=== PATIENT | male | born 1960 | race African-American/Black ===

== ENCOUNTER 2017-06-27 17:10 | Emergency (ER) | payer MEDICARE, MEDICAID ==
[~2017-06-27] VITALS: Ht 182.9 cm; Wt 128.0 kg
[~2017-06-27 17:10] MED LIST: BISA5TAB PO; CENTTAB9 PO; CLOP75 PO; COLL30OI3 TOP; DULC100C; GABA300 PO; LANTINJ SQ; LANTUSP SQ; LISI-366 PO; LORTA5 PO; MAPA325T6 PO; NOVORP2 SQ; NU-I150C PO; SIMV80TA PO; STOOTAB PO; TOPR25TA2 PO; VITA500T83 PO; [UNRECOGNIZED DRUG - CODE]
[2017-06-27 17:29] VITALS: BP 181/85; PULSE 73; RESP 18; TEMP 98.6; O2SAT 98
[2017-06-27] MEDS ORDERED: MORPHINE SULFATE 4 MG/ML INJ IV PUSH ONE (17:30)
[2017-06-27] MEDS ORDERED: ONDANSETRON HCL 4 MG/2 ML VIAL IV PUSH ONE (17:30)
[2017-06-27] MEDS ORDERED: SODIUM CHLOR 0.9% 250 ML INJ 250 ML IV ONE (17:30)
--- NOTE | 2017-06-27 17:42 | PD ---
HPI Chief Complaint: Laceration/Skin Injury Time Seen by Provider: 17:27 Travel History International Travel<30 days: No Contact w/Intl Traveler<30days: No Traveled to known affect area: No History of Present Illness HPI The patient is a 57-year-old male who presents to the emergency department for reevaluation of a left foot injury. The patient has a history of osteomyelitis and abscess to left foot and was recently admitted to [facility] where he underwent debridement of the wound and was placed on IV antibiotics via PICC line. The patient's budget consultant was Dr. Guajardo. The patient apparently had his wound reevaluated today and the nurse thought it looked worse, subsequent sent him to the emergency department. The patient was just discharged from for Hospital on Saturday and is currently on Cipro, minocycline, and Bactrim. The patient does have a history of peripheral last disease according to Dr. Guajardo was recommended he have a BKA, however, patient did not want a BKA. He denies any current fever, chills, or sweats. PFSH Past Medical History Hx Anticoagulant Therapy: Yes Arthritis: Yes Asthma: No Autoimmune Disease: No Blood Disorders: No Anxiety: No Depression: No Heart Rhythm Problems: No Cancer: No Cardiac Catheterization: Yes (2 STENTS) Cardiovascular Problems: Yes High Cholesterol: Yes Chemotherapy: No Chest Pain: Yes Congestive Heart Failure: Yes COPD: No Cerebrovascular Accident: Yes Coronary Artery Disease: Yes Diabetes: Yes Diminished Hearing: No Endocrine: Yes Gastrointestinal Disorders: Yes GERD: No Genitourinary: No Headaches: Yes Hiatal Hernia: No Hypertension: Yes Immune Disorder: No Implanted Vascular Access Dvce: Yes Kidney Stones: No Musculoskeletal: Yes Neurologic: Yes Psychiatric: No Reproductive: No Respiratory: Yes Migraines: No Myocardial Infarction: Yes (2007) Radiation Therapy: No Renal Failure: No Seizures: No Sickle Cell Disease: No Sleep Apnea: No Thyroid Disease: No Ulcer: No PNEUMOCCOCAL Vaccine (Year): 2 Past Surgical History Abdominal Surgery: No AICD: No Arteriovenous Shunt: No Body Medical Devices: PINS IN LEFT FOOT, CARDIAC STENT X2 Cardiac Surgery: Yes (CARDIAC STENT X2) Coronary Stent: Yes (X2) Ear Surgery: No Endocrine Surgery: No Eye Surgery: No Genitourinary Surgery: No Gynecologic Surgery: No Insulin Pump: No Joint Replacement: No Neurologic Surgery: No Oral Surgery: No Pacemaker: No Thoracic Surgery: No Other Surgery: Yes (CARDIAC CATH) Social History Alcohol Use: No Tobacco Use: No Substance Use: No Allergies-Medications (Allergen,Severity, Reaction): Coded Allergies: *MDRO Multi-Drug Resistant Organism (Verified Adverse Reaction, Unknown, ) MRSA (urine) 07/2015 Reported Meds & Prescriptions Reported Meds & Active Scripts Active Reported Humalog Inj (Insulin Human Lispro) 1,000 Unit/10 Ml Vial 5 Units SQ TIDAC Santyl Topical (Collagenase) 250 Unit/Gm Oint 1 Applic TOPICAL DAILY Lantus Inj (Insulin Glargine) 1,000 Unit/10 Ml Vial 10 Units SQ HS Minocycline (Minocycline HCl) 100 Mg Cap 100 Mg PO ONCE Cipro Inj (Ciprofloxacin/Dextrose) 400 Mg/200 Ml Bag 400 Mg IV Q12H Bactrim DS (Sulfamethoxazole-Trimethoprim) 800-160 Mg Tab 1 Tab PO BID Neurontin (Gabapentin) 300 Mg Cap 300 Mg PO BID Aspirin 81 Mg Chew 81 Mg CHEW DAILY Hydrocodone-Acetaminophen 10-300 Tab 1 Tab PO Q6H PRN Ascorbic Acid 500 Mg Tab 500 Mg PO Simvastatin 10 Mg Tab 10 Mg PO DAILY Review of Systems Except as stated in HPI: all other systems reviewed are Neg General / Constitutional: No: Fever, Chills Cardiovascular: No: Chest Pain or Discomfort Respiratory: No: Shortness of Breath Gastrointestinal: No: Nausea, Vomiting, Abdominal Pain Musculoskeletal: Positive: Edema, Pain Physical Exam Narrative GENERAL: Awake, alert, 57-year-old Candice male who appears his stated age and is in no acute respiratory distress. SKIN: Focused skin assessment warm/dry. HEAD: Atraumatic. Normocephalic. EYES: No injection or drainage. ENT: No nasal bleeding or discharge. Mucous membranes pink and moist. NECK: Trachea midline. No JVD. CARDIOVASCULAR: Regular rate and rhythm. No murmur appreciated. Heart rate in the 70s. RESPIRATORY: No accessory muscle use. Clear to auscultation. Breath sounds equal bilaterally. GASTROINTESTINAL: Abdomen soft, non-tender, nondistended. No rebound tenderness. MUSCULOSKELETAL: Right lower extremity reveals a superficial wound on the plantar surface of the right foot with no tenderness or drainage. Inspection of the left foot reveals large open area over the lateral aspect with wound packing in place. Wet-to-dry gauze were removed, there is well vitalized tissue which is bleeding from the wound, minimal drainage noted on the gauze. Chronic gangrenous changes noted to the fifth toe. NEUROLOGICAL: Awake and alert. No obvious cranial nerve deficits. Motor grossly within normal limits. Normal speech. Alert and oriented 4. PSYCHIATRIC: Appropriate mood and affect; insight and judgment normal. Data Data Last Documented VS Vital Signs Date Time Temp Pulse Resp B/P (MAP) Pulse Ox O2 Delivery O2 Flow Rate FiO2 06/27/17 17:29 98.6 73 18 181/85 (117) 98 Orders Orders Complete Blood Count With Diff (06/27/17 17:30) Comprehensive Metabolic Panel (06/27/17 17:30) Lactic Acid (06/27/17 17:30) Blood Culture (06/27/17 17:30) Morphine Inj (Morphine Inj) (06/27/17 17:30) Ondansetron Inj (Zofran Inj) (06/27/17 17:30) Sodium Chlor 0.9% 250 Ml Inj (Ns 250 Ml (06/27/17 17:30) Labs Laboratory Tests Test 06/27/17 17:35 White Blood Count 11.1 TH/MM3 Red Blood Count 3.61 MIL/MM3 Hemoglobin 9.6 GM/DL Hematocrit 29.4 % Mean Corpuscular Volume 81.3 FL Mean Corpuscular Hemoglobin 26.5 PG Mean Corpuscular Hemoglobin Concent 32.6 % Red Cell Distribution Width 18.1 % Platelet Count 308 TH/MM3 Mean Platelet Volume 8.6 FL Neutrophils (%) (Auto) 72.0 % Lymphocytes (%) (Auto) 15.7 % Monocytes (%) (Auto) 7.9 % Eosinophils (%) (Auto) 4.0 % Basophils (%) (Auto) 0.4 % Neutrophils # (Auto) 8.0 TH/MM3 Lymphocytes # (Auto) 1.7 TH/MM3 Monocytes # (Auto) 0.9 TH/MM3 Eosinophils # (Auto) 0.4 TH/MM3 Basophils # (Auto) 0.0 TH/MM3 CBC Comment DIFF FINAL Differential Comment Blood Urea Nitrogen 21 MG/DL Creatinine 1.44 MG/DL Random Glucose 90 MG/DL Total Protein 7.6 GM/DL Albumin 1.9 GM/DL Calcium Level 7.9 MG/DL Alkaline Phosphatase 154 U/L Aspartate Amino Transf (AST/SGOT) 32 U/L Alanine Aminotransferase (ALT/SGPT) 35 U/L Total Bilirubin 0.2 MG/DL Sodium Level 134 MEQ/L Potassium Level 5.4 MEQ/L Chloride Level 104 MEQ/L Carbon Dioxide Level 22.8 MEQ/L Anion Gap 7 MEQ/L Estimat Glomerular Filtration Rate 61 ML/MIN Lactic Acid Level 0.7 mmol/L [facility] Medical Decision Making Medical Screen Exam Complete: Yes Emergency Medical Condition: Yes Medical Record Reviewed: Yes Interpretation(s) Laboratory Tests Test 06/27/17 17:35 White Blood Count 11.1 TH/MM3 Red Blood Count 3.61 MIL/MM3 Hemoglobin 9.6 GM/DL Hematocrit 29.4 % Mean Corpuscular Volume 81.3 FL Mean Corpuscular Hemoglobin 26.5 PG Mean Corpuscular Hemoglobin Concent 32.6 % Red Cell Distribution Width 18.1 % Platelet Count 308 TH/MM3 Mean Platelet Volume 8.6 FL Neutrophils (%) (Auto) 72.0 % Lymphocytes (%) (Auto) 15.7 % Monocytes (%) (Auto) 7.9 % Eosinophils (%) (Auto) 4.0 % Basophils (%) (Auto) 0.4 % Neutrophils # (Auto) 8.0 TH/MM3 Lymphocytes # (Auto) 1.7 TH/MM3 Monocytes # (Auto) 0.9 TH/MM3 Eosinophils # (Auto) 0.4 TH/MM3 Basophils # (Auto) 0.0 TH/MM3 CBC Comment DIFF FINAL Differential Comment Blood Urea Nitrogen 21 MG/DL Creatinine 1.44 MG/DL Random Glucose 90 MG/DL Total Protein 7.6 GM/DL Albumin 1.9 GM/DL Calcium Level 7.9 MG/DL Alkaline Phosphatase 154 U/L Aspartate Amino Transf (AST/SGOT) 32 U/L Alanine Aminotransferase (ALT/SGPT) 35 U/L Total Bilirubin 0.2 MG/DL Sodium Level 134 MEQ/L Potassium Level 5.4 MEQ/L Chloride Level 104 MEQ/L Carbon Dioxide Level 22.8 MEQ/L Anion Gap 7 MEQ/L Estimat Glomerular Filtration Rate 61 ML/MIN Lactic Acid Level 0.7 mmol/L Differential Diagnosis Differential diagnosis includes chronic osteomyelitis, abscess, cellulitis, infected wound, PVD, ischemic left foot. Narrative Course IV was established, labs are drawn and sent, and the patient was placed on cardiac telemetry monitoring and continuous pulse oximetry monitoring. Blood cultures and lactic acid were sent to lab. 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 I reviewed the [facility]'s [facility]MR from the [facility], he is on minocycline, Bactrim, and Cipro. I called Dr. Guajardo, his budget consultant at [facility] and spoke with Dr. Guajardo's partner. During the discussion it was noted the patient has been admitted several times for chronic cellulitis and recently underwent debridement of the left foot which shows discharge in June 25. No acute changes in management according to the budget consultant, if labs are unremarkable, the patient be discharged back to the [facility] to continue IV antibiotics through the PICC line. The patient is currently afebrile, is not tachycardic, and the wound looks well with bleeding tissue on the edges of the wound and no visible purulent drainage. White count is minimally elevated 11.1. Lactic acid is normal. Patient is stable for outpatient follow-up with his budget consultant as he just had debridement and was discharged 2 days ago and is currently receiving antibiotics to the PICC line. Diagnosis Primary Impression: Chronic osteomyelitis of left foot Patient Instructions: General Instructions Additional Instructions: Continue current antibiotics as previously directed. Follow-up with your budget consultant. Monitor for signs of increasing infection. Disposition: DISCHARGE TO SNF (discharge back to [facility]) Thomas De Leon MD Jun 27, 2017 17:42
[2017-06-27 17:55] LABS: BASOPHIL % 0.4 % (0.0-2.0); EOSINOPHIL # 0.4 TH/MM3 (0-0.4); HEMATOCRIT 29.4 % (39.0-51.0); HEMO FLAGS DIFF FINAL; LYMPH % 15.7 % (9.0-44.0); LYMPHOCYTE # 1.7 TH/MM3 (1.0-4.8); MEAN CELL VOLUME 81.3 FL (80.0-100.0); MEAN CORPUSCULAR HEMOGLOBIN 26.5 PG (27.0-34.0); MEAN CORPUSCULAR HGB CONC 32.6 % (32.0-36.0); MONO % 7.9 % (0.0-8.0); PLATELET COUNT 308 TH/MM3 (150-450); RED BLOOD COUNT 3.61 MIL/MM3 (4.50-5.90); RED CELL DISTRIBUTION WIDTH 18.1 % (11.6-17.2); WHITE BLOOD COUNT 11.1 TH/MM3 (4.0-11.0)
[2017-06-27 18:10] LABS: ANION GAP 7 MEQ/L (5-15); AST (GOT) 32 U/L (15-37); BICARBONATE 22.8 MEQ/L (21.0-32.0); BLOOD UREA NITROGEN 21 MG/DL (7-18); CHLORIDE 104 MEQ/L (98-107); GLOMERULAR FILTRATION RATE 61 ML/MIN (>89); POTASSIUM 5.4 MEQ/L (3.5-5.1); SODIUM (NA) 134 MEQ/L (136-145)
[2017-06-27] MEDS ORDERED: MINO100 PO (18:11)
[2017-06-27] MEDS ORDERED: SIMV10TA PO (18:11)
[2017-06-27] MEDS ORDERED: NEUR300C PO (18:11)
[2017-06-27] MEDS ORDERED: [UNRECOGNIZED DRUG - CODE] IV (18:11)
[2017-06-27] MEDS ORDERED: LANTUS2P SQ (18:11)
[2017-06-27] MEDS ORDERED: BACT800T5 PO (18:11)
[2017-06-27] MEDS ORDERED: ASCO500T PO (18:11)
[2017-06-27] MEDS ORDERED: HUMALOG SQ (18:11)
[2017-06-27] MEDS ORDERED: ASPI81CH CHEW (18:11)
[2017-06-27] MEDS ORDERED: HYDR-2374 PO (18:11)
[2017-06-27] MEDS ORDERED: COLL30T TOPICAL (18:11)
[2017-06-27 18:14] LABS: ALKALINE PHOSPHATASE 154 U/L (45-117); ALT (GPT) 35 U/L (12-78); TOTAL BILIRUBIN ADULT 0.2 MG/DL (0.2-1.0)
[2017-06-27] MEDS ORDERED: APIX5TAB PO (18:17)
== END 2017-06-27 20:23 ==
LOC: NEPE 17:10
DX: M86.672 Other chronic osteomyelitis, left ankle and foot (principal); D72.829 Elevated white blood cell count, unspecified; B96.89 Other specified bacterial agents as the cause of diseases classified elsewhere; E11.9 Type 2 diabetes mellitus without complications; I10 Essential (primary) hypertension; E78.00 Pure hypercholesterolemia, unspecified; I25.2 Old myocardial infarction; Z79.01 Long term (current) use of anticoagulants; Z79.4 Long term (current) use of insulin; Z87.39 Personal history of other diseases of the musculoskeletal system and connective tissue; Z86.79 Personal history of other diseases of the circulatory system; Z87.19 Personal history of other diseases of the digestive system; Z86.69 Personal history of other diseases of the nervous system and sense organs
CPT/HCPCS: 80053; 83605; 85025; 87040; 87205; 96374; 96375; 99284; J2270; J2405; J7050

== ENCOUNTER 2018-06-11 11:04 | Inpatient (IN) ==
--- NOTE | 2018-06-11 12:16 | ED ---
HPI General Chief complaint: Medical Clearance Stated complaint: Swelling Time Seen by Provider: 06/11/18 11:57 History of Present Illness HPI narrative: Patient presents to the emergency department after coughing the CFS. Apparently fine rescue was at the patient's home last week and called DCFS. DCFS went to the patient home today and called [facility] for transport to the emergency department for placement issues when asked why patient is here he states "I need help." Advises that he lives alone and has difficulty taking care of himself. He denies fever, chills, chest pain, abdominal pain, nausea, vomiting, shortness of breath, diarrhea. Related Data Home Medications Medication Instructions Recorded Confirmed Unable to Obtain Home Meds 06/11/18 06/11/18 Allergies Allergy/AdvReac Type Severity Reaction Status Date / Time No Known Allergies Allergy Unverified 06/11/18 11:16 Review of Systems ROS: all other systems reviewed are negative [facility] Medical History Medical History Acute kidney injury (Acute) Chronic anemia (Acute) Coronary artery disease (Acute) Diabetes (Acute) Dyslipidemia (Acute) Foot ulcer (Acute) Generalized anxiety disorder (Acute) History of CVA (cerebrovascular accident) (Acute) Hypernatremia (Acute) Hypertension (Acute) Hypokalemia (Acute) Lower extremity edema (Acute) Lymphedema (Acute) Old [place] (myocardial infarction) (Acute) Osteoarthritis (Acute) Right hemiplegia (Acute) Surgical History Surgical History H/O right heart catheterization (Acute) Stented coronary artery (Acute) Family History Family History Mother CVA (cerebral vascular accident) Hypertension Diabetes Social History Social History Substance History: No History of Abuse Second Hand Smoke Exposure: No Smoking Status: Never smoker How Often Do You Have a Drink Containing Alcohol: Never Recent Travel in [facility] within the Last 8 Weeks: No Recent Out of Country Travel within the Last 8 Weeks: No Immunization History Tetanus Immunization: >5 Years Hx Influenza Vaccine This Season: Yes Exam Narrative Exam Narrative: GENERAL: No acute distress. SKIN: Focused skin assessment warm/dry. HEAD: Atraumatic. Normocephalic. EYES: Pupils equal and round. No scleral icterus. No injection or drainage. ENT: No nasal bleeding or discharge. Mucous membranes pink and moist. NECK: Trachea midline. No JVD. CARDIOVASCULAR: Regular rate and rhythm. No murmur appreciated. RESPIRATORY: No accessory muscle use. Clear to auscultation. Breath sounds equal bilaterally. GASTROINTESTINAL: Abdomen soft, non-tender, nondistended. Hepatic and splenic margins not palpable. MUSCULOSKELETAL: Bilat Lower Extremity edema, positive ulcers bilaterally on the soles of his feet NEUROLOGICAL: Awake and alert. No obvious cranial nerve deficits. Motor grossly within normal limits. Normal speech. PSYCHIATRIC: Appropriate mood and affect; insight and judgment normal. Course Initial Documented Vital Signs Temperature 97.8 F 06/11/18 11:18 Pulse Rate 98 H 06/11/18 11:18 Respiratory Rate 18 06/11/18 11:18 Blood Pressure 98/61 L 06/11/18 11:18 Pulse Oximetry 99 06/11/18 11:18 Last Documented Vital Signs Temperature 97.8 F 06/11/18 14:53 Pulse Rate 89 06/11/18 14:53 Respiratory Rate 18 06/11/18 14:53 Blood Pressure 113/75 06/11/18 14:53 Pulse Oximetry 100 06/11/18 14:53 Critical Care Time Critical Care Time: Yes Total Critical Care Time: 30 Attestation: Aggregate critical care time was 30 minutes. Time to perform other separately billable procedures was not included in the critical care time. My time did not include minutes spent treating any other patients simultaneously or on activities that did not directly contribute to the patient's treatment. The services I provided to this patient were to treat and/or prevent clinically significant deterioration that could result in: , cardiac arrthymia, increased morbidity I provided critical care services requiring my management, as noted below: Chart data review, documentation time, medication orders and management, vital sign assessments/reviewing monitor data, ordering and reviewing lab tests, ordering and interpreting/reviewing x-rays and diagnostic studies, care of the patient and discussion of the patient with the admitting physicians. Medical Decision Making MDM Narrative Medical decision making narrative: Patient presents to the emergency department for placement issues. Patient placed on hall monitor, continuous pulse ox, and IV access obtained. Labs and x-ray ordered. Additionally, case management consult placed. Patient given 1gram IV vanco for + UTI. Prior h/o MRSA in u/a. Labs: leukocytosis, decrease Hgb/HCT, increased BUN, creatinine, AST; decrease potassium, calcium; elevated lactate Patient given 40MEQ po KCL and 20MEq KCL over 2 hours x 1 then 10MEQ IV over 1 hour x 2 because there were no more 20MEQ KCL bags per pharmacist. Also given 1L IV NS and 1gram IV calcium gluconate. Pharmacist advises no calcium gluconate available, can give 0.3g calcium chloride is equivalent. CXR-No acute process; L foot: CONCLUSION: Probable osteomyelitis metatarsal heads. Tagged white cell study would be of benefit. R foot: Severe osteopenia without osteo. Blood cultures and lactate pending at time of admission. Medical Screen Exam Complete: Yes Emergency Medical Condition: Yes Differential Diagnosis Differential Diagnosis: Anemia, electrolyte abnormality, urinary tract infection , foot infection Lab Data Result diagrams: 06/11/18 12:26 06/11/18 12:26 Lab Results 06/11/18 06/11/18 06/11/18 Range/Units 12: 12: 12:30 WBC 13.9 H (4.0-11.0) th/mm3 RBC 3.97 L (4.50-5.90) mil/mm3 Hgb 10.3 L (13.0-17.0) gm/dL Hct 32.8 L (39.0-51.0) % MCV 82.5 (80.0-100.0) fL MCH 25.8 L (27.0-34.0) pg MCHC 31.3 L (32.0-36.0) % RDW 19.3 H (11.6-17.2) % Plt Count 151 (150-450) th/mm3 MPV 10.1 (7.0-11.0) fL Neut % (Auto) 77.5 H (16.0-70.0) % Lymph % (Auto) 13.3 (9.0-44.0) % [place] % (Auto) 8.7 H (0.0-8.0) % Eos % (Auto) 0.2 (0.0-4.0) % Baso % (Auto) 0.3 (0.0-2.0) % Neut # (Auto) 10.8 H (1.8-7.7) th/mm3 Lymph # (Auto) 1.8 (1.0-4.8) th/mm3 [place] # (Auto) 1.2 H (0.0-0.9) th/mm3 Eos # (Auto) 0.0 (0.0-0.4) th/mm3 Baso # (Auto) 0.0 (0.0-0.2) th/mm3 WBC Differential . Differential Comment Auto diff final Sodium 153 H (136-145) meq/L Potassium 2.3 L* (3.5-5.1) meq/L Chloride 111 H (98-107) meq/L Carbon Dioxide 29.5 (21.0-32.0) meq/L Anion Gap 13 (5-15) meq/L BUN 30 H (7-18) mg/dL Creatinine 2.55 H (0.60-1.30) mg/dL Estimated GFR 31 L (>89) mL/min Random Glucose 270 H (74-106) mg/dL Lactic Acid (0.4-2.0) mmol/L Calcium 7.2 L* (8.5-10.1) mg/dL Prot Corrected Calcium 7.2 L* (8.5-10.1) mg/dL Phosphorus (2.5-4.9) mg/dL Magnesium 1.9 (1.5-2.5) mg/dL Total Bilirubin 0.6 (0.2-1.0) mg/dL AST 41 H (15-37) U/L ALT 21 (12-78) U/L Alkaline Phosphatase 113 (45-117) U/L Total Protein 7.1 (6.4-8.2) g/dL Albumin 2.3 L (3.4-5.0) g/dL Urine Color [place] (Yellw/Straw) Urine Clarity Turbid H (Clear) Urine pH 5.0 (5.0-8.5) Ur Specific [place] 1.027 (1.002-1.035) Urine Protein 500 or greater (Neg-Trace) mg/dL Urine Glucose (UA) Negative (Negative) mg/dL Urine Ketones Trace (Negative) mg/dL Urine Occult Blood Large H (Negative) Urine Nitrate Negative (Negative) Urine Bilirubin Negative (Negative) Urine Ictotest Negative (Negative) Urine Urobilinogen 2.0 H (Less than 2) mg/dL Ur Leukocyte Esterase Large H (Negative) Urine RBC 127 H (0-3) /hpf Urine WBC (0-5) /hpf Urine WBC Clumps Many H (None) Ur Squamous Epith Cells 1 (0-5) /hpf Urine Bacteria Many H (None) /hpf Urine Mucus Few H (Occasional) /lpf Micro UA Comment Cath-culture ind Ur Microscopic Review Not Reportable Urine Culture Comments Cath-cult indicated 06/11/18 06/11/18 Range/Units 14:15 14:25 WBC (4.0-11.0) th/mm3 RBC (4.50-5.90) mil/mm3 Hgb (13.0-17.0) gm/dL Hct (39.0-51.0) % MCV (80.0-100.0) fL MCH (27.0-34.0) pg MCHC (32.0-36.0) % RDW (11.6-17.2) % Plt Count (150-450) th/mm3 MPV (7.0-11.0) fL Neut % (Auto) (16.0-70.0) % Lymph % (Auto) (9.0-44.0) % [place] % (Auto) (0.0-8.0) % Eos % (Auto) (0.0-4.0) % Baso % (Auto) (0.0-2.0) % Neut # (Auto) (1.8-7.7) th/mm3 Lymph # (Auto) (1.0-4.8) th/mm3 [place] # (Auto) (0.0-0.9) th/mm3 Eos # (Auto) (0.0-0.4) th/mm3 Baso # (Auto) (0.0-0.2) th/mm3 WBC Differential Differential Comment Sodium (136-145) meq/L Potassium (3.5-5.1) meq/L Chloride (98-107) meq/L Carbon Dioxide (21.0-32.0) meq/L Anion Gap (5-15) meq/L BUN (7-18) mg/dL Creatinine (0.60-1.30) mg/dL Estimated GFR (>89) mL/min Random Glucose (74-106) mg/dL Lactic Acid 2.2 H (0.4-2.0) mmol/L Calcium (8.5-10.1) mg/dL Prot Corrected Calcium (8.5-10.1) mg/dL Phosphorus 3.2 (2.5-4.9) mg/dL Magnesium (1.5-2.5) mg/dL Total Bilirubin (0.2-1.0) mg/dL AST (15-37) U/L ALT (12-78) U/L Alkaline Phosphatase (45-117) U/L Total Protein (6.4-8.2) g/dL Albumin (3.4-5.0) g/dL Urine Color (Yellw/Straw) Urine Clarity (Clear) Urine pH (5.0-8.5) Ur Specific [place] (1.002-1.035) Urine Protein (Neg-Trace) mg/dL Urine Glucose (UA) (Negative) mg/dL Urine Ketones (Negative) mg/dL Urine Occult Blood (Negative) Urine Nitrate (Negative) Urine Bilirubin (Negative) Urine Ictotest (Negative) Urine Urobilinogen (Less than 2) mg/dL Ur Leukocyte Esterase (Negative) Urine RBC (0-3) /hpf Urine WBC (0-5) /hpf Urine WBC Clumps (None) Ur Squamous Epith Cells (0-5) /hpf Urine Bacteria (None) /hpf Urine Mucus (Occasional) /lpf Micro UA Comment Ur Microscopic Review Urine Culture Comments Imaging Data Radiologist's impression: Chest X-Ray 06/11/18 12:06 CONCLUSION: Negative for acute process Foot X-Ray 06/11/18 12:06 CONCLUSION: Probable osteomyelitis metatarsal heads. Tagged white cell study would be of benefit. Foot X-Ray 06/11/18 12:06 CONCLUSION: Severe osteopenia without obvious osteomyelitis. Tagged white cell study may help. ECG Data Attestation: I personally reviewed and interpreted this ECG as follows: (Sinus tachycardia at 103, normal axis, ST depression in lead I, aVL, V5-V6, T wave inversion in V2 and aVL, PVCs) Discharge Plan Discharge Disposition Patient Disposition: 30 Still Patient Discharge Condition Condition: Stable Discharge Details Diagnosis: Acute hypokalemia, Hypocalcemia, Acute renal insufficiency, Urinary tract infection Physicians Team ED Provider: Fatou Greenwood Primary Care Provider: Tommie Harrell V Attending Provider: Jax Solares Status ED Status: Admitted Patient
[2018-06-11 13:04] LABS: Baso % (Auto) 0.3 % (0.0-2.0); Eos % (Auto) 0.2 % (0.0-4.0); Hematocrit 32.8 % (39.0-51.0); Hemoglobin 10.3 gm/dL (13.0-17.0); Lymph # (Auto) 1.8 th/mm3 (1.0-4.8); Lymph % (Auto) 13.3 % (9.0-44.0); Mean Corpuscular HGB Conc 31.3 % (32.0-36.0); Mean Corpuscular Hemoglobin 25.8 pg (27.0-34.0); Mean Corpuscular Volume 82.5 fL (80.0-100.0); Mean Platelet Volume 10.1 fL (7.0-11.0); Mono # (Auto) 1.2 th/mm3 (0.0-0.9); Mono % (Auto) 8.7 % (0.0-8.0); Neut # (Auto) 10.8 th/mm3 (1.8-7.7); Neut % (Auto) 77.5 % (16.0-70.0); Platelet Count 151 th/mm3 (150-450); Red Blood Count 3.97 mil/mm3 (4.50-5.90); Red Cell Distribution Width 19.3 % (11.6-17.2); White Blood Count 13.9 th/mm3 (4.0-11.0)
[2018-06-11 13:12] LABS: Bacteria,Urine Many /hpf; Clarity,Urine Turbid (Clear); Color,Urine Amber (Yellw/Straw); Glucose,Urine (UA) Negative (Negative); Leukocyte Esterase,Urine Large (Negative); Mucus,Urine Few /lpf (Occasional); Nitrite,Urine Negative (Negative); Specific Gravity,Urine 1.027 (1.002-1.035); Squamous Epithelial Cell,Urine 1 /hpf (0-5)
[2018-06-11 13:16] LABS: Bilirubin,Urine Negative (Negative); Ictotest,Urine Negative (Negative)
[2018-06-11 13:53] LABS: Albumin 2.3 g/dL (3.4-5.0); Calcium 7.2 mg/dL (8.5-10.1); Carbon Dioxide 29.5 meq/L (21.0-32.0); Magnesium 1.9 mg/dL (1.5-2.5); Total Protein 7.1 g/dL (6.4-8.2)
[2018-06-11 13:58] LABS: Potassium 2.3 meq/L (3.5-5.1)
--- NOTE | 2018-06-11 14:03 | XR ---
EXAM DATE: 06/11/2018 1:45 PM EDT AGE/SEX: 58 years / Male INDICATIONS: Right foot ulcers. CLINICAL DATA: This is the patient's initial encounter. Patient reports that signs and symptoms have been present for 1 day and indicates a pain score of 5/10. MEDICAL/SURGICAL HISTORY: Diabetes. None. COMPARISON: [facility] [place], TIBIA/FIBULA RIGHT (AP/LAT), 07/08/2015. . FINDINGS: There is diffuse osteopenia with extensive vascular calcifications. There is no obvious bone destruct ion however give osteopenia makes detection of subtle osseous myelitis difficult. CONCLUSION: Severe osteopenia without obvious osteomyelitis. Tagged white cell study may help. Electronically signed by: Vitaly Jacinto MD 06/11/2018 2:02 PM EDT
--- NOTE | 2018-06-11 14:04 | XR ---
EXAM DATE: 06/11/2018 1:42 PM EDT AGE/SEX: 58 years / Male INDICATIONS: Left foot ulcers. CLINICAL DATA: This is the patient's initial encounter. Patient reports that signs and symptoms have been present for 1 day and indicates a pain score of 5/10. MEDICAL/SURGICAL HISTORY: Diabetes. . Digit amputations. COMPARISON: [facility] [place], ANKLE LEFT LIMITED (AP&LAT), 10/04/2015. . FINDINGS: Severe osteopenia with digital artery calcifications. There is erosive changes at the head of the sec ond third fourth metatarsals. The fifth metatarsal is surgically absent. Severe erosive changes are seen in the tarsals. Osteomyelitis in the likely diagnosis. CONCLUSION: Probable osteomyelitis metatarsal heads. Tagged white cell study would be of benefit. Electronically signed by: Vitaly Jacinto MD 06/11/2018 2:03 PM EDT
--- NOTE | 2018-06-11 14:05 | XR ---
EXAM DATE: 06/11/2018 1:40 PM EDT AGE/SEX: 58 years / Male INDICATIONS: Fever. CLINICAL DATA: This is the patient's initial encounter. Patient reports that signs and symptoms have been present for 1 day and indicates a pain score of 0/10. MEDICAL/SURGICAL HISTORY: Diabetes. None. COMPARISON: [facility] [place], CHEST SINGLE AP, 09/24/2015. . FINDINGS: A single AP view of the chest demonstrates the lungs to be symmetrically aerated without evidence of mass, infiltrate or effusion. The cardiomediastinal contours are unremarkable. Osseous structures a re intact. CONCLUSION: Negative for acute process Electronically signed by: Vitaly Jacinto MD 06/11/2018 2:04 PM EDT
[2018-06-11] MEDS ORDERED: Potassium Chloride 10 MEQ ER Capsule PO ONE (14:13)
[2018-06-11] MEDS ORDERED: Potassium Chlor 20 mEq Premix 20 MEQ/100 ML PIGGYBACK IV.SIG ONE ×3 (14:13→20:00)
[2018-06-11] MEDS ORDERED: Vancomycin Inj 1,000 MG in Sodium Chlor 0.9% Inj 250 ML IV.SIG ONE (14:43)
[2018-06-11] MEDS ORDERED: Sod Chloride 0.9% Inj 1,000 ML IV.SIG ONE (14:48)
[2018-06-11] MEDS ORDERED: Vancomycin Consult Pharmacy OTHER PRN (15:03)
[2018-06-11] MEDS ORDERED: Dextrose 50% in Water 50 ML Vial IV.PUSH PRN (16:25)
--- NOTE | 2018-06-11 16:25 | P.HPIM ---
History of Present Illness Primary Care Physician: Tommie Harrell MD History of Present Illness: Mr. Jerry is a 58-year-old male. He lives home alone. He has been followed by [facility]. DCF brought this patient in today for placement. Workup upon patient' s arrival revealed bilateral foot swelling and ulcers. When blood testing was done he is found to be severely hypokalemic and hypocalcemic. He also has evidence of acute kidney injury and hypernatremia. Dehydration may be present. He has a urinary tract infection. Some foot ulcers may have early infection. At baseline he has chronic osteomyelitis. Evidence of ostium mellitus is seen on imaging. - Diagnosis (1) Acute hypokalemia (2) Hypocalcemia (3) Acute renal insufficiency (4) Urinary tract infection Inpatient Certification: I certify that the inpatient services were ordered in accordance with Medicare regulations governing the order. This includes certification that hospital inpatient services are reasonable and necessary and in the case of services not specified as inpatient-only under 42 CFR 419.22(n), that they are appropriately provided as inpatient services in accordance to with the 2-midnight benchmark under 43 CFR 412.3(e) Estimated Total Length of Stay (Days): 3 Plans for Post Hospital Care: SNF Review of Systems Constitutional: No fevers, no chills no night sweats, no fatigue, no weakness Eyes: No eye pain, no blurry vision, no loss of vision ENT: No sore throat, no ear pain, no rhinorrhea Cardiovascular: No chest pain, no tachycardia, no palpitations, no shortness of breath, no syncope Respiratory: No wheezing, no cough, no shortness of breath Gastrointestinal: No abdominal pain, no black tarry stools, no bright red blood per rectum, no vomiting, no diarrhea Musculoskeletal: No joint pain, no muscle cramps, no stiffness, generalized weakness, bilateral foot swelling Integumentary: No rash, no ulcers, no drainage Neurologic: No sensory loss, no loss of motor function, no dizziness Psychiatric: No behavioral changes, no hallucinations, no suicidal ideations PMFSH - History History Provided By: Patient - Medical History Medical History: Medical History (Last Updated 06/11/18 @ 16:14 by Jax Solares MD) Acute kidney injury Chronic anemia Coronary artery disease Diabetes Dyslipidemia Foot ulcer Generalized anxiety disorder History of CVA (cerebrovascular accident) Hypernatremia Hypertension Hypokalemia Lower extremity edema Lymphedema [place] (myocardial infarction) Osteoarthritis Right hemiplegia - Surgical History Surgical History: Surgical History (Last Updated 06/11/18 @ 16:14 by Jax Solares MD) H/O right heart catheterization Stented coronary artery - Family History Family History: Family History (Last Updated 06/11/18 @ 16:15 by Jax Solares MD) Mother CVA (cerebral vascular accident) Hypertension Diabetes - Tobacco History Second Hand Smoke Exposure: No Smoking Status: Never smoker - Alcohol History How Often Do You Have a Drink Containing Alcohol: Never - Substance Use History Substance History: No History of Abuse - Travel History Recent Travel in the [place] Within the Last 8 Weeks: No Recent Travel Out of the Country Within the Last 8 Weeks: No - Immunization History Tetanus Immunization: >5 Years Hx Influenza Vaccine This Season: Yes Medications and Allergies Active Medications: Active Medications Al Hydroxide/Mg Hydroxide (Milk Of Magnolimpia Liq) 30 ml PO Q12H PRN PRN Reason: Mild Constipation Potassium Chloride (Kcl 20 Meq Premix Inj) 20 meq in 100 mls @ 50 mls/hr IV.SIG ONCE ONE Stop: 06/11/18 16:12 Last Admin: 06/11/18 14:51 Dose: 50 mls/hr Potassium Chloride (Kcl 20 Meq Premix Inj) 20 meq in 100 mls @ 50 mls/hr IV.SIG ONCE ONE Stop: 06/11/18 16:13 Sodium Chloride (Ns Inj) 1,000 mls @ 84 mls/hr IV.CONT .[id number] RADHA Ceftriaxone Sodium 1,000 mg/ (Sodium Chloride) 100 mls @ 200 mls/hr IV.SIG Q24H RADHA Vancomycin HCl 1,000 mg/ (Sodium Chloride) 250 mls @ 250 mls/hr IV.SIG Q12H RADHA Lactobacillus Acidophilus (Lactinex) 1 tab PO TID RADHA Pharmacy Profile Note (Vancomycin Consult Pharmacy) 1 each OTHER UNSCH PRN PRN Reason: Pharmacy to dose Allergies Allergy/AdvReac Type Severity Reaction Status Date / Time No Known Allergies Allergy Unverified 06/11/18 11:16 Home Medications Medication Instructions Recorded Confirmed Type Unable to Obtain Home Meds 06/11/18 06/11/18 History Exam Vital signs: Vital Signs 06/11/18 11:18 06/11/18 14:53 Temperature 97.8 F 97.8 F Pulse Rate 98 H 89 Respiratory Rate 18 18 Blood Pressure 98/61 L 113/75 Pulse Oximetry 99 100 Intake & Output 06/10/18 06/11/18 06/11/18 18:59 06:59 18:59 Output Total 600 / 600 Balance -600 / -600 Weight 136.078 kg Output: Urine Amount (Catheter) 600 / 600 Indwelling Temp Sensing 600 / 600 Catheter Narrative: GENERAL: NAD, A&Ox3 HEAD: Normocephalic. NECK: Supple, trachea midline. No lymphadenopathy. EYES: No scleral icterus. No injection or drainage. CARDIOVASCULAR: Regular rate and rhythm without murmurs, gallops, or rubs. RESPIRATORY: Breath sounds equal bilaterally. No accessory muscle use. GASTROINTESTINAL: Abdomen soft, non-tender, nondistended. MUSCULOSKELETAL: No cyanosis, bilateral lower extremity edema, severe edema bilateral feet more significant at left foot. Bilateral foot ulcers. SKIN: Warm and dry. NEURO: No focal neurological deficits. Results - Labs CBC & Chem 7: 06/11/18 12:26 06/11/18 12:26 Labs: Short CBC 06/11/18 Range/Units 12:26 WBC 13.9 H (4.0-11.0) th/mm3 Hgb 10.3 L (13.0-17.0) gm/dL Hct 32.8 L (39.0-51.0) % Plt Count 151 (150-450) th/mm3 BMP 06/11/18 12:26 Sodium 153 H Potassium 2.3 L* Chloride 111 H Carbon Dioxide 29.5 BUN 30 H Creatinine 2.55 H Calcium 7.2 L* Liver Function 06/11/18 Range/Units 12:26 Total Bilirubin 0.6 (0.2-1.0) mg/dL AST 41 H (15-37) U/L ALT 21 (12-78) U/L Alkaline Phosphatase 113 (45-117) U/L Albumin 2.3 L (3.4-5.0) g/dL Urine 06/11/18 Range/Units 12:30 Urine Color [place] (Yellw/Straw) Urine Clarity Turbid H (Clear) Urine pH 5.0 (5.0-8.5) Ur Specific [place] 1.027 (1.002-1.035) Urine Protein 500 or greater (Neg-Trace) mg/dL Urine Glucose (UA) Negative (Negative) mg/dL - Imaging Impressions Chest X-Ray 06/11/18 12:06 CONCLUSION: Negative for acute process Foot X-Ray 06/11/18 12:06 CONCLUSION: Probable osteomyelitis metatarsal heads. Tagged white cell study would be of benefit. Foot X-Ray 06/11/18 12:06 CONCLUSION: Severe osteopenia without obvious osteomyelitis. Tagged white cell study may help. Caprini VTE Risk Assessment Caprini VTE Risk Assessment: Moderate/High Risk (score >= 2) Caprini Risk Assessment Model: Point Value = 1 Point Value = 2 Point Value = 3 Point Value = 5 Age 41-60 Minor surgery BMI > 25 kg/m2 Swollen legs Varicose veins or History of unexplained or recurrent spontaneous Oral contraceptives or hormone replacement Sepsis (< 1 month) Serious lung disease, including pneumonia (< 1 month) Abnormal pulmonary function Acute myocardial infarction Congestive heart failure (< 1 month) History of inflammatory bowel disease Medical patient at bed rest Age 61-74 Arthroscopic surgery Major open surgery (> 45 min) Laparoscopic surgery (> 45 min) Malignancy Confined to bed (> 72 hours) Immobilizing plaster cast Central venous access Age >= 75 History of VTE Family history of VTE Factor V Leiden Prothrombin [id number] Lupus anticoagulant Anticardiolipin antibodies Elevated serum homocysteine Heparin-induced thrombocytopenia Other congenital or acquired thrombophilia Stroke (< 1 month) Elective arthroplasty Hip, pelvis, or leg fracture Acute spinal cord injury (< 1 month) Prophylaxis Regimen: Total Risk Factor Score Risk Level Prophylaxis Regimen 0-1 Low Early ambulation 2 Moderate Order ONE of the following: *Sequential Compression Device (SCD) *Heparin 5000 units SQ BID 3-4 Higher Order ONE of the following medications: *Heparin 5000 units SQ TID *Enoxaparin/Lovenox 40 mg SQ daily (WT < 150 kg, CrCl > 30 mL/min) *Enoxaparin/Lovenox 30 mg SQ daily (WT < 150 kg, CrCl > 10-29 mL/min) *Enoxaparin/Lovenox 30 mg SQ BID (WT < 150 kg, CrCl > 30 mL/min) AND/OR *Sequential Compression Device (SCD) 5 or more Highest Order ONE of the following medications: *Heparin 5000 units SQ TID (Preferred with Epidurals) *Enoxaparin/Lovenox 40 mg SQ daily (WT < 150 kg, CrCl > 30 mL/min) *Enoxaparin/Lovenox 30 mg SQ daily (WT < 150 kg, CrCl > 10-29 mL/min) *Enoxaparin/Lovenox 30 mg SQ BID (WT < 150 kg, CrCl > 30 mL/min) AND *Sequential Compression Device (SCD) Assessment and Plan - Assessment (1) Acute hypokalemia Code(s): E87.6 - Hypokalemia Status: Acute (2) Hypocalcemia Code(s): E83.51 - Hypocalcemia Status: Acute (3) Acute renal insufficiency Code(s): N28.9 - Disorder of kidney and ureter, unspecified Status: Acute (4) Urinary tract infection Code(s): N39.0 - Urinary tract infection, site not specified Status: Acute - Plan 58-year-old male admitted with hypokalemia, hypocalcemia, acute kidney injury, dehydration, hypernatremia, urinary tract infection, and severe edema of the feet with foot ulcers. Acute kidney injury Dehydration IV hydration Avoid nephrotoxins Monitor renal function Severe hypokalemia Replace and monitor Follow on telemetry Severe hypocalcemia Calcium gluconate given in the ER Treat infection Monitor calcium level Continue supplementation as needed Urinary tract infection Bilateral foot ulcers Vancomycin Rocephin Probiotics Monitor cultures Wound care consult Bilateral foot swelling May consider diuresis later For now correct electrolytes and monitor Bilateral Ultrasound of Lower Extremities to evaluate for DVTs Failure to thrive DCF is involved Discharge planning for placement Case management consulted Coronary artery disease [place] Doing baseline treatments once med rec is available No chest pain reported Follow on telemetry Hypertension Continue baseline treatment Follow blood pressures Adjust treatments as needed Diabetes mellitus type 2 Follow blood sugars Insulin sliding scale Diabetic diet History of CVA Right hemiplegia Continue supportive care No new neurological deficits Hyperlipidemia Continue present treatment Follow as an outpatient History of chronic anemia Follow CBC DVT prophylaxis Heparin (4) Urinary tract infection Qualifiers: Urinary tract infection type: catheter-associated UTI Indwelling urinary catheter type: indwelling urethral catheter Encounter type: initial encounter Qualified Code(s): T83.511A - Infection and inflammatory reaction due to indwelling urethral catheter, initial encounter; N39.0 - Urinary tract infection , site not specified
[2018-06-11] MEDS ORDERED: Potassium Chlor 10 mEq Premix 10 MEQ/100 ML PIGGYBACK IV.SIG SCH (17:00)
[2018-06-11] MEDS ORDERED: Calcium Chloride Inj 0.33 GM in Dextrose 5% in Water Inj 100 ML IV.SIG ONE ×2 (17:00)
[2018-06-11] MEDS: Lactobacillus Acidophilus/L. Spores Tablet PO SCH (17:41)
[2018-06-11] MEDS: Sod Chloride 0.9% Inj 1,000 ML IV.CONT SCH (17:41)
[2018-06-11] MEDS: Insulin NovoLOG Aspart Correctional Sugar Inj SQ SCH ×2 (20:35→23:36)
[2018-06-11] MEDS ORDERED: Heparin - SQ 10,000 UNITS/ML Vial SQ SCH (21:00)
[2018-06-11] MEDS: Vancomycin Inj 1,500 MG in Sodium Chlor 0.9% Inj 500 ML IV.SIG SCH (23:26)
[2018-06-11 23:36] LABS: Calcium 7.1 mg/dL (8.5-10.1)
[2018-06-11] MEDS: Heparin - SQ 10,000 UNITS/ML Vial SQ SCH (23:36)
[2018-06-11 23:40] LABS: Potassium 2.4 meq/L (3.5-5.1)
[2018-06-11 23:43] LABS: Troponin I 1.26 ng/mL (0.02-0.05)
[2018-06-11 23:51] LABS: Total Protein 6.7 g/dL (6.4-8.2)
[2018-06-12] MEDS ORDERED: Calcium Gluconate Inj 1 GM in Dextrose 5% in Water Inj 100 ML IV.SIG ONE ×4 (00:28→14:00)
[2018-06-12] MEDS ORDERED: Potassium Chloride 25 MEQ Effervescent Tablet PO ONE ×2 (00:29→14:00)
[2018-06-12] MEDS ORDERED: Calcium Chloride Inj 0.34 GM in Dextrose 5% in Water Inj 100 ML IV.SIG ONE ×2 (01:00)
[2018-06-12] MEDS: Potassium Chlor 20 mEq Premix 20 MEQ/100 ML PIGGYBACK IV.SIG SCH ×2 (02:16→04:21)
[2018-06-12] MEDS ORDERED: Vancomycin Inj 1,000 MG in Sodium Chlor 0.9% Inj 250 ML IV.SIG SCH (03:00)
[2018-06-12] MEDS: Sod Chloride 0.9% Inj 1,000 ML IV.CONT SCH ×2 (04:22→15:35)
[2018-06-12] MEDS: Heparin - SQ 10,000 UNITS/ML Vial SQ SCH ×2 (08:01→20:02)
[2018-06-12] MEDS: Lactobacillus Acidophilus/L. Spores Tablet PO SCH ×3 (08:02→17:15)
[2018-06-12] MEDS: Insulin NovoLOG Aspart Correctional Sugar Inj SQ SCH ×4 (08:08→20:02)
[2018-06-12 12:14] LABS: Baso % (Auto) 0.3 % (0.0-2.0); Eos # (Auto) 0.2 th/mm3 (0.0-0.4); Eos % (Auto) 1.6 % (0.0-4.0); Hematocrit 30.4 % (39.0-51.0); Hemoglobin 9.8 gm/dL (13.0-17.0); Lymph # (Auto) 1.9 th/mm3 (1.0-4.8); Lymph % (Auto) 15.9 % (9.0-44.0); Mean Corpuscular HGB Conc 32.1 % (32.0-36.0); Mean Corpuscular Hemoglobin 26.3 pg (27.0-34.0); Mean Corpuscular Volume 82.1 fL (80.0-100.0); Mean Platelet Volume 10.1 fL (7.0-11.0); Mono % (Auto) 8.6 % (0.0-8.0); Neut # (Auto) 8.7 th/mm3 (1.8-7.7); Neut % (Auto) 73.6 % (16.0-70.0); Platelet Count 111 th/mm3 (150-450); Red Blood Count 3.71 mil/mm3 (4.50-5.90); Red Cell Distribution Width 19.3 % (11.6-17.2); White Blood Count 11.8 th/mm3 (4.0-11.0)
--- NOTE | 2018-06-12 12:38 | P.PNWCN ---
Wound Care Nurse Consult Description: Consult for Bilateral lower extremities Communicated with: LAMBERTO Tinajero Dr Recommendation: Cleanse bilateral lower extremity leg/foot wounds with NS and gauze Q3D and PRN for saturation or dislodgement. Apply Maxorb II to wound bed. Cover with gauze. Secure with rolled gauze and tape. Date dressing. Additional information: Patient seen on [facility] for bilateral foot and right leg wounds. Cultures obtained after cleansing with NS and gauze. Wound/Pressure Injury - Wound Right Lower Posterior Leg Wound Assessment: Ongoing Is This a Chronic Wound: Yes Requested from Provider a Wound Care Consult: Yes Length: 2.6 (cm) Width: 1 (cm) Depth: 0.8 (cm) Wound Bed Appearance: [place], Red, White Wound Bed Appearance: moist Surrounding Tissue Appearance: [place] (scar tissue) Drainage Description: no active drainage noted Drainage Odor: No Odor Dressing Status: Changed Cleansing Solution: Saline Wound Packing Type: Alginate (Maxorb II) Primary Dressing: Gauze Pad Cover Dressing: Adhesive Dressing Wound Dressing Change Date: 06/12/18 (Change Q3D) Right Plantar Foot Wound Assessment: Ongoing Is This a Chronic Wound: Yes Requested from Provider a Wound Care Consult: Yes Length: 5 (cm) Width: 1.5 (cm) Depth: 0.2 (cm) Wound Bed Appearance: [place], Red Wound Bed Appearance: moist Surrounding Tissue Appearance: [place] (scar tissue) Drainage Description: Sanguinous Drainage Amount: Scant Dressing Status: Changed Cleansing Solution: Saline Wound Packing Type: Alginate (Maxorb II) Primary Dressing: Gauze Pad Cover Dressing: Gauze Roll/Wrap Wound Dressing Change Date: 06/12/18 Left Plantar Foot Wound Assessment: Ongoing Is This a Chronic Wound: Yes Requested from Provider a Wound Care Consult: Yes Length: 9.6 (cm) Width: 2.1 (cm) Depth: 0.4 (cm) Wound Bed Appearance: [place], Red Wound Bed Appearance: moist Surrounding Tissue Appearance: [place] (scar tissue) Drainage Description: Sanguinous Drainage Amount: Scant Drainage Odor: No Odor Dressing Status: Changed Cleansing Solution: Saline Wound Packing Type: Alginate (Maxorb II) Primary Dressing: Gauze Pad Cover Dressing: Gauze Roll/Wrap Wound Dressing Change Date: 06/12/18
--- NOTE | 2018-06-12 12:39 | US ---
EXAM DATE: 06/12/2018 12:29 PM EDT AGE/SEX: 58 years / Male INDICATIONS: Swelling. CLINICAL DATA: This is the patient's initial encounter. Patient reports that signs and symptoms have been present for 1 day and indicates a pain score of 0/10. MEDICAL/SURGICAL HISTORY: . SIMON. CAD. Diabetic. Foot ulcer. CVA. Hypernatremia. HTN Hypo kalemia. Lymphedema. MA. Right hemiplegia. . Cardiac catheterization. Coronary artery stent. COMPARISON: No prior exams available for comparison. TECHNIQUE: Venous ultrasound of both lower extremities was performed from the inguinal ligament to t he proximal calf. Real-time, color Doppler and spectral tracing, compression and augmentation techni ques were used. FINDINGS: Right Leg: There is occlusive and nonocclusive thrombus within the superficial femoral vein. No thro mbus within the popliteal, peroneal or posterior tibial veins. Left Leg: Nonocclusive thrombus seen within the common femoral vein, superficial femoral vein, popli teal vein, peroneal vein and posterior tibial vein. Other: None. CONCLUSION: 1. Deep venous thrombosis in both lower extremities. Electronically signed by: Richard Murphy MD 06/12/2018 12:37 PM EDT
[2018-06-12 12:40] LABS: Albumin 1.9 g/dL (3.4-5.0); Calcium 7.1 mg/dL (8.5-10.1); Carbon Dioxide 27.2 meq/L (21.0-32.0); Magnesium 1.8 mg/dL (1.5-2.5); Total Protein 6.3 g/dL (6.4-8.2)
[2018-06-12 12:44] LABS: Potassium 2.5 meq/L (3.5-5.1); Troponin I 0.77 ng/mL (0.02-0.05)
--- NOTE | 2018-06-12 13:04 | P.PN ---
Subjective Interval history: Patient forgetful, but overall knows he is in the hospital, knows who the president is. States that he is not able to get out of bed, has chronic leg swelling with ulcerations. Denies any pain, no chest pain, no shortness of breath. Has an indwelling catheter, adequate urine output. No fever. Eating well. Does not have family around. Patient is followed by home health care nurse not DCF. Physical Exam Vital signs: Vital Signs 06/11/18 14:53 06/11/18 16:27 06/11/18 20:00 Temperature 97.8 F 97.9 F 97.4 F L Pulse Rate 89 86 92 H Respiratory Rate 18 18 20 Blood Pressure 113/75 126/81 119/71 Pulse Oximetry 100 99 100 06/12/18 00:00 06/12/18 04:00 06/12/18 08:00 Temperature 98 F 97.6 F Pulse Rate 90 92 H 91 H Respiratory Rate 20 16 Blood Pressure 129/74 128/80 Pulse Oximetry 98 100 Intake & Output 06/11/18 06/12/18 06/12/18 18:59 06:59 18:59 Intake Total 1553.3 / 1553.3 1773.4 / 1773.4 Output Total 600 / 600 Balance 953.3 / 953.3 1773.4 / 1773.4 Weight 136.078 kg 105.9 kg Intake: IV 1553.3 / 1553.3 1533.4 / 1533.4 NS Inj 1,000 ML @ 84 mls/hr IV. 600 / 600 CONT .[id number] [facility] Rx#:[id number] Calcium Chloride Inj 0.34 GM In 103.3 / 103.3 103.4 / 103.4 D5W Inj 100 ML @ 103.4 mls/hr IV.SIG NOW ONE Rx#:[id number] KCl 20 mEq Premix Inj 20 meq In 100 / 100 300 / 300 100 ml @ 50 mls/hr IV.SIG Q2H [facility] Rx#:[id number] NS Inj 1,000 ML @ Wide Open IV. 1000 / 1000 SIG BOLUS ONE Rx#:[id number] Vancomycin Inj 1,000 MG In NS 250 / 250 Inj 250 ML @ 250 mls/hr IV.SIG ONCE ONE Rx#:[id number] Vancomycin Inj 1,500 MG In NS 530 / 530 Inj 500 ML @ 250 mls/hr IV.SIG Q24H [facility] Rx#:[id number] Rocephin Inj 1,000 MG In NS Inj 100 / 100 100 ML @ 200 mls/hr IV.SIG Q24H [facility] Rx#:[id number] Oral 240 / 240 Output: Urine Amount (Catheter) 600 / 600 Indwelling Temp Sensing 600 / 600 Catheter Other: # Voids 3 # Incontinent Voids 3 Weight On Admission 105.9 kg Narrative: GENERAL: Elderly black male, appears older than stated age, disheveled. SKIN: Has bilateral plantar ulcerations, another ulceration to the right posterior calf. Has significant edema. No odor, minimal drainage. HEAD: Atraumatic. Normocephalic. EYES: Pupils equal and round. No scleral icterus. No injection or drainage. ENT: No nasal bleeding or discharge. Mucous membranes pink and moist. NECK: Trachea midline. No JVD. CARDIOVASCULAR: Regular rate and rhythm. RESPIRATORY: No accessory muscle use. Clear to auscultation. Breath sounds equal bilaterally. GASTROINTESTINAL: Abdomen soft, non-tender, nondistended. Hepatic and splenic margins not palpable. MUSCULOSKELETAL: Extremities without clubbing, cyanosis, or edema. No obvious deformities. NEUROLOGICAL: Awake and alert and oriented 23. No obvious cranial nerve deficits. Bilateral upper extremity strength 4 out of 5, lower extremity strength 3 out of 5. PSYCHIATRIC: Appropriate mood and affect; insight and judgment normal. - Urinary Catheter Management Indwelling Temp Sensing Catheter Cath placed during this visit: no Reason for continuing: Other continuation reason Results - Labs CBC & Chem 7: 06/12/18 11:08 06/12/18 14:40 Laboratory Results - last 24 hr 06/11/18 06/11/18 06/11/18 12:26 12:26 12:26 WBC 13.9 H RBC 3.97 L Hgb 10.3 L Hct 32.8 L MCV 82.5 MCH 25.8 L MCHC 31.3 L RDW 19.3 H Plt Count 151 MPV 10.1 Neut % (Auto) 77.5 H Lymph % (Auto) 13.3 [place] % (Auto) 8.7 H Eos % (Auto) 0.2 Baso % (Auto) 0.3 Neut # (Auto) 10.8 H Lymph # (Auto) 1.8 [place] # (Auto) 1.2 H Eos # (Auto) 0.0 Baso # (Auto) 0.0 WBC Differential . Differential Comment Auto diff final Sodium 153 H Potassium 2.3 L* Chloride 111 H Carbon Dioxide 29.5 Anion Gap 13 BUN 30 H Creatinine 2.55 H Estimated GFR 31 L POC Glucose Random Glucose 270 H Lactic Acid Calcium 7.2 L* Prot Corrected Calcium 7.2 L* Phosphorus Magnesium 1.9 Total Bilirubin 0.6 AST 41 H ALT 21 Alkaline Phosphatase 113 Troponin I B-Natriuretic Peptide 66 Total Protein 7.1 Albumin 2.3 L Urine Color Urine Clarity Urine pH Ur Specific [place] Urine Protein Urine Glucose (UA) Urine Ketones Urine Occult Blood Urine Nitrate Urine Bilirubin Urine Ictotest Urine Urobilinogen Ur Leukocyte Esterase Urine RBC Urine WBC Urine WBC Clumps Ur Squamous Epith Cells Urine Bacteria Urine Mucus Micro UA Comment Ur Microscopic Review Urine Culture Comments Stl C.difficile Tox PCR St C. diff Tox Epid 027 06/11/18 06/11/18 06/11/18 12:30 14:15 14:15 WBC RBC Hgb Hct MCV MCH MCHC RDW Plt Count MPV Neut % (Auto) Lymph % (Auto) [place] % (Auto) Eos % (Auto) Baso % (Auto) Neut # (Auto) Lymph # (Auto) [place] # (Auto) Eos # (Auto) Baso # (Auto) WBC Differential Differential Comment Sodium Potassium Chloride Carbon Dioxide Anion Gap BUN Creatinine Estimated GFR POC Glucose Random Glucose Lactic Acid Calcium Prot Corrected Calcium Phosphorus 3.2 Magnesium Total Bilirubin AST ALT Alkaline Phosphatase Troponin I 1.41 H* B-Natriuretic Peptide Total Protein Albumin Urine Color [place] Urine Clarity Turbid H Urine pH 5.0 Ur Specific [place] 1.027 Urine Protein 500 or greater Urine Glucose (UA) Negative Urine Ketones Trace Urine Occult Blood Large H Urine Nitrate Negative Urine Bilirubin Negative Urine Ictotest Negative Urine Urobilinogen 2.0 H Ur Leukocyte Esterase Large H Urine RBC 127 H Urine WBC Urine WBC Clumps Many H Ur Squamous Epith Cells 1 Urine Bacteria Many H Urine Mucus Few H Micro UA Comment Cath-culture ind Ur Microscopic Review Not Reportable Urine Culture Comments Cath-cult indicated Stl C.difficile Tox PCR St C. diff Tox Epid 027 06/11/18 06/11/18 06/11/18 14:25 18:16 21:55 WBC RBC Hgb Hct MCV MCH MCHC RDW Plt Count MPV Neut % (Auto) Lymph % (Auto) [place] % (Auto) Eos % (Auto) Baso % (Auto) Neut # (Auto) Lymph # (Auto) [place] # (Auto) Eos # (Auto) Baso # (Auto) WBC Differential Differential Comment Sodium Potassium Chloride Carbon Dioxide Anion Gap BUN Creatinine Estimated GFR POC Glucose 319 H 317 H Random Glucose Lactic Acid 2.2 H Calcium Prot Corrected Calcium Phosphorus Magnesium Total Bilirubin AST ALT Alkaline Phosphatase Troponin I B-Natriuretic Peptide Total Protein Albumin Urine Color Urine Clarity Urine pH Ur Specific [place] Urine Protein Urine Glucose (UA) Urine Ketones Urine Occult Blood Urine Nitrate Urine Bilirubin Urine Ictotest Urine Urobilinogen Ur Leukocyte Esterase Urine RBC Urine WBC Urine WBC Clumps Ur Squamous Epith Cells Urine Bacteria Urine Mucus Micro UA Comment Ur Microscopic Review Urine Culture Comments Stl C.difficile Tox PCR St C. diff Tox Epid 027 06/11/18 06/11/18 06/11/18 22:51 22:51 23:30 WBC RBC Hgb Hct MCV MCH MCHC RDW Plt Count MPV Neut % (Auto) Lymph % (Auto) [place] % (Auto) Eos % (Auto) Baso % (Auto) Neut # (Auto) Lymph # (Auto) [place] # (Auto) Eos # (Auto) Baso # (Auto) WBC Differential Differential Comment Sodium 153 H Potassium 2.4 L* Chloride 115 H Carbon Dioxide 27.0 Anion Gap 11 BUN 37 H Creatinine 2.38 H Estimated GFR 34 L POC Glucose Random Glucose 278 H Lactic Acid 2.4 H Calcium 7.1 L* Prot Corrected Calcium 7.3 L* Phosphorus Magnesium Total Bilirubin AST ALT Alkaline Phosphatase Troponin I 1.26 H* B-Natriuretic Peptide Total Protein 6.7 Albumin Urine Color Urine Clarity Urine pH Ur Specific [place] Urine Protein Urine Glucose (UA) Urine Ketones Urine Occult Blood Urine Nitrate Urine Bilirubin Urine Ictotest Urine Urobilinogen Ur Leukocyte Esterase Urine RBC Urine WBC Urine WBC Clumps Ur Squamous Epith Cells Urine Bacteria Urine Mucus Micro UA Comment Ur Microscopic Review Urine Culture Comments Stl C.difficile Tox PCR Positive H St C. diff Tox Epid 027 Positive H 06/12/18 06/12/18 06/12/18 07:29 11:08 11:08 WBC 11.8 H RBC 3.71 L Hgb 9.8 L Hct 30.4 L MCV 82.1 MCH 26.3 L MCHC 32.1 RDW 19.3 H Plt Count 111 L MPV 10.1 Neut % (Auto) 73.6 H Lymph % (Auto) 15.9 [place] % (Auto) 8.6 H Eos % (Auto) 1.6 Baso % (Auto) 0.3 Neut # (Auto) 8.7 H Lymph # (Auto) 1.9 [place] # (Auto) 1.0 H Eos # (Auto) 0.2 Baso # (Auto) 0.0 WBC Differential . Differential Comment Auto diff final Sodium 154 H Potassium 2.5 L* Chloride 116 H Carbon Dioxide 27.2 Anion Gap 11 BUN 33 H Creatinine 2.01 H Estimated GFR 41 L POC Glucose 215 H Random Glucose 237 H Lactic Acid Calcium 7.1 L* Prot Corrected Calcium 7.5 L Phosphorus Magnesium 1.8 Total Bilirubin 0.4 AST 35 ALT 17 Alkaline Phosphatase 96 Troponin I 0.77 H* B-Natriuretic Peptide Total Protein 6.3 L Albumin 1.9 L Urine Color Urine Clarity Urine pH Ur Specific [place] Urine Protein Urine Glucose (UA) Urine Ketones Urine Occult Blood Urine Nitrate Urine Bilirubin Urine Ictotest Urine Urobilinogen Ur Leukocyte Esterase Urine RBC Urine WBC Urine WBC Clumps Ur Squamous Epith Cells Urine Bacteria Urine Mucus Micro UA Comment Ur Microscopic Review Urine Culture Comments Stl C.difficile Tox PCR St C. diff Tox Epid 027 06/12/18 12:29 WBC RBC Hgb Hct MCV MCH MCHC RDW Plt Count MPV Neut % (Auto) Lymph % (Auto) [place] % (Auto) Eos % (Auto) Baso % (Auto) Neut # (Auto) Lymph # (Auto) [place] # (Auto) Eos # (Auto) Baso # (Auto) WBC Differential Differential Comment Sodium Potassium Chloride Carbon Dioxide Anion Gap BUN Creatinine Estimated GFR POC Glucose 257 H Random Glucose Lactic Acid Calcium Prot Corrected Calcium Phosphorus Magnesium Total Bilirubin AST ALT Alkaline Phosphatase Troponin I B-Natriuretic Peptide Total Protein Albumin Urine Color Urine Clarity Urine pH Ur Specific [place] Urine Protein Urine Glucose (UA) Urine Ketones Urine Occult Blood Urine Nitrate Urine Bilirubin Urine Ictotest Urine Urobilinogen Ur Leukocyte Esterase Urine RBC Urine WBC Urine WBC Clumps Ur Squamous Epith Cells Urine Bacteria Urine Mucus Micro UA Comment Ur Microscopic Review Urine Culture Comments Stl C.difficile Tox PCR St C. diff Tox Epid 027 Microbiology 06/11/18 12:30 Catheterized Urine Urine Culture - Preliminary S. aureus MRSA gram positive cocci 06/11/18 14:20 Blood - Peripheral Aerobic Blood Culture - Preliminary No growth in 1 day 06/11/18 14:20 Blood - Peripheral Anaerobic Blood Culture - Preliminary No growth in 1 day 06/11/18 14:10 Blood - Peripheral Aerobic Blood Culture - Preliminary No growth in 1 day 06/11/18 14:10 Blood - Peripheral Anaerobic Blood Culture - Preliminary No growth in 1 day - Imaging Impressions Chest X-Ray 06/11/18 12:06 CONCLUSION: Negative for acute process Foot X-Ray 06/11/18 12:06 CONCLUSION: Probable osteomyelitis metatarsal heads. Tagged white cell study would be of benefit. Foot X-Ray 06/11/18 12:06 CONCLUSION: Severe osteopenia without obvious osteomyelitis. Tagged white cell study may help. Venous Doppler Study 06/12/18 00:00 CONCLUSION: 1. Deep venous thrombosis in both lower extremities. Assessment and Plan - Assessment (1) Acute hypokalemia Code(s): E87.6 - Hypokalemia Status: Acute (2) Hypocalcemia Code(s): E83.51 - Hypocalcemia Status: Acute (3) Acute renal insufficiency Code(s): N28.9 - Disorder of kidney and ureter, unspecified Status: Acute (4) Urinary tract infection Code(s): N39.0 - Urinary tract infection, site not specified Status: Acute (5) Chronic indwelling Berger catheter Code(s): Z92.89 - Personal history of other medical treatment Status: Acute (6) Lactic acidosis Code(s): E87.2 - Acidosis Status: Acute (7) Osteomyelitis Code(s): M86.9 - Osteomyelitis, unspecified Status: Suspected (8) Chronic ulcer of leg Code(s): L97.909 - Non-pressure chronic ulcer of unspecified part of unspecified lower leg with unspecified severity Status: Chronic (9) Elevated troponin Code(s): R74.8 - Abnormal levels of other serum enzymes Status: Acute (10) Clostridium difficile diarrhea Code(s): A04.72 - Enterocolitis due to Clostridium difficile, not specified as recurrent Status: Acute - Plan - Plan 58-year-old male admitted with hypokalemia, hypocalcemia, acute kidney injury, dehydration, hypernatremia, urinary tract infection, and severe edema of the feet with foot ulcers. Acute kidney injury Dehydration Hypernatremia Lactic acidosis -Continue with LR -Avoid nephrotoxins -Monitor renal function -Increase water intake -follow lactic acid Severe hypokalemia -K 2.5, replace and repeat at 1600 -Follow on telemetry Severe hypocalcemia -Repeat Calcium gluconate x 1 -Treat infection -Monitor calcium level Urinary tract infection secondary to chronic indwelling catheter Bilateral foot ulcers, did not appear infected. X-ray findings of left foot metatarsal osteomyelitis. Prior history of osteomyelitis -Continue vancomycin and Rocephin. Pharmacy for dosing Consult infectious disease Follow cultures, urine culture positive for MRSA. -We will change Berger catheter We will check renal ultrasound -Wound care consult, discussed with RN. Wounds were examined, wound care recommendations noted. -We will obtain podiatry consult. Cdiff -Start Flagyl 500 mg PO q 8 -replace electrolytes as needed -follow renal function Bilateral foot swelling, positive for DVT. History of DVT and IVC filter -May consider diuresis later -For now correct electrolytes and monitor -Bilateral Ultrasound of Lower Extremities to evaluate for DVTs-positive for DVT both lower extremities. -Heparin 5000 units subcu twice daily for DVT prophylaxis. Will eventually need to transition to Coumadin Failure to thrive -Patient will need placement, DCF is not involved. Patient has been receiving care from home health care. -CM consult for dc planning, likely SNF and then transition to extermination supervisor care Elevated trop in the setting of [facility], pt. has no c/o CP, sob Coronary artery disease, CO, stents. -serial trop elevated -Cardiology consult, d/w Dr. Strong. For now echo. When improved, poss STT -Start ASA 81 mg po daily -follow on telemetry Neurogenic bladder, chronic indwelling catheter -RN to replace berger today Hypertension -Continue baseline treatment -Follow blood pressures -Adjust treatments as needed Diabetes mellitus type 2 -Accuchecks AC and HS with ISS -Diabetic diet History of CVA Right hemiplegia -Continue supportive care -No new neurological deficits Hyperlipidemia -Continue present treatment -Follow as an outpatient History of chronic anemia -Follow CBC DVT prophylaxis -Heparin will have RN contact [facility] to obtain medication list D/W pt, rn, CM, Dr. Archibald. (4) Urinary tract infection Qualifiers: Urinary tract infection type: catheter-associated UTI Indwelling urinary catheter type: indwelling urethral catheter Encounter type: initial encounter Qualified Code(s): T83.511A - Infection and inflammatory reaction due to indwelling urethral catheter, initial encounter; N39.0 - Urinary tract infection , site not specified (7) Osteomyelitis Qualifiers: Osteomyelitis type: other chronic Laterality: left (8) Chronic ulcer of leg Qualifiers: Laterality: unspecified laterality Non-pressure ulcer stage: unspecified non- pressure ulcer stage Qualified Code(s): L97.909 - Non-pressure chronic ulcer of unspecified part of unspecified lower leg with unspecified severity
[2018-06-12] MEDS: Potassium Chlor 10 mEq Premix 10 MEQ/100 ML PIGGYBACK IV.SIG SCH ×3 (14:30→17:15)
[2018-06-12] MEDS: metroNIDAZOLE 500 MG Tablet PO SCH ×2 (14:39→23:36)
[2018-06-12] MEDS ORDERED: Calcium Chloride Inj 1 GM in Dextrose 5% in Water Inj 100 ML IV.SIG ONE ×2 (15:00)
[2018-06-12 15:48] LABS: Calcium 7.3 mg/dL (8.5-10.1); Carbon Dioxide 30.9 meq/L (21.0-32.0)
--- NOTE | 2018-06-12 15:50 | US ---
EXAM DATE: 06/12/2018 3:36 PM EDT AGE/SEX: 58 years / Male INDICATIONS: Increased BUN/Creatinine. CLINICAL DATA: This is the patient's initial encounter. Patient reports that signs and symptoms have been present for 1 day and indicates a pain score of 3/10. MEDICAL/SURGICAL HISTORY: Anemia. Diabetes. Hypertension. Acute kidney injury. Coronary kelechi ry disease. Dyslipidemia. Stroke. Lymphedema. Myocardial infarct. Right hemiplegia. . Right heart ca th. Stented coronary artery. COMPARISON: [facility] [place], KIDNEY/RENAL/BLADDER, 09/25/2015. . MEASUREMENTS: Right Kidney:__11.4 x 5.5 x 6.2 cm Left Kidney:__11.5 x 5.0 x 6.2 cm FINDINGS: Right Kidney: Normal echotexture and cortical thickness. No mass or hydronephrosis. Left Kidney: Normal echotexture and cortical thickness. No mass or hydronephrosis. Bladder: Lennon catheter is present. Bladder decompressed. Other: None. No significant change compared to the prior examination from 2014. CONCLUSION: 1. Unremarkable and stable bilateral renal ultrasound. 2. No evidence of hydronephrosis. Electronically signed by: Sivakumar Barron MD 06/12/2018 3:48 PM EDT
--- NOTE | 2018-06-12 15:51 | ECG ---
Date Performed: 06/11/2018 Time Performed: 14:15:13 PTAGE: 58 years EKG: SINUS TACHYCARDIA WITH OCCASIONAL VENTRICULAR PREMATURE COMPLEXES NONSPECIFIC ST & T-WAVE A BNORMALITY ST DEPRESSION IS NEW SINCE PRIOR TRACING, CANNOT RULE OUT ISCHEMIA Clinical correlation is recommended ABNORMAL RHYTHM ECG PREVIOUS TRACING : 09/24/2015 14.22 DOCTOR: Castillo Yoder Interpretating Date/Time 06/12/2018 15:50:08
[2018-06-12 16:02] LABS: Total Protein 6.4 g/dL (6.4-8.2)
[2018-06-12 16:13] LABS: Potassium 2.2 meq/L (3.5-5.1)
--- NOTE | 2018-06-12 17:07 | P.CONID ---
History of Present Illness Service: ID Consult date: 06/12/18 Requesting Physician: Carolyn Mcdonald Reason for Consult: MRSA UTI Primary Care Provider: Tommie Harrell MD History of Present Illness: 58 yo male very poor historian Pt with h/o stroke neurogenic bladder, chtronic berger bedridden ? paraplegia - pt is unable to get OOBm,, does not walk he lives at home by himself and [facility] helps him to care for self he presented for placement by [facility] His urine was abnormal and urine culture growing MRSA On presentation multiple metabolic abnormalities including K of 2.2 ARF with creatinine of 1.98 and high blood sugar He is started on broad spectrum abx He also has b/l plantar ulcers and plaionj films showed osteo in left MT heads and ? 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 Review of Systems unobtainable due to mental condition PMFSH - History History Provided By: Patient - Medical History Medical History: Medical History (Last Reviewed 06/12/18 @ 18:07 by Lala Crum MD) Acute kidney injury Chronic anemia Coronary artery disease Diabetes Dyslipidemia Foot ulcer Generalized anxiety disorder History of CVA (cerebrovascular accident) Hypernatremia Hypertension Hypokalemia Lower extremity edema Lymphedema Old [place] (myocardial infarction) Osteoarthritis Right hemiplegia - Surgical History Surgical History: Surgical History (Last Reviewed 06/12/18 @ 18:07 by Lala Crum MD) H/O right heart catheterization Stented coronary artery - Family History Family History: Family History (Last Reviewed 06/12/18 @ 18:07 by Lala Crum MD) Mother CVA (cerebral vascular accident) Hypertension Diabetes - Tobacco History Second Hand Smoke Exposure: No Tobacco Use In Past 30 Days: No Smoking Status: Never smoker - Alcohol History How Often Do You Have a Drink Containing Alcohol: Never - Substance Use History Substance History: No History of Abuse - Travel History Recent Travel in the [place] Within the Last 8 Weeks: No Recent Travel Out of the Country Within the Last 8 Weeks: No - Immunization History Tetanus Immunization: >5 Years Hx Influenza Vaccine This Season: Yes Medications and Allergies Active Medications: Active Medications Hydrocodone Bitart/Acetaminophen ([place] 10/325) 1 tab PO Q4H PRN PRN Reason: Pain 7 to 10 Hydrocodone Bitart/Acetaminophen ([place] 5/325) 1 tab PO Q4H PRN PRN Reason: Pain 3 to 6 Al Hydroxide/Mg Hydroxide (Milk Of Silas Hernandez) 30 ml PO Q12H PRN PRN Reason: Mild Constipation Aspirin (Aspirin Chew) 81 mg PO DAILY [facility] Last Admin: 06/12/18 14:39 Dose: 81 mg Dextrose (D50w Vial) 50 ml IV.PUSH UNSCH PRN PRN Reason: PER HYPOGLYCEMIA PROTOCOL Glucagon (Glucagon Inj) 1 mg OTHER PRN PRN PRN Reason: for Hypoglycemia Protocol Heparin Sodium (Porcine) (Heparin Inj) 5,000 units SQ Q12HR [facility] Last Admin: 06/12/18 08:01 Dose: 5,000 units Sodium Chloride (Ns Inj) 1,000 mls @ 84 mls/hr IV.CONT .[id number] [facility] Last Admin: 06/12/18 15:35 Dose: Not Given Ceftriaxone Sodium 1,000 mg/ (Sodium Chloride) 100 mls @ 200 mls/hr IV.SIG Q24H [facility] Last Infusion: 06/11/18 18:11 Dose: Infused Vancomycin HCl 1,500 mg/ (Sodium Chloride) 530 mls @ 250 mls/hr IV.SIG Q24H [facility] Last Infusion: 06/12/18 01:35 Dose: Infused Lactated Ringer's (Lr 1000 Ml Inj) 1,000 mls @ 84 mls/hr IV.CONT .[id number] [facility] Last Admin: 06/12/18 14:30 Dose: 84 mls/hr Insulin Aspart (Novolog Insulin Correctional Sugar Inj) 0 unit SQ ACHS [facility]; Protocol Last Admin: 06/12/18 12:48 Dose: 7 unit Lactobacillus Acidophilus (Lactinex) 1 tab PO TID [facility] Last Admin: 06/12/18 12:28 Dose: 1 tab Metronidazole (Flagyl) 500 mg PO Q8HR [facility] Last Admin: 06/12/18 14:39 Dose: 500 mg Miscellaneous Information ([facility] [place] [place] [facility] Ordered Lab Info) 1 each OTHER ONCE ONE Stop: 06/13/18 21:46 Pharmacy Profile Note (Vancomycin Consult Pharmacy) 1 each OTHER UNSCH PRN PRN Reason: Pharmacy to dose Allergies Allergy/AdvReac Type Severity Reaction Status Date / Time No Known Allergies Allergy Unverified 06/11/18 11:16 Home Medications Medication Instructions Recorded Confirmed Type Unable to Obtain Home Meds 08/22/18 08/22/18 History Exam Vital signs: Vital Signs 06/11/18 20:00 06/12/18 00:00 06/12/18 04:00 Temperature 97.4 F L 98 F Pulse Rate 92 H 90 92 H Respiratory Rate 20 20 Blood Pressure 119/71 129/74 Pulse Oximetry 100 98 06/12/18 08:00 06/12/18 12:00 06/12/18 13:26 Temperature 97.6 F 98.1 F Pulse Rate 91 H 85 86 Respiratory Rate 16 16 Blood Pressure 128/80 124/65 Pulse Oximetry 100 98 06/12/18 16:53 Temperature Pulse Rate 93 H Respiratory Rate Blood Pressure Pulse Oximetry Intake & Output 06/11/18 06/12/18 06/12/18 18:59 06:59 18:59 Intake Total 1553.3 / 1553.3 1773.4 / 1773.4 1000 / 1000 Output Total 600 / 600 Balance 953.3 / 953.3 1773.4 / 1773.4 1000 / 1000 Weight 136.078 kg 105.9 kg Intake: IV 1553.3 / 1553.3 1533.4 / 1533.4 1000 / 1000 LR 1000 mL Inj 1,000 ML @ 84 1000 / 1000 mls/hr IV.CONT .[id number] [facility] Rx# :[id number] NS Inj 1,000 ML @ 84 mls/hr IV. 600 / 600 CONT .[id number] [facility] Rx#:[id number] Calcium Chloride Inj 0.34 GM In 103.3 / 103.3 103.4 / 103.4 D5W Inj 100 ML @ 103.4 mls/hr IV.SIG NOW ONE Rx#:[id number] KCl 20 mEq Premix Inj 20 meq In 100 / 100 300 / 300 100 ml @ 50 mls/hr IV.SIG Q2H [facility] Rx#:[id number] NS Inj 1,000 ML @ Wide Open IV. 1000 / 1000 SIG BOLUS ONE Rx#:[id number] Vancomycin Inj 1,000 MG In NS 250 / 250 Inj 250 ML @ 250 mls/hr IV.SIG ONCE ONE Rx#:[id number] Vancomycin Inj 1,500 MG In NS 530 / 530 Inj 500 ML @ 250 mls/hr IV.SIG Q24H [facility] Rx#:[id number] Rocephin Inj 1,000 MG In NS Inj 100 / 100 100 ML @ 200 mls/hr IV.SIG Q24H [facility] Rx#:[id number] Oral 240 / 240 Output: Urine Amount (Catheter) 600 / 600 Indwelling Temp Sensing 600 / 600 Catheter Other: # Voids 3 # Incontinent Voids 3 Weight On Admission 105.9 kg - Constitutional no acute distress, obese - Routine HEENT Exam Head: Present: normocephalic, atraumatic Eye: Present: EOMI, PERRL ENT: Present: mucous membranes moist, oropharynx clear Comments: poor dentition - Routine Neck Exam Present: supple, full ROM - Routine Respiratory Exam Present: decreased breath sounds, CTA bilaterally - Routine Cardiovascular Exam Present: RRR, S1, S2 - Routine Abdominal Exam Present: soft, normoactive bowel sounds Comments: no hepatosplenomegaly or masses - Routine Exam Comments: berger in place - Routine Extremities Exam Present: cyanosis, edema (2+-3+ with tree bark gray) - Routine Skin Exam Present: dry, warm, lesions (b/l plantar wounds with exposed tendons) - Routine Neurological Exam Present: alert, hearing grossly intact paraplegia - Routine Psychiatric Exam Present: unable to assess Results - Labs CBC & Chem 7: 06/12/18 11:08 06/12/18 14:40 Labs: Laboratory Results - last 24 hr 06/11/18 06/11/18 06/11/18 12:26 12:30 18:16 WBC RBC Hgb Hct MCV MCH MCHC RDW Plt Count MPV Neut % (Auto) Lymph % (Auto) [place] % (Auto) Eos % (Auto) Baso % (Auto) Neut # (Auto) Lymph # (Auto) [place] # (Auto) Eos # (Auto) Baso # (Auto) WBC Differential Differential Comment Sodium Potassium Chloride Carbon Dioxide Anion Gap BUN Creatinine Estimated GFR POC Glucose 319 H Random Glucose Lactic Acid Calcium Prot Corrected Calcium Magnesium Total Bilirubin AST ALT Alkaline Phosphatase Troponin I B-Natriuretic Peptide 66 Total Protein Albumin Urine Color [place] Urine Clarity Turbid H Urine pH 5.0 Ur Specific [place] 1.027 Urine Protein 500 or greater Urine Glucose (UA) Negative Urine Ketones Trace Urine Occult Blood Large H Urine Nitrate Negative Urine Bilirubin Negative Urine Ictotest Negative Urine Urobilinogen 2.0 H Ur Leukocyte Esterase Large H Urine RBC 127 H Urine WBC Urine WBC Clumps Many H Ur Squamous Epith Cells 1 Urine Bacteria Many H Urine Mucus Few H Micro UA Comment Cath-culture ind Urine Culture Comments Cath-cult indicated Stl C.difficile Tox PCR St C. diff Tox Epid 027 06/11/18 06/11/18 06/11/18 21:55 22:51 22:51 WBC RBC Hgb Hct MCV MCH MCHC RDW Plt Count MPV Neut % (Auto) Lymph % (Auto) [place] % (Auto) Eos % (Auto) Baso % (Auto) Neut # (Auto) Lymph # (Auto) [place] # (Auto) Eos # (Auto) Baso # (Auto) WBC Differential Differential Comment Sodium 153 H Potassium 2.4 L* Chloride 115 H Carbon Dioxide 27.0 Anion Gap 11 BUN 37 H Creatinine 2.38 H Estimated GFR 34 L POC Glucose 317 H Random Glucose 278 H Lactic Acid 2.4 H Calcium 7.1 L* Prot Corrected Calcium 7.3 L* Magnesium Total Bilirubin AST ALT Alkaline Phosphatase Troponin I 1.26 H* B-Natriuretic Peptide Total Protein 6.7 Albumin Urine Color Urine Clarity Urine pH Ur Specific [place] Urine Protein Urine Glucose (UA) Urine Ketones Urine Occult Blood Urine Nitrate Urine Bilirubin Urine Ictotest Urine Urobilinogen Ur Leukocyte Esterase Urine RBC Urine WBC Urine WBC Clumps Ur Squamous Epith Cells Urine Bacteria Urine Mucus Micro UA Comment Urine Culture Comments Stl C.difficile Tox PCR St C. diff Tox Epid 027 06/11/18 06/12/18 06/12/18 23:30 07:29 11:08 WBC RBC Hgb Hct MCV MCH MCHC RDW Plt Count MPV Neut % (Auto) Lymph % (Auto) [place] % (Auto) Eos % (Auto) Baso % (Auto) Neut # (Auto) Lymph # (Auto) [place] # (Auto) Eos # (Auto) Baso # (Auto) WBC Differential Differential Comment Sodium 154 H Potassium 2.5 L* Chloride 116 H Carbon Dioxide 27.2 Anion Gap 11 BUN 33 H Creatinine 2.01 H Estimated GFR 41 L POC Glucose 215 H Random Glucose 237 H Lactic Acid Calcium 7.1 L* Prot Corrected Calcium 7.5 L Magnesium 1.8 Total Bilirubin 0.4 AST 35 ALT 17 Alkaline Phosphatase 96 Troponin I 0.77 H* B-Natriuretic Peptide Total Protein 6.3 L Albumin 1.9 L Urine Color Urine Clarity Urine pH Ur Specific [place] Urine Protein Urine Glucose (UA) Urine Ketones Urine Occult Blood Urine Nitrate Urine Bilirubin Urine Ictotest Urine Urobilinogen Ur Leukocyte Esterase Urine RBC Urine WBC Urine WBC Clumps Ur Squamous Epith Cells Urine Bacteria Urine Mucus Micro UA Comment Urine Culture Comments Stl C.difficile Tox PCR Positive H St C. diff Tox Epid 027 Positive H 06/12/18 06/12/18 06/12/18 11:08 12:29 14:40 WBC 11.8 H RBC 3.71 L Hgb 9.8 L Hct 30.4 L MCV 82.1 MCH 26.3 L MCHC 32.1 RDW 19.3 H Plt Count 111 L MPV 10.1 Neut % (Auto) 73.6 H Lymph % (Auto) 15.9 [place] % (Auto) 8.6 H Eos % (Auto) 1.6 Baso % (Auto) 0.3 Neut # (Auto) 8.7 H Lymph # (Auto) 1.9 [place] # (Auto) 1.0 H Eos # (Auto) 0.2 Baso # (Auto) 0.0 WBC Differential . Differential Comment Auto diff final Sodium 153 H Potassium 2.2 L* Chloride 114 H Carbon Dioxide 30.9 Anion Gap 8 BUN 34 H Creatinine 1.98 H Estimated GFR 42 L POC Glucose 257 H Random Glucose 264 H Lactic Acid Calcium 7.3 L* Prot Corrected Calcium 7.7 L Magnesium Total Bilirubin AST ALT Alkaline Phosphatase Troponin I B-Natriuretic Peptide Total Protein 6.4 Albumin Urine Color Urine Clarity Urine pH Ur Specific [place] Urine Protein Urine Glucose (UA) Urine Ketones Urine Occult Blood Urine Nitrate Urine Bilirubin Urine Ictotest Urine Urobilinogen Ur Leukocyte Esterase Urine RBC Urine WBC Urine WBC Clumps Ur Squamous Epith Cells Urine Bacteria Urine Mucus Micro UA Comment Urine Culture Comments Stl C.difficile Tox PCR St C. diff Tox Epid 027 06/12/18 06/12/18 14:40 16:32 WBC RBC Hgb Hct MCV MCH MCHC RDW Plt Count MPV Neut % (Auto) Lymph % (Auto) [place] % (Auto) Eos % (Auto) Baso % (Auto) Neut # (Auto) Lymph # (Auto) [place] # (Auto) Eos # (Auto) Baso # (Auto) WBC Differential Differential Comment Sodium Potassium Chloride Carbon Dioxide Anion Gap BUN Creatinine Estimated GFR POC Glucose 305 H Random Glucose Lactic Acid 1.6 Calcium Prot Corrected Calcium Magnesium Total Bilirubin AST ALT Alkaline Phosphatase Troponin I B-Natriuretic Peptide Total Protein Albumin Urine Color Urine Clarity Urine pH Ur Specific [place] Urine Protein Urine Glucose (UA) Urine Ketones Urine Occult Blood Urine Nitrate Urine Bilirubin Urine Ictotest Urine Urobilinogen Ur Leukocyte Esterase Urine RBC Urine WBC Urine WBC Clumps Ur Squamous Epith Cells Urine Bacteria Urine Mucus Micro UA Comment Urine Culture Comments Stl C.difficile Tox PCR St C. diff Tox Epid 027 - Imaging Impressions Abdomen/Bladder Ultrasound 06/12/18 00:00 CONCLUSION: 1. Unremarkable and stable bilateral renal ultrasound. 2. No evidence of hydronephrosis. Venous Doppler Study 06/12/18 00:00 CONCLUSION: 1. Deep venous thrombosis in both lower extremities. Assessment and Plan - Plan Multiple med problems Inability to care for self Complicated UTI with indwelling berger and neurogenic bladder DM L foot osteo ? R foot osteo Fu blood clx cont current abx awaiting nuclear med studies alfredo Mcdonald
--- NOTE | 2018-06-12 17:35 | P.CONPOD ---
History of Present Illness Service: Podiatry Consult date: 06/12/18 Reason for Consult: Possible osteomyelitis Primary Care Provider: Tommie Harrell MD History of Present Illness: Patient states he has had wound on the bottoms of both feet for months. He has chronic swelling and says he has minimal pain. He was surprised to know there were xray findings consistent with infection in the bone. PMFSH - History History Provided By: Patient - Medical History Medical History: Medical History (Last Reviewed 06/12/18 @ 18:07 by Lala Crum MD) Acute kidney injury Chronic anemia Coronary artery disease Diabetes Dyslipidemia Foot ulcer Generalized anxiety disorder History of CVA (cerebrovascular accident) Hypernatremia Hypertension Hypokalemia Lower extremity edema Lymphedema Old CT (myocardial infarction) Osteoarthritis Right hemiplegia - Surgical History Surgical History: Surgical History (Last Reviewed 06/12/18 @ 18:07 by Lala Crum MD) H/O right heart catheterization Stented coronary artery - Family History Family History: Family History (Last Reviewed 06/12/18 @ 18:07 by Lala Crum MD) Mother CVA (cerebral vascular accident) Hypertension Diabetes - Tobacco History Second Hand Smoke Exposure: No Tobacco Use In Past 30 Days: No Smoking Status: Never smoker - Alcohol History How Often Do You Have a Drink Containing Alcohol: Never - Substance Use History Substance History: No History of Abuse - Travel History Recent Travel in the [place] Within the Last 8 Weeks: No Recent Travel Out of the Country Within the Last 8 Weeks: No - Immunization History Tetanus Immunization: >5 Years Hx Influenza Vaccine This Season: Yes Medications and Allergies Active Medications: Active Medications Hydrocodone Bitart/Acetaminophen ([place] 10/325) 1 tab PO Q4H PRN PRN Reason: Pain 7 to 10 Hydrocodone Bitart/Acetaminophen ([place] 5/325) 1 tab PO Q4H PRN PRN Reason: Pain 3 to 6 Al Hydroxide/Mg Hydroxide (Milk Of Magnesia Liq) 30 ml PO Q12H PRN PRN Reason: Mild Constipation Aspirin (Aspirin Chew) 81 mg PO DAILY RADHA Last Admin: 06/12/18 14:39 Dose: 81 mg Dextrose (D50w Vial) 50 ml IV.PUSH UNSCH PRN PRN Reason: PER HYPOGLYCEMIA PROTOCOL Glucagon (Glucagon Inj) 1 mg OTHER PRN PRN PRN Reason: for Hypoglycemia Protocol Heparin Sodium (Porcine) (Heparin Inj) 5,000 units SQ Q12HR [facility] Last Admin: 06/12/18 08:01 Dose: 5,000 units Sodium Chloride (Ns Inj) 1,000 mls @ 84 mls/hr IV.CONT .[id number] [facility] Last Admin: 06/12/18 15:35 Dose: Not Given Ceftriaxone Sodium 1,000 mg/ (Sodium Chloride) 100 mls @ 200 mls/hr IV.SIG Q24H [facility] Last Admin: 06/12/18 17:14 Dose: 200 mls/hr Vancomycin HCl 1,500 mg/ (Sodium Chloride) 530 mls @ 250 mls/hr IV.SIG Q24H [facility] Last Infusion: 06/12/18 01:35 Dose: Infused Lactated Ringer's (Lr 1000 Ml Inj) 1,000 mls @ 84 mls/hr IV.CONT .[id number] [facility] Last Admin: 06/12/18 14:30 Dose: 84 mls/hr Insulin Aspart (Novolog Insulin Correctional Sugar Inj) 0 unit SQ ACHS [facility]; Protocol Last Admin: 06/12/18 17:28 Dose: 10 unit Lactobacillus Acidophilus (Lactinex) 1 tab PO TID [facility] Last Admin: 06/12/18 17:15 Dose: 1 tab Metronidazole (Flagyl) 500 mg PO Q8HR [facility] Last Admin: 06/12/18 14:39 Dose: 500 mg Miscellaneous Information ([facility] Ordered Lab Info) 1 each OTHER ONCE ONE Stop: 06/13/18 21:46 Pharmacy Profile Note (Vancomycin Consult Pharmacy) 1 each OTHER UNSCH PRN PRN Reason: Pharmacy to dose Allergies Allergy/AdvReac Type Severity Reaction Status Date / Time No Known Allergies Allergy Unverified 06/11/18 11:16 Home Medications Medication Instructions Recorded Confirmed Type Unable to Obtain Home Meds 06/11/18 06/11/18 History Physical Exam Vital signs: Vital Signs 06/11/18 20:00 06/12/18 00:00 06/12/18 04:00 Temperature 97.4 F L 98 F Pulse Rate 92 H 90 92 H Respiratory Rate 20 20 Blood Pressure 119/71 129/74 Pulse Oximetry 100 98 06/12/18 08:00 06/12/18 12:00 06/12/18 13:26 Temperature 97.6 F 98.1 F Pulse Rate 91 H 85 86 Respiratory Rate 16 16 Blood Pressure 128/80 124/65 Pulse Oximetry 100 98 06/12/18 16:53 Temperature Pulse Rate 93 H Respiratory Rate Blood Pressure Pulse Oximetry Intake & Output 06/11/18 06/12/18 06/12/18 18:59 06:59 18:59 Intake Total 1553.3 / 1553.3 1773.4 / 1773.4 1100 / 1100 Output Total 600 / 600 Balance 953.3 / 953.3 1773.4 / 1773.4 1100 / 1100 Weight 136.078 kg 105.9 kg Intake: IV 1553.3 / 1553.3 1533.4 / 1533.4 1100 / 1100 LR 1000 mL Inj 1,000 ML @ 84 1000 / 1000 mls/hr IV.CONT .[id number] [facility] Rx# :[id number] NS Inj 1,000 ML @ 84 mls/hr IV. 600 / 600 CONT .[id number] [facility] Rx#:[id number] Calcium Chloride Inj 0.34 GM In 103.3 / 103.3 103.4 / 103.4 D5W Inj 100 ML @ 103.4 mls/hr IV.SIG NOW ONE Rx#:[id number] KCl 10 mEq Premix Inj 10 meq In 100 / 100 100 ml @ 100 mls/hr IV.SIG Q1H [facility] Rx#:[id number] KCl 20 mEq Premix Inj 20 meq In 100 / 100 300 / 300 100 ml @ 50 mls/hr IV.SIG Q2H [facility] Rx#:[id number] NS Inj 1,000 ML @ Wide Open IV. 1000 / 1000 SIG BOLUS ONE Rx#:[id number] Vancomycin Inj 1,000 MG In NS 250 / 250 Inj 250 ML @ 250 mls/hr IV.SIG ONCE ONE Rx#:[id number] Vancomycin Inj 1,500 MG In NS 530 / 530 Inj 500 ML @ 250 mls/hr IV.SIG Q24H [facility] Rx#:[id number] Rocephin Inj 1,000 MG In NS Inj 100 / 100 100 ML @ 200 mls/hr IV.SIG Q24H [facility] Rx#:[id number] Oral 240 / 240 Output: Urine Amount (Catheter) 600 / 600 Indwelling Temp Sensing 600 / 600 Catheter Other: # Voids 3 # Incontinent Voids 3 Weight On Admission 105.9 kg Narrative: Left and Right plantar lateral feet with superficial ulcerations. No purulence. No sign of acute infection present. Chronic skin changes to lower legs and diffuse edema bilateral lower extremities. Nonpalpable pulses, possibly secondary to edema. Sensation diminished Results - Labs CBC & Chem 7: 06/12/18 11:08 06/12/18 14:40 Laboratory Results - last 24 hr 06/11/18 06/11/18 06/11/18 12:30 18:16 21:55 WBC RBC Hgb Hct MCV MCH MCHC RDW Plt Count MPV Neut % (Auto) Lymph % (Auto) [place] % (Auto) Eos % (Auto) Baso % (Auto) Neut # (Auto) Lymph # (Auto) [place] # (Auto) Eos # (Auto) Baso # (Auto) WBC Differential Differential Comment Sodium Potassium Chloride Carbon Dioxide Anion Gap BUN Creatinine Estimated GFR POC Glucose 319 H 317 H Random Glucose Lactic Acid Calcium Prot Corrected Calcium Magnesium Total Bilirubin AST ALT Alkaline Phosphatase Troponin I Total Protein Albumin Urine Color [place] Urine Clarity Turbid H Urine pH 5.0 Ur Specific [place] 1.027 Urine Protein 500 or greater Urine Glucose (UA) Negative Urine Ketones Trace Urine Occult Blood Large H Urine Nitrate Negative Urine Bilirubin Negative Urine Ictotest Negative Urine Urobilinogen 2.0 H Ur Leukocyte Esterase Large H Urine RBC 127 H Urine WBC Urine WBC Clumps Many H Ur Squamous Epith Cells 1 Urine Bacteria Many H Urine Mucus Few H Micro UA Comment Cath-culture ind Urine Culture Comments Cath-cult indicated Stl C.difficile Tox PCR St C. diff Tox Epid 027 06/11/18 06/11/18 06/11/18 22:51 22:51 23:30 WBC RBC Hgb Hct MCV MCH MCHC RDW Plt Count MPV Neut % (Auto) Lymph % (Auto) [place] % (Auto) Eos % (Auto) Baso % (Auto) Neut # (Auto) Lymph # (Auto) [place] # (Auto) Eos # (Auto) Baso # (Auto) WBC Differential Differential Comment Sodium 153 H Potassium 2.4 L* Chloride 115 H Carbon Dioxide 27.0 Anion Gap 11 BUN 37 H Creatinine 2.38 H Estimated GFR 34 L POC Glucose Random Glucose 278 H Lactic Acid 2.4 H Calcium 7.1 L* Prot Corrected Calcium 7.3 L* Magnesium Total Bilirubin AST ALT Alkaline Phosphatase Troponin I 1.26 H* Total Protein 6.7 Albumin Urine Color Urine Clarity Urine pH Ur Specific [place] Urine Protein Urine Glucose (UA) Urine Ketones Urine Occult Blood Urine Nitrate Urine Bilirubin Urine Ictotest Urine Urobilinogen Ur Leukocyte Esterase Urine RBC Urine WBC Urine WBC Clumps Ur Squamous Epith Cells Urine Bacteria Urine Mucus Micro UA Comment Urine Culture Comments Stl C.difficile Tox PCR Positive H St C. diff Tox Epid 027 Positive H 06/12/18 06/12/18 06/12/18 07:29 11:08 11:08 WBC 11.8 H RBC 3.71 L Hgb 9.8 L Hct 30.4 L MCV 82.1 MCH 26.3 L MCHC 32.1 RDW 19.3 H Plt Count 111 L MPV 10.1 Neut % (Auto) 73.6 H Lymph % (Auto) 15.9 [place] % (Auto) 8.6 H Eos % (Auto) 1.6 Baso % (Auto) 0.3 Neut # (Auto) 8.7 H Lymph # (Auto) 1.9 [place] # (Auto) 1.0 H Eos # (Auto) 0.2 Baso # (Auto) 0.0 WBC Differential . Differential Comment Auto diff final Sodium 154 H Potassium 2.5 L* Chloride 116 H Carbon Dioxide 27.2 Anion Gap 11 BUN 33 H Creatinine 2.01 H Estimated GFR 41 L POC Glucose 215 H Random Glucose 237 H Lactic Acid Calcium 7.1 L* Prot Corrected Calcium 7.5 L Magnesium 1.8 Total Bilirubin 0.4 AST 35 ALT 17 Alkaline Phosphatase 96 Troponin I 0.77 H* Total Protein 6.3 L Albumin 1.9 L Urine Color Urine Clarity Urine pH Ur Specific [place] Urine Protein Urine Glucose (UA) Urine Ketones Urine Occult Blood Urine Nitrate Urine Bilirubin Urine Ictotest Urine Urobilinogen Ur Leukocyte Esterase Urine RBC Urine WBC Urine WBC Clumps Ur Squamous Epith Cells Urine Bacteria Urine Mucus Micro UA Comment Urine Culture Comments Stl C.difficile Tox PCR St C. diff Tox Epid 027 06/12/18 06/12/18 06/12/18 12:29 14:40 14:40 WBC RBC Hgb Hct MCV MCH MCHC RDW Plt Count MPV Neut % (Auto) Lymph % (Auto) [place] % (Auto) Eos % (Auto) Baso % (Auto) Neut # (Auto) Lymph # (Auto) [place] # (Auto) Eos # (Auto) Baso # (Auto) WBC Differential Differential Comment Sodium 153 H Potassium 2.2 L* Chloride 114 H Carbon Dioxide 30.9 Anion Gap 8 BUN 34 H Creatinine 1.98 H Estimated GFR 42 L POC Glucose 257 H Random Glucose 264 H Lactic Acid 1.6 Calcium 7.3 L* Prot Corrected Calcium 7.7 L Magnesium Total Bilirubin AST ALT Alkaline Phosphatase Troponin I Total Protein 6.4 Albumin Urine Color Urine Clarity Urine pH Ur Specific [place] Urine Protein Urine Glucose (UA) Urine Ketones Urine Occult Blood Urine Nitrate Urine Bilirubin Urine Ictotest Urine Urobilinogen Ur Leukocyte Esterase Urine RBC Urine WBC Urine WBC Clumps Ur Squamous Epith Cells Urine Bacteria Urine Mucus Micro UA Comment Urine Culture Comments Stl C.difficile Tox PCR St C. diff Tox Epid 027 06/12/18 16:32 WBC RBC Hgb Hct MCV MCH MCHC RDW Plt Count MPV Neut % (Auto) Lymph % (Auto) [place] % (Auto) Eos % (Auto) Baso % (Auto) Neut # (Auto) Lymph # (Auto) [place] # (Auto) Eos # (Auto) Baso # (Auto) WBC Differential Differential Comment Sodium Potassium Chloride Carbon Dioxide Anion Gap BUN Creatinine Estimated GFR POC Glucose 305 H Random Glucose Lactic Acid Calcium Prot Corrected Calcium Magnesium Total Bilirubin AST ALT Alkaline Phosphatase Troponin I Total Protein Albumin Urine Color Urine Clarity Urine pH Ur Specific [place] Urine Protein Urine Glucose (UA) Urine Ketones Urine Occult Blood Urine Nitrate Urine Bilirubin Urine Ictotest Urine Urobilinogen Ur Leukocyte Esterase Urine RBC Urine WBC Urine WBC Clumps Ur Squamous Epith Cells Urine Bacteria Urine Mucus Micro UA Comment Urine Culture Comments Stl C.difficile Tox PCR St C. diff Tox Epid 027 Microbiology 06/11/18 12:30 Catheterized Urine Urine Culture - Preliminary S. aureus MRSA gram positive cocci 06/11/18 14:20 Blood - Peripheral Aerobic Blood Culture - Preliminary No growth in 1 day 06/11/18 14:20 Blood - Peripheral Anaerobic Blood Culture - Preliminary No growth in 1 day 06/11/18 14:10 Blood - Peripheral Aerobic Blood Culture - Preliminary No growth in 1 day 06/11/18 14:10 Blood - Peripheral Anaerobic Blood Culture - Preliminary No growth in 1 day - Imaging Impressions Abdomen/Bladder Ultrasound 06/12/18 00:00 CONCLUSION: 1. Unremarkable and stable bilateral renal ultrasound. 2. No evidence of hydronephrosis. Venous Doppler Study 06/12/18 00:00 CONCLUSION: 1. Deep venous thrombosis in both lower extremities. Assessment and Plan - Assessment (1) Diabetic foot ulcer Code(s): E11.621 - Type 2 diabetes mellitus with foot ulcer; L97.509 - Non- pressure chronic ulcer of other part of unspecified foot with unspecified severity Status: Chronic Plan: Primary team can order bone scan. However, I do not feel there is any clinical sign of infection present. Patient does not have current wounds near metatarsal heads 2,3,4 left foot and claims to have not had wounds there in the past. There is chronic edema present, but no suspicion for underlying infection. If primary team chooses to order bone scan, I discussed with patient that we could discuss results and treatment options, but I do not suspect acute infection. I ordered ESR and CRP to see if there is any indication of osteomyelitis before considering bone scan. If not elevated, recommend continued wound care and edema control. - Plan Agree with radiology suggestion to move forward with bone scan left foot Will await results to form treatment plan (1) Diabetic foot ulcer Qualifiers: Diabetic foot ulcer location: other Diabetes mellitus type: type 2 Laterality: unspecified laterality Non-pressure ulcer stage: limited to breakdown of skin Qualified Code(s): E11.621 - Type 2 diabetes mellitus with foot ulcer; L97.501 - Non-pressure chronic ulcer of other part of unspecified foot limited to breakdown of skin
[2018-06-12] MEDS: Vancomycin Inj 1,500 MG in Sodium Chlor 0.9% Inj 500 ML IV.SIG SCH (23:03)
[2018-06-13] MEDS ORDERED: Potassium Chloride 25 MEQ Effervescent Tablet PO ONE ×2 (00:19→12:00)
[2018-06-13] MEDS ORDERED: Potassium Chlor 20 mEq Premix 20 MEQ/100 ML PIGGYBACK IV.SIG ONE (00:21)
--- NOTE | 2018-06-13 00:43 | MB ---
cc: Buck Archibald DO DATE: 06/12/2018 REASON FOR CONSULTATION: Elevated troponin. HISTORY OF PRESENT ILLNESS: Anselmo Jerry is a 58-year-old male who lives at home alone and is being followed by [facility]. Apparently, he was brought in by [facility] for placement. The patient is unable to really give me much of a history as he is a poor historian, so history is taken from the chart. He had a litany of tests done and during this was found to have an elevated troponin. He states that he has no chest pain or shortness of breath. He is currently hemodynamically stable without current symptoms. PAST MEDICAL HISTORY: 1. Chronic anemia. 2. Coronary artery disease. 3. Diabetes. 4. Dyslipidemia. 5. General anxiety disorder. 6. History of cerebrovascular accident. 7. Hypernatremia. 8. Hypertension. 9. Lower extremity edema. 10. History of myocardial infarction. 11. Osteoarthritis. 12. Right hemiplegia. PAST SURGICAL HISTORY: 1. Cardiac catheterization (12/26/2010), mild nonobstructive coronary artery disease. ALLERGIES: NO KNOWN DRUG ALLERGIES. MEDICATIONS: Unable to be obtained. FAMILY HISTORY: Denies sudden cardiac within the family. SOCIAL HISTORY: Denies tobacco, alcohol, or drug abuse. REVIEW OF SYSTEMS: Fourteen systems were reviewed including osteopathic. Pertinent positives and negatives above, otherwise negative. PHYSICAL EXAMINATION: VITAL SIGNS: Temperature 98.1, heart rate 85, blood pressure 124/65, respirations 16, pulse oximetry 98% on room air. GENERAL: The patient appears well, in no acute distress, Alert and awake. HEENT: Extraocular muscles intact. Mucous membranes moist. NECK: Supple. No JVD. No carotid bruits heard bilaterally. Carotid upstrokes brisk in nature. HEART: Regular rate and rhythm. Positive first and second heart sounds with no noted murmurs, gallops, or rubs. LUNGS: Clear to auscultation bilaterally. No wheezes, rales, or rhonchi. ABDOMEN: Soft, nontender, nondistended. No organomegaly noted. EXTREMITIES: Show multiple ulcerations. Significant edema bilaterally. NEUROLOGIC: No focal deficits. SKIN: Warm, dry, and intact other than the ulcerations. OSTEOPATHIC: No kyphoscoliosis or paraspinal tender points. LABORATORY DATA: Hemoglobin 9.8, hematocrit 30.4, platelets 111. Potassium 2.5, BUN 33, creatinine 2.01, troponin 1.4 decreasing to 0.77. Electrocardiogram (06/11/2018 at 14:15): Sinus tachycardia, nonspecific ST-T waves changes. IMPRESSION: 1. Non-ST elevation myocardial infarction type 2. 2. Hypokalemia, most likely due to diarrhea. 3. Clostridium difficile diarrhea. 4. Hyponatremia due to dehydration. 5. Acute kidney injury. 6. Urinary tract infection. 7. Chronic indwelling Lennon catheter. 8. Lactic acidosis. 9. Osteomyelitis. RECOMMENDATIONS: 1. Mr. Jerry appears to most likely have type 2 NSTEMI. He has no current symptoms and no acute ST-T wave changes, as well as his troponins are on a down slope. 2. He will be treated for his medical issues by the primary team including UTI, probable osteomyelitis, and C. difficile. 3. Plan on placing on aspirin 81 mg daily. 4. We will check a 2D echo to look at his overall left ventricular function, cardiac structure, and possible valvulopathies. 5. Once stabilized from an otherwise medical standpoint including his hyponatremia and hypokalemia, then I would consider a pharmacologic nuclear stress test to rule out significant disease. 6. This was discussed with the primary team. Thank you for allowing me to see Anselmo Jerry. If there are any questions, please do not hesitate to call. Buck Archibald DO VGP/sv , 10:14 PM , 10:24 PM
[2018-06-13] MEDS: metroNIDAZOLE 500 MG Tablet PO SCH ×3 (05:30→22:59)
[2018-06-13] MEDS: Sod Chloride 0.9% Inj 1,000 ML IV.CONT SCH ×2 (05:32→15:30)
[2018-06-13] MEDS: Heparin - SQ 10,000 UNITS/ML Vial SQ SCH (09:01)
[2018-06-13] MEDS: Lactobacillus Acidophilus/L. Spores Tablet PO SCH ×3 (09:01→17:39)
[2018-06-13] MEDS: Insulin NovoLOG Aspart Correctional Sugar Inj SQ SCH ×4 (09:08→23:00)
--- NOTE | 2018-06-13 10:28 | P.PN ---
Subjective Interval history: awake, oriented x 2. No complaints when asked, had "ok" night. Having diarrhea 2 -3 stools yesterday. K replaced again last night, K 2.7. No cp, no sob. Physical Exam Vital signs: Vital Signs 06/12/18 12:00 06/12/18 13:26 06/12/18 16:00 Temperature 98.1 F 98.2 F Pulse Rate 85 86 89 Respiratory Rate 16 16 Blood Pressure 124/65 110/62 Pulse Oximetry 98 100 06/12/18 16:53 06/12/18 20:00 06/13/18 00:00 Temperature 98.9 F 98.0 F Pulse Rate 93 H 100 H 80 Respiratory Rate 18 19 Blood Pressure 106/55 L 111/62 Pulse Oximetry 96 98 06/13/18 04:00 06/13/18 08:00 Temperature 98.9 F 97.4 F L Pulse Rate 82 85 Respiratory Rate 16 20 Blood Pressure 94/58 L 117/74 Pulse Oximetry 100 98 Intake & Output 06/12/18 06/13/18 06/13/18 18:59 06:59 18:59 Intake Total 1790 / 1790 970 / 970 Output Total 650 / 650 Balance 1790 / 1790 320 / 320 Weight 108 kg Intake: IV 1310 / 1310 730 / 730 LR 1000 mL Inj 1,000 ML @ 84 1000 / 1000 mls/hr IV.CONT .[id number] [facility] Rx# :[id number] Calcium Chloride Inj 1 GM In 110 / 110 D5W Inj 100 ML @ 110 mls/hr IV. SIG ONCE ONE Rx#:[id number] KCl 10 mEq Premix Inj 10 meq In 100 / 100 100 / 100 100 ml @ 100 mls/hr IV.SIG Q1H [facility] Rx#:[id number] KCl 20 mEq Premix Inj 20 meq In 100 / 100 100 ml @ 50 mls/hr IV.SIG ONCE ONE Rx#:[id number] Vancomycin Inj 1,500 MG In NS 530 / 530 Inj 500 ML @ 250 mls/hr IV.SIG Q24H [facility] Rx#:[id number] Rocephin Inj 1,000 MG In NS Inj 100 / 100 100 ML @ 200 mls/hr IV.SIG Q24H [facility] Rx#:[id number] Oral 480 / 480 240 / 240 Output: Urine Amount (Catheter) 650 / 650 Indwelling Urethral Catheter 650 / 650 Other: # Voids 2 # Bowel Movements 1 # Incontinent Bowel Movements 2 Narrative: GENERAL: Elderly black male, appears older than stated age, disheveled. SKIN: Has bilateral plantar ulcerations, another ulceration to the right posterior calf. Has significant edema. No odor, minimal drainage. HEAD: Atraumatic. Normocephalic. EYES: Pupils equal and round. No scleral icterus. No injection or drainage. ENT: No nasal bleeding or discharge. Mucous membranes pink and moist. NECK: Trachea midline. No JVD. CARDIOVASCULAR: Regular rate and rhythm. RESPIRATORY: No accessory muscle use. Clear to auscultation. Breath sounds equal bilaterally. GASTROINTESTINAL: Abdomen soft, non-tender, nondistended. Hepatic and splenic margins not palpable. : berger catheter, fallon urine MUSCULOSKELETAL: Extremities without clubbing, cyanosis, or edema. No obvious deformities. NEUROLOGICAL: Awake and alert and oriented 23. No obvious cranial nerve deficits. Bilateral upper extremity strength 3 out of 5 right weaker than left , unable to move legs. PSYCHIATRIC: Appropriate mood and affect; insight and judgment normal. - Urinary Catheter Management Indwelling Temp Sensing Catheter Cath placed during this visit: yes, but has since been removed by the nurse Reason for continuing: Not indwelling catheter Removal date: 06/12/18 Removal time: 17:00 Indwelling Urethral Catheter Cath placed during this visit: yes Reason for continuing: Chronic Urinary Retention Insertion date: 06/12/18 Insertion time: 17:45 Results - Labs CBC & Chem 7: 06/12/18 11:08 06/12/18 22:24 Laboratory Results - last 24 hr 06/11/18 06/12/18 06/12/18 12:30 11:08 11:08 WBC 11.8 H RBC 3.71 L Hgb 9.8 L Hct 30.4 L MCV 82.1 MCH 26.3 L MCHC 32.1 RDW 19.3 H Plt Count 111 L MPV 10.1 Neut % (Auto) 73.6 H Lymph % (Auto) 15.9 [place] % (Auto) 8.6 H Eos % (Auto) 1.6 Baso % (Auto) 0.3 Neut # (Auto) 8.7 H Lymph # (Auto) 1.9 [place] # (Auto) 1.0 H Eos # (Auto) 0.2 Baso # (Auto) 0.0 WBC Differential . Differential Comment Auto diff final Sodium 154 H Potassium 2.5 L* Chloride 116 H Carbon Dioxide 27.2 Anion Gap 11 BUN 33 H Creatinine 2.01 H Estimated GFR 41 L POC Glucose Random Glucose 237 H Lactic Acid Calcium 7.1 L* Prot Corrected Calcium 7.5 L Magnesium 1.8 Total Bilirubin 0.4 AST 35 ALT 17 Alkaline Phosphatase 96 Troponin I 0.77 H* Total Protein 6.3 L Albumin 1.9 L Urine Color [place] Urine Clarity Turbid H Urine pH 5.0 Ur Specific [place] 1.027 Urine Protein 500 or greater Urine Glucose (UA) Negative Urine Ketones Trace Urine Occult Blood Large H Urine Nitrate Negative Urine Bilirubin Negative Urine Ictotest Negative Urine Urobilinogen 2.0 H Ur Leukocyte Esterase Large H Urine RBC 127 H Urine WBC Urine WBC Clumps Many H Ur Squamous Epith Cells 1 Urine Bacteria Many H Urine Mucus Few H Micro UA Comment Cath-culture ind Urine Culture Comments Cath-cult indicated 06/12/18 06/12/18 06/12/18 12:29 14:40 14:40 WBC RBC Hgb Hct MCV MCH MCHC RDW Plt Count MPV Neut % (Auto) Lymph % (Auto) [place] % (Auto) Eos % (Auto) Baso % (Auto) Neut # (Auto) Lymph # (Auto) [place] # (Auto) Eos # (Auto) Baso # (Auto) WBC Differential Differential Comment Sodium 153 H Potassium 2.2 L* Chloride 114 H Carbon Dioxide 30.9 Anion Gap 8 BUN 34 H Creatinine 1.98 H Estimated GFR 42 L POC Glucose 257 H Random Glucose 264 H Lactic Acid 1.6 Calcium 7.3 L* Prot Corrected Calcium 7.7 L Magnesium Total Bilirubin AST ALT Alkaline Phosphatase Troponin I Total Protein 6.4 Albumin Urine Color Urine Clarity Urine pH Ur Specific [place] Urine Protein Urine Glucose (UA) Urine Ketones Urine Occult Blood Urine Nitrate Urine Bilirubin Urine Ictotest Urine Urobilinogen Ur Leukocyte Esterase Urine RBC Urine WBC Urine WBC Clumps Ur Squamous Epith Cells Urine Bacteria Urine Mucus Micro UA Comment Urine Culture Comments 06/12/18 06/12/18 06/12/18 16:32 19:02 22:24 WBC RBC Hgb Hct MCV MCH MCHC RDW Plt Count MPV Neut % (Auto) Lymph % (Auto) [place] % (Auto) Eos % (Auto) Baso % (Auto) Neut # (Auto) Lymph # (Auto) [place] # (Auto) Eos # (Auto) Baso # (Auto) WBC Differential Differential Comment Sodium Potassium 2.7 L* Chloride Carbon Dioxide Anion Gap BUN Creatinine Estimated GFR POC Glucose 305 H 306 H Random Glucose Lactic Acid Calcium Prot Corrected Calcium Magnesium Total Bilirubin AST ALT Alkaline Phosphatase Troponin I Total Protein Albumin Urine Color Urine Clarity Urine pH Ur Specific [place] Urine Protein Urine Glucose (UA) Urine Ketones Urine Occult Blood Urine Nitrate Urine Bilirubin Urine Ictotest Urine Urobilinogen Ur Leukocyte Esterase Urine RBC Urine WBC Urine WBC Clumps Ur Squamous Epith Cells Urine Bacteria Urine Mucus Micro UA Comment Urine Culture Comments 06/13/18 09:02 WBC RBC Hgb Hct MCV MCH MCHC RDW Plt Count MPV Neut % (Auto) Lymph % (Auto) [place] % (Auto) Eos % (Auto) Baso % (Auto) Neut # (Auto) Lymph # (Auto) [place] # (Auto) Eos # (Auto) Baso # (Auto) WBC Differential Differential Comment Sodium Potassium Chloride Carbon Dioxide Anion Gap BUN Creatinine Estimated GFR POC Glucose 222 H Random Glucose Lactic Acid Calcium Prot Corrected Calcium Magnesium Total Bilirubin AST ALT Alkaline Phosphatase Troponin I Total Protein Albumin Urine Color Urine Clarity Urine pH Ur Specific [place] Urine Protein Urine Glucose (UA) Urine Ketones Urine Occult Blood Urine Nitrate Urine Bilirubin Urine Ictotest Urine Urobilinogen Ur Leukocyte Esterase Urine RBC Urine WBC Urine WBC Clumps Ur Squamous Epith Cells Urine Bacteria Urine Mucus Micro UA Comment Urine Culture Comments Microbiology 06/11/18 12:30 Catheterized Urine Urine Culture - Preliminary S. aureus MRSA gram positive cocci 06/11/18 14:20 Blood - Peripheral Aerobic Blood Culture - Preliminary No growth in 1 day 06/11/18 14:20 Blood - Peripheral Anaerobic Blood Culture - Preliminary No growth in 1 day 06/11/18 14:10 Blood - Peripheral Aerobic Blood Culture - Preliminary No growth in 1 day 06/11/18 14:10 Blood - Peripheral Anaerobic Blood Culture - Preliminary No growth in 1 day - Imaging Impressions Abdomen/Bladder Ultrasound 06/12/18 00:00 CONCLUSION: 1. Unremarkable and stable bilateral renal ultrasound. 2. No evidence of hydronephrosis. Venous Doppler Study 06/12/18 00:00 CONCLUSION: 1. Deep venous thrombosis in both lower extremities. Assessment and Plan - Assessment (1) Acute hypokalemia Code(s): E87.6 - Hypokalemia Status: Acute (2) Hypocalcemia Code(s): E83.51 - Hypocalcemia Status: Acute (3) Acute renal insufficiency Code(s): N28.9 - Disorder of kidney and ureter, unspecified Status: Acute (4) Urinary tract infection Code(s): N39.0 - Urinary tract infection, site not specified Status: Acute (5) Chronic indwelling Berger catheter Code(s): Z92.89 - Personal history of other medical treatment Status: Acute (6) Lactic acidosis Code(s): E87.2 - Acidosis Status: Acute (7) Osteomyelitis Code(s): M86.9 - Osteomyelitis, unspecified Status: Suspected (8) Chronic ulcer of leg Code(s): L97.909 - Non-pressure chronic ulcer of unspecified part of unspecified lower leg with unspecified severity Status: Chronic (9) Elevated troponin Code(s): R74.8 - Abnormal levels of other serum enzymes Status: Acute (10) Clostridium difficile diarrhea Code(s): A04.72 - Enterocolitis due to Clostridium difficile, not specified as recurrent Status: Acute - Plan - Plan 58-year-old male admitted with hypokalemia, hypocalcemia, acute kidney injury, dehydration, hypernatremia, urinary tract infection, and severe edema of the feet with foot ulcers. Acute kidney injury-improving some Dehydration Hypernatremia Lactic acidosis-improving -Continue with IVF -Avoid nephrotoxins -Monitor renal function -Increase water intake -follow lactic acid -1.6 now Severe hypokalemia -replace PRN -labs pending -Follow on telemetry Severe hypocalcemia -Repeat Calcium gluconate x 1 -Treat infection -Monitor calcium level Urinary tract infection secondary to chronic indwelling catheter Bilateral foot ulcers, did not appear infected. X-ray findings of left foot metatarsal osteomyelitis. Prior history of osteomyelitis -Continue vancomycin and Rocephin. Pharmacy for dosing appreciate ID input Follow cultures, urine culture positive for MRSA, sens. pending -berger changed 06/12 renal US okay, no obstruction -wound care input appreciated, continue with wound care -appreciate podiatry input, recommends sed rate and CRP and if elevated, then bone scan. At this time, continue wound care. Cdiff continue with diarrhea -continue with Flagyl 500 mg PO q 8 -replace electrolytes as needed -follow renal function Bilateral foot swelling, positive for DVT. History of DVT and IVC filter -May consider diuresis later, follow renal function -For now correct electrolytes and monitor -Bilateral Ultrasound of Lower Extremities -positive for DVT both lower extremities. -Heparin 5000 units subcu twice daily for DVT prophylaxis. Will eventually need to transition to Coumadin Failure to thrive -Patient will need placement, DCF is not involved. Patient has been receiving care from home health care. -CM consult for dc planning, likely SNF and then transition to shelter care Elevated trop in the setting of [facility], pt. has no c/o CP, sob Coronary artery disease, [place], stents. at one point was on Plavix, statin and BB. will have RN obtain med list from home -serial trop elevated -Appreciate card input, d/w Dr. Strong. For now echo. When improved, poss STT -continue ASA 81 mg po daily -follow on telemetry Neurogenic bladder, chronic indwelling catheter -RN to replace berger today Hypertension -Continue baseline treatment -Follow blood pressures -Adjust treatments as needed Diabetes mellitus type 2 -Accuchecks AC and HS with ISS -Diabetic diet -blood sugars elevated, add Lantus 10 units SQ BID History of CVA Right hemiplegia -Continue supportive care -No new neurological deficits Hyperlipidemia -Continue present treatment -Follow as an outpatient History of chronic anemia -Follow CBC DVT prophylaxis -Heparin SQ Labs pending today will have RN contact [facility] to obtain medication list-d/w CM D/W pt, rn, (4) Urinary tract infection Qualifiers: Urinary tract infection type: catheter-associated UTI Indwelling urinary catheter type: indwelling urethral catheter Encounter type: initial encounter Qualified Code(s): T83.511A - Infection and inflammatory reaction due to indwelling urethral catheter, initial encounter; N39.0 - Urinary tract infection , site not specified (7) Osteomyelitis Qualifiers: Osteomyelitis type: other chronic Laterality: left (8) Chronic ulcer of leg Qualifiers: Laterality: unspecified laterality Non-pressure ulcer stage: unspecified non- pressure ulcer stage Qualified Code(s): L97.909 - Non-pressure chronic ulcer of unspecified part of unspecified lower leg with unspecified severity
[2018-06-13 10:47] LABS: Hematocrit 27.2 % (39.0-51.0); Hemoglobin 8.6 gm/dL (13.0-17.0); Mean Corpuscular HGB Conc 31.8 % (32.0-36.0); Mean Corpuscular Hemoglobin 26.5 pg (27.0-34.0); Mean Corpuscular Volume 83.2 fL (80.0-100.0); Mean Platelet Volume 10.2 fL (7.0-11.0); Platelet Count 94 th/mm3 (150-450); Red Blood Count 3.27 mil/mm3 (4.50-5.90); Red Cell Distribution Width 19.9 % (11.6-17.2); White Blood Count 8.5 th/mm3 (4.0-11.0)
[2018-06-13 11:22] LABS: C-Reactive Protein 3.1 mg/dL (0.00-0.30); Calcium 7.3 mg/dL (8.5-10.1); Carbon Dioxide 27.6 meq/L (21.0-32.0); Magnesium 1.6 mg/dL (1.5-2.5)
[2018-06-13 11:28] LABS: Erythrocyte Sedimentation Rate 47 mm/hr (0-20)
[2018-06-13 11:34] LABS: Total Protein 6.2 g/dL (6.4-8.2)
[2018-06-13 11:36] LABS: Potassium 2.9 meq/L (3.5-5.1)
[2018-06-13] MEDS ORDERED: Potassium Chlor 10 mEq Premix 10 MEQ/100 ML PIGGYBACK IV.SIG ONE (12:00)
[2018-06-13] MEDS ORDERED: Calcium Chloride Inj 1 GM in Dextrose 5% in Water Inj 100 ML IV.SIG ONE ×2 (13:00)
--- NOTE | 2018-06-13 13:45 | ECHRPT ---
Indication: Coronary atherosclerosis CONCLUSIONS Normal left ventricular size. Wall thickness is normal. The left ventricular systolic function is normal with an estimated ejection fraction in the range of 50-55%. No regional wall motion abnormalities are present. There is trace tricuspid valve regurgitation. The estimated pulmonary arterial pressure is 22 mmHg. BP: / HR: Rhythm: MEASUREMENTS (Male / Female) Normal Values Technical Quality:Fair 2D ECHO LV Diastolic Diameter PLAX 4.7 cm 4.2 - 5.9 / 3.9 - 5.3 cm LV Systolic Diameter PLAX 3.3 cm IVS Diastolic Thickness 1.1 cm 0.6 - 1.0 / 0.6 - 0.9 cm LVPW Diastolic Thickness 1.0 cm 0.6 - 1.0 / 0.6 - 0.9 cm LV Relative Wall Thickness 0.4 RV Internal Dim ED PLAX 2.9 cm LVOT Diameter 2.6 cm LA Systolic Diameter LX 2.6 cm 3.0 - 4.0 / 2.7 - 3.8 cm M-MODE AV Cusp Separation MM 2.3 cm DOPPLER AV Peak Velocity 126.0 cm/s AV Peak Gradient 6.4 mmHg LVOT Peak Velocity 102.0 cm/s LVOT Peak Gradient 4.2 mmHg AV Area Cont Eq pk 4.3 cm Mitral E Point Velocity 54.3 cm/s Mitral A Point Velocity 78.0 cm/s Mitral E to A Ratio 0.7 LV E' Lateral Velocity 12.7 cm/s Mitral E to LV E' Lateral Ratio 4.3 LV E' Septal Velocity 7.1 cm/s Mitral E to LV E' Septal Ratio 7.6 TR Peak Velocity 206.0 cm/s TR Peak Gradient 17.0 mmHg FINDINGS LEFT VENTRICLE Normal left ventricular size. Wall thickness is normal. The left ventricular systolic function is normal with an estimated ejection fraction in the range of 50-55%. No regional wall motion abnormalities are present. RIGHT VENTRICLE Normal right ventricular size and systolic function. LEFT ATRIUM The left atrial size is normal. RIGHT ATRIUM The right atrial size is normal. ATRIAL SEPTUM Normal atrial septal thickness without atrial level shunting by limited color doppler interrogation. AORTA The aortic root and proximal ascending aorta are normal in size on limited imaging. MITRAL VALVE Structurally normal mitral valve. No mitral valve stenosis or regurgitation. AORTIC VALVE Trileaflet aortic valve. No aortic valve stenosis or regurgitation. TRICUSPID VALVE There is trace tricuspid valve regurgitation. The estimated pulmonary arterial pressure is 22 mmHg. PULMONARY VALVE The pulmonary valve is not well visualized. VESSELS The inferior vena cava is normal in size. PERICARDIUM No pericardial effusion. Deandre Busby MD (Electronically Signed) Final Date:13 June 2018 13:44
[2018-06-13] MEDS: Ferrous Sulfate 325 MG Tablet PO SCH (17:39)
--- NOTE | 2018-06-13 17:51 | P.PNCA ---
Subjective Interval history: No events overnight Still with diarrhea Physical Exam Vital signs: Vital Signs 06/12/18 20:00 06/13/18 00:00 06/13/18 04:00 Temperature 98.9 F 98.0 F 98.9 F Pulse Rate 100 H 80 82 Respiratory Rate 18 19 16 Blood Pressure 106/55 L 111/62 94/58 L Pulse Oximetry 96 98 100 06/13/18 08:00 06/13/18 12:00 Temperature 97.4 F L 97.9 F Pulse Rate 80 89 Respiratory Rate 20 20 Blood Pressure 117/74 116/68 Pulse Oximetry 98 100 Intake & Output 06/12/18 06/13/18 06/13/18 18:59 06:59 18:59 Intake Total 1790 / 1790 970 / 970 2210 / 2210 Output Total 650 / 650 Balance 1790 / 1790 320 / 320 2210 / 2210 Weight 108 kg Intake: IV 1310 / 1310 730 / 730 2210 / 2210 LR 1000 mL Inj 1,000 ML @ 84 1000 / 1000 1000 / 1000 mls/hr IV.CONT .[id number] [facility] Rx# :[id number] NS Inj 1,000 ML @ 50 mls/hr IV. 1000 / 1000 CONT .Q20H [facility] Rx#:[id number] Calcium Chloride Inj 1 GM In 110 / 110 110 / 110 D5W Inj 100 ML @ 110 mls/hr IV. SIG ONCE ONE Rx#:[id number] KCl 10 mEq Premix Inj 10 meq In 100 / 100 100 / 100 100 / 100 100 ml @ 100 mls/hr IV.SIG ONCE ONE Rx#:[id number] KCl 20 mEq Premix Inj 20 meq In 100 / 100 100 ml @ 50 mls/hr IV.SIG ONCE ONE Rx#:[id number] Vancomycin Inj 1,500 MG In NS 530 / 530 Inj 500 ML @ 250 mls/hr IV.SIG Q24H [facility] Rx#:[id number] Rocephin Inj 1,000 MG In NS Inj 100 / 100 100 ML @ 200 mls/hr IV.SIG Q24H [facility] Rx#:[id number] Oral 480 / 480 240 / 240 Output: Urine Amount (Catheter) 650 / 650 Indwelling Urethral Catheter 650 / 650 Other: # Voids 2 # Bowel Movements 1 # Incontinent Bowel Movements 2 Narrative: GENERAL: Elderly black male, appears older than stated age, disheveled. SKIN: Has bilateral plantar ulcerations, another ulceration to the right posterior calf. Has significant edema. No odor, minimal drainage. HEAD: Atraumatic. Normocephalic. EYES: Pupils equal and round. No scleral icterus. No injection or drainage. ENT: No nasal bleeding or discharge. Mucous membranes pink and moist. NECK: Trachea midline. No JVD. CARDIOVASCULAR: Regular rate and rhythm. RESPIRATORY: No accessory muscle use. Clear to auscultation. Breath sounds equal bilaterally. GASTROINTESTINAL: Abdomen soft, non-tender, nondistended. Hepatic and splenic margins not palpable. : berger catheter, fallon urine MUSCULOSKELETAL: Extremities without clubbing, cyanosis, or edema. No obvious deformities. NEUROLOGICAL: Awake and alert and oriented 23. No obvious cranial nerve deficits. Bilateral upper extremity strength 3 out of 5 right weaker than left , unable to move legs. PSYCHIATRIC: Appropriate mood and affect; insight and judgment normal. - Urinary Catheter Management Indwelling Temp Sensing Catheter Cath placed during this visit: yes, but has since been removed by the nurse Reason for continuing: Chronic Urinary Retention Removal date: 06/12/18 Removal time: 17:00 Indwelling Urethral Catheter Cath placed during this visit: yes Reason for continuing: Not indwelling catheter Insertion date: 06/12/18 Insertion time: 17:45 Assessment and Plan - Assessment (1) Acute hypokalemia Code(s): E87.6 - Hypokalemia Status: Acute (2) Hypocalcemia Code(s): E83.51 - Hypocalcemia Status: Acute (3) Acute renal insufficiency Code(s): N28.9 - Disorder of kidney and ureter, unspecified Status: Acute (4) Urinary tract infection Code(s): N39.0 - Urinary tract infection, site not specified Status: Acute (5) Chronic indwelling Berger catheter Code(s): Z92.89 - Personal history of other medical treatment Status: Acute (6) Lactic acidosis Code(s): E87.2 - Acidosis Status: Acute (7) Osteomyelitis Code(s): M86.9 - Osteomyelitis, unspecified Status: Suspected (8) Chronic ulcer of leg Code(s): L97.909 - Non-pressure chronic ulcer of unspecified part of unspecified lower leg with unspecified severity Status: Chronic (9) Elevated troponin Code(s): R74.8 - Abnormal levels of other serum enzymes Status: Acute (10) Clostridium difficile diarrhea Code(s): A04.72 - Enterocolitis due to Clostridium difficile, not specified as recurrent Status: Acute (11) Diabetic foot ulcer Code(s): E11.621 - Type 2 diabetes mellitus with foot ulcer; L97.509 - Non- pressure chronic ulcer of other part of unspecified foot with unspecified severity Status: Chronic - Plan 1) NSTEMI Most likely Type 2 in nature due to overall illness 2) C. Diff 3) Hypokalemia/hypernatremia due to diarrhea 4) EF 50-55% 5) Once stabilized from an otherwise medical standpoint including his hyponatremia and hypokalemia, then I would consider a pharmacologic nuclear stress test to rule out significant disease (4) Urinary tract infection Qualifiers: Urinary tract infection type: catheter-associated UTI Indwelling urinary catheter type: indwelling urethral catheter Encounter type: initial encounter Qualified Code(s): T83.511A - Infection and inflammatory reaction due to indwelling urethral catheter, initial encounter; N39.0 - Urinary tract infection , site not specified (7) Osteomyelitis Qualifiers: Osteomyelitis type: other chronic Laterality: left (8) Chronic ulcer of leg Qualifiers: Laterality: unspecified laterality Non-pressure ulcer stage: unspecified non- pressure ulcer stage Qualified Code(s): L97.909 - Non-pressure chronic ulcer of unspecified part of unspecified lower leg with unspecified severity (11) Diabetic foot ulcer Qualifiers: Diabetic foot ulcer location: other Diabetes mellitus type: type 2 Laterality: unspecified laterality Non-pressure ulcer stage: limited to breakdown of skin Qualified Code(s): E11.621 - Type 2 diabetes mellitus with foot ulcer; L97.501 - Non-pressure chronic ulcer of other part of unspecified foot limited to breakdown of skin
--- NOTE | 2018-06-13 17:53 | P.PNPOD ---
Physical Exam Vital signs: Vital Signs 06/12/18 20:00 06/13/18 00:00 06/13/18 04:00 Temperature 98.9 F 98.0 F 98.9 F Pulse Rate 100 H 80 82 Respiratory Rate 18 19 16 Blood Pressure 106/55 L 111/62 94/58 L Pulse Oximetry 96 98 100 06/13/18 08:00 06/13/18 12:00 Temperature 97.4 F L 97.9 F Pulse Rate 80 89 Respiratory Rate 20 20 Blood Pressure 117/74 116/68 Pulse Oximetry 98 100 Intake & Output 06/12/18 06/13/18 06/13/18 18:59 06:59 18:59 Intake Total 1790 / 1790 970 / 970 2210 / 2210 Output Total 650 / 650 Balance 1790 / 1790 320 / 320 2210 / 2210 Weight 108 kg Intake: IV 1310 / 1310 730 / 730 2210 / 2210 LR 1000 mL Inj 1,000 ML @ 84 1000 / 1000 1000 / 1000 mls/hr IV.CONT .[id number] [facility] Rx# :[id number] NS Inj 1,000 ML @ 50 mls/hr IV. 1000 / 1000 CONT .Q20H RAD[facility] Rx#:[id number] Calcium Chloride Inj 1 GM In 110 / 110 110 / 110 D5W Inj 100 ML @ 110 mls/hr IV. SIG ONCE ONE Rx#:[id number] KCl 10 mEq Premix Inj 10 meq In 100 / 100 100 / 100 100 / 100 100 ml @ 100 mls/hr IV.SIG ONCE ONE Rx#:[id number] KCl 20 mEq Premix Inj 20 meq In 100 / 100 100 ml @ 50 mls/hr IV.SIG ONCE ONE Rx#:[id number] Vancomycin Inj 1,500 MG In NS 530 / 530 Inj 500 ML @ 250 mls/hr IV.SIG Q24H [facility] Rx#:[id number] Rocephin Inj 1,000 MG In NS Inj 100 / 100 100 ML @ 200 mls/hr IV.SIG Q24H [facility] Rx#:[id number] Oral 480 / 480 240 / 240 Output: Urine Amount (Catheter) 650 / 650 Indwelling Urethral Catheter 650 / 650 Other: # Voids 2 # Bowel Movements 1 # Incontinent Bowel Movements 2 Medications and Allergies Active Medications: Active Medications Hydrocodone Bitart/Acetaminophen ([place] 10/325) 1 tab PO Q4H PRN PRN Reason: Pain 7 to 10 Last Admin: 06/12/18 22:46 Dose: 1 tab Hydrocodone Bitart/Acetaminophen ([place] 5/325) 1 tab PO Q4H PRN PRN Reason: Pain 3 to 6 Al Hydroxide/Mg Hydroxide (Milk Of Magnolimpia Liq) 30 ml PO Q12H PRN PRN Reason: Mild Constipation Amlodipine Besylate (Norvasc) 10 mg PO DAILY [facility] Apixaban (Eliquis) 2.5 mg PO BID [facility] Ascorbic Acid (Vitamin C) 500 mg PO DAILY [facility] Aspirin (Aspirin Chew) 81 mg PO DAILY [facility] Last Admin: 06/13/18 09:01 Dose: 81 mg Dextrose (D50w Vial) 50 ml IV.PUSH UNSCH PRN PRN Reason: PER HYPOGLYCEMIA PROTOCOL Duloxetine HCl (Cymbalta) 30 mg PO DAILY [facility] Ferrous Sulfate (Ferosul) 325 mg PO TID [facility] Last Admin: 06/13/18 17:39 Dose: 325 mg Gabapentin (Neurontin) 900 mg PO BID [facility] Glucagon (Glucagon Inj) 1 mg OTHER PRN PRN PRN Reason: for Hypoglycemia Protocol Sodium Chloride (Ns Inj) 1,000 mls @ 50 mls/hr IV.CONT .Q20H [facility] Last Admin: 06/13/18 15:30 Dose: 50 mls/hr Ceftriaxone Sodium 1,000 mg/ (Sodium Chloride) 100 mls @ 200 mls/hr IV.SIG Q24H [facility] Last Admin: 06/13/18 17:39 Dose: 200 mls/hr Vancomycin HCl 1,500 mg/ (Sodium Chloride) 530 mls @ 250 mls/hr IV.SIG Q24H [facility] Last Infusion: 06/13/18 05:41 Dose: Infused Insulin Aspart (Novolog Insulin Correctional Sugar Inj) 0 unit SQ ACHS [facility]; Protocol Last Admin: 06/13/18 17:38 Dose: 10 unit Insulin Detemir (Levemir Inj) 10 unit SQ BID [facility] Lactobacillus Acidophilus (Lactinex) 1 tab PO TID [facility] Last Admin: 06/13/18 17:39 Dose: 1 tab Metronidazole (Flagyl) 500 mg PO Q8HR [facility] Last Admin: 06/13/18 14:45 Dose: 500 mg Miscellaneous Information ([facility] Ordered Lab Info) 1 each OTHER ONCE ONE Stop: 06/13/18 21:46 Pharmacy Profile Note (Vancomycin Consult Pharmacy) 1 each OTHER UNSCH PRN PRN Reason: Pharmacy to dose Pravastatin Sodium (Pravachol) 20 mg PO DAILY@1800 [facility] Last Admin: 06/13/18 17:39 Dose: 20 mg Allergies Allergy/AdvReac Type Severity Reaction Status Date / Time No Known Allergies Allergy Unverified 06/11/18 11:16 Home Medications Medication Instructions Recorded Confirmed Type acetaminophen 650 mg PO Q4H PRN 06/13/18 06/13/18 History amino acids-protein hydrolys 30 ml PO TID 06/13/18 06/13/18 History [Pro-Stat AWC] amlodipine 10 mg PO DAILY 06/13/18 06/13/18 History apixaban 2.5 mg PO BID 06/13/18 06/13/18 History ascorbic acid (vitamin C) 500 mg PO DAILY 06/13/18 06/13/18 History duloxetine [Cymbalta] 30 mg PO DAILY 06/13/18 06/13/18 History ferrous sulfate 325 mg PO TID 06/13/18 06/13/18 History gabapentin 900 mg PO TID 06/13/18 06/13/18 History hydrocodone-acetaminophen [[place]] 1 tab PO Q6H PRN 06/13/18 06/13/18 History insulin glargine 15 unit SUB-Q DAILY 06/13/18 06/13/18 History insulin lispro 5 unit SUB-Q ACHS 06/13/18 06/13/18 History metronidazole [Flagyl] 500 mg PO TID 06/13/18 06/13/18 History oxycodone [OxyContin] 15 mg PO Q8H PRN 06/13/18 06/13/18 History simvastatin 10 mg PO QPM 06/13/18 06/13/18 History Results - Labs CBC & Chem 7: 06/13/18 09:59 06/13/18 09:59 Laboratory Results - last 24 hr 06/11/18 06/12/18 06/12/18 12:30 19:02 22:24 WBC RBC Hgb Hct MCV MCH MCHC RDW Plt Count MPV ESR Sodium Potassium 2.7 L* Chloride Carbon Dioxide Anion Gap BUN Creatinine Estimated GFR POC Glucose 306 H Random Glucose Calcium Prot Corrected Calcium Magnesium C-Reactive Protein Total Protein Urine Color [place] Urine Clarity Turbid H Urine pH 5.0 Ur Specific [place] 1.027 Urine Protein 500 or greater Urine Glucose (UA) Negative Urine Ketones Trace Urine Occult Blood Large H Urine Nitrate Negative Urine Bilirubin Negative Urine Ictotest Negative Urine Urobilinogen 2.0 H Ur Leukocyte Esterase Large H Urine RBC 127 H Urine WBC Urine WBC Clumps Many H Ur Squamous Epith Cells 1 Urine Bacteria Many H Urine Mucus Few H Micro UA Comment Cath-culture ind Urine Culture Comments Cath-cult indicated 06/13/18 06/13/18 06/13/18 09:02 09:59 09:59 WBC 8.5 RBC 3.27 L Hgb 8.6 L Hct 27.2 L MCV 83.2 MCH 26.5 L MCHC 31.8 L RDW 19.9 H Plt Count 94 L MPV 10.2 ESR 47 H Sodium 149 H Potassium 2.9 L* Chloride 114 H Carbon Dioxide 27.6 Anion Gap 7 BUN 31 H Creatinine 1.58 H Estimated GFR 54 L POC Glucose 222 H Random Glucose 232 H Calcium 7.3 L* Prot Corrected Calcium 7.8 L Magnesium 1.6 C-Reactive Protein 3.10 H Total Protein 6.2 L Urine Color Urine Clarity Urine pH Ur Specific [place] Urine Protein Urine Glucose (UA) Urine Ketones Urine Occult Blood Urine Nitrate Urine Bilirubin Urine Ictotest Urine Urobilinogen Ur Leukocyte Esterase Urine RBC Urine WBC Urine WBC Clumps Ur Squamous Epith Cells Urine Bacteria Urine Mucus Micro UA Comment Urine Culture Comments 06/13/18 06/13/18 11:48 17:12 WBC RBC Hgb Hct MCV MCH MCHC RDW Plt Count MPV ESR Sodium Potassium Chloride Carbon Dioxide Anion Gap BUN Creatinine Estimated GFR POC Glucose 249 H 314 H Random Glucose Calcium Prot Corrected Calcium Magnesium C-Reactive Protein Total Protein Urine Color Urine Clarity Urine pH Ur Specific [place] Urine Protein Urine Glucose (UA) Urine Ketones Urine Occult Blood Urine Nitrate Urine Bilirubin Urine Ictotest Urine Urobilinogen Ur Leukocyte Esterase Urine RBC Urine WBC Urine WBC Clumps Ur Squamous Epith Cells Urine Bacteria Urine Mucus Micro UA Comment Urine Culture Comments Microbiology 06/12/18 11:30 Wound - Foot Gram Stain - Final 06/12/18 11:30 Wound - Foot Gram Stain - Final 06/11/18 12:30 Catheterized Urine Urine Culture - Preliminary S. aureus MRSA Group D Enterococcus 06/11/18 14:20 Blood - Peripheral Aerobic Blood Culture - Preliminary No growth in 2 days 06/11/18 14:20 Blood - Peripheral Anaerobic Blood Culture - Preliminary No growth in 2 days 06/11/18 14:10 Blood - Peripheral Aerobic Blood Culture - Preliminary No growth in 2 days 06/11/18 14:10 Blood - Peripheral Anaerobic Blood Culture - Preliminary No growth in 2 days Assessment and Plan - Assessment (1) Diabetic foot ulcer Code(s): E11.621 - Type 2 diabetes mellitus with foot ulcer; L97.509 - Non- pressure chronic ulcer of other part of unspecified foot with unspecified severity Status: Chronic Plan: Ordered bone scan ESR/CRP elevated. The only surgical procedure I would consider at this time is minimally invasive bone biopsy with deep culture to guide antibiotic choice due to patient being treated for bilateral DVT. Will await bone scan results to determine further treatment. (1) Diabetic foot ulcer Qualifiers: Diabetic foot ulcer location: other Diabetes mellitus type: type 2 Laterality: unspecified laterality Non-pressure ulcer stage: limited to breakdown of skin Qualified Code(s): E11.621 - Type 2 diabetes mellitus with foot ulcer; L97.501 - Non-pressure chronic ulcer of other part of unspecified foot limited to breakdown of skin
[2018-06-13] MEDS ORDERED: Pharmacy Ordered Lab Info OTHER ONE (21:45)
[2018-06-13] MEDS: Gabapentin 300 MG Capsule PO SCH (22:59)
[2018-06-13] MEDS: Vancomycin Inj 1,500 MG in Sodium Chlor 0.9% Inj 500 ML IV.SIG SCH (22:59)
[2018-06-13] MEDS: Insulin Detemir Inj 1,000 UNIT/10 ML Vial SQ SCH (23:01)
[2018-06-14] MEDS: metroNIDAZOLE 500 MG Tablet PO SCH ×3 (04:24→13:26)
[2018-06-14 08:19] LABS: Hemoglobin 7.7 gm/dL (13.0-17.0); Mean Corpuscular HGB Conc 32.2 % (32.0-36.0); Mean Corpuscular Hemoglobin 26.7 pg (27.0-34.0); Mean Corpuscular Volume 82.9 fL (80.0-100.0); Mean Platelet Volume 10.4 fL (7.0-11.0); Platelet Count 85 th/mm3 (150-450); Red Blood Count 2.89 mil/mm3 (4.50-5.90); Red Cell Distribution Width 19.9 % (11.6-17.2); White Blood Count 7.3 th/mm3 (4.0-11.0)
[2018-06-14 08:45] LABS: Calcium 7.3 mg/dL (8.5-10.1); Carbon Dioxide 26.9 meq/L (21.0-32.0)
[2018-06-14 08:56] LABS: Total Protein 5.9 g/dL (6.4-8.2)
[2018-06-14] MEDS: Ferrous Sulfate 325 MG Tablet PO SCH ×3 (08:56→18:24)
[2018-06-14] MEDS: Ascorbic Acid 500 MG Tablet PO SCH (08:56)
[2018-06-14] MEDS: Gabapentin 300 MG Capsule PO SCH ×2 (08:56→22:02)
[2018-06-14] MEDS: amLODIPine 10 MG Tablet PO SCH (08:56)
[2018-06-14] MEDS: Insulin NovoLOG Aspart Correctional Sugar Inj SQ SCH ×4 (08:58→22:09)
[2018-06-14] MEDS: Insulin Detemir Inj 1,000 UNIT/10 ML Vial SQ SCH ×2 (08:59→22:09)
[2018-06-14] MEDS: Lactobacillus Acidophilus/L. Spores Tablet PO SCH ×3 (08:59→18:23)
--- NOTE | 2018-06-14 10:30 | P.PN ---
Subjective Interval history: Follow-up for UTI, hypokalemia, acute kidney injury. Patient somnolent, wakes to voice, oriented 2. Has no complaints. No acute changes overnight. Increased leg swelling noted. Physical Exam Vital signs: Vital Signs 06/13/18 12:00 06/13/18 16:00 06/13/18 20:00 Temperature 97.9 F 98.1 F 98.2 F Pulse Rate 89 92 H 94 H Respiratory Rate 20 20 18 Blood Pressure 116/68 118/58 L 111/64 Pulse Oximetry 100 100 100 06/14/18 00:00 06/14/18 04:00 06/14/18 08:00 Temperature 98.5 F 97.9 F Pulse Rate 93 H 89 75 Respiratory Rate 17 15 Blood Pressure 108/70 112/78 Pulse Oximetry 98 94 L Intake & Output 06/13/18 06/14/18 06/14/18 18:59 06:59 18:59 Intake Total 2900 / 2900 970 / 970 Output Total 500 / 500 700 / 700 Balance 2400 / 2400 270 / 270 Weight 110.3 kg Intake: IV 2420 / 2420 530 / 530 LR 1000 mL Inj 1,000 ML @ 84 1000 / 1000 mls/hr IV.CONT .[id number] [facility] Rx# :[id number] NS Inj 1,000 ML @ 50 mls/hr IV. 1110 / 1110 CONT .Q20H RAD[facility] Rx#:[id number] Calcium Chloride Inj 1 GM In 110 / 110 D5W Inj 100 ML @ 110 mls/hr IV. SIG ONCE ONE Rx#:[id number] KCl 10 mEq Premix Inj 10 meq In 100 / 100 100 ml @ 100 mls/hr IV.SIG ONCE ONE Rx#:[id number] Vancomycin Inj 1,500 MG In NS 530 / 530 Inj 500 ML @ 250 mls/hr IV.SIG Q24H [facility] Rx#:[id number] Rocephin Inj 1,000 MG In NS Inj 100 / 100 100 ML @ 200 mls/hr IV.SIG Q24H [facility] Rx#:[id number] Oral 480 / 480 440 / 440 Output: Urine 500 / 500 Urine Amount (Catheter) 700 / 700 Indwelling Urethral Catheter 700 / 700 Other: # Incontinent Bowel Movements 1 Narrative: GENERAL: Elderly black male, appears older than stated age, disheveled. SKIN: Has bilateral plantar ulcerations, another ulceration to the right posterior calf. Has significant edema. No odor, minimal drainage. HEAD: Atraumatic. Normocephalic. EYES: Pupils equal and round. No scleral icterus. No injection or drainage. ENT: No nasal bleeding or discharge. Mucous membranes pink and moist. NECK: Trachea midline. No JVD. CARDIOVASCULAR: Regular rate and rhythm. RESPIRATORY: No accessory muscle use. Clear to auscultation. Breath sounds equal bilaterally. GASTROINTESTINAL: Abdomen soft, non-tender, nondistended. Hepatic and splenic margins not palpable. : berger catheter, [place] urine MUSCULOSKELETAL: Extremities without clubbing, cyanosis, or edema. No obvious deformities. NEUROLOGICAL: Awake and alert and oriented 23. No obvious cranial nerve deficits. Bilateral upper extremity strength 3 out of 5 right weaker than left , unable to move legs. PSYCHIATRIC: Appropriate mood and affect; insight and judgment normal. - Urinary Catheter Management Indwelling Temp Sensing Catheter Cath placed during this visit: yes, but has since been removed by the nurse Reason for continuing: Chronic Urinary Retention Removal date: 06/12/18 Removal time: 17:00 Indwelling Urethral Catheter Cath placed during this visit: yes Reason for continuing: Not indwelling catheter Insertion date: 06/12/18 Insertion time: 17:45 Results - Labs CBC & Chem 7: 06/14/18 07:15 06/14/18 07:15 Laboratory Results - last 24 hr 06/11/18 06/13/18 06/13/18 12:30 09:59 09:59 WBC 8.5 RBC 3.27 L Hgb 8.6 L Hct 27.2 L MCV 83.2 MCH 26.5 L MCHC 31.8 L RDW 19.9 H Plt Count 94 L MPV 10.2 ESR 47 H Sodium 149 H Potassium 2.9 L* Chloride 114 H Carbon Dioxide 27.6 Anion Gap 7 BUN 31 H Creatinine 1.58 H Estimated GFR 54 L POC Glucose Random Glucose 232 H Calcium 7.3 L* Prot Corrected Calcium 7.8 L Magnesium 1.6 C-Reactive Protein 3.10 H Total Protein 6.2 L Urine Color [place] Urine Clarity Turbid H Urine pH 5.0 Ur Specific [place] 1.027 Urine Protein 500 or greater Urine Glucose (UA) Negative Urine Ketones Trace Urine Occult Blood Large H Urine Nitrate Negative Urine Bilirubin Negative Urine Ictotest Negative Urine Urobilinogen 2.0 H Ur Leukocyte Esterase Large H Urine RBC 127 H Urine WBC Urine WBC Clumps Many H Ur Squamous Epith Cells 1 Urine Bacteria Many H Urine Mucus Few H Micro UA Comment Cath-culture ind Urine Culture Comments Cath-cult indicated Vancomycin Trough 06/13/18 06/13/18 06/13/18 11:48 17:12 22:42 WBC RBC Hgb Hct MCV MCH MCHC RDW Plt Count MPV ESR Sodium Potassium Chloride Carbon Dioxide Anion Gap BUN Creatinine Estimated GFR POC Glucose 249 H 314 H 282 H Random Glucose Calcium Prot Corrected Calcium Magnesium C-Reactive Protein Total Protein Urine Color Urine Clarity Urine pH Ur Specific [place] Urine Protein Urine Glucose (UA) Urine Ketones Urine Occult Blood Urine Nitrate Urine Bilirubin Urine Ictotest Urine Urobilinogen Ur Leukocyte Esterase Urine RBC Urine WBC Urine WBC Clumps Ur Squamous Epith Cells Urine Bacteria Urine Mucus Micro UA Comment Urine Culture Comments Vancomycin Trough 06/13/18 06/14/18 06/14/18 22:50 07:15 07:15 WBC 7.3 RBC 2.89 L Hgb 7.7 L Hct 24.0 L MCV 82.9 MCH 26.7 L MCHC 32.2 RDW 19.9 H Plt Count 85 L MPV 10.4 ESR Sodium 149 H Potassium 3.0 L Chloride 115 H Carbon Dioxide 26.9 Anion Gap 7 BUN 30 H Creatinine 1.45 H Estimated GFR 60 L POC Glucose Random Glucose 180 H Calcium 7.3 L* Prot Corrected Calcium 7.9 L Magnesium C-Reactive Protein Total Protein 5.9 L Urine Color Urine Clarity Urine pH Ur Specific [place] Urine Protein Urine Glucose (UA) Urine Ketones Urine Occult Blood Urine Nitrate Urine Bilirubin Urine Ictotest Urine Urobilinogen Ur Leukocyte Esterase Urine RBC Urine WBC Urine WBC Clumps Ur Squamous Epith Cells Urine Bacteria Urine Mucus Micro UA Comment Urine Culture Comments Vancomycin Trough 16.9 H 06/14/18 07:22 WBC RBC Hgb Hct MCV MCH MCHC RDW Plt Count MPV ESR Sodium Potassium Chloride Carbon Dioxide Anion Gap BUN Creatinine Estimated GFR POC Glucose 190 H Random Glucose Calcium Prot Corrected Calcium Magnesium C-Reactive Protein Total Protein Urine Color Urine Clarity Urine pH Ur Specific [place] Urine Protein Urine Glucose (UA) Urine Ketones Urine Occult Blood Urine Nitrate Urine Bilirubin Urine Ictotest Urine Urobilinogen Ur Leukocyte Esterase Urine RBC Urine WBC Urine WBC Clumps Ur Squamous Epith Cells Urine Bacteria Urine Mucus Micro UA Comment Urine Culture Comments Vancomycin Trough Microbiology 06/12/18 11:30 Wound - Foot Gram Stain - Final 06/12/18 11:30 Wound - Foot Gram Stain - Final 06/11/18 12:30 Catheterized Urine Urine Culture - Preliminary S. aureus MRSA Group D Enterococcus 06/11/18 14:20 Blood - Peripheral Aerobic Blood Culture - Preliminary No growth in 2 days 06/11/18 14:20 Blood - Peripheral Anaerobic Blood Culture - Preliminary No growth in 2 days 06/11/18 14:10 Blood - Peripheral Aerobic Blood Culture - Preliminary No growth in 2 days 06/11/18 14:10 Blood - Peripheral Anaerobic Blood Culture - Preliminary No growth in 2 days Assessment and Plan - Assessment (1) Acute hypokalemia Code(s): E87.6 - Hypokalemia Status: Acute (2) Hypocalcemia Code(s): E83.51 - Hypocalcemia Status: Acute (3) Acute renal insufficiency Code(s): N28.9 - Disorder of kidney and ureter, unspecified Status: Acute (4) Urinary tract infection Code(s): N39.0 - Urinary tract infection, site not specified Status: Acute (5) Chronic indwelling Berger catheter Code(s): Z92.89 - Personal history of other medical treatment Status: Acute (6) Lactic acidosis Code(s): E87.2 - Acidosis Status: Acute (7) Osteomyelitis Code(s): M86.9 - Osteomyelitis, unspecified Status: Suspected (8) Chronic ulcer of leg Code(s): L97.909 - Non-pressure chronic ulcer of unspecified part of unspecified lower leg with unspecified severity Status: Chronic (9) Elevated troponin Code(s): R74.8 - Abnormal levels of other serum enzymes Status: Acute (10) Clostridium difficile diarrhea Code(s): A04.72 - Enterocolitis due to Clostridium difficile, not specified as recurrent Status: Acute - Plan - Plan 58-year-old male admitted with hypokalemia, hypocalcemia, acute kidney injury, dehydration, hypernatremia, urinary tract infection, and severe edema of the feet with foot ulcers. Acute kidney injury-improving Dehydration Hypernatremia Lactic acidosis-improving -DC IVF, enc. PO fluids -Avoid nephrotoxins -Monitor renal function -Increase water intake Severe hypokalemia, improving -Follow on telemetry -K 3 today, replace with PO Severe hypocalcemia -Replace Calcium -Monitor calcium level Urinary tract infection secondary to chronic indwelling catheter Bilateral foot ulcers, did not appear infected. X-ray findings of left foot metatarsal osteomyelitis. Prior history of osteomyelitis -Continue vancomycin and Rocephin. Pharmacy for dosing appreciate ID input Follow cultures, urine culture positive for MRSA, sens. noted -berger changed 06/12 -repeat UA renal US okay, no obstruction -wound care input appreciated, continue with wound care -appreciate podiatry input, elevated sed rate and CRP. Bone scan ordered. Per podiatry, poss bone bx to guide abx management. Cdiff continue with diarrhea -continue with Flagyl 500 mg PO q 8 -replace electrolytes as needed -follow renal function Bilateral foot swelling, positive for DVT. History of DVT and IVC filter -Bilateral Ultrasound of Lower Extremities -positive for DVT both lower extremities. -resumed on Eliquis (home medication list was reviewed) -inc. leg swelling, will give Lasix 20 mg IVP x 1 Failure to thrive -Patient will need placement, DCF is not involved. Patient has been receiving care from home health care. -CM consult for dc planning, likely SNF and then transition to [facility] terminal operator care NSTEMI Elevated trop in the setting of SIMON, pt. has no c/o CP, sob Coronary artery disease, SD, stents. -serial trop elevated in the presence of SIMON. -Appreciate card input, d/w Dr. Strong. For now echo. When improved, poss STT -continue ASA 81 mg po daily -follow on telemetry Neurogenic bladder, chronic indwelling catheter -berger replaced Hypertension -Continue baseline treatment -Follow blood pressures -Adjust treatments as needed Diabetes mellitus type 2 -Accuchecks AC and HS with ISS + Lantus 10 units SQ BID -Diabetic diet History of CVA Right hemiplegia -Continue supportive care -No new neurological deficits Hyperlipidemia -Continue present treatment -Follow as an outpatient History of chronic anemia -Hgb dropped to 7.7/24, no active bleeding -check stool for OB -repeat cbc in am DVT prophylaxis -on Eliquis Repeat labs in am not ready for dc yet will need SNF placement (4) Urinary tract infection Qualifiers: Urinary tract infection type: catheter-associated UTI Indwelling urinary catheter type: indwelling urethral catheter Encounter type: initial encounter Qualified Code(s): T83.511A - Infection and inflammatory reaction due to indwelling urethral catheter, initial encounter; N39.0 - Urinary tract infection , site not specified (7) Osteomyelitis Qualifiers: Osteomyelitis type: other chronic Laterality: left (8) Chronic ulcer of leg Qualifiers: Laterality: unspecified laterality Non-pressure ulcer stage: unspecified non- pressure ulcer stage Qualified Code(s): L97.909 - Non-pressure chronic ulcer of unspecified part of unspecified lower leg with unspecified severity
[2018-06-14] MEDS ORDERED: Potassium Chloride 25 MEQ Effervescent Tablet PO ONE (11:00)
--- NOTE | 2018-06-14 11:10 | P.PNPOD ---
Physical Exam Vital signs: Vital Signs 06/13/18 12:00 06/13/18 16:00 06/13/18 20:00 Temperature 97.9 F 98.1 F 98.2 F Pulse Rate 89 92 H 94 H Respiratory Rate 20 20 18 Blood Pressure 116/68 118/58 L 111/64 Pulse Oximetry 100 100 100 06/14/18 00:00 06/14/18 04:00 06/14/18 08:00 Temperature 98.5 F 97.9 F Pulse Rate 93 H 89 75 Respiratory Rate 17 15 Blood Pressure 108/70 112/78 Pulse Oximetry 98 94 L Intake & Output 06/13/18 06/14/18 06/14/18 18:59 06:59 18:59 Intake Total 2900 / 2900 970 / 970 800 / 800 Output Total 500 / 500 700 / 700 Balance 2400 / 2400 270 / 270 800 / 800 Weight 110.3 kg Intake: IV 2420 / 2420 530 / 530 800 / 800 LR 1000 mL Inj 1,000 ML @ 84 1000 / 1000 mls/hr IV.CONT .[id number] [facility] Rx# :[id number] NS Inj 1,000 ML @ 50 mls/hr IV. 1110 / 1110 800 / 800 CONT .Q20H [facility] Rx#:[id number] Calcium Chloride Inj 1 GM In 110 / 110 D5W Inj 100 ML @ 110 mls/hr IV. SIG ONCE ONE Rx#:[id number] KCl 10 mEq Premix Inj 10 meq In 100 / 100 100 ml @ 100 mls/hr IV.SIG ONCE ONE Rx#:[id number] Vancomycin Inj 1,500 MG In NS 530 / 530 Inj 500 ML @ 250 mls/hr IV.SIG Q24H [facility] Rx#:[id number] Rocephin Inj 1,000 MG In NS Inj 100 / 100 100 ML @ 200 mls/hr IV.SIG Q24H [facility] Rx#:[id number] Oral 480 / 480 440 / 440 Output: Urine 500 / 500 Urine Amount (Catheter) 700 / 700 Indwelling Urethral Catheter 700 / 700 Other: # Incontinent Bowel Movements 1 Medications and Allergies Active Medications: Active Medications Hydrocodone Bitart/Acetaminophen ([place] 5/325) 1 tab PO Q4H PRN PRN Reason: Pain 3 to 6 Al Hydroxide/Mg Hydroxide (Milk Of Magnesia Liq) 30 ml PO Q12H PRN PRN Reason: Mild Constipation Amlodipine Besylate (Norvasc) 10 mg PO DAILY [facility] Last Admin: 06/14/18 08:56 Dose: 10 mg Apixaban (Eliquis) 2.5 mg PO BID [facility] Last Admin: 06/14/18 08:57 Dose: 2.5 mg Ascorbic Acid (Vitamin C) 500 mg PO DAILY [facility] Last Admin: 06/14/18 08:56 Dose: 500 mg Aspirin (Aspirin Chew) 81 mg PO DAILY [facility] Last Admin: 06/14/18 08:56 Dose: 81 mg Dextrose (D50w Vial) 50 ml IV.PUSH UNSCH PRN PRN Reason: PER HYPOGLYCEMIA PROTOCOL Duloxetine HCl (Cymbalta) 30 mg PO DAILY [facility] Last Admin: 06/14/18 08:57 Dose: 30 mg Ferrous Sulfate (Ferosul) 325 mg PO TID [facility] Last Admin: 06/14/18 08:56 Dose: 325 mg Gabapentin (Neurontin) 900 mg PO BID [facility] Last Admin: 06/14/18 08:56 Dose: 900 mg Glucagon (Glucagon Inj) 1 mg OTHER PRN PRN PRN Reason: for Hypoglycemia Protocol Ceftriaxone Sodium 1,000 mg/ (Sodium Chloride) 100 mls @ 200 mls/hr IV.SIG Q24H [facility] Last Infusion: 06/13/18 18:24 Dose: Infused Vancomycin HCl 1,500 mg/ (Sodium Chloride) 530 mls @ 250 mls/hr IV.SIG Q24H [facility] Last Infusion: 06/14/18 01:07 Dose: Infused Calcium Chloride 1 gm/ (Dextrose) 110 mls @ 110 mls/hr IV.SIG ONCE ONE Stop: 06/14/18 12:59 Insulin Aspart (Novolog Insulin Correctional Sugar Inj) 0 unit SQ ACHS [facility]; Protocol Last Admin: 06/14/18 08:58 Dose: 2 unit Insulin Detemir (Levemir Inj) 10 unit SQ BID [facility] Last Admin: 06/14/18 08:59 Dose: 10 unit Lactobacillus Acidophilus (Lactinex) 1 tab PO TID [facility] Last Admin: 06/14/18 08:59 Dose: 1 tab Metronidazole (Flagyl) 500 mg PO Q8HR [facility] Last Admin: 06/14/18 05:59 Dose: Not Given Pharmacy Profile Note (Vancomycin Consult Pharmacy) 1 each OTHER UNSCH PRN PRN Reason: Pharmacy to dose Pravastatin Sodium (Pravachol) 20 mg PO DAILY@1800 [facility] Last Admin: 06/13/18 17:39 Dose: 20 mg Allergies Allergy/AdvReac Type Severity Reaction Status Date / Time No Known Allergies Allergy Unverified 06/11/18 11:16 Home Medications Medication Instructions Recorded Confirmed Type acetaminophen 650 mg PO Q4H PRN 06/13/18 06/13/18 History amino acids-protein hydrolys 30 ml PO TID 06/13/18 06/13/18 History [Pro-Stat [facility]] amlodipine 10 mg PO DAILY 06/13/18 06/13/18 History apixaban 2.5 mg PO BID 06/13/18 06/13/18 History ascorbic acid (vitamin C) 500 mg PO DAILY 06/13/18 06/13/18 History duloxetine [Cymbalta] 30 mg PO DAILY 06/13/18 06/13/18 History ferrous sulfate 325 mg PO TID 06/13/18 06/13/18 History gabapentin 900 mg PO TID 06/13/18 06/13/18 History hydrocodone-acetaminophen [[place]] 1 tab PO Q6H PRN 06/13/18 06/13/18 History insulin glargine 15 unit SUB-Q DAILY 06/13/18 06/13/18 History insulin lispro 5 unit SUB-Q ACHS 06/13/18 06/13/18 History metronidazole [Flagyl] 500 mg PO TID 06/13/18 06/13/18 History oxycodone [OxyContin] 15 mg PO Q8H PRN 06/13/18 06/13/18 History simvastatin 10 mg PO QPM 06/13/18 06/13/18 History Results - Labs CBC & Chem 7: 06/14/18 07:15 06/14/18 07:15 Laboratory Results - last 24 hr 06/11/18 06/13/18 06/13/18 12:30 09:59 09:59 WBC 8.5 RBC 3.27 L Hgb 8.6 L Hct 27.2 L MCV 83.2 MCH 26.5 L MCHC 31.8 L RDW 19.9 H Plt Count 94 L MPV 10.2 ESR 47 H Sodium 149 H Potassium 2.9 L* Chloride 114 H Carbon Dioxide 27.6 Anion Gap 7 BUN 31 H Creatinine 1.58 H Estimated GFR 54 L POC Glucose Random Glucose 232 H Calcium 7.3 L* Prot Corrected Calcium 7.8 L Magnesium 1.6 C-Reactive Protein 3.10 H Total Protein 6.2 L Urine Color [place] Urine Clarity Turbid H Urine pH 5.0 Ur Specific [place] 1.027 Urine Protein 500 or greater Urine Glucose (UA) Negative Urine Ketones Trace Urine Occult Blood Large H Urine Nitrate Negative Urine Bilirubin Negative Urine Ictotest Negative Urine Urobilinogen 2.0 H Ur Leukocyte Esterase Large H Urine RBC 127 H Urine WBC Urine WBC Clumps Many H Ur Squamous Epith Cells 1 Urine Bacteria Many H Urine Mucus Few H Micro UA Comment Cath-culture ind Urine Culture Comments Cath-cult indicated Vancomycin Trough 06/13/18 06/13/18 06/13/18 11:48 17:12 22:42 WBC RBC Hgb Hct MCV MCH MCHC RDW Plt Count MPV ESR Sodium Potassium Chloride Carbon Dioxide Anion Gap BUN Creatinine Estimated GFR POC Glucose 249 H 314 H 282 H Random Glucose Calcium Prot Corrected Calcium Magnesium C-Reactive Protein Total Protein Urine Color Urine Clarity Urine pH Ur Specific [place] Urine Protein Urine Glucose (UA) Urine Ketones Urine Occult Blood Urine Nitrate Urine Bilirubin Urine Ictotest Urine Urobilinogen Ur Leukocyte Esterase Urine RBC Urine WBC Urine WBC Clumps Ur Squamous Epith Cells Urine Bacteria Urine Mucus Micro UA Comment Urine Culture Comments Vancomycin Trough 06/13/18 06/14/18 06/14/18 22:50 07:15 07:15 WBC 7.3 RBC 2.89 L Hgb 7.7 L Hct 24.0 L MCV 82.9 MCH 26.7 L MCHC 32.2 RDW 19.9 H Plt Count 85 L MPV 10.4 ESR Sodium 149 H Potassium 3.0 L Chloride 115 H Carbon Dioxide 26.9 Anion Gap 7 BUN 30 H Creatinine 1.45 H Estimated GFR 60 L POC Glucose Random Glucose 180 H Calcium 7.3 L* Prot Corrected Calcium 7.9 L Magnesium C-Reactive Protein Total Protein 5.9 L Urine Color Urine Clarity Urine pH Ur Specific [place] Urine Protein Urine Glucose (UA) Urine Ketones Urine Occult Blood Urine Nitrate Urine Bilirubin Urine Ictotest Urine Urobilinogen Ur Leukocyte Esterase Urine RBC Urine WBC Urine WBC Clumps Ur Squamous Epith Cells Urine Bacteria Urine Mucus Micro UA Comment Urine Culture Comments Vancomycin Trough 16.9 H 06/14/18 07:22 WBC RBC Hgb Hct MCV MCH MCHC RDW Plt Count MPV ESR Sodium Potassium Chloride Carbon Dioxide Anion Gap BUN Creatinine Estimated GFR POC Glucose 190 H Random Glucose Calcium Prot Corrected Calcium Magnesium C-Reactive Protein Total Protein Urine Color Urine Clarity Urine pH Ur Specific [place] Urine Protein Urine Glucose (UA) Urine Ketones Urine Occult Blood Urine Nitrate Urine Bilirubin Urine Ictotest Urine Urobilinogen Ur Leukocyte Esterase Urine RBC Urine WBC Urine WBC Clumps Ur Squamous Epith Cells Urine Bacteria Urine Mucus Micro UA Comment Urine Culture Comments Vancomycin Trough Microbiology 06/11/18 14:20 Blood - Peripheral Aerobic Blood Culture - Preliminary No growth in 3 days 06/11/18 14:20 Blood - Peripheral Anaerobic Blood Culture - Preliminary No growth in 3 days 06/11/18 14:10 Blood - Peripheral Aerobic Blood Culture - Preliminary No growth in 3 days 06/11/18 14:10 Blood - Peripheral Anaerobic Blood Culture - Preliminary No growth in 3 days 06/12/18 11:30 Wound - Foot Gram Stain - Final 06/12/18 11:30 Wound - Foot Gram Stain - Final 06/11/18 12:30 Catheterized Urine Urine Culture - Preliminary S. aureus MRSA Group D Enterococcus Assessment and Plan - Assessment (1) Diabetic foot ulcer Code(s): E11.621 - Type 2 diabetes mellitus with foot ulcer; L97.509 - Non- pressure chronic ulcer of other part of unspecified foot with unspecified severity Status: Chronic Plan: Patient is bone scan ESR/CRP elevated, but suspect this is due to chronic osteomyelitis or some other issue and not an acute situation with his foot/feet. I strongly advise against any foot surgery at this time, due to current wounds not near the areas where the suspected osteomyelitis was noted on MRI, as well as the stable nature of his current wounds. I also do not feel a surgical wound at the level of the foot would heal simply due to his excessive edema. Recommend consult to wound care for weekly compression bandages to his feet/ lower legs with absorptive dressing per wound care recommendations to plantar feet along with the continued compression to control edema/drainage. Recommend d/c to SNF for continued monitoring of patient in case condition deteriorates. No bone biopsy or any other foot surgery planned. Bone scan ordered as baseline to monitor for the future in case situation deteriorates. Podiatry signing off. Reconsult if condition deteriorates or new issues arise. (1) Diabetic foot ulcer Qualifiers: Diabetic foot ulcer location: other Diabetes mellitus type: type 2 Laterality: unspecified laterality Non-pressure ulcer stage: limited to breakdown of skin Qualified Code(s): E11.621 - Type 2 diabetes mellitus with foot ulcer; L97.501 - Non-pressure chronic ulcer of other part of unspecified foot limited to breakdown of skin
[2018-06-14] MEDS ORDERED: Calcium Chloride Inj 1 GM in Dextrose 5% in Water Inj 100 ML IV.SIG ONE ×2 (12:00)
[2018-06-14] MEDS ORDERED: DAPTOmycin Inj 1,000 MG in Sodium Chlor 0.9% Inj 100 ML IV.SIG SCH (13:00)
[2018-06-14 13:39] LABS: Bilirubin,Urine Negative (Negative); Clarity,Urine Cloudy (Clear); Color,Urine Yellow (Yellw/Straw); Glucose,Urine (UA) Negative (Negative); Leukocyte Esterase,Urine Large (Negative); Mucus,Urine Few /lpf (Occasional); Nitrite,Urine Negative (Negative); Squamous Epithelial Cell,Urine <1 /hpf (0-5)
[2018-06-14 13:45] LABS: Bacteria,Urine Moderate /hpf
[2018-06-14] MEDS ORDERED: Piperacil/Tazo 3.375 GM Premix 50 ML IV.SIG SCH (14:00)
--- NOTE | 2018-06-14 16:13 | P.PNID ---
Subjective Remarks: afebrile C.diff is positive 027 strain seen by lead informatica developer, who recommended against any surgery including bone bx 1-2 BMs/day Antibiotics: flagyl IV vanco zosyn Allergies/Adverse Reactions: Allergies No Known Allergies Allergy (Unverified 06/11/18 11:16) Objective Vital Signs 06/13/18 20:00 06/14/18 00:00 06/14/18 04:00 Temperature 98.2 F 98.5 F 97.9 F Pulse Rate 94 H 93 H 89 Respiratory Rate 18 17 15 Blood Pressure 111/64 108/70 112/78 Pulse Oximetry 100 98 94 L 06/14/18 08:00 06/14/18 12:00 Temperature 98.4 F 97.9 F Pulse Rate 85 84 Respiratory Rate 20 20 Blood Pressure 115/78 128/72 Pulse Oximetry 99 96 Intake & Output 06/13/18 06/14/18 06/14/18 18:59 06:59 18:59 Intake Total 2900 / 2900 970 / 970 910 / 910 Output Total 500 / 500 700 / 700 Balance 2400 / 2400 270 / 270 910 / 910 Weight 110.3 kg Intake: IV 2420 / 2420 530 / 530 910 / 910 LR 1000 mL Inj 1,000 ML @ 84 1000 / 1000 mls/hr IV.CONT .[id number] [facility] Rx# :[id number] NS Inj 1,000 ML @ 50 mls/hr IV. 1110 / 1110 800 / 800 CONT .Q20H [facility] Rx#:[id number] Calcium Chloride Inj 1 GM In 110 / 110 110 / 110 D5W Inj 100 ML @ 110 mls/hr IV. SIG ONCE ONE Rx#:[id number] KCl 10 mEq Premix Inj 10 meq In 100 / 100 100 ml @ 100 mls/hr IV.SIG ONCE ONE Rx#:[id number] Vancomycin Inj 1,500 MG In NS 530 / 530 Inj 500 ML @ 250 mls/hr IV.SIG Q24H [facility] Rx#:[id number] Rocephin Inj 1,000 MG In NS Inj 100 / 100 100 ML @ 200 mls/hr IV.SIG Q24H [facility] Rx#:[id number] Oral 480 / 480 440 / 440 Output: Urine 500 / 500 Urine Amount (Catheter) 700 / 700 Indwelling Urethral Catheter 700 / 700 Other: # Incontinent Bowel Movements 1 06/12/18 11:30 Wound - Foot Gram Stain - Final 06/12/18 11:30 Wound - Foot Wound Culture - Preliminary Pseudomonas species Group D Enterococcus 06/14/18 12:38 Catheterized Urine Urine Culture - Pending 06/12/18 11:30 Wound - Foot Gram Stain - Final 06/12/18 11:30 Wound - Foot Wound Culture - Preliminary gram negative rods Staphylococcus species 06/14/18 12:38 Stool Stool Occult Blood (PRAMOD) - Final Hemoccult positive 06/11/18 12:30 Catheterized Urine Urine Culture - Final S. aureus MRSA Enterococcus faecalis 06/11/18 14:20 Blood - Peripheral Aerobic Blood Culture - Preliminary No growth in 3 days 06/11/18 14:20 Blood - Peripheral Anaerobic Blood Culture - Preliminary No growth in 3 days 06/11/18 14:10 Blood - Peripheral Aerobic Blood Culture - Preliminary No growth in 3 days 06/11/18 14:10 Blood - Peripheral Anaerobic Blood Culture - Preliminary No growth in 3 days Lab - Hematology Results 06/13/18 06/14/18 09:59 07:15 WBC 8.5 7.3 RBC 3.27 L 2.89 L Hgb 8.6 L 7.7 L Hct 27.2 L 24.0 L MCV 83.2 82.9 MCH 26.5 L 26.7 L MCHC 31.8 L 32.2 RDW 19.9 H 19.9 H Plt Count 94 L 85 L MPV 10.2 10.4 ESR 47 H Lab - Chemistry Results 06/12/18 06/12/18 06/12/18 14:40 16:32 19:02 Sodium Potassium 2.2 L* Chloride Carbon Dioxide Anion Gap BUN Creatinine Estimated GFR POC Glucose 305 H 306 H Random Glucose Calcium Prot Corrected Calcium Magnesium C-Reactive Protein Total Protein 06/12/18 06/13/18 06/13/18 22:24 09:02 09:59 Sodium 149 H Potassium 2.7 L* 2.9 L* Chloride 114 H Carbon Dioxide 27.6 Anion Gap 7 BUN 31 H Creatinine 1.58 H Estimated GFR 54 L POC Glucose 222 H Random Glucose 232 H Calcium 7.3 L* Prot Corrected Calcium 7.8 L Magnesium 1.6 C-Reactive Protein 3.10 H Total Protein 6.2 L 06/13/18 06/13/18 06/13/18 11:48 17:12 22:42 Sodium Potassium Chloride Carbon Dioxide Anion Gap BUN Creatinine Estimated GFR POC Glucose 249 H 314 H 282 H Random Glucose Calcium Prot Corrected Calcium Magnesium C-Reactive Protein Total Protein 06/14/18 06/14/18 06/14/18 07:15 07:22 12:58 Sodium 149 H Potassium 3.0 L Chloride 115 H Carbon Dioxide 26.9 Anion Gap 7 BUN 30 H Creatinine 1.45 H Estimated GFR 60 L POC Glucose 190 H 206 H Random Glucose 180 H Calcium 7.3 L* Prot Corrected Calcium 7.9 L Magnesium C-Reactive Protein Total Protein 5.9 L Imaging: ITS Impressions Chest X-Ray 06/11/18 12:06 CONCLUSION: Negative for acute process Foot X-Ray 06/11/18 12:06 CONCLUSION: Probable osteomyelitis metatarsal heads. Tagged white cell study would be of benefit. Abdomen/Bladder Ultrasound 06/12/18 00:00 CONCLUSION: 1. Unremarkable and stable bilateral renal ultrasound. 2. No evidence of hydronephrosis. Venous Doppler Study 06/12/18 00:00 CONCLUSION: 1. Deep venous thrombosis in both lower extremities. Physical Exam: GENERAL: Obese NAD SKIN: Warm and dry. HEAD: Atraumatic. Normocephalic. EYES: Pupils equal and round. No scleral icterus. No injection or drainage. ENT: No nasal bleeding or discharge. Mucous membranes pink and moist. NECK: Trachea midline. No JVD. CARDIOVASCULAR: Regular rate and rhythm. RESPIRATORY: No accessory muscle use. Clear to auscultation. Breath sounds equal bilaterally. GASTROINTESTINAL: Abdomen soft, non-tender, nondistended. Hepatic and splenic margins not palpable. MUSCULOSKELETAL: Extremities without clubbing, cyanosis, + 1-2 edema. B/l Feet dressings in place No obvious deformities. NEUROLOGICAL: Awake and alert. No obvious cranial nerve deficits. Not moving legs at all PSYCHIATRIC: Appropriate mood and affect; insight and judgment normal. Assessment and Plan - Plan Multiple med problems Inability to care for self Complicated UTI with indwelling berger and neurogenic bladder - MRSA, Enterococcocus both S to vancomycin C.diff diarrhea, -027 strain DM L foot osteo ? R foot osteo podiatry thinks its a chronic oste growing GNBs from the surface clx surface cuultures carry poor clinical significance in the settings of chronic osteo Fu blood clx cont IV vanco switch meena oral flagyl to oral vanoc awaiting nuclear med studies john Jefferson
--- NOTE | 2018-06-14 16:43 | NM ---
EXAM DATE: 06/14/2018 4:14 PM EDT AGE/SEX: 58 years / Male INDICATIONS: Left foot infection. Ulcers. CLINICAL DATA: This is the patient's initial encounter. Patient reports that signs and symptoms have been present for 1 day and indicates a pain score of 0/10. MEDICAL/SURGICAL HISTORY: Cardiovascular disease. Diabetes mellitus type II. Myocardial infar ction. Coronary artery stent. COMPARISON: [facility] – [place]OT [place] 2V, 06/11/2018. . No external comparison. TECHNIQUE: Bone scan was performed in sagittal, axial and coronal planes. Attenuation correction was performed with computed tomography and both the attenuation correction and non-attenuation corrected data sets were reviewed. PRIOR BONE SCANS: No correlative bone scan available for comparison. DOSE: 29.8 mCi Tc99m MDP IV IMAGING: SPECT/CT imaging with fusion was performed. RADIATION DOSE: 1.69 CTDIvol(mGy) FINDINGS: Blood flow images demonstrate increased blood flow in the tarsal bones of the left foot compared to t he right of blood pole images also demonstrate increased uptake within the tarsal bones which demonst rates increased blood flow. 3 hour delayed images also demonstrate increased uptake within the tarsal bones. No increased uptake is identified in the region of the metatarsal heads. There is also increa sed flow and uptake in the right knee joint. SPECT imaging with CT perfusion demonstrates most of the uptake within the tarsal bones to be within the medial cuneiform. CT source images demonstrate diffuse severe subcutaneous edema of the legs and feet bilaterally. There is severe small vessel arterial vascular calcification in the bones demonstra te severe undermineralization. There is partially visualized distal right femur hardware and there is lateral proximal tibial side plate on the left.. CONCLUSION: 1. There is abnormal increased blood flow, blood pool, and uptake within the tarsal bones of the lef t foot, most prominently the medial cuneiform. This finding is nonspecific but could indicate osteomy elitis. Consider correlating with white cell scan, gallium scan, or MRI with and without intravenous contrast to have a more specific diagnosis. 2. No abnormal blood flow or uptake is identified in the abnormal metatarsal heads are reported on t he recent left foot x-ray performed 3 days ago. 3. There is severe diffuse subcutaneous edema in the legs and feet bilaterally with severe undermine ralization of the bones. Electronically signed by: Naresh Rodriguez MD 06/14/2018 4:41 PM EDT
[2018-06-14] MEDS: Vancomycin Inj 1,500 MG in Sodium Chlor 0.9% Inj 500 ML IV.SIG SCH (22:10)
--- NOTE | 2018-06-15 00:32 | P.CONGI ---
History of Present Illness Consult date: 06/14/18 Consult reason: anemia, guiac pos Chief complaint: UTI, hypokalemia, renal insufficiency, History of Present Illness: Patient is a 58-year-old gentleman who lives alone and is followed by [facility] he was found at home with lower extremity swelling and ulcers and this brought him over to the hospital he continues to have the lower extremity discomfort and ulcerations but he was also noted to have had a declining hemoglobin and when guaiac stools were done the patient was found to have The patient denies any abdominal pain nausea vomiting diarrhea constipation melena hematochezia or hematemesis coffee-ground emesis The patient does not recall ever having any endoscopy or colonoscopy he claims to have maintained his weight and he has a good appetite Review of Systems All other systems reviewed negative except as stated in HPI PMFSH - History History Provided By: Patient - Medical History Medical History: Medical History (Last Reviewed 06/12/18 @ 18:07 by Lala Crum MD) Acute kidney injury Chronic anemia Coronary artery disease Diabetes Dyslipidemia Foot ulcer Generalized anxiety disorder History of CVA (cerebrovascular accident) Hypernatremia Hypertension Hypokalemia Lower extremity edema Lymphedema [place] (myocardial infarction) Osteoarthritis Right hemiplegia - Surgical History Surgical History: Surgical History (Last Reviewed 06/12/18 @ 18:07 by Lala Crum MD) H/O right heart catheterization Stented coronary artery - Family History Family History: Family History (Last Reviewed 06/12/18 @ 18:07 by Lala Crum MD) Mother CVA (cerebral vascular accident) Hypertension Diabetes - Tobacco History Second Hand Smoke Exposure: No Tobacco Use In Past 30 Days: No Smoking Status: Never smoker - Alcohol History How Often Do You Have a Drink Containing Alcohol: Never - Substance Use History Substance History: No History of Abuse - Travel History Recent Travel in the [place] Within the Last 8 Weeks: No Recent Travel Out of the Country Within the Last 8 Weeks: No - Immunization History Tetanus Immunization: >5 Years Hx Influenza Vaccine This Season: Yes Medications and Allergies Active Medications: Active Medications Hydrocodone Bitart/Acetaminophen ([place] 5/325) 1 tab PO Q4H PRN PRN Reason: Pain 3 to 6 Last Admin: 06/14/18 22:03 Dose: 1 tab Al Hydroxide/Mg Hydroxide (Milk Of Magnesia Liq) 30 ml PO Q12H PRN PRN Reason: Mild Constipation Amlodipine Besylate (Norvasc) 10 mg PO DAILY [facility] Last Admin: 06/14/18 08:56 Dose: 10 mg Ascorbic Acid (Vitamin C) 500 mg PO DAILY [facility] Last Admin: 06/14/18 08:56 Dose: 500 mg Aspirin (Aspirin Chew) 81 mg PO DAILY [facility] Last Admin: 06/14/18 08:56 Dose: 81 mg Dextrose (D50w Vial) 50 ml IV.PUSH UNSCH PRN PRN Reason: PER HYPOGLYCEMIA PROTOCOL Duloxetine HCl (Cymbalta) 30 mg PO DAILY [facility] Last Admin: 06/14/18 08:57 Dose: 30 mg Ferrous Sulfate (Ferosul) 325 mg PO TID [facility] Last Admin: 06/14/18 18:24 Dose: 325 mg Gabapentin (Neurontin) 900 mg PO BID [facility] Last Admin: 06/14/18 22:02 Dose: 900 mg Glucagon (Glucagon Inj) 1 mg OTHER PRN PRN PRN Reason: for Hypoglycemia Protocol Vancomycin HCl 1,500 mg/ (Sodium Chloride) 530 mls @ 250 mls/hr IV.SIG Q24H [facility] Last Admin: 06/14/18 22:10 Dose: 250 mls/hr Insulin Aspart (Novolog Insulin Correctional Sugar Inj) 0 unit SQ ACHS [facility]; Protocol Last Admin: 06/14/18 22:09 Dose: 4 unit Insulin Detemir (Levemir Inj) 10 unit SQ BID [facility] Last Admin: 06/14/18 22:09 Dose: 10 unit Lactobacillus Acidophilus (Lactinex) 1 tab PO TID [facility] Last Admin: 06/14/18 18:23 Dose: 1 tab Pharmacy Profile Note (Vancomycin Consult Pharmacy) 1 each OTHER UNSCH PRN PRN Reason: Pharmacy to dose Pravastatin Sodium (Pravachol) 20 mg PO DAILY@1800 [facility] Last Admin: 06/14/18 18:24 Dose: 20 mg Vancomycin HCl (Vancomycin Po) 500 mg PO QID [facility] Last Admin: 06/14/18 22:04 Dose: 500 mg Allergies Allergy/AdvReac Type Severity Reaction Status Date / Time No Known Allergies Allergy Unverified 06/11/18 11:16 Home Medications Medication Instructions Recorded Confirmed Type acetaminophen 650 mg PO Q4H PRN 06/13/18 06/13/18 History amino acids-protein hydrolys 30 ml PO TID 06/13/18 06/13/18 History [Pro-Stat AWC] amlodipine 10 mg PO DAILY 06/13/18 06/13/18 History apixaban 2.5 mg PO BID 06/13/18 06/13/18 History ascorbic acid (vitamin C) 500 mg PO DAILY 06/13/18 06/13/18 History duloxetine [Cymbalta] 30 mg PO DAILY 06/13/18 06/13/18 History ferrous sulfate 325 mg PO TID 06/13/18 06/13/18 History gabapentin 900 mg PO TID 06/13/18 06/13/18 History hydrocodone-acetaminophen [[place]ine] 1 tab PO Q6H PRN 06/13/18 06/13/18 History insulin glargine 15 unit SUB-Q DAILY 06/13/18 06/13/18 History insulin lispro 5 unit SUB-Q ACHS 06/13/18 06/13/18 History metronidazole [Flagyl] 500 mg PO TID 06/13/18 06/13/18 History oxycodone [OxyContin] 15 mg PO Q8H PRN 06/13/18 06/13/18 History simvastatin 10 mg PO QPM 06/13/18 06/13/18 History Exam Vital signs: Vital Signs 06/14/18 04:00 06/14/18 08:00 06/14/18 12:00 Temperature 97.9 F 98.4 F 97.9 F Pulse Rate 89 85 84 Respiratory Rate 15 20 20 Blood Pressure 112/78 115/78 128/72 Pulse Oximetry 94 L 99 96 06/14/18 16:00 Temperature 97.2 F L Pulse Rate 83 Respiratory Rate Blood Pressure 131/73 Pulse Oximetry 100 Intake & Output 06/14/18 06/14/18 06/15/18 06:59 18:59 06:59 Intake Total 970 / 970 2040 / 2040 Output Total 700 / 700 1300 / 1300 Balance 270 / 270 740 / 740 Weight 110.3 kg Intake: IV 530 / 530 960 / 960 NS Inj 1,000 ML @ 50 mls/hr IV. 800 / 800 CONT .Q20H [facility] Rx#:[id number] Calcium Chloride Inj 1 GM In 110 / 110 D5W Inj 100 ML @ 110 mls/hr IV. SIG ONCE ONE Rx#:[id number] Zosyn 3.375 GM Premix 50 ML @ 50 / 50 100 mls/hr IV.SIG Q6H [facility] Rx#: [id number] Vancomycin Inj 1,500 MG In NS 530 / 530 Inj 500 ML @ 250 mls/hr IV.SIG Q24H [facility] Rx#:[id number] Oral 440 / 440 1080 / 1080 Output: Urine Amount (Catheter) 700 / 700 1300 / 1300 Indwelling Urethral Catheter 700 / 700 1300 / 1300 Other: # Voids 4 # Incontinent Voids 3 # Bowel Movements 1 # Incontinent Bowel Movements 1 1 - Constitutional no acute distress - Routine HEENT Exam Head: Present: normocephalic, atraumatic Eye: Present: EOMI ENT: Present: mucous membranes moist - Routine Neck Exam Present: supple. Absent: lymphadenopathy - Routine Respiratory Exam Present: CTA bilaterally - Routine Cardiovascular Exam Present: RRR, S1, S2 - Routine Abdominal Exam Present: soft, normoactive bowel sounds. Absent: tenderness, distended - Routine Extremities Exam Present: edema. Absent: cyanosis, clubbing Comments: foot ulcers - Routine Skin Exam Present: dry Comments: lower extremity ulcers - Routine Neurological Exam Present: alert Results - Labs CBC & Chem 7: 06/14/18 07:15 06/14/18 07:15 Labs: Laboratory Results - last 24 hr 06/14/18 06/14/18 06/14/18 07:15 07:15 07:22 WBC 7.3 RBC 2.89 L Hgb 7.7 L Hct 24.0 L MCV 82.9 MCH 26.7 L MCHC 32.2 RDW 19.9 H Plt Count 85 L MPV 10.4 Sodium 149 H Potassium 3.0 L Chloride 115 H Carbon Dioxide 26.9 Anion Gap 7 BUN 30 H Creatinine 1.45 H Estimated GFR 60 L POC Glucose 190 H Random Glucose 180 H Calcium 7.3 L* Prot Corrected Calcium 7.9 L Total Protein 5.9 L Urine Color Urine Clarity Urine pH Ur Specific [place] Urine Protein Urine Glucose (UA) Urine Ketones Urine Occult Blood Urine Nitrate Urine Bilirubin Urine Urobilinogen Ur Leukocyte Esterase Urine RBC Urine WBC Urine WBC Clumps Ur Squamous Epith Cells Urine Bacteria Urine Mucus Urine Yeast Micro UA Comment Ur Microscopic Review Urine Culture Comments 06/14/18 06/14/18 06/14/18 12:38 12:58 17:19 WBC RBC Hgb Hct MCV MCH MCHC RDW Plt Count MPV Sodium Potassium Chloride Carbon Dioxide Anion Gap BUN Creatinine Estimated GFR POC Glucose 206 H 254 H Random Glucose Calcium Prot Corrected Calcium Total Protein Urine Color Yellow Urine Clarity Cloudy H Urine pH 6.0 Ur Specific [place] 1.020 Urine Protein 100 H Urine Glucose (UA) Negative Urine Ketones Negative Urine Occult Blood Small H Urine Nitrate Negative Urine Bilirubin Negative Urine Urobilinogen Less than 2 Ur Leukocyte Esterase Large H Urine RBC 6 H Urine WBC 120 H Urine WBC Clumps Few H Ur Squamous Epith Cells <1 Urine Bacteria Moderate H Urine Mucus Few H Urine Yeast Moderate H Micro UA Comment Cath-culture ind Ur Microscopic Review Not Reportable Urine Culture Comments Cath-cult indicated 06/14/18 20:12 WBC RBC Hgb Hct MCV MCH MCHC RDW Plt Count MPV Sodium Potassium Chloride Carbon Dioxide Anion Gap BUN Creatinine Estimated GFR POC Glucose 220 H Random Glucose Calcium Prot Corrected Calcium Total Protein Urine Color Urine Clarity Urine pH Ur Specific [place] Urine Protein Urine Glucose (UA) Urine Ketones Urine Occult Blood Urine Nitrate Urine Bilirubin Urine Urobilinogen Ur Leukocyte Esterase Urine RBC Urine WBC Urine WBC Clumps Ur Squamous Epith Cells Urine Bacteria Urine Mucus Urine Yeast Micro UA Comment Ur Microscopic Review Urine Culture Comments - Imaging Impressions SPECT Scan-Bone NM 06/14/18 00:00 CONCLUSION: 1. There is abnormal increased blood flow, blood pool, and uptake within the tarsal bones of the left foot, most prominently the medial cuneiform. This finding is nonspecific but could indicate osteomyelitis. Consider correlating with white cell scan, gallium scan, or MRI with and without intravenous contrast to have a more specific diagnosis. 2. No abnormal blood flow or uptake is identified in the abnormal metatarsal heads are reported on the recent left foot x-ray performed 3 days ago. 3. There is severe diffuse subcutaneous edema in the legs and feet bilaterally with severe undermineralization of the bones. Assessment and Plan - Plan Patient with multiple medical problems noted to have a declining in hemoglobin and hematocrit which prompted stool evaluation for occult blood and this came back positive also noted on lab workup the patient also has C. difficile colitis I do agree with current supportive care Most likely because of the guaiac positive and declining anemia is the C. difficile colitis Unfortunately in this acute situation we cannot pursue endoscopy this will be done when patient is more stable and safe to do We will continue to monitor closely
[2018-06-15 05:41] LABS: Hematocrit 23.4 % (39.0-51.0); Hemoglobin 7.5 gm/dL (13.0-17.0); Mean Corpuscular HGB Conc 32.2 % (32.0-36.0); Mean Corpuscular Hemoglobin 26.9 pg (27.0-34.0); Mean Corpuscular Volume 83.6 fL (80.0-100.0); Mean Platelet Volume 10.1 fL (7.0-11.0); Platelet Count 83 th/mm3 (150-450); Red Cell Distribution Width 19.7 % (11.6-17.2); White Blood Count 6.5 th/mm3 (4.0-11.0)
[2018-06-15 06:31] LABS: Calcium 6.9 mg/dL (8.5-10.1)
[2018-06-15 06:35] LABS: Potassium 2.8 meq/L (3.5-5.1)
[2018-06-15 07:57] LABS: Total Protein 5.7 g/dL (6.4-8.2)
[2018-06-15] MEDS: Gabapentin 300 MG Capsule PO SCH ×2 (08:21→21:45)
[2018-06-15] MEDS: Insulin NovoLOG Aspart Correctional Sugar Inj SQ SCH ×4 (08:21→21:44)
[2018-06-15] MEDS: Ferrous Sulfate 325 MG Tablet PO SCH ×3 (08:22→18:10)
[2018-06-15] MEDS: Ascorbic Acid 500 MG Tablet PO SCH (08:22)
[2018-06-15] MEDS: Lactobacillus Acidophilus/L. Spores Tablet PO SCH ×3 (08:22→18:10)
[2018-06-15] MEDS: amLODIPine 10 MG Tablet PO SCH (08:22)
[2018-06-15] MEDS: Insulin Detemir Inj 1,000 UNIT/10 ML Vial SQ SCH ×2 (08:26→21:44)
[2018-06-15] MEDS: Dextrose 5% in Water Inj 1,000 ML IV.CONT SCH (08:28)
[2018-06-15] MEDS: Potassium Chlor 10 mEq Premix 10 MEQ/100 ML PIGGYBACK IV.SIG SCH ×2 (08:33→09:37)
--- NOTE | 2018-06-15 09:17 | P.PNPOD ---
Physical Exam Vital signs: Vital Signs 06/14/18 12:00 06/14/18 16:00 06/14/18 19:47 Temperature 97.9 F 97.2 F L Pulse Rate 84 83 83 Respiratory Rate 20 Blood Pressure 128/72 131/73 Pulse Oximetry 96 100 06/14/18 20:00 06/14/18 23:44 06/15/18 00:00 Temperature 98.0 F 98.0 F Pulse Rate 84 78 78 Respiratory Rate 16 18 Blood Pressure 115/64 130/64 Pulse Oximetry 100 98 06/15/18 04:00 Temperature 97.7 F Pulse Rate 71 Respiratory Rate 18 Blood Pressure 124/69 Pulse Oximetry 98 Intake & Output 06/14/18 06/15/18 06/15/18 18:59 06:59 18:59 Intake Total 2040 / 2040 1010 / 1010 Output Total 1300 / 1300 1200 / 1200 Balance 740 / 740 -190 / -190 Intake: IV 960 / 960 530 / 530 NS Inj 1,000 ML @ 50 mls/hr IV. 800 / 800 CONT .Q20H [facility] Rx#:[id number] Calcium Chloride Inj 1 GM In 110 / 110 D5W Inj 100 ML @ 110 mls/hr IV. SIG ONCE ONE Rx#:[id number] Zosyn 3.375 GM Premix 50 ML @ 50 / 50 100 mls/hr IV.SIG Q6H [facility] Rx#: [id number] Vancomycin Inj 1,500 MG In NS 530 / 530 Inj 500 ML @ 250 mls/hr IV.SIG Q24H [facility] Rx#:[id number] Oral 1080 / 1080 480 / 480 Output: Urine Amount (Catheter) 1300 / 1300 1200 / 1200 Indwelling Urethral Catheter 1300 / 1300 1200 / 1200 Other: # Voids 4 # Incontinent Voids 3 # Bowel Movements 1 # Incontinent Bowel Movements 1 1 Medications and Allergies Active Medications: Active Medications Hydrocodone Bitart/Acetaminophen ([place] 5/325) 1 tab PO Q4H PRN PRN Reason: Pain 3 to 6 Last Admin: 06/15/18 03:47 Dose: 1 tab Al Hydroxide/Mg Hydroxide (Milk Of Magnesia Liq) 30 ml PO Q12H PRN PRN Reason: Mild Constipation Amlodipine Besylate (Norvasc) 10 mg PO DAILY [facility] Last Admin: 06/15/18 08:22 Dose: 10 mg Ascorbic Acid (Vitamin C) 500 mg PO DAILY [facility] Last Admin: 06/15/18 08:22 Dose: 500 mg Aspirin (Aspirin Chew) 81 mg PO DAILY [facility] Last Admin: 06/15/18 08:21 Dose: 81 mg Dextrose (D50w Vial) 50 ml IV.PUSH UNSCH PRN PRN Reason: PER HYPOGLYCEMIA PROTOCOL Duloxetine HCl (Cymbalta) 30 mg PO DAILY [facility] Last Admin: 06/15/18 08:22 Dose: 30 mg Ferrous Sulfate (Ferosul) 325 mg PO TID [facility] Last Admin: 06/15/18 08:22 Dose: 325 mg Gabapentin (Neurontin) 900 mg PO BID [facility] Last Admin: 06/15/18 08:21 Dose: 900 mg Glucagon (Glucagon Inj) 1 mg OTHER PRN PRN PRN Reason: for Hypoglycemia Protocol Vancomycin HCl 1,500 mg/ (Sodium Chloride) 530 mls @ 250 mls/hr IV.SIG Q24H [facility] Last Infusion: 06/15/18 00:18 Dose: Infused Dextrose (D5w Inj) 1,000 mls @ 42 mls/hr IV.CONT .[id number] [facility] Last Admin: 06/15/18 08:28 Dose: 42 mls/hr Potassium Chloride (Kcl 10 Meq Premix Inj) 10 meq in 100 mls @ 100 mls/hr IV.SIG Q1H [facility] Stop: 06/15/18 09:59 Last Admin: 06/15/18 08:33 Dose: 100 mls/hr Insulin Aspart (Novolog Insulin Correctional Sugar Inj) 0 unit SQ ACHS [facility]; Protocol Last Admin: 06/15/18 08:21 Dose: Not Given Insulin Detemir (Levemir Inj) 10 unit SQ BID [facility] Last Admin: 06/15/18 08:26 Dose: 10 unit Lactobacillus Acidophilus (Lactinex) 1 tab PO TID [facility] Last Admin: 06/15/18 08:22 Dose: 1 tab Pharmacy Profile Note (Vancomycin Consult Pharmacy) 1 each OTHER UNSCH PRN PRN Reason: Pharmacy to dose Pravastatin Sodium (Pravachol) 20 mg PO DAILY@1800 [facility] Last Admin: 06/14/18 18:24 Dose: 20 mg Vancomycin HCl (Vancomycin Po) 500 mg PO QID [facility] Last Admin: 06/15/18 08:23 Dose: 500 mg Allergies Allergy/AdvReac Type Severity Reaction Status Date / Time No Known Allergies Allergy Unverified 06/11/18 11:16 Home Medications Medication Instructions Recorded Confirmed Type acetaminophen 650 mg PO Q4H PRN 06/13/18 06/13/18 History amino acids-protein hydrolys 30 ml PO TID 06/13/18 06/13/18 History [Pro-Stat AWC] amlodipine 10 mg PO DAILY 06/13/18 06/13/18 History apixaban 2.5 mg PO BID 06/13/18 06/13/18 History ascorbic acid (vitamin C) 500 mg PO DAILY 06/13/18 06/13/18 History duloxetine [Cymbalta] 30 mg PO DAILY 06/13/18 06/13/18 History ferrous sulfate 325 mg PO TID 06/13/18 06/13/18 History gabapentin 900 mg PO TID 06/13/18 06/13/18 History hydrocodone-acetaminophen [[place]] 1 tab PO Q6H PRN 06/13/18 06/13/18 History insulin glargine 15 unit SUB-Q DAILY 06/13/18 06/13/18 History insulin lispro 5 unit SUB-Q ACHS 06/13/18 06/13/18 History metronidazole [Flagyl] 500 mg PO TID 06/13/18 06/13/18 History oxycodone [OxyContin] 15 mg PO Q8H PRN 06/13/18 06/13/18 History simvastatin 10 mg PO QPM 06/13/18 06/13/18 History Results - Labs CBC & Chem 7: 06/15/18 04:38 06/15/18 04:38 Laboratory Results - last 24 hr 06/14/18 06/14/18 06/14/18 12:38 12:58 17:19 WBC RBC Hgb Hct MCV MCH MCHC RDW Plt Count MPV Sodium Potassium Chloride Carbon Dioxide Anion Gap BUN Creatinine Estimated GFR POC Glucose 206 H 254 H Random Glucose Calcium Prot Corrected Calcium Total Protein Urine Color Yellow Urine Clarity Cloudy H Urine pH 6.0 Ur Specific [place] 1.020 Urine Protein 100 H Urine Glucose (UA) Negative Urine Ketones Negative Urine Occult Blood Small H Urine Nitrate Negative Urine Bilirubin Negative Urine Urobilinogen Less than 2 Ur Leukocyte Esterase Large H Urine RBC 6 H Urine WBC 120 H Urine WBC Clumps Few H Ur Squamous Epith Cells <1 Urine Bacteria Moderate H Urine Mucus Few H Urine Yeast Moderate H Micro UA Comment Cath-culture ind Ur Microscopic Review Not Reportable Urine Culture Comments Cath-cult indicated 06/14/18 06/15/18 06/15/18 20:12 04:38 04:38 WBC 6.5 RBC 2.80 L Hgb 7.5 L Hct 23.4 L MCV 83.6 MCH 26.9 L MCHC 32.2 RDW 19.7 H Plt Count 83 L MPV 10.1 Sodium 149 H Potassium 2.8 L* Chloride 111 H Carbon Dioxide 28.0 Anion Gap 10 BUN 26 H Creatinine 1.36 H Estimated GFR 65 L POC Glucose 220 H Random Glucose 88 Calcium 6.9 L* Prot Corrected Calcium 7.6 L Total Protein 5.7 L Urine Color Urine Clarity Urine pH Ur Specific [place] Urine Protein Urine Glucose (UA) Urine Ketones Urine Occult Blood Urine Nitrate Urine Bilirubin Urine Urobilinogen Ur Leukocyte Esterase Urine RBC Urine WBC Urine WBC Clumps Ur Squamous Epith Cells Urine Bacteria Urine Mucus Urine Yeast Micro UA Comment Ur Microscopic Review Urine Culture Comments 06/15/18 07:38 WBC RBC Hgb Hct MCV MCH MCHC RDW Plt Count MPV Sodium Potassium Chloride Carbon Dioxide Anion Gap BUN Creatinine Estimated GFR POC Glucose 135 H Random Glucose Calcium Prot Corrected Calcium Total Protein Urine Color Urine Clarity Urine pH Ur Specific [place] Urine Protein Urine Glucose (UA) Urine Ketones Urine Occult Blood Urine Nitrate Urine Bilirubin Urine Urobilinogen Ur Leukocyte Esterase Urine RBC Urine WBC Urine WBC Clumps Ur Squamous Epith Cells Urine Bacteria Urine Mucus Urine Yeast Micro UA Comment Ur Microscopic Review Urine Culture Comments Microbiology 06/12/18 11:30 Wound - Foot Gram Stain - Final 06/12/18 11:30 Wound - Foot Wound Culture - Preliminary gram negative rods Staphylococcus species 06/12/18 11:30 Wound - Foot Gram Stain - Final 06/12/18 11:30 Wound - Foot Wound Culture - Preliminary Pseudomonas species Group D Enterococcus 06/14/18 12:38 Stool Stool Occult Blood (PRAMOD) - Final Hemoccult positive 06/11/18 12:30 Catheterized Urine Urine Culture - Final S. aureus MRSA Enterococcus faecalis 06/11/18 14:20 Blood - Peripheral Aerobic Blood Culture - Preliminary No growth in 3 days 06/11/18 14:20 Blood - Peripheral Anaerobic Blood Culture - Preliminary No growth in 3 days 06/11/18 14:10 Blood - Peripheral Aerobic Blood Culture - Preliminary No growth in 3 days 06/11/18 14:10 Blood - Peripheral Anaerobic Blood Culture - Preliminary No growth in 3 days - Imaging Impressions SPECT Scan-Bone NM 06/14/18 00:00 CONCLUSION: 1. There is abnormal increased blood flow, blood pool, and uptake within the tarsal bones of the left foot, most prominently the medial cuneiform. This finding is nonspecific but could indicate osteomyelitis. Consider correlating with white cell scan, gallium scan, or MRI with and without intravenous contrast to have a more specific diagnosis. 2. No abnormal blood flow or uptake is identified in the abnormal metatarsal heads are reported on the recent left foot x-ray performed 3 days ago. 3. There is severe diffuse subcutaneous edema in the legs and feet bilaterally with severe undermineralization of the bones. Assessment and Plan - Assessment (1) Diabetic foot ulcer Code(s): E11.621 - Type 2 diabetes mellitus with foot ulcer; L97.509 - Non- pressure chronic ulcer of other part of unspecified foot with unspecified severity Status: Chronic Plan: Bone scan with nonspecific findings. Of most interest, the finding that was present particularly in the medial cuneiform area left foot, is nowhere near the area of the ulceration, and there is not sufficient evidence to justify procedures or bone biopsies at this time, as it is highly unlikely that direct extension osteomyelitis is the factor at this time with this particular wound situation. No evidence to justify any surgery at this time to feet, as it puts patient at higher risk of complications. Continue local wound care and re-consult if condition deteriorates (1) Diabetic foot ulcer Qualifiers: Diabetic foot ulcer location: other Diabetes mellitus type: type 2 Laterality: unspecified laterality Non-pressure ulcer stage: limited to breakdown of skin Qualified Code(s): E11.621 - Type 2 diabetes mellitus with foot ulcer; L97.501 - Non-pressure chronic ulcer of other part of unspecified foot limited to breakdown of skin
[2018-06-15] MEDS ORDERED: Calcium Chloride Inj 1 GM in Dextrose 5% in Water Inj 100 ML IV.SIG ONE ×2 (11:37)
--- NOTE | 2018-06-15 11:43 | P.PN ---
Subjective Interval history: Follow-up for UTI, hypokalemia, acute kidney injury. Awake, oriented x 3. Has no c/o pain, states that he acquired pressure ulcers on feet sitting on wheelchair. Per nursing, yesterday, frequent stools, tarry colored. Today only a smear. d/w pt his current condition, infection, ulcers, low HH. Asking if he is going to . Has family in [facility], 2 siblings but states if anything happens to him he would Crystal Gist to make decisions for him. Gives permission so that I can give an update. Discussed goals of care, code status and dc plan to SNF for more care. He is agreeable with SNF, would like to be DNR but continue with treatment at this time. Physical Exam Vital signs: Vital Signs 06/14/18 12:00 06/14/18 16:00 06/14/18 19:47 Temperature 97.9 F 97.2 F L Pulse Rate 84 83 83 Respiratory Rate 20 Blood Pressure 128/72 131/73 Pulse Oximetry 96 100 06/14/18 20:00 06/14/18 23:44 06/15/18 00:00 Temperature 98.0 F 98.0 F Pulse Rate 84 78 78 Respiratory Rate 16 18 Blood Pressure 115/64 130/64 Pulse Oximetry 100 98 06/15/18 04:00 06/15/18 08:00 Temperature 97.7 F 98.1 F Pulse Rate 71 70 Respiratory Rate 18 18 Blood Pressure 124/69 153/85 H Pulse Oximetry 98 100 Intake & Output 06/14/18 06/15/18 06/15/18 18:59 06:59 18:59 Intake Total 2040 / 2040 1010 / 1010 200 / 200 Output Total 1300 / 1300 1200 / 1200 Balance 740 / 740 -190 / -190 200 / 200 Intake: IV 960 / 960 530 / 530 200 / 200 NS Inj 1,000 ML @ 50 mls/hr IV. 800 / 800 CONT .Q20H RADHA Rx#:[id number] Calcium Chloride Inj 1 GM In 110 / 110 D5W Inj 100 ML @ 110 mls/hr IV. SIG ONCE ONE Rx#:[id number] Zosyn 3.375 GM Premix 50 ML @ 50 / 50 100 mls/hr IV.SIG Q6H RADHA Rx#: [id number] KCl 10 mEq Premix Inj 10 meq In 200 / 200 100 ml @ 100 mls/hr IV.SIG Q1H RADHA Rx#:[id number] Vancomycin Inj 1,500 MG In NS 530 / 530 Inj 500 ML @ 250 mls/hr IV.SIG Q24H RADHA Rx#:[id number] Oral 1080 / 1080 480 / 480 Output: Urine Amount (Catheter) 1300 / 1300 1200 / 1200 Indwelling Urethral Catheter 1300 / 1300 1200 / 1200 Other: # Voids 4 # Incontinent Voids 3 # Bowel Movements 1 # Incontinent Bowel Movements 1 1 Narrative: GENERAL: Elderly black male, appears older than stated age,NAD SKIN: Has bilateral plantar ulcerations, another ulceration to the right posterior calf. Has significant edema. No odor, minimal drainage. HEAD: Atraumatic. Normocephalic. EYES: Pupils equal and round. No scleral icterus. No injection or drainage. ENT: No nasal bleeding or discharge. Mucous membranes pink and moist. NECK: Trachea midline. No JVD. CARDIOVASCULAR: Regular rate and rhythm. RESPIRATORY: No accessory muscle use. Clear to auscultation. Breath sounds equal bilaterally. GASTROINTESTINAL: Abdomen soft, non-tender, nondistended. Hepatic and splenic margins not palpable. : berger catheter, fallon urine MUSCULOSKELETAL: Extremities without clubbing, cyanosis, dependent edema both legs. NEUROLOGICAL: Awake and alert and oriented 3. No obvious cranial nerve deficits. Bilateral upper extremity strength 3 out of 5 right weaker than left , unable to move legs. PSYCHIATRIC: Appropriate mood and affect; insight and judgment normal. - Urinary Catheter Management Indwelling Temp Sensing Catheter Cath placed during this visit: yes, but has since been removed by the nurse Reason for continuing: Chronic Urinary Retention Removal date: 06/12/18 Removal time: 17:00 Indwelling Urethral Catheter Cath placed during this visit: yes Reason for continuing: Not indwelling catheter Insertion date: 06/12/18 Insertion time: 17:45 Results - Labs CBC & Chem 7: 06/15/18 04:38 06/15/18 04:38 Laboratory Results - last 24 hr 06/14/18 06/14/18 06/14/18 12:38 12:58 17:19 WBC RBC Hgb Hct MCV MCH MCHC RDW Plt Count MPV Sodium Potassium Chloride Carbon Dioxide Anion Gap BUN Creatinine Estimated GFR POC Glucose 206 H 254 H Random Glucose Calcium Prot Corrected Calcium Total Protein Urine Color Yellow Urine Clarity Cloudy H Urine pH 6.0 Ur Specific Harrison 1.020 Urine Protein 100 H Urine Glucose (UA) Negative Urine Ketones Negative Urine Occult Blood Small H Urine Nitrate Negative Urine Bilirubin Negative Urine Urobilinogen Less than 2 Ur Leukocyte Esterase Large H Urine RBC 6 H Urine WBC 120 H Urine WBC Clumps Few H Ur Squamous Epith Cells <1 Urine Bacteria Moderate H Urine Mucus Few H Urine Yeast Moderate H Micro UA Comment Cath-culture ind Ur Microscopic Review Not Reportable Urine Culture Comments Cath-cult indicated 06/14/18 06/15/18 06/15/18 20:12 04:38 04:38 WBC 6.5 RBC 2.80 L Hgb 7.5 L Hct 23.4 L MCV 83.6 MCH 26.9 L MCHC 32.2 RDW 19.7 H Plt Count 83 L MPV 10.1 Sodium 149 H Potassium 2.8 L* Chloride 111 H Carbon Dioxide 28.0 Anion Gap 10 BUN 26 H Creatinine 1.36 H Estimated GFR 65 L POC Glucose 220 H Random Glucose 88 Calcium 6.9 L* Prot Corrected Calcium 7.6 L Total Protein 5.7 L Urine Color Urine Clarity Urine pH Ur Specific Harrison Urine Protein Urine Glucose (UA) Urine Ketones Urine Occult Blood Urine Nitrate Urine Bilirubin Urine Urobilinogen Ur Leukocyte Esterase Urine RBC Urine WBC Urine WBC Clumps Ur Squamous Epith Cells Urine Bacteria Urine Mucus Urine Yeast Micro UA Comment Ur Microscopic Review Urine Culture Comments 06/15/18 07:38 WBC RBC Hgb Hct MCV MCH MCHC RDW Plt Count MPV Sodium Potassium Chloride Carbon Dioxide Anion Gap BUN Creatinine Estimated GFR POC Glucose 135 H Random Glucose Calcium Prot Corrected Calcium Total Protein Urine Color Urine Clarity Urine pH Ur Specific Harrison Urine Protein Urine Glucose (UA) Urine Ketones Urine Occult Blood Urine Nitrate Urine Bilirubin Urine Urobilinogen Ur Leukocyte Esterase Urine RBC Urine WBC Urine WBC Clumps Ur Squamous Epith Cells Urine Bacteria Urine Mucus Urine Yeast Micro UA Comment Ur Microscopic Review Urine Culture Comments Microbiology 06/11/18 14:20 Blood - Peripheral Aerobic Blood Culture - Preliminary No growth in 4 days 06/11/18 14:20 Blood - Peripheral Anaerobic Blood Culture - Preliminary No growth in 4 days 06/11/18 14:10 Blood - Peripheral Aerobic Blood Culture - Preliminary No growth in 4 days 06/11/18 14:10 Blood - Peripheral Anaerobic Blood Culture - Preliminary No growth in 4 days 06/14/18 12:38 Catheterized Urine Urine Culture - Preliminary No growth in 24 hours 06/12/18 11:30 Wound - Foot Gram Stain - Final 06/12/18 11:30 Wound - Foot Wound Culture - Final Pseudomonas aeruginosa S. aureus MRSA 06/12/18 11:30 Wound - Foot Gram Stain - Final 06/12/18 11:30 Wound - Foot Wound Culture - Preliminary Pseudomonas species Group D Enterococcus 06/14/18 12:38 Stool Stool Occult Blood (PRAMOD) - Final Hemoccult positive 06/11/18 12:30 Catheterized Urine Urine Culture - Final S. aureus MRSA Enterococcus faecalis - Imaging Impressions SPECT Scan-Bone NM 06/14/18 00:00 CONCLUSION: 1. There is abnormal increased blood flow, blood pool, and uptake within the tarsal bones of the left foot, most prominently the medial cuneiform. This finding is nonspecific but could indicate osteomyelitis. Consider correlating with white cell scan, gallium scan, or MRI with and without intravenous contrast to have a more specific diagnosis. 2. No abnormal blood flow or uptake is identified in the abnormal metatarsal heads are reported on the recent left foot x-ray performed 3 days ago. 3. There is severe diffuse subcutaneous edema in the legs and feet bilaterally with severe undermineralization of the bones. Assessment and Plan - Assessment (1) Acute hypokalemia Code(s): E87.6 - Hypokalemia Status: Acute (2) Hypocalcemia Code(s): E83.51 - Hypocalcemia Status: Acute (3) Acute renal insufficiency Code(s): N28.9 - Disorder of kidney and ureter, unspecified Status: Acute (4) Urinary tract infection Code(s): N39.0 - Urinary tract infection, site not specified Status: Acute (5) Chronic indwelling Berger catheter Code(s): Z92.89 - Personal history of other medical treatment Status: Acute (6) Lactic acidosis Code(s): E87.2 - Acidosis Status: Acute (7) Osteomyelitis Code(s): M86.9 - Osteomyelitis, unspecified Status: Suspected (8) Chronic ulcer of leg Code(s): L97.909 - Non-pressure chronic ulcer of unspecified part of unspecified lower leg with unspecified severity Status: Chronic (9) Elevated troponin Code(s): R74.8 - Abnormal levels of other serum enzymes Status: Acute (10) Clostridium difficile diarrhea Code(s): A04.72 - Enterocolitis due to Clostridium difficile, not specified as recurrent Status: Acute - Plan - Plan 58-year-old male admitted with hypokalemia, hypocalcemia, acute kidney injury, dehydration, hypernatremia, urinary tract infection, and severe edema of the feet with foot ulcers. Acute kidney injury-improving Dehydration Hypernatremia-slowly improving Lactic acidosis-improving -Na 149, will start D5W at 43/hr and follow BMP in am -Avoid nephrotoxins -Monitor renal function-improving -Increase water intake Severe hypokalemia, dropped again today sec to diarrhea -2.8 today, replace and repeat at 1300 -monitor telemetry Severe hypocalcemia, poss sec. to diarrhea, infection -Replace Calcium -Monitor calcium level -remains low, will check Pth and replace Urinary tract infection secondary to chronic indwelling catheter Bilateral foot ulcers, did not appear infected. X-ray findings of left foot metatarsal osteomyelitis. Prior history of osteomyelitis -appreciate ID input, continue Vanco IV Follow cultures, urine culture positive for MRSA and enterococcus, sens. noted -berger changed 06/12 -repeat UA, cultures pending -wound culture feet -polymicrobial: + heavy growth PSAE/MRSA/enterococcus renal US okay, no obstruction -wound care input appreciated, continue with wound care -Elevated CRP and sed rate. -Bone scan results noted--abnormal increased blood flow, blood pool, and uptake within the tarsal bones of the left foot, most prominently the medial cuneiform. This finding is nonspecific but could indicate osteomyelitis. No abnormal blood flow or uptake is identified in the abnormal metatarsal heads are reported on the recent left foot x-ray performed 3 days ago. There is severe diffuse subcutaneous edema in the legs and feet bilaterally with severe undermineralization of the bones. -appreciate podiatry input-notes reviewed, bone findings nonspecific, no sufficient evidence to justify bone bx or procedures. Signed off, recommends to continue with wound care. Cdiff- Epid 027 diarrhea tapering down today -changed to PO Vanco per ID -replace electrolytes as needed -follow renal function Bilateral foot swelling, positive for DVT. History of DVT and IVC filter -Bilateral Ultrasound of Lower Extremities -positive for DVT both lower extremities. -Pt. was on Eliquis 2.5 mg po bid at home, not on correct dose, poss. why he developed DVTs. At this time, due to HH trending down, will hold and then will do Hep sq until stabilized. Then he can be put on Eliquis 5 mg po bid. Failure to thrive -Patient will need placement, DCF is not involved. Patient has been receiving care from home health care. -CM consult for dc planning, likely SNF. NSTEMI Elevated trop in the setting of SIMON, pt. has no c/o CP, sob Coronary artery disease, [place], stents. -serial trop elevated in the presence of SIMON. -Appreciate card input, d/w Dr. Strong. For now echo. When improved, poss STT -continue ASA 81 mg po daily -follow on telemetry Neurogenic bladder, chronic indwelling catheter -berger replaced Hypertension -Continue baseline treatment -Follow blood pressures -Adjust treatments as needed Diabetes mellitus type 2 -Accuchecks AC and HS with ISS + Lantus 10 units SQ BID -Diabetic diet History of CVA Right hemiplegia -Continue supportive care -No new neurological deficits Hyperlipidemia -Continue present treatment -Follow as an outpatient History of chronic anemia, Heme + stools Tarry stools reported -HH continues to trend down, HH 7.5/23.4 -GI input appreciated, no interventions at this time. Anemia poss due to cdiff colitis -med management for now -hold Eliquis for now -PRBC if Hgb < 8 DVT prophylaxis -on Eliquis Labs reviewed, continues with electrolyte derangement. Not ready for DC CM for dc planning, SNF placement Had long discussion with pt about goals of care, dc plan, current condition. He wants to be DNR. Gives permission to update friend Radha Cornejo on his condition. Will call today. D/W RN, CM, pt. (4) Urinary tract infection Qualifiers: Urinary tract infection type: catheter-associated UTI Indwelling urinary catheter type: indwelling urethral catheter Encounter type: initial encounter Qualified Code(s): T83.511A - Infection and inflammatory reaction due to indwelling urethral catheter, initial encounter; N39.0 - Urinary tract infection , site not specified (7) Osteomyelitis Qualifiers: Osteomyelitis type: other chronic Laterality: left (8) Chronic ulcer of leg Qualifiers: Laterality: unspecified laterality Non-pressure ulcer stage: unspecified non- pressure ulcer stage Qualified Code(s): L97.909 - Non-pressure chronic ulcer of unspecified part of unspecified lower leg with unspecified severity
--- NOTE | 2018-06-15 21:35 | P.PNGI ---
Subjective Interval history: Patient laying comfortably in bed denies any pain denies any bleeding Physical Exam Vital signs: Vital Signs 06/14/18 23:44 06/15/18 00:00 06/15/18 04:00 Temperature 98.0 F 97.7 F Pulse Rate 78 78 71 Respiratory Rate 18 18 Blood Pressure 130/64 124/69 Pulse Oximetry 98 98 06/15/18 08:00 06/15/18 12:00 06/15/18 16:00 Temperature 98.1 F 97.7 F 97.8 F Pulse Rate 70 81 83 Respiratory Rate 18 18 18 Blood Pressure 153/85 H 119/74 137/68 Pulse Oximetry 100 98 97 Intake & Output 06/15/18 06/15/18 06/16/18 06:59 18:59 06:59 Intake Total 1010 / 1010 790 / 790 Output Total 1200 / 1200 500 / 500 Balance -190 / -190 290 / 290 Intake: IV 530 / 530 310 / 310 Calcium Chloride Inj 1 GM In 110 / 110 D5W Inj 100 ML @ 110 mls/hr IV. SIG ONCE ONE Rx#:[id number] KCl 10 mEq Premix Inj 10 meq In 200 / 200 100 ml @ 100 mls/hr IV.SIG Q1H RADHA Rx#:[id number] Vancomycin Inj 1,500 MG In NS 530 / 530 Inj 500 ML @ 250 mls/hr IV.SIG Q24H RADHA Rx#:[id number] Oral 480 / 480 480 / 480 Output: Urine 500 / 500 Urine Amount (Catheter) 1200 / 1200 Indwelling Urethral Catheter 1200 / 1200 Other: # Incontinent Bowel Movements 1 - Constitutional no acute distress - Routine HEENT Exam Head: Present: normocephalic Eye: Present: EOMI ENT: Present: mucous membranes moist - Routine Neck Exam Present: supple - Routine Respiratory Exam Present: CTA bilaterally - Routine Cardiovascular Exam Present: RRR - Routine Abdominal Exam Present: soft, normoactive bowel sounds - Routine Extremities Exam Absent: cyanosis, clubbing - Urinary Catheter Management Indwelling Temp Sensing Catheter Cath placed during this visit: yes, but has since been removed by the nurse Reason for continuing: Chronic Urinary Retention Removal date: 06/12/18 Removal time: 17:00 Indwelling Urethral Catheter Cath placed during this visit: yes Reason for continuing: Not indwelling catheter Insertion date: 06/12/18 Insertion time: 17:45 Results - Labs CBC & Chem 7: 06/15/18 04:38 06/15/18 18:16 Laboratory Results - last 24 hr 06/15/18 06/15/18 06/15/18 04:38 04:38 07:38 WBC 6.5 RBC 2.80 L Hgb 7.5 L Hct 23.4 L MCV 83.6 MCH 26.9 L MCHC 32.2 RDW 19.7 H Plt Count 83 L MPV 10.1 Sodium 149 H Potassium 2.8 L* Chloride 111 H Carbon Dioxide 28.0 Anion Gap 10 BUN 26 H Creatinine 1.36 H Estimated GFR 65 L POC Glucose 135 H Random Glucose 88 Calcium 6.9 L* Prot Corrected Calcium 7.6 L Total Protein 5.7 L 06/15/18 06/15/18 06/15/18 11:40 16:27 18:16 WBC RBC Hgb Hct MCV MCH MCHC RDW Plt Count MPV Sodium Potassium 3.2 L Chloride Carbon Dioxide Anion Gap BUN Creatinine Estimated GFR POC Glucose 176 H 204 H Random Glucose Calcium Prot Corrected Calcium Total Protein 06/15/18 20:02 WBC RBC Hgb Hct MCV MCH MCHC RDW Plt Count MPV Sodium Potassium Chloride Carbon Dioxide Anion Gap BUN Creatinine Estimated GFR POC Glucose 209 H Random Glucose Calcium Prot Corrected Calcium Total Protein Microbiology 06/12/18 11:30 Wound - Foot Gram Stain - Final 06/12/18 11:30 Wound - Foot Wound Culture - Final Pseudomonas aeruginosa Enterococcus faecalis S. aureus MRSA 06/11/18 14:20 Blood - Peripheral Aerobic Blood Culture - Preliminary No growth in 4 days 06/11/18 14:20 Blood - Peripheral Anaerobic Blood Culture - Preliminary No growth in 4 days 06/11/18 14:10 Blood - Peripheral Aerobic Blood Culture - Preliminary No growth in 4 days 06/11/18 14:10 Blood - Peripheral Anaerobic Blood Culture - Preliminary No growth in 4 days 06/14/18 12:38 Catheterized Urine Urine Culture - Preliminary No growth in 24 hours 06/12/18 11:30 Wound - Foot Gram Stain - Final 06/12/18 11:30 Wound - Foot Wound Culture - Final Pseudomonas aeruginosa S. aureus MRSA Assessment and Plan - Plan Patient with multiple medical problems noted to have a declining in hemoglobin and hematocrit which prompted stool evaluation for occult blood and this came back positive also noted on lab workup the patient also has C. difficile colitis I do agree with current supportive care Most likely cause of the guaiac positive is the C. difficile colitis Most likely cause of anemia is probably multifactorial between rehydration infection chronic renal insufficiency and other issues all of which can lead to anemia Unfortunately in this acute situation we cannot pursue endoscopy to rule out cause of bleeding, this will be done when patient is more stable and safe to do We will continue to monitor closely
[2018-06-15] MEDS: Vancomycin Inj 1,500 MG in Sodium Chlor 0.9% Inj 500 ML IV.SIG SCH (21:46)
[2018-06-16 05:32] LABS: Hematocrit 23.1 % (39.0-51.0); Hemoglobin 7.5 gm/dL (13.0-17.0); Mean Corpuscular HGB Conc 32.3 % (32.0-36.0); Mean Corpuscular Hemoglobin 27.1 pg (27.0-34.0); Mean Corpuscular Volume 83.7 fL (80.0-100.0); Mean Platelet Volume 11.3 fL (7.0-11.0); Platelet Count 92 th/mm3 (150-450); Red Blood Count 2.76 mil/mm3 (4.50-5.90); Red Cell Distribution Width 19.8 % (11.6-17.2); White Blood Count 6.9 th/mm3 (4.0-11.0)
[2018-06-16 06:00] LABS: Calcium 6.9 mg/dL (8.5-10.1); Carbon Dioxide 26.4 meq/L (21.0-32.0); Magnesium 1.4 mg/dL (1.5-2.5)
[2018-06-16 06:29] LABS: Potassium 2.9 meq/L (3.5-5.1)
[2018-06-16] MEDS ORDERED: Potassium Chlor 20 mEq Premix 20 MEQ/100 ML PIGGYBACK IV.SIG ONE (06:33)
[2018-06-16 06:42] LABS: Total Protein 5.6 g/dL (6.4-8.2)
[2018-06-16] MEDS: Ferrous Sulfate 325 MG Tablet PO SCH ×3 (08:22→17:59)
[2018-06-16] MEDS: Gabapentin 300 MG Capsule PO SCH ×2 (08:22→21:45)
[2018-06-16] MEDS: Lactobacillus Acidophilus/L. Spores Tablet PO SCH ×3 (08:22→17:59)
[2018-06-16] MEDS: Insulin NovoLOG Aspart Correctional Sugar Inj SQ SCH ×4 (08:23→21:49)
[2018-06-16] MEDS: Dextrose 5% in Water Inj 1,000 ML IV.CONT SCH ×2 (08:23→16:12)
[2018-06-16] MEDS: Insulin Detemir Inj 1,000 UNIT/10 ML Vial SQ SCH ×2 (08:24→21:50)
[2018-06-16] MEDS: amLODIPine 10 MG Tablet PO SCH (08:24)
[2018-06-16] MEDS: Ascorbic Acid 500 MG Tablet PO SCH (08:24)
[2018-06-16] MEDS: Mag Sulf 1 gm/100 ml Premix 100 ML IV.SIG SCH ×2 (08:53→10:05)
--- NOTE | 2018-06-16 10:29 | P.PNGI ---
Subjective Interval history: Pt laying in bed, denies any pain or bleeding. States, " I feel my stomach rumbling and it feels like gas". <Kim Claros - Last Filed: 06/16/18 13:15> Physical Exam Vital signs: Vital Signs 06/15/18 12:00 06/15/18 16:00 06/15/18 20:00 Temperature 97.7 F 97.8 F 97.5 F L Pulse Rate 81 83 85 Respiratory Rate 18 18 18 Blood Pressure 119/74 137/68 149/74 H Pulse Oximetry 98 97 99 06/16/18 00:00 06/16/18 04:00 06/16/18 04:29 Temperature 98.0 F 97.9 F Pulse Rate 79 75 73 Respiratory Rate 18 16 Blood Pressure 142/81 H 127/72 Pulse Oximetry 100 98 06/16/18 08:00 Temperature 97.8 F Pulse Rate 73 Respiratory Rate 20 Blood Pressure 134/67 Pulse Oximetry 98 Intake & Output 06/15/18 06/16/18 06/16/18 18:59 06:59 18:59 Intake Total 790 / 790 770 / 770 100 / 100 Output Total 500 / 500 1000 / 1000 Balance 290 / 290 -230 / -230 100 / 100 Weight 119.7 kg Intake: IV 310 / 310 530 / 530 100 / 100 D5W Inj 1,000 ML @ 42 mls/hr IV 0 / 0 .CONT .[id number] [facility] Rx#:[id number] Calcium Chloride Inj 1 GM In 110 / 110 D5W Inj 100 ML @ 110 mls/hr IV. SIG ONCE ONE Rx#:[id number] Magnesium Sulfate 1 gm/D5W 100 100 / 100 ml Premix 100 ML @ 100 mls/hr IV.SIG Q1H [facility] Rx#:[id number] KCl 10 mEq Premix Inj 10 meq In 200 / 200 100 ml @ 100 mls/hr IV.SIG Q1H [facility] Rx#:[id number] Vancomycin Inj 1,500 MG In NS 530 / 530 Inj 500 ML @ 250 mls/hr IV.SIG Q24H [facility] Rx#:[id number] Oral 480 / 480 240 / 240 Output: Urine 500 / 500 Urine Amount (Catheter) 1000 / 1000 Indwelling Urethral Catheter 1000 / 1000 Other: # Incontinent Bowel Movements 1 - Constitutional no acute distress, cooperative - Routine HEENT Exam Head: Present: normocephalic - Routine Respiratory Exam Present: CTA bilaterally - Routine Cardiovascular Exam Present: S1, S2 - Routine Abdominal Exam Present: soft. Absent: tenderness, guarding, firm Comments: Positive bowel sounds present throughout - Routine Extremities Exam Comments: bilateral lower extremities wrapped in dressing to knees due to foot wounds and ulcers - Routine Skin Exam Present: dry, warm - Routine Neurological Exam Present: alert, oriented X3 - Detailed Neurological Exam: Coma Scale Eye Opening: Spontaneous Verbal Response: Oriented - Routine Psychiatric Exam Present: normal affect - Urinary Catheter Management Indwelling Temp Sensing Catheter Cath placed during this visit: yes, but has since been removed by the nurse Urethral indwelling: Yes Reason for continuing: Chronic Urinary Retention Removal date: 06/12/18 Removal time: 17:00 Indwelling Urethral Catheter Cath placed during this visit: yes Reason for continuing: Not indwelling catheter Insertion date: 06/12/18 Insertion time: 17:45 <Kim Claros - Last Filed: 06/16/18 13:15> Vital signs: Vital Signs 06/15/18 20:00 06/16/18 00:00 06/16/18 04:00 Temperature 97.5 F L 98.0 F 97.9 F Pulse Rate 85 79 75 Respiratory Rate 18 18 16 Blood Pressure 149/74 H 142/81 H 127/72 Pulse Oximetry 99 100 98 06/16/18 04:29 06/16/18 08:00 06/16/18 12:00 Temperature 97.8 F 98 F Pulse Rate 73 73 78 Respiratory Rate 20 20 Blood Pressure 134/67 125/64 Pulse Oximetry 98 100 Intake & Output 06/15/18 06/16/18 06/16/18 18:59 06:59 18:59 Intake Total 790 / 790 770 / 770 300 / 300 Output Total 500 / 500 1000 / 1000 Balance 290 / 290 -230 / -230 300 / 300 Weight 119.7 kg Intake: IV 310 / 310 530 / 530 300 / 300 D5W Inj 1,000 ML @ 42 mls/hr IV 0 / 0 .CONT .[id number] [facility] Rx#:[id number] Calcium Chloride Inj 1 GM In 110 / 110 D5W Inj 100 ML @ 110 mls/hr IV. SIG ONCE ONE Rx#:[id number] Magnesium Sulfate 1 gm/D5W 100 200 / 200 ml Premix 100 ML @ 100 mls/hr IV.SIG Q1H [facility] Rx#:[id number] KCl 10 mEq Premix Inj 10 meq In 200 / 200 100 ml @ 100 mls/hr IV.SIG Q1H [facility] Rx#:[id number] KCl 20 mEq Premix Inj 20 meq In 100 / 100 100 ml @ 50 mls/hr IV.SIG ONCE ONE Rx#:[id number] Vancomycin Inj 1,500 MG In NS 530 / 530 Inj 500 ML @ 250 mls/hr IV.SIG Q24H [facility] Rx#:[id number] Oral 480 / 480 240 / 240 Output: Urine 500 / 500 Urine Amount (Catheter) 1000 / 1000 Indwelling Urethral Catheter 1000 / 1000 Other: # Incontinent Bowel Movements 1 - Urinary Catheter Management Indwelling Temp Sensing Catheter Cath placed during this visit: no Indwelling Urethral Catheter Cath placed during this visit: no <Abebe Watson - Last Filed: 06/16/18 16:10> Results - Labs CBC & Chem 7: 06/16/18 03:52 06/16/18 03:52 Laboratory Results - last 24 hr 06/15/18 06/15/18 06/15/18 11:40 16:27 18:16 WBC RBC Hgb Hct MCV MCH MCHC RDW Plt Count MPV Sodium Potassium 3.2 L Chloride Carbon Dioxide Anion Gap BUN Creatinine Estimated GFR POC Glucose 176 H 204 H Random Glucose Calcium Prot Corrected Calcium Magnesium Total Protein PTH Intact 06/15/18 06/16/18 06/16/18 20:02 03:52 03:52 WBC 6.9 RBC 2.76 L Hgb 7.5 L Hct 23.1 L MCV 83.7 MCH 27.1 MCHC 32.3 RDW 19.8 H Plt Count 92 L MPV 11.3 H Sodium 146 H Potassium 2.9 L* Chloride 109 H Carbon Dioxide 26.4 Anion Gap 11 BUN 21 H Creatinine 1.13 Estimated GFR 80 L POC Glucose 209 H Random Glucose 195 H D Calcium 6.9 L* Prot Corrected Calcium 7.7 L Magnesium 1.4 L Total Protein 5.6 L PTH Intact 06/16/18 06/16/18 05:08 07:39 WBC RBC Hgb Hct MCV MCH MCHC RDW Plt Count MPV Sodium Potassium Chloride Carbon Dioxide Anion Gap BUN Creatinine Estimated GFR POC Glucose 201 H Random Glucose Calcium Prot Corrected Calcium Magnesium Total Protein PTH Intact 146.8 H Microbiology 06/14/18 12:38 Catheterized Urine Urine Culture - Preliminary Yeast - ID to follow 06/12/18 11:30 Wound - Foot Gram Stain - Final 06/12/18 11:30 Wound - Foot Wound Culture - Final Pseudomonas aeruginosa Enterococcus faecalis S. aureus MRSA 06/11/18 14:20 Blood - Peripheral Aerobic Blood Culture - Preliminary No growth in 4 days 06/11/18 14:20 Blood - Peripheral Anaerobic Blood Culture - Preliminary No growth in 4 days 06/11/18 14:10 Blood - Peripheral Aerobic Blood Culture - Preliminary No growth in 4 days 06/11/18 14:10 Blood - Peripheral Anaerobic Blood Culture - Preliminary No growth in 4 days 06/12/18 11:30 Wound - Foot Gram Stain - Final 06/12/18 11:30 Wound - Foot Wound Culture - Final Pseudomonas aeruginosa S. aureus MRSA <Kim Claros M - Last Filed: 06/16/18 13:15> - Labs CBC & Chem 7: 06/16/18 03:52 06/16/18 03:52 Laboratory Results - last 24 hr 06/15/18 06/15/18 06/15/18 16:27 18:16 20:02 WBC RBC Hgb Hct MCV MCH MCHC RDW Plt Count MPV Sodium Potassium 3.2 L Chloride Carbon Dioxide Anion Gap BUN Creatinine Estimated GFR POC Glucose 204 H 209 H Random Glucose Calcium Prot Corrected Calcium Magnesium Total Protein PTH Intact 06/16/18 06/16/18 06/16/18 03:52 03:52 05:08 WBC 6.9 RBC 2.76 L Hgb 7.5 L Hct 23.1 L MCV 83.7 MCH 27.1 MCHC 32.3 RDW 19.8 H Plt Count 92 L MPV 11.3 H Sodium 146 H Potassium 2.9 L* Chloride 109 H Carbon Dioxide 26.4 Anion Gap 11 BUN 21 H Creatinine 1.13 Estimated GFR 80 L POC Glucose Random Glucose 195 H D Calcium 6.9 L* Prot Corrected Calcium 7.7 L Magnesium 1.4 L Total Protein 5.6 L PTH Intact 146.8 H 06/16/18 06/16/18 07:39 11:31 WBC RBC Hgb Hct MCV MCH MCHC RDW Plt Count MPV Sodium Potassium Chloride Carbon Dioxide Anion Gap BUN Creatinine Estimated GFR POC Glucose 201 H 237 H Random Glucose Calcium Prot Corrected Calcium Magnesium Total Protein PTH Intact Microbiology 06/11/18 14:20 Blood - Peripheral Aerobic Blood Culture - Final No growth in 5 days 06/11/18 14:20 Blood - Peripheral Anaerobic Blood Culture - Final No growth in 5 days 06/11/18 14:10 Blood - Peripheral Aerobic Blood Culture - Final No growth in 5 days 06/11/18 14:10 Blood - Peripheral Anaerobic Blood Culture - Final No growth in 5 days 06/14/18 12:38 Catheterized Urine Urine Culture - Preliminary Yeast - ID to follow 06/12/18 11:30 Wound - Foot Gram Stain - Final 06/12/18 11:30 Wound - Foot Wound Culture - Final Pseudomonas aeruginosa Enterococcus faecalis S. aureus MRSA <bAebe Watson - Last Filed: 06/16/18 16:10> Assessment and Plan - Plan Patient with multiple medical problems noted to have a declining in hemoglobin and hematocrit which prompted stool evaluation for occult blood and this came back positive also noted on lab workup the patient also has C. difficile colitis I do agree with current supportive care Most likely cause of the guaiac positive is the C. difficile colitis Most likely cause of anemia is probably multifactorial between rehydration infection chronic renal insufficiency and other issues all of which can lead to anemia Unfortunately in this acute situation we cannot pursue endoscopy to rule out cause of bleeding, this will be done when patient is more stable and safe to do We will continue to monitor closely 06/16/18 Anemia- current labs hgb 7.5, Hct 23 Plt 92. Pt denies any obvious bleeding. Denies weakness or fatigue and states he would like to get oob but is limited due to wounds on feet C-diff colitis -States stools are " softer" and denies diarrhea at this time. States one soft bm in last 24 hours. Pt appears to be responding to cdiff treatment- Vancomycin., Could be causing his symptoms of nausea. denies vomiting. But does note increased bloating and gas and nausea. The symptoms could be related to possible gastroparesis. We will continue to evaluate symptoms over the next 24-48 hours. Plan Diet as tolerated Continue to monitor labs: CBC, CMP Monitor for any symptoms of bleeding, transfuse as needed Plan for endoscopy possible outpatient once pt stable from Cdiff colitis 4-6 weeks Supportive care Patient was seen per myself and Dr. Watson, note was written on his behalf <Kim Claros - Last Filed: 06/16/18 13:15> - Plan Seen and examined with EMPLOYMENT SPECIALIST, overall doing better on vancomicin/lactinex. Diet as tolerated. The exam, history, and the medical decision-making described in the above note were completed with the assistance of the mid-level provider. I reviewed and agree with the findings presented. I attest that I had a [id number] encounter with the patient on the same day, and personally performed and documented my assessment and findings in the medical record.Gi will sign off, fu with gi upon dc. Thank you <Abebe Watson - Last Filed: 06/16/18 16:10>
--- NOTE | 2018-06-16 12:02 | P.PNCA ---
Subjective Interval history: No events overnight No chest pain/SOB Physical Exam Vital signs: Vital Signs 06/15/18 16:00 06/15/18 20:00 06/16/18 00:00 Temperature 97.8 F 97.5 F L 98.0 F Pulse Rate 83 85 79 Respiratory Rate 18 18 18 Blood Pressure 137/68 149/74 H 142/81 H Pulse Oximetry 97 99 100 06/16/18 04:00 06/16/18 04:29 06/16/18 08:00 Temperature 97.9 F 97.8 F Pulse Rate 75 73 73 Respiratory Rate 16 20 Blood Pressure 127/72 134/67 Pulse Oximetry 98 98 Intake & Output 06/15/18 06/16/18 06/16/18 18:59 06:59 18:59 Intake Total 790 / 790 770 / 770 100 / 100 Output Total 500 / 500 1000 / 1000 Balance 290 / 290 -230 / -230 100 / 100 Weight 119.7 kg Intake: IV 310 / 310 530 / 530 100 / 100 D5W Inj 1,000 ML @ 42 mls/hr IV 0 / 0 .CONT .[id number] [facility] Rx#:[id number] Calcium Chloride Inj 1 GM In 110 / 110 D5W Inj 100 ML @ 110 mls/hr IV. SIG ONCE ONE Rx#:[id number] Magnesium Sulfate 1 gm/D5W 100 100 / 100 ml Premix 100 ML @ 100 mls/hr IV.SIG Q1H [facility] Rx#:[id number] KCl 10 mEq Premix Inj 10 meq In 200 / 200 100 ml @ 100 mls/hr IV.SIG Q1H [facility] Rx#:[id number] Vancomycin Inj 1,500 MG In NS 530 / 530 Inj 500 ML @ 250 mls/hr IV.SIG Q24H [facility] Rx#:[id number] Oral 480 / 480 240 / 240 Output: Urine 500 / 500 Urine Amount (Catheter) 1000 / 1000 Indwelling Urethral Catheter 1000 / 1000 Other: # Incontinent Bowel Movements 1 Narrative: GENERAL: Elderly black male, appears older than stated age,NAD SKIN: Has bilateral plantar ulcerations, another ulceration to the right posterior calf. Has significant edema. No odor, minimal drainage. HEAD: Atraumatic. Normocephalic. EYES: Pupils equal and round. No scleral icterus. No injection or drainage. ENT: No nasal bleeding or discharge. Mucous membranes pink and moist. NECK: Trachea midline. No JVD. CARDIOVASCULAR: Regular rate and rhythm. RESPIRATORY: No accessory muscle use. Clear to auscultation. Breath sounds equal bilaterally. GASTROINTESTINAL: Abdomen soft, non-tender, nondistended. Hepatic and splenic margins not palpable. : berger catheter, fallon urine MUSCULOSKELETAL: Extremities without clubbing, cyanosis, dependent edema both legs. NEUROLOGICAL: Awake and alert and oriented 3. No obvious cranial nerve deficits. Bilateral upper extremity strength 3 out of 5 right weaker than left , unable to move legs. PSYCHIATRIC: Appropriate mood and affect; insight and judgment normal. - Urinary Catheter Management Indwelling Temp Sensing Catheter Cath placed during this visit: yes, but has since been removed by the nurse Urethral indwelling: Yes Reason for continuing: Chronic Urinary Retention Removal date: 06/12/18 Removal time: 17:00 Indwelling Urethral Catheter Cath placed during this visit: yes Reason for continuing: Not indwelling catheter Insertion date: 06/12/18 Insertion time: 17:45 Assessment and Plan - Assessment (1) Acute hypokalemia Code(s): E87.6 - Hypokalemia Status: Acute (2) Hypocalcemia Code(s): E83.51 - Hypocalcemia Status: Acute (3) Acute renal insufficiency Code(s): N28.9 - Disorder of kidney and ureter, unspecified Status: Acute (4) Urinary tract infection Code(s): N39.0 - Urinary tract infection, site not specified Status: Acute (5) Chronic indwelling Berger catheter Code(s): Z92.89 - Personal history of other medical treatment Status: Acute (6) Lactic acidosis Code(s): E87.2 - Acidosis Status: Acute (7) Osteomyelitis Code(s): M86.9 - Osteomyelitis, unspecified Status: Suspected (8) Chronic ulcer of leg Code(s): L97.909 - Non-pressure chronic ulcer of unspecified part of unspecified lower leg with unspecified severity Status: Chronic (9) Elevated troponin Code(s): R74.8 - Abnormal levels of other serum enzymes Status: Acute (10) Clostridium difficile diarrhea Code(s): A04.72 - Enterocolitis due to Clostridium difficile, not specified as recurrent Status: Acute (11) Diabetic foot ulcer Code(s): E11.621 - Type 2 diabetes mellitus with foot ulcer; L97.509 - Non- pressure chronic ulcer of other part of unspecified foot with unspecified severity Status: Chronic - Plan 1) NSTEMI Most likely Type 2 in nature due to overall illness Due to multiple issues (DNR, thrombocytopenia, drop in Hgb with heme positive stools and inability for Cscope, no symptoms and normal EF) will avoid ischemic evaluation as not a candidate Plan to con't medical therapy Discussed with the patient, he is in agreement ASA 81mg daily if ok with GI 2) C. Diff 3) Hypokalemia/hypernatremia due to diarrhea 4) EF 50-55% (4) Urinary tract infection Qualifiers: Urinary tract infection type: catheter-associated UTI Indwelling urinary catheter type: indwelling urethral catheter Encounter type: initial encounter Qualified Code(s): T83.511A - Infection and inflammatory reaction due to indwelling urethral catheter, initial encounter; N39.0 - Urinary tract infection , site not specified (7) Osteomyelitis Qualifiers: Osteomyelitis type: other chronic Laterality: left (8) Chronic ulcer of leg Qualifiers: Laterality: unspecified laterality Non-pressure ulcer stage: unspecified non- pressure ulcer stage Qualified Code(s): L97.909 - Non-pressure chronic ulcer of unspecified part of unspecified lower leg with unspecified severity (11) Diabetic foot ulcer Qualifiers: Diabetic foot ulcer location: other Diabetes mellitus type: type 2 Laterality: unspecified laterality Non-pressure ulcer stage: limited to breakdown of skin Qualified Code(s): E11.621 - Type 2 diabetes mellitus with foot ulcer; L97.501 - Non-pressure chronic ulcer of other part of unspecified foot limited to breakdown of skin
--- NOTE | 2018-06-16 13:07 | P.PN ---
Subjective Interval history: Follow-up for UTI, hypokalemia, acute kidney injury. Awake, oriented x 3. Complaining of pain to both legs, continues to have profuse diarrhea, multiple episodes. No fever, no chest pain, shortness of breath. Physical Exam Vital signs: Vital Signs 06/15/18 16:00 06/15/18 20:00 06/16/18 00:00 Temperature 97.8 F 97.5 F L 98.0 F Pulse Rate 83 85 79 Respiratory Rate 18 18 18 Blood Pressure 137/68 149/74 H 142/81 H Pulse Oximetry 97 99 100 06/16/18 04:00 06/16/18 04:29 06/16/18 08:00 Temperature 97.9 F 97.8 F Pulse Rate 75 73 73 Respiratory Rate 16 20 Blood Pressure 127/72 134/67 Pulse Oximetry 98 98 06/16/18 12:00 Temperature 98 F Pulse Rate 78 Respiratory Rate 20 Blood Pressure 125/64 Pulse Oximetry 100 Intake & Output 06/15/18 06/16/18 06/16/18 18:59 06:59 18:59 Intake Total 790 / 790 770 / 770 300 / 300 Output Total 500 / 500 1000 / 1000 Balance 290 / 290 -230 / -230 300 / 300 Weight 119.7 kg Intake: IV 310 / 310 530 / 530 300 / 300 D5W Inj 1,000 ML @ 42 mls/hr IV 0 / 0 .CONT .[id number] [facility] Rx#:[id number] Calcium Chloride Inj 1 GM In 110 / 110 D5W Inj 100 ML @ 110 mls/hr IV. SIG ONCE ONE Rx#:[id number] Magnesium Sulfate 1 gm/D5W 100 200 / 200 ml Premix 100 ML @ 100 mls/hr IV.SIG Q1H [facility] Rx#:[id number] KCl 10 mEq Premix Inj 10 meq In 200 / 200 100 ml @ 100 mls/hr IV.SIG Q1H [facility] Rx#:[id number] KCl 20 mEq Premix Inj 20 meq In 100 / 100 100 ml @ 50 mls/hr IV.SIG ONCE ONE Rx#:[id number] Vancomycin Inj 1,500 MG In NS 530 / 530 Inj 500 ML @ 250 mls/hr IV.SIG Q24H [facility] Rx#:[id number] Oral 480 / 480 240 / 240 Output: Urine 500 / 500 Urine Amount (Catheter) 1000 / 1000 Indwelling Urethral Catheter 1000 / 1000 Other: # Incontinent Bowel Movements 1 Narrative: GENERAL: Elderly black male, appears older than stated age,NAD SKIN: Has bilateral plantar ulcerations, another ulceration to the right posterior calf. Has significant edema. No odor, minimal drainage. HEAD: Atraumatic. Normocephalic. EYES: Pupils equal and round. No scleral icterus. No injection or drainage. ENT: No nasal bleeding or discharge. Mucous membranes pink and moist. NECK: Trachea midline. No JVD. CARDIOVASCULAR: Regular rate and rhythm. RESPIRATORY: No accessory muscle use. Clear to auscultation. Breath sounds equal bilaterally. GASTROINTESTINAL: Abdomen soft, non-tender, nondistended. Hepatic and splenic margins not palpable. : berger catheter, fallon urine MUSCULOSKELETAL: Extremities without clubbing, cyanosis, dependent edema both legs. NEUROLOGICAL: Awake and alert and oriented 3. No obvious cranial nerve deficits. Bilateral upper extremity strength 3 out of 5 right weaker than left , unable to move legs. PSYCHIATRIC: Appropriate mood and affect; insight and judgment normal. - Urinary Catheter Management Indwelling Temp Sensing Catheter Cath placed during this visit: yes, but has since been removed by the nurse Urethral indwelling: Yes Reason for continuing: Chronic Urinary Retention Removal date: 06/12/18 Removal time: 17:00 Indwelling Urethral Catheter Cath placed during this visit: yes Reason for continuing: Not indwelling catheter Insertion date: 06/12/18 Insertion time: 17:45 Results - Labs CBC & Chem 7: 06/16/18 03:52 06/16/18 03:52 Laboratory Results - last 24 hr 06/15/18 06/15/18 06/15/18 16:27 18:16 20:02 WBC RBC Hgb Hct MCV MCH MCHC RDW Plt Count MPV Sodium Potassium 3.2 L Chloride Carbon Dioxide Anion Gap BUN Creatinine Estimated GFR POC Glucose 204 H 209 H Random Glucose Calcium Prot Corrected Calcium Magnesium Total Protein PTH Intact 06/16/18 06/16/18 06/16/18 03:52 03:52 05:08 WBC 6.9 RBC 2.76 L Hgb 7.5 L Hct 23.1 L MCV 83.7 MCH 27.1 MCHC 32.3 RDW 19.8 H Plt Count 92 L MPV 11.3 H Sodium 146 H Potassium 2.9 L* Chloride 109 H Carbon Dioxide 26.4 Anion Gap 11 BUN 21 H Creatinine 1.13 Estimated GFR 80 L POC Glucose Random Glucose 195 H D Calcium 6.9 L* Prot Corrected Calcium 7.7 L Magnesium 1.4 L Total Protein 5.6 L PTH Intact 146.8 H 06/16/18 06/16/18 07:39 11:31 WBC RBC Hgb Hct MCV MCH MCHC RDW Plt Count MPV Sodium Potassium Chloride Carbon Dioxide Anion Gap BUN Creatinine Estimated GFR POC Glucose 201 H 237 H Random Glucose Calcium Prot Corrected Calcium Magnesium Total Protein PTH Intact Microbiology 06/11/18 14:20 Blood - Peripheral Aerobic Blood Culture - Final No growth in 5 days 06/11/18 14:20 Blood - Peripheral Anaerobic Blood Culture - Final No growth in 5 days 06/11/18 14:10 Blood - Peripheral Aerobic Blood Culture - Final No growth in 5 days 06/11/18 14:10 Blood - Peripheral Anaerobic Blood Culture - Final No growth in 5 days 06/14/18 12:38 Catheterized Urine Urine Culture - Preliminary Yeast - ID to follow 06/12/18 11:30 Wound - Foot Gram Stain - Final 06/12/18 11:30 Wound - Foot Wound Culture - Final Pseudomonas aeruginosa Enterococcus faecalis S. aureus MRSA 06/12/18 11:30 Wound - Foot Gram Stain - Final 06/12/18 11:30 Wound - Foot Wound Culture - Final Pseudomonas aeruginosa S. aureus MRSA Assessment and Plan - Assessment (1) Acute hypokalemia Code(s): E87.6 - Hypokalemia Status: Acute (2) Hypocalcemia Code(s): E83.51 - Hypocalcemia Status: Acute (3) Acute renal insufficiency Code(s): N28.9 - Disorder of kidney and ureter, unspecified Status: Acute (4) Urinary tract infection Code(s): N39.0 - Urinary tract infection, site not specified Status: Acute (5) Chronic indwelling Berger catheter Code(s): Z92.89 - Personal history of other medical treatment Status: Acute (6) Lactic acidosis Code(s): E87.2 - Acidosis Status: Acute (7) Osteomyelitis Code(s): M86.9 - Osteomyelitis, unspecified Status: Suspected (8) Chronic ulcer of leg Code(s): L97.909 - Non-pressure chronic ulcer of unspecified part of unspecified lower leg with unspecified severity Status: Chronic (9) Elevated troponin Code(s): R74.8 - Abnormal levels of other serum enzymes Status: Acute (10) Clostridium difficile diarrhea Code(s): A04.72 - Enterocolitis due to Clostridium difficile, not specified as recurrent Status: Acute - Plan - Plan 58-year-old male admitted with hypokalemia, hypocalcemia, acute kidney injury, dehydration, hypernatremia, urinary tract infection, and severe edema of the feet with foot ulcers. Acute kidney injury-improving Dehydration Hypernatremia-slowly improving Lactic acidosis-improving -Na 146, D5W at 43/hr and follow BMP in am -Avoid nephrotoxins -Monitor renal function-improving -Increase water intake Severe hypokalemia, dropped again today sec to diarrhea -Remains hypokalemic, secondary to diarrhea, K2.9. Continue with replacement Severe hypocalcemia, poss sec. to diarrhea, infection -Replace Calcium -Monitor calcium level -Parathyroid level, vitamin D level Urinary tract infection secondary to chronic indwelling catheter Bilateral foot ulcers, did not appear infected. Poss osteo left foot. Prior history of osteomyelitis -appreciate ID input, continue Vanco IV Follow cultures, urine culture positive for MRSA and enterococcus, sens. noted -berger changed 06/12 -repeat UA + Yeast, started Diflucan. Sens. pending -wound culture feet -polymicrobial: + heavy growth PSAE/MRSA/enterococcus renal US okay, no obstruction -wound care input appreciated, continue with wound care -Elevated CRP and sed rate. -Bone scan results noted--abnormal increased blood flow, blood pool, and uptake within the tarsal bones of the left foot, most prominently the medial cuneiform. This finding is nonspecific but could indicate osteomyelitis. No abnormal blood flow or uptake is identified in the abnormal metatarsal heads are reported on the recent left foot x-ray performed 3 days ago. There is severe diffuse subcutaneous edema in the legs and feet bilaterally with severe undermineralization of the bones. -appreciate podiatry input-notes reviewed, bone findings nonspecific, no sufficient evidence to justify bone bx or procedures. Signed off, recommends to continue with wound care. Cdiff- Epid 027 diarrhea tapering down today -changed to PO Vanco per ID -replace electrolytes as needed -follow renal function Bilateral foot swelling, positive for DVT. History of DVT and IVC filter -Bilateral Ultrasound of Lower Extremities -positive for DVT both lower extremities. -Pt. was on Eliquis 2.5 mg po bid at home, not on correct dose, poss. why he developed DVTs. At this time, due to HH trending down, will hold and then will do Hep sq until stabilized. Then he can be put on Eliquis 5 mg po bid. Failure to thrive -Patient will need placement, DCF is not involved. Patient has been receiving care from home health care. -CM consult for dc planning, likely SNF. NSTEMI Elevated trop in the setting of SIMON, pt. has no c/o CP, sob Coronary artery disease, [place], stents. -Echo EF 50-55% -serial trop elevated in the presence of SIMON. -Appreciate card input, d/w Dr. Strong. Medical management for now, patient is in agreement. -continue ASA 81 mg po daily -follow on telemetry Neurogenic bladder, chronic indwelling catheter -berger replaced Hypertension -Continue baseline treatment -Follow blood pressures -Adjust treatments as needed Diabetes mellitus type 2 -Accuchecks AC and HS with ISS + Lantus 10 units SQ BID -Diabetic diet History of CVA Right hemiplegia -Continue supportive care -No new neurological deficits Hyperlipidemia -Continue present treatment -Follow as an outpatient History of chronic anemia, Heme + stools Tarry stools reported Thrombocytopenia -Platelets 92 -HH continues to trend down, HH 7.5/23.1 -GI input appreciated, no interventions at this time. Anemia poss due to cdiff colitis -med management for now -hold Eliquis for now -PRBC if Hgb < 8 DVT prophylaxis -Hold anticoagulation for now, Labs reviewed, continues with electrolyte derangement. Not ready for DC CM for dc planning, SNF placement Had long discussion with pt about goals of care, dc plan, current condition. He wants to be DNR. Gives permission to update friend Radha Cornejo on his condition. Attempted to contact friend, no answer. D/W RN, CM, pt. (4) Urinary tract infection Qualifiers: Urinary tract infection type: catheter-associated UTI Indwelling urinary catheter type: indwelling urethral catheter Encounter type: initial encounter Qualified Code(s): T83.511A - Infection and inflammatory reaction due to indwelling urethral catheter, initial encounter; N39.0 - Urinary tract infection , site not specified (7) Osteomyelitis Qualifiers: Osteomyelitis type: other chronic Laterality: left (8) Chronic ulcer of leg Qualifiers: Laterality: unspecified laterality Non-pressure ulcer stage: unspecified non- pressure ulcer stage Qualified Code(s): L97.909 - Non-pressure chronic ulcer of unspecified part of unspecified lower leg with unspecified severity
[2018-06-16] MEDS: Fluconazole 100 MG Tablet PO SCH (16:10)
[2018-06-16 18:28] LABS: Calcium 7.2 mg/dL (8.5-10.1); Carbon Dioxide 26.5 meq/L (21.0-32.0); Potassium 3.3 meq/L (3.5-5.1)
[2018-06-16 18:51] LABS: Total Protein 6.3 g/dL (6.4-8.2)
[2018-06-16] MEDS: Vancomycin Inj 1,500 MG in Sodium Chlor 0.9% Inj 500 ML IV.SIG SCH (21:44)
[2018-06-17 05:30] LABS: Hematocrit 23.4 % (39.0-51.0); Hemoglobin 7.5 gm/dL (13.0-17.0); Mean Corpuscular Hemoglobin 26.6 pg (27.0-34.0); Mean Platelet Volume 10.4 fL (7.0-11.0); Platelet Count 117 th/mm3 (150-450); Red Blood Count 2.82 mil/mm3 (4.50-5.90); Red Cell Distribution Width 19.3 % (11.6-17.2); White Blood Count 6.4 th/mm3 (4.0-11.0)
[2018-06-17 05:56] LABS: Calcium 7.1 mg/dL (8.5-10.1); Carbon Dioxide 24.9 meq/L (21.0-32.0)
--- NOTE | 2018-06-17 08:57 | P.PNIM ---
Subjective Interval history: The patient was resting in bed comfortably. He was tired. He did not have any acute concerns at this time. Physical Exam Vital signs: Vital Signs 06/16/18 12:00 06/16/18 16:00 06/16/18 20:00 Temperature 98 F 97.4 F L 98 F Pulse Rate 82 78 82 Respiratory Rate 20 20 18 Blood Pressure 125/64 129/65 109/57 L Pulse Oximetry 100 98 98 06/17/18 00:00 06/17/18 04:00 Temperature 98 F 97.8 F Pulse Rate 75 69 Respiratory Rate 20 17 Blood Pressure 111/57 L 104/80 Pulse Oximetry 95 95 Intake & Output 06/16/18 06/17/18 06/17/18 18:59 06:59 18:59 Intake Total 1300 / 1300 770 / 770 Output Total 351 / 351 900 / 900 Balance 949 / 949 -130 / -130 Weight 120.4 kg Intake: IV 1300 / 1300 530 / 530 D5W Inj 1,000 ML @ 42 mls/hr IV 1000 / 1000 .CONT .[id number] [facility] Rx#:[id number] Magnesium Sulfate 1 gm/D5W 100 200 / 200 ml Premix 100 ML @ 100 mls/hr IV.SIG Q1H [facility] Rx#:[id number] KCl 20 mEq Premix Inj 20 meq In 100 / 100 100 ml @ 50 mls/hr IV.SIG ONCE ONE Rx#:[id number] Vancomycin Inj 1,500 MG In NS 530 / 530 Inj 500 ML @ 250 mls/hr IV.SIG Q24H [facility] Rx#:[id number] Oral 240 / 240 Output: Urine 350 / 350 Stool 1 / 1 Urine Amount (Catheter) 900 / 900 Indwelling Urethral Catheter 900 / 900 Other: Date of Last Bowel Movement 06/16/18 06/17/18 # Incontinent Bowel Movements 1 Narrative: GENERAL: NAD SKIN: Has bilateral plantar ulcerations, another ulceration to the right posterior calf. Has significant edema. No odor, minimal drainage. HEAD: Atraumatic. Normocephalic. EYES: Pupils equal and round. No scleral icterus. No injection or drainage. ENT: No nasal bleeding or discharge. Mucous membranes pink and moist. NECK: Trachea midline. No JVD. CARDIOVASCULAR: Regular rate and rhythm. RESPIRATORY: No accessory muscle use. Clear to auscultation. Breath sounds equal bilaterally. GASTROINTESTINAL: Abdomen soft, non-tender, nondistended. Hepatic and splenic margins not palpable. : Lennon catheter, fallon urine MUSCULOSKELETAL: Extremities without clubbing, cyanosis, dependent edema both legs. NEUROLOGICAL: Awake and alert and oriented 3. No obvious cranial nerve deficits. Bilateral upper extremity strength 3 out of 5 right weaker than left , unable to move legs. - Urinary Catheter Management Indwelling Temp Sensing Catheter Cath placed during this visit: yes, but has since been removed by the nurse Urethral indwelling: Yes Reason for continuing: Chronic Urinary Retention Removal date: 06/12/18 Removal time: 17:00 Indwelling Urethral Catheter Cath placed during this visit: yes Reason for continuing: Not indwelling catheter Insertion date: 06/12/18 Insertion time: 17:45 Results - Labs CBC & Chem 7: 06/17/18 04:53 06/17/18 04:53 Laboratory Results - last 24 hr 06/16/18 06/16/18 06/16/18 11:31 16:26 17:16 WBC RBC Hgb Hct MCV MCH MCHC RDW Plt Count MPV Sodium 144 Potassium 3.3 L Chloride 108 H Carbon Dioxide 26.5 Anion Gap 10 BUN 18 Creatinine 1.14 Estimated GFR 79 L POC Glucose 237 H 231 H Random Glucose 227 H Calcium 7.2 L* Prot Corrected Calcium 7.6 L Total Protein 6.3 L D 06/16/18 06/17/18 06/17/18 20:07 04:53 04:53 WBC 6.4 RBC 2.82 L Hgb 7.5 L Hct 23.4 L MCV 83.0 MCH 26.6 L MCHC 32.0 RDW 19.3 H Plt Count 117 L MPV 10.4 Sodium 145 Potassium 3.0 L Chloride 111 H Carbon Dioxide 24.9 Anion Gap 9 BUN 16 Creatinine 1.11 Estimated GFR 82 L POC Glucose 228 H Random Glucose 125 H D Calcium 7.1 L* Prot Corrected Calcium 7.7 L Total Protein 6.0 L Microbiology 06/11/18 14:20 Blood - Peripheral Aerobic Blood Culture - Final No growth in 5 days 06/11/18 14:20 Blood - Peripheral Anaerobic Blood Culture - Final No growth in 5 days 06/11/18 14:10 Blood - Peripheral Aerobic Blood Culture - Final No growth in 5 days 06/11/18 14:10 Blood - Peripheral Anaerobic Blood Culture - Final No growth in 5 days 06/14/18 12:38 Catheterized Urine Urine Culture - Preliminary Yeast - ID to follow Assessment and Plan - Assessment (1) Acute hypokalemia Code(s): E87.6 - Hypokalemia Status: Acute (2) Hypocalcemia Code(s): E83.51 - Hypocalcemia Status: Acute (3) Acute renal insufficiency Code(s): N28.9 - Disorder of kidney and ureter, unspecified Status: Acute (4) Urinary tract infection Code(s): N39.0 - Urinary tract infection, site not specified Status: Acute (5) Chronic indwelling Lennon catheter Code(s): Z92.89 - Personal history of other medical treatment Status: Acute (6) Lactic acidosis Code(s): E87.2 - Acidosis Status: Acute (7) Osteomyelitis Code(s): M86.9 - Osteomyelitis, unspecified Status: Suspected (8) Chronic ulcer of leg Code(s): L97.909 - Non-pressure chronic ulcer of unspecified part of unspecified lower leg with unspecified severity Status: Chronic (9) Elevated troponin Code(s): R74.8 - Abnormal levels of other serum enzymes Status: Acute (10) Clostridium difficile diarrhea Code(s): A04.72 - Enterocolitis due to Clostridium difficile, not specified as recurrent Status: Acute - Plan 58-year-old male admitted with hypokalemia, hypocalcemia, acute kidney injury, dehydration, hypernatremia, urinary tract infection, and severe edema of the feet with foot ulcers. Acute kidney injury Dehydration Hypernatremia Lactic acidosis -Na 146, D5W at 43/hr and follow BMP in am. Improving. -Avoid nephrotoxins -Increase water intake Severe hypokalemia/ Hypocalcemia Secondary to diarrhea. -Replete and monitor. Urinary tract infection secondary to chronic indwelling catheter Bilateral foot ulcers, did not appear infected. Poss osteo left foot. Prior history of osteomyelitis -appreciate ID input, continue antibiotics Follow cultures, urine culture positive for MRSA and enterococcus, sens. noted -Lennon changed 06/12 -repeat UA + Yeast, started Diflucan. -wound culture feet -polymicrobial: + heavy growth PSAE/MRSA/enterococcus renal US with no obstruction -wound care input appreciated, continue with wound care -Bone scan results noted--abnormal increased blood flow, blood pool, and uptake within the tarsal bones of the left foot, most prominently the medial cuneiform. This finding is nonspecific but could indicate osteomyelitis. No abnormal blood flow or uptake is identified in the abnormal metatarsal heads are reported on the recent left foot x-ray performed 3 days ago. There is severe diffuse subcutaneous edema in the legs and feet bilaterally with severe undermineralization of the bones. -appreciate podiatry input-notes reviewed, bone findings nonspecific, no sufficient evidence to justify bone bx or procedures. Signed off, recommends to continue with wound care. Cdiff- Epid 027 diarrhea tapering down -changed to PO Vanco per ID -replace electrolytes as needed -follow renal function Bilateral foot swelling, positive for DVT. History of DVT and IVC filter. Bilateral Ultrasound of Lower Extremities - positive for DVT both lower extremities. -Pt. was on Eliquis 2.5 mg po bid at home, not on correct dose, poss. why he developed DVTs. At this time, due to H/H trending down, will hold. Failure to thrive -Patient will need placement. Patient has been receiving care from home health care. -CM consult for dc planning, likely SNF. NSTEMI Elevated trop in the setting of SIMON, pt. has no c/o CP, sob Coronary artery disease, [place], stents. -Echo EF 50-55% -serial trop elevated in the presence of SIMON. -Appreciate card input, d/w Dr. Strong. Medical management for now, patient is in agreement. -continue ASA 81 mg po daily -follow on telemetry Neurogenic bladder, chronic indwelling catheter -Lennon replaced Diabetes mellitus type 2 -Accuchecks AC and HS with ISS + Lantus 13 units SQ BID -Diabetic diet History of CVA Right hemiplegia -Continue supportive care History of chronic anemia, Heme + stools Thrombocytopenia -Platelets 92 -HH continues to trend down, HH 7.5/23.1 -GI input appreciated, no interventions at this time. Anemia poss due to cdiff colitis -med management for now -hold Eliquis for now DVT prophylaxis -Hold anticoagulation for now (4) Urinary tract infection Qualifiers: Urinary tract infection type: catheter-associated UTI Indwelling urinary catheter type: indwelling urethral catheter Encounter type: initial encounter Qualified Code(s): T83.511A - Infection and inflammatory reaction due to indwelling urethral catheter, initial encounter; N39.0 - Urinary tract infection , site not specified (7) Osteomyelitis Qualifiers: Osteomyelitis type: other chronic Laterality: left (8) Chronic ulcer of leg Qualifiers: Laterality: unspecified laterality Non-pressure ulcer stage: unspecified non- pressure ulcer stage Qualified Code(s): L97.909 - Non-pressure chronic ulcer of unspecified part of unspecified lower leg with unspecified severity
[2018-06-17] MEDS: Insulin NovoLOG Aspart Correctional Sugar Inj SQ SCH ×4 (09:30→21:30)
[2018-06-17] MEDS: Ferrous Sulfate 325 MG Tablet PO SCH ×3 (09:40→18:00)
[2018-06-17] MEDS: Gabapentin 300 MG Capsule PO SCH ×2 (09:40→21:09)
[2018-06-17] MEDS: Ascorbic Acid 500 MG Tablet PO SCH (09:40)
[2018-06-17] MEDS: Fluconazole 100 MG Tablet PO SCH (09:41)
[2018-06-17] MEDS: amLODIPine 10 MG Tablet PO SCH (09:41)
[2018-06-17] MEDS: Insulin Detemir Inj 1,000 UNIT/10 ML Vial SQ SCH ×2 (09:41→21:30)
[2018-06-17] MEDS: Lactobacillus Acidophilus/L. Spores Tablet PO SCH ×3 (09:41→17:59)
[2018-06-17] MEDS ORDERED: Calcium Chloride Inj 2 GM in Sodium Chlor 0.9% Inj 100 ML IV.SIG ONE (10:00)
--- NOTE | 2018-06-17 12:00 | P.PNCA ---
Subjective Interval history: No events overnight Feels well, no complaints Physical Exam Vital signs: Vital Signs 06/16/18 12:00 06/16/18 16:00 06/16/18 20:00 Temperature 98 F 97.4 F L 98 F Pulse Rate 82 78 82 Respiratory Rate 20 20 18 Blood Pressure 125/64 129/65 109/57 L Pulse Oximetry 100 98 98 06/17/18 00:00 06/17/18 04:00 06/17/18 08:00 Temperature 98 F 97.8 F 97.7 F Pulse Rate 75 69 71 Respiratory Rate 20 17 20 Blood Pressure 111/57 L 104/80 119/73 Pulse Oximetry 95 95 99 Intake & Output 06/16/18 06/17/18 06/17/18 18:59 06:59 18:59 Intake Total 1300 / 1300 770 / 770 Output Total 351 / 351 900 / 900 Balance 949 / 949 -130 / -130 Weight 120.4 kg Intake: IV 1300 / 1300 530 / 530 D5W Inj 1,000 ML @ 42 mls/hr IV 1000 / 1000 .CONT .[id number] [facility] Rx#:[id number] Magnesium Sulfate 1 gm/D5W 100 200 / 200 ml Premix 100 ML @ 100 mls/hr IV.SIG Q1H [facility] Rx#:[id number] KCl 20 mEq Premix Inj 20 meq In 100 / 100 100 ml @ 50 mls/hr IV.SIG ONCE ONE Rx#:[id number] Vancomycin Inj 1,500 MG In NS 530 / 530 Inj 500 ML @ 250 mls/hr IV.SIG Q24H [facility] Rx#:[id number] Oral 240 / 240 Output: Urine 350 / 350 Stool 1 / 1 Urine Amount (Catheter) 900 / 900 Indwelling Urethral Catheter 900 / 900 Other: Date of Last Bowel Movement 06/16/18 06/17/18 # Incontinent Bowel Movements 1 Narrative: GENERAL: NAD SKIN: Has bilateral plantar ulcerations, another ulceration to the right posterior calf. HEAD: Atraumatic. Normocephalic. EYES: Pupils equal and round. No scleral icterus. No injection or drainage. ENT: No nasal bleeding or discharge. Mucous membranes pink and moist. NECK: Trachea midline. No JVD. CARDIOVASCULAR: Regular rate and rhythm. RESPIRATORY: No accessory muscle use. Clear to auscultation. Breath sounds equal bilaterally. GASTROINTESTINAL: Abdomen soft, non-tender, nondistended. Hepatic and splenic margins not palpable. : Lennon catheter, fallon urine MUSCULOSKELETAL: Extremities without clubbing, cyanosis, dependent edema both legs. NEUROLOGICAL: Awake and alert and oriented 3. No obvious cranial nerve deficits. Bilateral upper extremity strength 3 out of 5 right weaker than left , unable to move legs. - Urinary Catheter Management Indwelling Temp Sensing Catheter Cath placed during this visit: yes, but has since been removed by the nurse Urethral indwelling: Yes Reason for continuing: Chronic Urinary Retention Removal date: 06/12/18 Removal time: 17:00 Indwelling Urethral Catheter Cath placed during this visit: yes Reason for continuing: Not indwelling catheter Insertion date: 06/12/18 Insertion time: 17:45 Assessment and Plan - Assessment (1) Acute hypokalemia Code(s): E87.6 - Hypokalemia Status: Acute (2) Hypocalcemia Code(s): E83.51 - Hypocalcemia Status: Acute (3) Acute renal insufficiency Code(s): N28.9 - Disorder of kidney and ureter, unspecified Status: Acute (4) Urinary tract infection Code(s): N39.0 - Urinary tract infection, site not specified Status: Acute (5) Chronic indwelling Lennon catheter Code(s): Z92.89 - Personal history of other medical treatment Status: Acute (6) Lactic acidosis Code(s): E87.2 - Acidosis Status: Acute (7) Osteomyelitis Code(s): M86.9 - Osteomyelitis, unspecified Status: Suspected (8) Chronic ulcer of leg Code(s): L97.909 - Non-pressure chronic ulcer of unspecified part of unspecified lower leg with unspecified severity Status: Chronic (9) Elevated troponin Code(s): R74.8 - Abnormal levels of other serum enzymes Status: Acute (10) Clostridium difficile diarrhea Code(s): A04.72 - Enterocolitis due to Clostridium difficile, not specified as recurrent Status: Acute (11) Diabetic foot ulcer Code(s): E11.621 - Type 2 diabetes mellitus with foot ulcer; L97.509 - Non- pressure chronic ulcer of other part of unspecified foot with unspecified severity Status: Chronic - Plan 1) NSTEMI Most likely Type 2 in nature due to overall illness Due to multiple issues (DNR, thrombocytopenia, drop in Hgb with heme positive stools and inability for Cscope, no symptoms and normal EF) will avoid ischemic evaluation as not a candidate Plan to con't medical therapy Discussed with the patient, he is in agreement ASA 81mg daily if ok with GI 2) C. Diff 3) Hypokalemia/hypernatremia due to diarrhea 4) EF 50-55% 5) DVT per primary team If started on anti-coagulation, can stop ASA as increase risk of bleeding (4) Urinary tract infection Qualifiers: Urinary tract infection type: catheter-associated UTI Indwelling urinary catheter type: indwelling urethral catheter Encounter type: initial encounter Qualified Code(s): T83.511A - Infection and inflammatory reaction due to indwelling urethral catheter, initial encounter; N39.0 - Urinary tract infection , site not specified (7) Osteomyelitis Qualifiers: Osteomyelitis type: other chronic Laterality: left (8) Chronic ulcer of leg Qualifiers: Laterality: unspecified laterality Non-pressure ulcer stage: unspecified non- pressure ulcer stage Qualified Code(s): L97.909 - Non-pressure chronic ulcer of unspecified part of unspecified lower leg with unspecified severity (11) Diabetic foot ulcer Qualifiers: Diabetic foot ulcer location: other Diabetes mellitus type: type 2 Laterality: unspecified laterality Non-pressure ulcer stage: limited to breakdown of skin Qualified Code(s): E11.621 - Type 2 diabetes mellitus with foot ulcer; L97.501 - Non-pressure chronic ulcer of other part of unspecified foot limited to breakdown of skin
[2018-06-17] MEDS: Dextrose 5% in Water Inj 1,000 ML IV.CONT SCH (12:21)
[2018-06-17] MEDS: Vancomycin Inj 1,500 MG in Sodium Chlor 0.9% Inj 500 ML IV.SIG SCH ×3 (21:08→22:00)
[2018-06-17] MEDS ORDERED: Pharmacy Ordered Lab Info OTHER ONE (21:45)
[2018-06-18] MEDS: Dextrose 5% in Water Inj 1,000 ML IV.CONT SCH ×2 (04:34→19:43)
[2018-06-18] MEDS: Vancomycin Inj 1,500 MG in Sodium Chlor 0.9% Inj 500 ML IV.SIG SCH (05:13)
[2018-06-18 05:55] LABS: Baso % (Auto) 0.4 % (0.0-2.0); Eos # (Auto) 0.3 th/mm3 (0.0-0.4); Eos % (Auto) 4.6 % (0.0-4.0); Hematocrit 22.5 % (39.0-51.0); Hemoglobin 7.5 gm/dL (13.0-17.0); Lymph # (Auto) 1.9 th/mm3 (1.0-4.8); Lymph % (Auto) 27.4 % (9.0-44.0); Mean Corpuscular HGB Conc 33.4 % (32.0-36.0); Mean Corpuscular Hemoglobin 27.5 pg (27.0-34.0); Mean Corpuscular Volume 82.4 fL (80.0-100.0); Mean Platelet Volume 10.4 fL (7.0-11.0); Mono # (Auto) 0.9 th/mm3 (0.0-0.9); Neut # (Auto) 3.6 th/mm3 (1.8-7.7); Neut % (Auto) 53.6 % (16.0-70.0); Platelet Count 137 th/mm3 (150-450); Red Blood Count 2.73 mil/mm3 (4.50-5.90); Red Cell Distribution Width 19.7 % (11.6-17.2); White Blood Count 6.8 th/mm3 (4.0-11.0)
[2018-06-18 06:21] LABS: Calcium 7.6 mg/dL (8.5-10.1); Carbon Dioxide 25.3 meq/L (21.0-32.0); Magnesium 1.6 mg/dL (1.5-2.5); Potassium 3.4 meq/L (3.5-5.1)
[2018-06-18] MEDS: Ferrous Sulfate 325 MG Tablet PO SCH ×3 (09:42→18:32)
[2018-06-18] MEDS: Ascorbic Acid 500 MG Tablet PO SCH (09:42)
[2018-06-18] MEDS: Lactobacillus Acidophilus/L. Spores Tablet PO SCH ×3 (09:42→18:32)
[2018-06-18] MEDS: amLODIPine 10 MG Tablet PO SCH (09:42)
[2018-06-18] MEDS: Fluconazole 100 MG Tablet PO SCH (09:42)
[2018-06-18] MEDS: Gabapentin 300 MG Capsule PO SCH ×2 (09:43→23:55)
[2018-06-18] MEDS: Insulin Detemir Inj 1,000 UNIT/10 ML Vial SQ SCH ×2 (09:43→23:57)
[2018-06-18] MEDS: Insulin NovoLOG Aspart Correctional Sugar Inj SQ SCH ×4 (09:43→23:57)
--- NOTE | 2018-06-18 19:07 | P.PNID ---
Subjective Remarks: afebrile C.diff is positive 027 strain Damion koch, now with fecal collection system Antibiotics: PO vancomycin flagyl IV vanco Allergies/Adverse Reactions: Allergies No Known Allergies Allergy (Unverified 06/11/18 11:16) Objective Vital Signs 06/17/18 20:00 06/18/18 00:00 06/18/18 04:00 Temperature 98.1 F 98.8 F 98.2 F Pulse Rate 78 78 72 Respiratory Rate 19 17 17 Blood Pressure 130/79 142/82 H 116/56 L Pulse Oximetry 99 99 100 06/18/18 08:00 Temperature 98.4 F Pulse Rate 83 Respiratory Rate 20 Blood Pressure 136/73 Pulse Oximetry 99 Intake & Output 06/18/18 06/18/18 06/19/18 06:59 18:59 06:59 Intake Total 1540 / 1540 Output Total 650 / 650 Balance 890 / 890 Weight 121.2 kg Intake: IV 1120 / 1120 D5W Inj 1,000 ML @ 42 mls/hr IV 1000 / 1000 .CONT .[id number] [facility] Rx#:[id number] Calcium Chloride Inj 2 GM In NS 120 / 120 Inj 100 ML @ 120 mls/hr IV.SIG ONCE ONE Rx#:[id number] Oral 420 / 420 Output: Urine Amount (Catheter) 650 / 650 Indwelling Urethral Catheter 650 / 650 06/14/18 12:38 Catheterized Urine Urine Culture - Final Melissa glabrata 06/11/18 14:20 Blood - Peripheral Aerobic Blood Culture - Final No growth in 5 days 06/11/18 14:20 Blood - Peripheral Anaerobic Blood Culture - Final No growth in 5 days 06/11/18 14:10 Blood - Peripheral Aerobic Blood Culture - Final No growth in 5 days 06/11/18 14:10 Blood - Peripheral Anaerobic Blood Culture - Final No growth in 5 days Lab - Hematology Results 06/17/18 06/18/18 04:53 03:32 WBC 6.4 6.8 RBC 2.82 L 2.73 L Hgb 7.5 L 7.5 L Hct 23.4 L 22.5 L MCV 83.0 82.4 MCH 26.6 L 27.5 MCHC 32.0 33.4 RDW 19.3 H 19.7 H Plt Count 117 L 137 L MPV 10.4 10.4 Neut % (Auto) 53.6 Lymph % (Auto) 27.4 [place] % (Auto) 14.0 H Eos % (Auto) 4.6 H Baso % (Auto) 0.4 Neut # (Auto) 3.6 Lymph # (Auto) 1.9 [place] # (Auto) 0.9 Eos # (Auto) 0.3 Baso # (Auto) 0.0 WBC Differential . Differential Comment Auto diff final Lab - Chemistry Results 06/16/18 06/17/18 06/17/18 20:07 04:53 04:53 Sodium 145 Potassium 3.0 L Chloride 111 H Carbon Dioxide 24.9 Anion Gap 9 BUN 16 Creatinine Cancelled 1.11 Estimated GFR Cancelled 82 L POC Glucose 228 H Random Glucose 125 H D Calcium 7.1 L* Prot Corrected Calcium 7.7 L Magnesium Total Protein 6.0 L 06/17/18 06/17/18 06/17/18 13:14 18:02 21:16 Sodium Potassium Chloride Carbon Dioxide Anion Gap BUN Creatinine Estimated GFR POC Glucose 192 H 270 H 392 H Random Glucose Calcium Prot Corrected Calcium Magnesium Total Protein 06/18/18 06/18/18 06/18/18 04:31 05:32 08:54 Sodium 142 Potassium 3.4 L Chloride 108 H Carbon Dioxide 25.3 Anion Gap 9 BUN 18 Creatinine 1.33 H Estimated GFR 66 L POC Glucose 207 H 200 H Random Glucose 186 H Calcium 7.6 L Prot Corrected Calcium Magnesium 1.6 Total Protein 06/18/18 06/18/18 12:20 18:32 Sodium Potassium Chloride Carbon Dioxide Anion Gap BUN Creatinine Estimated GFR POC Glucose 278 H 199 H Random Glucose Calcium Prot Corrected Calcium Magnesium Total Protein Imaging: ITS Impressions Chest X-Ray 06/11/18 12:06 CONCLUSION: Negative for acute process Foot X-Ray 06/11/18 12:06 CONCLUSION: Probable osteomyelitis metatarsal heads. Tagged white cell study would be of benefit. Abdomen/Bladder Ultrasound 06/12/18 00:00 CONCLUSION: 1. Unremarkable and stable bilateral renal ultrasound. 2. No evidence of hydronephrosis. Venous Doppler Study 06/12/18 00:00 CONCLUSION: 1. Deep venous thrombosis in both lower extremities. SPECT Scan-Bone NM 06/14/18 00:00 CONCLUSION: 1. There is abnormal increased blood flow, blood pool, and uptake within the tarsal bones of the left foot, most prominently the medial cuneiform. This finding is nonspecific but could indicate osteomyelitis. Consider correlating with white cell scan, gallium scan, or MRI with and without intravenous contrast to have a more specific diagnosis. 2. No abnormal blood flow or uptake is identified in the abnormal metatarsal heads are reported on the recent left foot x-ray performed 3 days ago. 3. There is severe diffuse subcutaneous edema in the legs and feet bilaterally with severe undermineralization of the bones. Physical Exam: GENERAL: Obese NAD SKIN: Warm and dry. HEAD: Atraumatic. Normocephalic. EYES: Pupils equal and round. No scleral icterus. No injection or drainage. ENT: No nasal bleeding or discharge. Mucous membranes pink and moist. NECK: Trachea midline. No JVD. CARDIOVASCULAR: Regular rate and rhythm. RESPIRATORY: No accessory muscle use. Clear to auscultation. Breath sounds equal bilaterally. GASTROINTESTINAL: Abdomen soft, non-tender, nondistended. Hepatic and splenic margins not palpable. Incontinent of liquid brown stool MUSCULOSKELETAL: Extremities without clubbing, cyanosis, + 1-2 edema. B/l Feet dressings in place No obvious deformities. NEUROLOGICAL: Awake and alert. No obvious cranial nerve deficits. Not moving legs at all PSYCHIATRIC: Appropriate mood and affect; insight and judgment normal. Assessment and Plan - Plan Multiple med problems Inability to care for self Complicated UTI with indwelling berger and neurogenic bladder - MRSA, Enterococcocus both S to vancomycin C.diff diarrhea, -027 strain DM L foot osteo ? R foot osteo podiatry thinks its a chronic oste growing GNBs from the surface clx surface cuultures carry poor clinical significance in the settings of chronic osteo inconclusive nuclear scan Fu blood clx cont IV vanco cont oral vanoc for C.diff further radiological studies (MRI vs WBC* - will dw radiologist, food product inspector) will need to dw podiatry
[2018-06-18] MEDS ORDERED: Pharmacy Ordered Lab Info OTHER ONE (21:45)
[2018-06-18] MEDS ORDERED: Vancomycin Inj 1,250 MG in Sodium Chlor 0.9% Inj 250 ML IV.SIG SCH (22:00)
[2018-06-18 23:25] LABS: % Iron Saturation 13.2 % (20-50); Folate 5.3 ng/mL (3.1-17.5); Vancomycin,Trough 19.2 mcg/mL (5.0-10.0)
--- NOTE | 2018-06-18 23:25 | P.PNCA ---
Subjective Interval history: No events overnight No chest pain/SOB Physical Exam Vital signs: Vital Signs 06/18/18 00:00 06/18/18 04:00 06/18/18 08:00 Temperature 98.8 F 98.2 F 98.4 F Pulse Rate 78 72 83 Respiratory Rate 17 17 20 Blood Pressure 142/82 H 116/56 L 136/73 Pulse Oximetry 99 100 99 06/18/18 12:00 06/18/18 16:00 06/18/18 20:00 Temperature 97.7 F 97.9 F 98.5 F Pulse Rate 76 76 82 Respiratory Rate 20 20 18 Blood Pressure 123/65 121/67 128/69 Pulse Oximetry 100 99 100 Intake & Output 06/18/18 06/18/18 06/19/18 06:59 18:59 06:59 Intake Total 1540 / 1540 960 / 960 Output Total 650 / 650 600 / 600 Balance 890 / 890 360 / 360 Weight 121.2 kg Intake: IV 1120 / 1120 D5W Inj 1,000 ML @ 42 mls/hr IV 1000 / 1000 .CONT .[id number] [facility] Rx#:[id number] Calcium Chloride Inj 2 GM In NS 120 / 120 Inj 100 ML @ 120 mls/hr IV.SIG ONCE ONE Rx#:[id number] Oral 420 / 420 960 / 960 Output: Urine 500 / 500 Stool 100 / 100 Urine Amount (Catheter) 650 / 650 Indwelling Urethral Catheter 650 / 650 Narrative: GENERAL: NAD SKIN: Has bilateral plantar ulcerations, another ulceration to the right posterior calf. HEAD: Atraumatic. Normocephalic. EYES: Pupils equal and round. No scleral icterus. No injection or drainage. ENT: No nasal bleeding or discharge. Mucous membranes pink and moist. NECK: Trachea midline. No JVD. CARDIOVASCULAR: Regular rate and rhythm. RESPIRATORY: No accessory muscle use. Clear to auscultation. Breath sounds equal bilaterally. GASTROINTESTINAL: Abdomen soft, non-tender, nondistended. Hepatic and splenic margins not palpable. : Lennon catheter, fallon urine MUSCULOSKELETAL: Extremities without clubbing, cyanosis, dependent edema both legs. NEUROLOGICAL: Awake and alert and oriented 3. No obvious cranial nerve deficits. Bilateral upper extremity strength 3 out of 5 right weaker than left , unable to move legs. - Urinary Catheter Management Indwelling Temp Sensing Catheter Cath placed during this visit: yes, but has since been removed by the nurse Urethral indwelling: Yes Reason for continuing: Chronic Urinary Retention Removal date: 06/12/18 Removal time: 17:00 Indwelling Urethral Catheter Cath placed during this visit: yes Reason for continuing: Chronic Urinary Retention Insertion date: 06/12/18 Insertion time: 17:45 Assessment and Plan - Assessment (1) Acute hypokalemia Code(s): E87.6 - Hypokalemia Status: Acute (2) Hypocalcemia Code(s): E83.51 - Hypocalcemia Status: Acute (3) Acute renal insufficiency Code(s): N28.9 - Disorder of kidney and ureter, unspecified Status: Acute (4) Urinary tract infection Code(s): N39.0 - Urinary tract infection, site not specified Status: Acute (5) Chronic indwelling Lennon catheter Code(s): Z92.89 - Personal history of other medical treatment Status: Acute (6) Lactic acidosis Code(s): E87.2 - Acidosis Status: Acute (7) Osteomyelitis Code(s): M86.9 - Osteomyelitis, unspecified Status: Suspected (8) Chronic ulcer of leg Code(s): L97.909 - Non-pressure chronic ulcer of unspecified part of unspecified lower leg with unspecified severity Status: Chronic (9) Elevated troponin Code(s): R74.8 - Abnormal levels of other serum enzymes Status: Acute (10) Clostridium difficile diarrhea Code(s): A04.72 - Enterocolitis due to Clostridium difficile, not specified as recurrent Status: Acute (11) Diabetic foot ulcer Code(s): E11.621 - Type 2 diabetes mellitus with foot ulcer; L97.509 - Non- pressure chronic ulcer of other part of unspecified foot with unspecified severity Status: Chronic - Plan 1) NSTEMI Most likely Type 2 in nature due to overall illness Due to multiple issues (DNR, thrombocytopenia, drop in Hgb with heme positive stools and inability for Cscope, no symptoms and normal EF) will avoid ischemic evaluation as not a candidate Plan to con't medical therapy Discussed with the patient, he is in agreement ASA 81mg daily if ok with GI 2) C. Diff 3) Hypokalemia/hypernatremia due to diarrhea 4) EF 50-55% 5) DVT per primary team If started on anti-coagulation, can stop ASA as increase risk of bleeding (4) Urinary tract infection Qualifiers: Urinary tract infection type: catheter-associated UTI Indwelling urinary catheter type: indwelling urethral catheter Encounter type: initial encounter Qualified Code(s): T83.511A - Infection and inflammatory reaction due to indwelling urethral catheter, initial encounter; N39.0 - Urinary tract infection , site not specified (7) Osteomyelitis Qualifiers: Osteomyelitis type: other chronic Laterality: left (8) Chronic ulcer of leg Qualifiers: Laterality: unspecified laterality Non-pressure ulcer stage: unspecified non- pressure ulcer stage Qualified Code(s): L97.909 - Non-pressure chronic ulcer of unspecified part of unspecified lower leg with unspecified severity (11) Diabetic foot ulcer Qualifiers: Diabetic foot ulcer location: other Diabetes mellitus type: type 2 Laterality: unspecified laterality Non-pressure ulcer stage: limited to breakdown of skin Qualified Code(s): E11.621 - Type 2 diabetes mellitus with foot ulcer; L97.501 - Non-pressure chronic ulcer of other part of unspecified foot limited to breakdown of skin
[2018-06-19 05:45] LABS: Hematocrit 23.1 % (39.0-51.0); Hemoglobin 7.6 gm/dL (13.0-17.0); Mean Corpuscular Hemoglobin 27.1 pg (27.0-34.0); Mean Corpuscular Volume 82.1 fL (80.0-100.0); Mean Platelet Volume 10.1 fL (7.0-11.0); Platelet Count 159 th/mm3 (150-450); Red Blood Count 2.81 mil/mm3 (4.50-5.90); Red Cell Distribution Width 19.6 % (11.6-17.2); White Blood Count 6.6 th/mm3 (4.0-11.0)
[2018-06-19 06:15] LABS: Calcium 7.5 mg/dL (8.5-10.1); Carbon Dioxide 23.6 meq/L (21.0-32.0); Magnesium 1.6 mg/dL (1.5-2.5); Potassium 3.3 meq/L (3.5-5.1)
[2018-06-19] MEDS: Ascorbic Acid 500 MG Tablet PO SCH (09:00)
[2018-06-19] MEDS: Ferrous Sulfate 325 MG Tablet PO SCH ×3 (09:00→17:22)
[2018-06-19] MEDS: Lactobacillus Acidophilus/L. Spores Tablet PO SCH ×3 (09:00→17:21)
[2018-06-19] MEDS: Gabapentin 300 MG Capsule PO SCH ×2 (09:00→20:41)
[2018-06-19] MEDS: amLODIPine 10 MG Tablet PO SCH (09:00)
[2018-06-19] MEDS: Fluconazole 100 MG Tablet PO SCH (09:00)
[2018-06-19] MEDS: Insulin NovoLOG Aspart Correctional Sugar Inj SQ SCH ×4 (09:01→20:53)
[2018-06-19] MEDS: Insulin Detemir Inj 1,000 UNIT/10 ML Vial SQ SCH ×2 (09:02→20:55)
--- NOTE | 2018-06-19 11:33 | P.PNIM ---
Subjective Interval history: The patient was resting comfortably in bed. He described pain in his legs that were described as numb and burning in sensation. Discussed with nursing at the bedside. Physical Exam Vital signs: Vital Signs 06/18/18 12:00 06/18/18 16:00 06/18/18 20:00 Temperature 97.7 F 97.9 F 98.5 F Pulse Rate 76 76 86 Respiratory Rate 20 20 18 Blood Pressure 123/65 121/67 128/69 Pulse Oximetry 100 99 100 06/19/18 00:00 06/19/18 04:00 06/19/18 08:00 Temperature 98.2 F 97.3 F L 98.2 F Pulse Rate 76 72 72 Respiratory Rate 18 18 16 Blood Pressure 118/64 113/62 113/64 Pulse Oximetry 98 93 L 99 06/19/18 11:11 Temperature 98.6 F Pulse Rate 73 Respiratory Rate 20 Blood Pressure 141/73 H Pulse Oximetry 100 Intake & Output 06/18/18 06/19/18 06/19/18 18:59 06:59 18:59 Intake Total 960 / 960 812.5 / 812.5 Output Total 600 / 600 Balance 360 / 360 812.5 / 812.5 Intake: IV 812.5 / 812.5 Vancomycin Inj 1,250 MG In NS 262.5 / 262.5 Inj 250 ML @ 250 mls/hr IV.SIG Q24H RADHA Rx#:[id number] Oral 960 / 960 Output: Urine 500 / 500 Stool 100 / 100 Other: # Voids 0 Date of Last Bowel Movement 06/17/18 Narrative: GENERAL: NAD SKIN: Has bilateral plantar ulcerations, another ulceration to the right posterior calf. HEAD: Atraumatic. Normocephalic. EYES: Pupils equal and round. No scleral icterus. No injection or drainage. ENT: No nasal bleeding or discharge. Mucous membranes pink and moist. NECK: Trachea midline. No JVD. CARDIOVASCULAR: Regular rate and rhythm. RESPIRATORY: No accessory muscle use. Clear to auscultation. Breath sounds equal bilaterally. GASTROINTESTINAL: Abdomen soft, non-tender, nondistended. Hepatic and splenic margins not palpable. : Lennon catheter, fallon urine MUSCULOSKELETAL: Extremities without clubbing, cyanosis, dependent edema both legs. NEUROLOGICAL: Awake and alert and oriented 3. No obvious cranial nerve deficits. Bilateral upper extremity strength 3 out of 5 right weaker than left , unable to move legs. - Urinary Catheter Management Indwelling Temp Sensing Catheter Cath placed during this visit: yes, but has since been removed by the nurse Urethral indwelling: Yes Reason for continuing: Chronic Urinary Retention Removal date: 06/12/18 Removal time: 17:00 Indwelling Urethral Catheter Cath placed during this visit: yes Reason for continuing: Chronic Urinary Retention Insertion date: 06/12/18 Insertion time: 17:45 Results - Labs CBC & Chem 7: 06/19/18 05:03 06/19/18 05:03 Laboratory Results - last 24 hr 06/18/18 06/18/18 06/18/18 12:20 18:32 20:36 WBC RBC Hgb Hct MCV MCH MCHC RDW Plt Count MPV Sodium Potassium Chloride Carbon Dioxide Anion Gap BUN Creatinine Estimated GFR POC Glucose 278 H 199 H 272 H Random Glucose Calcium Magnesium Iron TIBC % Saturation Ferritin Vitamin B12 Folate Vancomycin Trough 06/18/18 06/19/18 06/19/18 22:22 05:03 05:03 WBC 6.6 RBC 2.81 L Hgb 7.6 L Hct 23.1 L MCV 82.1 MCH 27.1 MCHC 33.0 RDW 19.6 H Plt Count 159 MPV 10.1 Sodium 140 Potassium 3.3 L Chloride 107 Carbon Dioxide 23.6 Anion Gap 9 BUN 18 Creatinine 1.22 Estimated GFR 73 L POC Glucose Random Glucose 223 H Calcium 7.5 L Magnesium 1.6 Iron 22 L TIBC 167 L % Saturation 13.2 L Ferritin 393 H Vitamin B12 269 Folate 5.3 Vancomycin Trough 19.2 H 06/19/18 08:00 WBC RBC Hgb Hct MCV MCH MCHC RDW Plt Count MPV Sodium Potassium Chloride Carbon Dioxide Anion Gap BUN Creatinine Estimated GFR POC Glucose 232 H Random Glucose Calcium Magnesium Iron TIBC % Saturation Ferritin Vitamin B12 Folate Vancomycin Trough Assessment and Plan - Assessment (1) Acute hypokalemia Code(s): E87.6 - Hypokalemia Status: Acute (2) Hypocalcemia Code(s): E83.51 - Hypocalcemia Status: Acute (3) Acute renal insufficiency Code(s): N28.9 - Disorder of kidney and ureter, unspecified Status: Acute (4) Urinary tract infection Code(s): N39.0 - Urinary tract infection, site not specified Status: Acute (5) Chronic indwelling Lennon catheter Code(s): Z92.89 - Personal history of other medical treatment Status: Acute (6) Lactic acidosis Code(s): E87.2 - Acidosis Status: Acute (7) Osteomyelitis Code(s): M86.9 - Osteomyelitis, unspecified Status: Suspected (8) Chronic ulcer of leg Code(s): L97.909 - Non-pressure chronic ulcer of unspecified part of unspecified lower leg with unspecified severity Status: Chronic (9) Elevated troponin Code(s): R74.8 - Abnormal levels of other serum enzymes Status: Acute (10) Clostridium difficile diarrhea Code(s): A04.72 - Enterocolitis due to Clostridium difficile, not specified as recurrent Status: Acute - Plan 58-year-old male admitted with hypokalemia, hypocalcemia, acute kidney injury, dehydration, hypernatremia, urinary tract infection, and severe edema of the feet with foot ulcers. Acute kidney injury Dehydration Hypernatremia Lactic acidosis -Resolved. Severe hypokalemia/ Hypocalcemia Secondary to diarrhea. -Replete and monitor. Urinary tract infection secondary to chronic indwelling catheter Bilateral foot ulcers, did not appear infected. Poss osteo left foot. Prior history of osteomyelitis -appreciate ID input, continue antibiotics Follow cultures, urine culture positive for MRSA and enterococcus, sens. noted -Lennon changed 06/12 -repeat UA + Yeast, started Diflucan. -wound culture feet -polymicrobial: + heavy growth PSAE/MRSA/enterococcus renal US with no obstruction -wound care input appreciated, continue with wound care -Bone scan results noted--abnormal increased blood flow, blood pool, and uptake within the tarsal bones of the left foot, most prominently the medial cuneiform. This finding is nonspecific but could indicate osteomyelitis. No abnormal blood flow or uptake is identified in the abnormal metatarsal heads are reported on the recent left foot x-ray performed 3 days ago. There is severe diffuse subcutaneous edema in the legs and feet bilaterally with severe undermineralization of the bones. -appreciate podiatry input-notes reviewed, bone findings nonspecific, no sufficient evidence to justify bone bx or procedures. Signed off, recommends to continue with wound care. -ID considering additional imaging studies. Cdiff- Epid 027 diarrhea tapering down -changed to PO Vanco per ID -replace electrolytes as needed -follow renal function Bilateral foot swelling, positive for DVT. History of DVT and IVC filter. Bilateral Ultrasound of Lower Extremities - positive for DVT both lower extremities. -Eliquis resumed 06/18. Failure to thrive -Patient will need placement. Patient has been receiving care from home health care. -CM consult for dc planning, likely SNF. NSTEMI Elevated trop in the setting of SIMON, pt. has no c/o CP, sob Coronary artery disease, [place], stents. -Echo EF 50-55% -serial trop elevated in the presence of SIMON. -Appreciate card input, d/w Dr. Strong. Medical management for now, patient is in agreement. -continue ASA 81 mg po daily -follow on telemetry Neurogenic bladder, chronic indwelling catheter -Lennon replaced Diabetes mellitus type 2 -Accuchecks AC and HS with ISS + Lantus 17 units SQ BID -Diabetic diet History of CVA Right hemiplegia -Continue supportive care History of chronic anemia, Heme + stools Thrombocytopenia -Platelets 92 -GI input appreciated, no interventions at this time. Anemia poss due to cdiff colitis -med management for now -resumed Eliquis, monitor. DVT prophylaxis: Eliquis Discharge Planning: D/c to SNF if hemoglobin stable on Eliquis and when ID clears pt and determines antibiotic course (4) Urinary tract infection Qualifiers: Urinary tract infection type: catheter-associated UTI Indwelling urinary catheter type: indwelling urethral catheter Encounter type: initial encounter Qualified Code(s): T83.511A - Infection and inflammatory reaction due to indwelling urethral catheter, initial encounter; N39.0 - Urinary tract infection , site not specified (7) Osteomyelitis Qualifiers: Osteomyelitis type: other chronic Laterality: left (8) Chronic ulcer of leg Qualifiers: Laterality: unspecified laterality Non-pressure ulcer stage: unspecified non- pressure ulcer stage Qualified Code(s): L97.909 - Non-pressure chronic ulcer of unspecified part of unspecified lower leg with unspecified severity
--- NOTE | 2018-06-19 11:42 | P.PNIM ---
Subjective Interval history: Note for encounter date 06/18/18 The pt was upset that he had a rectal tube. He said he would prefer to keep it in rather than having diarrhea everywhere. He denied anxiety. Discussed with nursing. Physical Exam Vital signs: Vital Signs 06/18/18 12:00 06/18/18 16:00 06/18/18 20:00 Temperature 97.7 F 97.9 F 98.5 F Pulse Rate 76 76 86 Respiratory Rate 20 20 18 Blood Pressure 123/65 121/67 128/69 Pulse Oximetry 100 99 100 06/19/18 00:00 06/19/18 04:00 06/19/18 08:00 Temperature 98.2 F 97.3 F L 98.2 F Pulse Rate 76 72 72 Respiratory Rate 18 18 16 Blood Pressure 118/64 113/62 113/64 Pulse Oximetry 98 93 L 99 06/19/18 11:11 Temperature 98.6 F Pulse Rate 73 Respiratory Rate 20 Blood Pressure 141/73 H Pulse Oximetry 100 Intake & Output 06/18/18 06/19/18 06/19/18 18:59 06:59 18:59 Intake Total 960 / 960 812.5 / 812.5 Output Total 600 / 600 Balance 360 / 360 812.5 / 812.5 Intake: IV 812.5 / 812.5 Vancomycin Inj 1,250 MG In NS 262.5 / 262.5 Inj 250 ML @ 250 mls/hr IV.SIG Q24H RADHA Rx#:[id number] Oral 960 / 960 Output: Urine 500 / 500 Stool 100 / 100 Other: # Voids 0 Date of Last Bowel Movement 06/17/18 Narrative: GENERAL: NAD SKIN: Has bilateral plantar ulcerations, another ulceration to the right posterior calf. HEAD: Atraumatic. Normocephalic. EYES: Pupils equal and round. No scleral icterus. No injection or drainage. ENT: No nasal bleeding or discharge. Mucous membranes pink and moist. NECK: Trachea midline. No JVD. CARDIOVASCULAR: Regular rate and rhythm. RESPIRATORY: No accessory muscle use. Clear to auscultation. Breath sounds equal bilaterally. GASTROINTESTINAL: Abdomen soft, non-tender, nondistended. Hepatic and splenic margins not palpable. : Lennon catheter, fallon urine MUSCULOSKELETAL: Extremities without clubbing, cyanosis, dependent edema both legs. NEUROLOGICAL: Awake and alert and oriented 3. No obvious cranial nerve deficits. Bilateral upper extremity strength 3 out of 5 right weaker than left , unable to move legs. - Urinary Catheter Management Indwelling Temp Sensing Catheter Cath placed during this visit: yes, but has since been removed by the nurse Urethral indwelling: Yes Reason for continuing: Chronic Urinary Retention Removal date: 06/12/18 Removal time: 17:00 Indwelling Urethral Catheter Cath placed during this visit: yes Reason for continuing: Chronic Urinary Retention Insertion date: 06/12/18 Insertion time: 17:45 Results - Labs CBC & Chem 7: 06/19/18 05:03 06/19/18 05:03 Laboratory Results - last 24 hr 06/18/18 06/18/18 06/18/18 12:20 18:32 20:36 WBC RBC Hgb Hct MCV MCH MCHC RDW Plt Count MPV Sodium Potassium Chloride Carbon Dioxide Anion Gap BUN Creatinine Estimated GFR POC Glucose 278 H 199 H 272 H Random Glucose Calcium Magnesium Iron TIBC % Saturation Ferritin Vitamin B12 Folate Vancomycin Trough 06/18/18 06/19/18 06/19/18 22:22 05:03 05:03 WBC 6.6 RBC 2.81 L Hgb 7.6 L Hct 23.1 L MCV 82.1 MCH 27.1 MCHC 33.0 RDW 19.6 H Plt Count 159 MPV 10.1 Sodium 140 Potassium 3.3 L Chloride 107 Carbon Dioxide 23.6 Anion Gap 9 BUN 18 Creatinine 1.22 Estimated GFR 73 L POC Glucose Random Glucose 223 H Calcium 7.5 L Magnesium 1.6 Iron 22 L TIBC 167 L % Saturation 13.2 L Ferritin 393 H Vitamin B12 269 Folate 5.3 Vancomycin Trough 19.2 H 06/19/18 08:00 WBC RBC Hgb Hct MCV MCH MCHC RDW Plt Count MPV Sodium Potassium Chloride Carbon Dioxide Anion Gap BUN Creatinine Estimated GFR POC Glucose 232 H Random Glucose Calcium Magnesium Iron TIBC % Saturation Ferritin Vitamin B12 Folate Vancomycin Trough Assessment and Plan - Assessment (1) Acute hypokalemia Code(s): E87.6 - Hypokalemia Status: Acute (2) Hypocalcemia Code(s): E83.51 - Hypocalcemia Status: Acute (3) Acute renal insufficiency Code(s): N28.9 - Disorder of kidney and ureter, unspecified Status: Acute (4) Urinary tract infection Code(s): N39.0 - Urinary tract infection, site not specified Status: Acute (5) Chronic indwelling Lennon catheter Code(s): Z92.89 - Personal history of other medical treatment Status: Acute (6) Lactic acidosis Code(s): E87.2 - Acidosis Status: Acute (7) Osteomyelitis Code(s): M86.9 - Osteomyelitis, unspecified Status: Suspected (8) Chronic ulcer of leg Code(s): L97.909 - Non-pressure chronic ulcer of unspecified part of unspecified lower leg with unspecified severity Status: Chronic (9) Elevated troponin Code(s): R74.8 - Abnormal levels of other serum enzymes Status: Acute (10) Clostridium difficile diarrhea Code(s): A04.72 - Enterocolitis due to Clostridium difficile, not specified as recurrent Status: Acute - Plan 58-year-old male admitted with hypokalemia, hypocalcemia, acute kidney injury, dehydration, hypernatremia, urinary tract infection, and severe edema of the feet with foot ulcers. Acute kidney injury Dehydration Hypernatremia Lactic acidosis -D/c IVFs. Resolved. Severe hypokalemia/ Hypocalcemia Secondary to diarrhea. -Replete and monitor. Urinary tract infection secondary to chronic indwelling catheter Bilateral foot ulcers, did not appear infected. Poss osteo left foot. Prior history of osteomyelitis -appreciate ID input, continue antibiotics Follow cultures, urine culture positive for MRSA and enterococcus, sens. noted -Lennon changed 06/12 -repeat UA + Yeast, started Diflucan. -wound culture feet -polymicrobial: + heavy growth PSAE/MRSA/enterococcus renal US with no obstruction -wound care input appreciated, continue with wound care -Bone scan results noted--abnormal increased blood flow, blood pool, and uptake within the tarsal bones of the left foot, most prominently the medial cuneiform. This finding is nonspecific but could indicate osteomyelitis. No abnormal blood flow or uptake is identified in the abnormal metatarsal heads are reported on the recent left foot x-ray performed 3 days ago. There is severe diffuse subcutaneous edema in the legs and feet bilaterally with severe undermineralization of the bones. -appreciate podiatry input-notes reviewed, bone findings nonspecific, no sufficient evidence to justify bone bx or procedures. Signed off, recommends to continue with wound care. -ID considering additional imaging studies. Cdiff- Epid 027 diarrhea tapering down -changed to PO Vanco per ID -replace electrolytes as needed -follow renal function Bilateral foot swelling, positive for DVT. History of DVT and IVC filter. Bilateral Ultrasound of Lower Extremities - positive for DVT both lower extremities. -will resume Eliquis 06/18. Failure to thrive -Patient will need placement. Patient has been receiving care from home health care. -CM consult for dc planning, likely SNF. NSTEMI Elevated trop in the setting of SIMON, pt. has no c/o CP, sob Coronary artery disease, [place], stents. -Echo EF 50-55% -serial trop elevated in the presence of SIMON. -Appreciate card input, d/w Dr. Strong. Medical management for now, patient is in agreement. -continue ASA 81 mg po daily -follow on telemetry Neurogenic bladder, chronic indwelling catheter -Lennon replaced Diabetes mellitus type 2 -Accuchecks AC and HS with ISS + Lantus 15 units SQ BID -Diabetic diet History of CVA Right hemiplegia -Continue supportive care History of chronic anemia, Heme + stools Thrombocytopenia -Platelets 92 -GI input appreciated, no interventions at this time. Anemia poss due to cdiff colitis -med management for now -resumed Eliquis, monitor. DVT prophylaxis: Eliquis Discharge Planning: D/c to SNF if hemoglobin stable on Eliquis and when ID clears pt and determines antibiotic course (4) Urinary tract infection Qualifiers: Urinary tract infection type: catheter-associated UTI Indwelling urinary catheter type: indwelling urethral catheter Encounter type: initial encounter Qualified Code(s): T83.511A - Infection and inflammatory reaction due to indwelling urethral catheter, initial encounter; N39.0 - Urinary tract infection , site not specified (7) Osteomyelitis Qualifiers: Osteomyelitis type: other chronic Laterality: left (8) Chronic ulcer of leg Qualifiers: Laterality: unspecified laterality Non-pressure ulcer stage: unspecified non- pressure ulcer stage Qualified Code(s): L97.909 - Non-pressure chronic ulcer of unspecified part of unspecified lower leg with unspecified severity
[2018-06-19] MEDS ORDERED: Vancomycin Inj 1,000 MG in Sodium Chlor 0.9% Inj 250 ML IV.SIG SCH (22:00)
[2018-06-20] MEDS: Vancomycin Inj 1,500 MG in Sodium Chlor 0.9% Inj 500 ML IV.SIG SCH ×2
[2018-06-20 04:40] LABS: Hematocrit 23.7 % (39.0-51.0); Hemoglobin 7.7 gm/dL (13.0-17.0); Mean Corpuscular HGB Conc 32.5 % (32.0-36.0); Mean Corpuscular Hemoglobin 27.2 pg (27.0-34.0); Mean Corpuscular Volume 83.7 fL (80.0-100.0); Mean Platelet Volume 10.1 fL (7.0-11.0); Platelet Count 194 th/mm3 (150-450); Red Blood Count 2.84 mil/mm3 (4.50-5.90); Red Cell Distribution Width 19.7 % (11.6-17.2); White Blood Count 6.9 th/mm3 (4.0-11.0)
[2018-06-20 05:08] LABS: Calcium 7.9 mg/dL (8.5-10.1); Carbon Dioxide 23.4 meq/L (21.0-32.0); Magnesium 1.8 mg/dL (1.5-2.5); Potassium 3.4 meq/L (3.5-5.1)
[2018-06-20] MEDS: amLODIPine 10 MG Tablet PO SCH (08:42)
[2018-06-20] MEDS: Gabapentin 300 MG Capsule PO SCH ×2 (08:42→20:53)
[2018-06-20] MEDS: Ferrous Sulfate 325 MG Tablet PO SCH ×3 (08:43→17:51)
[2018-06-20] MEDS: Ascorbic Acid 500 MG Tablet PO SCH (08:43)
[2018-06-20] MEDS: Lactobacillus Acidophilus/L. Spores Tablet PO SCH ×3 (08:43→17:51)
[2018-06-20] MEDS: Fluconazole 100 MG Tablet PO SCH (08:43)
[2018-06-20] MEDS: Insulin Detemir Inj 1,000 UNIT/10 ML Vial SQ SCH ×2 (08:43→20:54)
[2018-06-20] MEDS: Insulin NovoLOG Aspart Correctional Sugar Inj SQ SCH ×4 (08:44→20:54)
--- NOTE | 2018-06-20 17:26 | P.PNIM ---
Subjective Interval history: Nursing denies any deterioration since last night. Patient himself vocalizes no new complaints. Physical Exam Vital signs: Vital Signs 06/19/18 19:48 06/19/18 20:00 06/20/18 00:00 Temperature 98.4 F 97.3 F L Pulse Rate 79 79 86 Respiratory Rate 18 18 Blood Pressure 119/63 120/74 Pulse Oximetry 97 92 L 06/20/18 00:04 06/20/18 03:44 06/20/18 04:00 Temperature 97.4 F L Pulse Rate 71 70 87 Respiratory Rate 18 Blood Pressure 123/68 Pulse Oximetry 91 L 06/20/18 08:00 06/20/18 12:00 06/20/18 16:00 Temperature 97.7 F 98.0 F Pulse Rate 69 75 77 Respiratory Rate 18 18 Blood Pressure 111/63 129/67 Pulse Oximetry 98 100 Intake & Output 06/19/18 06/20/18 06/20/18 18:59 06:59 18:59 Intake Total 600 / 600 515 / 515 Output Total 900 / 900 300 / 300 Balance -300 / -300 215 / 215 Weight 130.1 kg Intake: IV 515 / 515 Vancomycin Inj 1,500 MG In NS 515 / 515 Inj 500 ML @ 250 mls/hr IV.SIG Q36H RADHA Rx#:[id number] Oral 600 / 600 Output: Urine/Stool Mix 900 / 900 Urine Amount (Catheter) 300 / 300 Indwelling Urethral Catheter 300 / 300 Other: # Voids 350 1 Narrative: Bilateral lower feet with wound care dressings, fully draped Patient lying in bed, with Lennon catheter in place - Urinary Catheter Management Indwelling Temp Sensing Catheter Cath placed during this visit: yes, but has since been removed by the nurse Urethral indwelling: Yes Reason for continuing: Chronic Urinary Retention Removal date: 06/12/18 Removal time: 17:00 Indwelling Urethral Catheter Cath placed during this visit: yes Reason for continuing: Chronic Urinary Retention Insertion date: 06/12/18 Insertion time: 17:45 Results - Labs CBC & Chem 7: 06/20/18 03:46 06/20/18 03:46 Laboratory Results - last 24 hr 06/19/18 06/20/18 06/20/18 19:39 03:46 03:46 WBC 6.9 RBC 2.84 L Hgb 7.7 L Hct 23.7 L MCV 83.7 MCH 27.2 MCHC 32.5 RDW 19.7 H Plt Count 194 MPV 10.1 Sodium 142 Potassium 3.4 L Chloride 110 H Carbon Dioxide 23.4 Anion Gap 9 BUN 22 H Creatinine 1.17 Estimated GFR 77 L POC Glucose 261 H Random Glucose 112 H D Calcium 7.9 L Magnesium 1.8 06/20/18 06/20/18 08:40 11:43 WBC RBC Hgb Hct MCV MCH MCHC RDW Plt Count MPV Sodium Potassium Chloride Carbon Dioxide Anion Gap BUN Creatinine Estimated GFR POC Glucose 112 H 148 H Random Glucose Calcium Magnesium Assessment and Plan - Assessment (1) Acute hypokalemia Code(s): E87.6 - Hypokalemia Status: Acute (2) Hypocalcemia Code(s): E83.51 - Hypocalcemia Status: Acute (3) Acute renal insufficiency Code(s): N28.9 - Disorder of kidney and ureter, unspecified Status: Acute (4) Urinary tract infection Code(s): N39.0 - Urinary tract infection, site not specified Status: Acute (5) Chronic indwelling Lennon catheter Code(s): Z92.89 - Personal history of other medical treatment Status: Acute (6) Lactic acidosis Code(s): E87.2 - Acidosis Status: Acute (7) Osteomyelitis Code(s): M86.9 - Osteomyelitis, unspecified Status: Suspected (8) Chronic ulcer of leg Code(s): L97.909 - Non-pressure chronic ulcer of unspecified part of unspecified lower leg with unspecified severity Status: Chronic (9) Elevated troponin Code(s): R74.8 - Abnormal levels of other serum enzymes Status: Acute (10) Clostridium difficile diarrhea Code(s): A04.72 - Enterocolitis due to Clostridium difficile, not specified as recurrent Status: Acute - Plan 58-year-old male admitted with hypokalemia, hypocalcemia, acute kidney injury, dehydration, hypernatremia, urinary tract infection, and severe edema of the feet with foot ulcers. Patient had acute kidney injury, dehydration, hyponatremia and lactic acidosis which improved with IV fluids and is now resolved. She also had heme positive stools, GI recommended medical management with no intervention at this time, blood counts are holding steady. Severe hypokalemia/ Hypocalcemia - stable now Urinary tract infection secondary to chronic indwelling catheter with neurogenic bladder -renal US with no obstruction -Follow cultures, urine culture positive for MRSA and enterococcus, sens. noted -repeat UA + Yeast, started Diflucan. -Lennon changed 06/12 Bilateral foot ulcers, did not appear infected. Poss osteo left foot. Prior history of osteomyelitis -wound culture feet -polymicrobial: + heavy growth PSAE/MRSA/enteroco -Bone scan results overall are inconclusive per radiology. -Podiatry last deemed not beneficial for surgical intervention for bone biopsy. Case discussed with ID today, will proceed MRI of the foot Cdiff- Epid 027 diarrhea tapering down -PO Vanco per ID History of DVT and IVC filter Bilateral foot swelling - combination of possible infx with definitive BL DVTs --> continue eliquis. Failure to thrive -Patient will need placement. Patient has been receiving care from home health care. -CM consult for dc planning, likely SNF. NSTEMI Elevated trop in the setting of SIMON, pt. has no c/o CP, sob Coronary artery disease, [place], stents. -Appreciate card input, d/w Dr. Strong. Medical management for now, patient is in agreement. -continue ASA, statin, bb Right hemiplegia 2/2 hx of CVA -Continue supportive care, ASA, statin Diabetes mellitus type 2 -Accuchecks AC and HS with ISS + Lantus 15 units SQ BID -Diabetic diet History of chronic anemia, Heme + stools Thrombocytopenia -Platelets stable DVT prophylaxis: Eliquis Discharge Planning: continue abx for now, D/c to SNF [place] ID and podiatry clears pt and determines antibiotic course (4) Urinary tract infection Qualifiers: Urinary tract infection type: catheter-associated UTI Indwelling urinary catheter type: indwelling urethral catheter Encounter type: initial encounter Qualified Code(s): T83.511A - Infection and inflammatory reaction due to indwelling urethral catheter, initial encounter; N39.0 - Urinary tract infection , site not specified (7) Osteomyelitis Qualifiers: Osteomyelitis type: other chronic Laterality: left (8) Chronic ulcer of leg Qualifiers: Laterality: unspecified laterality Non-pressure ulcer stage: unspecified non- pressure ulcer stage Qualified Code(s): L97.909 - Non-pressure chronic ulcer of unspecified part of unspecified lower leg with unspecified severity
--- NOTE | 2018-06-20 17:29 | P.PNID ---
Subjective Remarks: afebrile WBC wnl co some abd discomfort C.diff is positive 027 strain Damion prominent, now with fecal collection system Antibiotics: PO vancomycin flagyl IV vanco Allergies/Adverse Reactions: Allergies No Known Allergies Allergy (Unverified 06/11/18 11:16) Objective Vital Signs 06/19/18 19:48 06/19/18 20:00 06/20/18 00:00 Temperature 98.4 F 97.3 F L Pulse Rate 79 79 86 Respiratory Rate 18 18 Blood Pressure 119/63 120/74 Pulse Oximetry 97 92 L 06/20/18 00:04 06/20/18 03:44 06/20/18 04:00 Temperature 97.4 F L Pulse Rate 71 70 87 Respiratory Rate 18 Blood Pressure 123/68 Pulse Oximetry 91 L 06/20/18 08:00 06/20/18 12:00 06/20/18 16:00 Temperature 97.7 F 98.0 F Pulse Rate 69 75 77 Respiratory Rate 18 18 Blood Pressure 111/63 129/67 Pulse Oximetry 98 100 Intake & Output 06/19/18 06/20/18 06/20/18 18:59 06:59 18:59 Intake Total 600 / 600 515 / 515 Output Total 900 / 900 300 / 300 Balance -300 / -300 215 / 215 Weight 130.1 kg Intake: IV 515 / 515 Vancomycin Inj 1,500 MG In NS 515 / 515 Inj 500 ML @ 250 mls/hr IV.SIG Q36H [facility] Rx#:[id number] Oral 600 / 600 Output: Urine/Stool Mix 900 / 900 Urine Amount (Catheter) 300 / 300 Indwelling Urethral Catheter 300 / 300 Other: # Voids 350 1 06/14/18 12:38 Catheterized Urine Urine Culture - Final [facility] - Hematology Results 06/19/18 06/20/18 05:03 03:46 WBC 6.6 6.9 RBC 2.81 L 2.84 L Hgb 7.6 L 7.7 L Hct 23.1 L 23.7 L MCV 82.1 83.7 MCH 27.1 27.2 MCHC 33.0 32.5 RDW 19.6 H 19.7 H Plt Count 159 194 MPV 10.1 10.1 Lab - Chemistry Results 06/18/18 06/18/18 06/18/18 18:32 20:36 22:22 Sodium Potassium Chloride Carbon Dioxide Anion Gap BUN Creatinine Estimated GFR POC Glucose 199 H 272 H Random Glucose Calcium Magnesium Iron 22 L TIBC 167 L % Saturation 13.2 L Ferritin 393 H Vitamin B12 269 Folate 5.3 06/19/18 06/19/18 06/19/18 05:03 08:00 11:50 Sodium 140 Potassium 3.3 L Chloride 107 Carbon Dioxide 23.6 Anion Gap 9 BUN 18 Creatinine 1.22 Estimated GFR 73 L POC Glucose 232 H 190 H Random Glucose 223 H Calcium 7.5 L Magnesium 1.6 Iron TIBC % Saturation Ferritin Vitamin B12 Folate 06/19/18 06/19/18 06/20/18 16:09 19:39 03:46 Sodium 142 Potassium 3.4 L Chloride 110 H Carbon Dioxide 23.4 Anion Gap 9 BUN 22 H Creatinine 1.17 Estimated GFR 77 L POC Glucose 317 H 261 H Random Glucose 112 H D Calcium 7.9 L Magnesium 1.8 Iron TIBC % Saturation Ferritin Vitamin B12 Folate 06/20/18 06/20/18 08:40 11:43 Sodium Potassium Chloride Carbon Dioxide Anion Gap BUN Creatinine Estimated GFR POC Glucose 112 H 148 H Random Glucose Calcium Magnesium Iron TIBC % Saturation Ferritin Vitamin B12 Folate Imaging: ITS Impressions Chest X-Ray 06/11/18 12:06 CONCLUSION: Negative for acute process Foot X-Ray 06/11/18 12:06 CONCLUSION: Probable osteomyelitis metatarsal heads. Tagged white cell study would be of benefit. Abdomen/Bladder Ultrasound 06/12/18 00:00 CONCLUSION: 1. Unremarkable and stable bilateral renal ultrasound. 2. No evidence of hydronephrosis. Venous Doppler Study 06/12/18 00:00 CONCLUSION: 1. Deep venous thrombosis in both lower extremities. SPECT Scan-Bone NM 06/14/18 00:00 CONCLUSION: 1. There is abnormal increased blood flow, blood pool, and uptake within the tarsal bones of the left foot, most prominently the medial cuneiform. This finding is nonspecific but could indicate osteomyelitis. Consider correlating with white cell scan, gallium scan, or MRI with and without intravenous contrast to have a more specific diagnosis. 2. No abnormal blood flow or uptake is identified in the abnormal metatarsal heads are reported on the recent left foot x-ray performed 3 days ago. 3. There is severe diffuse subcutaneous edema in the legs and feet bilaterally with severe undermineralization of the bones. Physical Exam: GENERAL: Obese NAD SKIN: Warm and dry. HEAD: Atraumatic. Normocephalic. EYES: Pupils equal and round. No scleral icterus. No injection or drainage. ENT: No nasal bleeding or discharge. Mucous membranes pink and moist. NECK: Trachea midline. No JVD. CARDIOVASCULAR: Regular rate and rhythm. RESPIRATORY: No accessory muscle use. Clear to auscultation. Breath sounds equal bilaterally. GASTROINTESTINAL: Abdomen soft, mildly tender to palpation, mildly distended. Hepatic and splenic margins not palpable. Incontinent of liquid brown stool MUSCULOSKELETAL: Extremities without clubbing, cyanosis, + 1-2 edema. Feet ulcerations appear clean, granulating and healing No obvious deformities. NEUROLOGICAL: Awake and alert. No obvious cranial nerve deficits. Not moving legs at all PSYCHIATRIC: Appropriate mood and affect; insight and judgment normal. Assessment and Plan - Plan Multiple med problems Inability to care for self Complicated UTI with indwelling berger and neurogenic bladder - MRSA, Enterococcocus both S to vancomycin C.diff diarrhea, -027 strain DM L foot osteo ? : bone scan findings equivical No R foot osteo per bone scan podiatry thinks its a chronic oste growing GNBs from the surface clx surface cuultures carry poor clinical significance in the settings of chronic osteo inconclusive nuclear scan Fu blood clx cont IV vanco cont oral vanoc for C.diff MRI L foot dw Dr Palm
[2018-06-21] MEDS: Insulin NovoLOG Aspart Correctional Sugar Inj SQ SCH ×4 (09:23→20:41)
[2018-06-21] MEDS: Gabapentin 300 MG Capsule PO SCH ×2 (09:24→20:41)
[2018-06-21] MEDS: Lactobacillus Acidophilus/L. Spores Tablet PO SCH ×3 (09:25→17:29)
[2018-06-21] MEDS: Ascorbic Acid 500 MG Tablet PO SCH (09:25)
[2018-06-21] MEDS: amLODIPine 10 MG Tablet PO SCH (09:25)
[2018-06-21] MEDS: Ferrous Sulfate 325 MG Tablet PO SCH ×3 (09:26→17:29)
[2018-06-21] MEDS: Fluconazole 100 MG Tablet PO SCH (09:26)
[2018-06-21] MEDS: Insulin Detemir Inj 1,000 UNIT/10 ML Vial SQ SCH ×2 (09:28→20:41)
[2018-06-21] MEDS: Vancomycin Inj 1,500 MG in Sodium Chlor 0.9% Inj 500 ML IV.SIG SCH (12:45)
--- NOTE | 2018-06-21 14:06 | P.PNIM ---
Subjective Interval history: I discussed blood transfusion options with patient and he declined transfusion at this point. He states he feels tired but overall he does not need the extra energy because he is not walking. Patient requests to have his rectal tube removed due to pain. Physical Exam Vital signs: Vital Signs 06/20/18 16:00 06/20/18 20:00 06/20/18 23:42 Temperature 97.5 F L 97.7 F Pulse Rate 79 82 72 Respiratory Rate 18 18 Blood Pressure 141/64 H 113/63 Pulse Oximetry 98 99 06/21/18 00:00 06/21/18 04:00 06/21/18 08:00 Temperature 97.7 F 97.7 F 97.4 F L Pulse Rate 73 68 66 Respiratory Rate 18 18 19 Blood Pressure 127/71 125/69 114/60 Pulse Oximetry 99 100 100 06/21/18 12:00 Temperature 97.6 F Pulse Rate 69 Respiratory Rate 19 Blood Pressure 125/66 Pulse Oximetry 100 Intake & Output 06/20/18 06/21/18 06/21/18 18:59 06:59 18:59 Intake Total 480 / 480 240 / 240 Output Total 1250 / 1250 Balance 480 / 480 -1010 / -1010 Weight 130.1 kg Intake: Oral 480 / 480 240 / 240 Output: Urine 1250 / 1250 Other: Date of Last Bowel Movement 06/17/18 06/21/18 Narrative: GENERAL: AAOx3, no acute distress, weak appearing SKIN: Warm and dry. No rashes HEAD: Atruamtic, normocephalic. EYES: No scleral icterus. No injection or drainage. ENT: Moist mucous membranes, patent nares, no erythema of oropharynx. NECK: Supple, trachea midline. No JVD or lymphadenopathy. Normal thyroid. CARDIOVASCULAR: Regular rate and rhythm. No murmurs, gallops, or rubs. RESPIRATORY: Breath sounds clear equal bilaterally. No crackles or wheezes. No accessory muscle use. GASTROINTESTINAL: Abdomen soft, non-tender, nondistended, normal active bowel sounds MUSCULOSKELETAL: No cyanosis, or edema. NEURO: CN II-XII grossly intact, no focal deficits, no slurring of speech - Urinary Catheter Management Indwelling Temp Sensing Catheter Cath placed during this visit: yes, but has since been removed by the nurse Urethral indwelling: Yes Reason for continuing: Chronic Urinary Retention Removal date: 06/12/18 Removal time: 17:00 Indwelling Urethral Catheter Cath placed during this visit: yes Reason for continuing: Chronic Urinary Retention Insertion date: 06/12/18 Insertion time: 17:45 Results - Labs CBC & Chem 7: 06/20/18 03:46 06/20/18 03:46 Laboratory Results - last 24 hr 06/20/18 06/20/18 06/21/18 17:40 19:59 07:52 POC Glucose 248 H 287 H 137 H 06/21/18 11:26 POC Glucose 164 H Assessment and Plan - Assessment (1) Acute hypokalemia Code(s): E87.6 - Hypokalemia Status: Acute (2) Hypocalcemia Code(s): E83.51 - Hypocalcemia Status: Acute (3) Acute renal insufficiency Code(s): N28.9 - Disorder of kidney and ureter, unspecified Status: Acute (4) Urinary tract infection Code(s): N39.0 - Urinary tract infection, site not specified Status: Acute (5) Chronic indwelling Lennon catheter Code(s): Z92.89 - Personal history of other medical treatment Status: Acute (6) Lactic acidosis Code(s): E87.2 - Acidosis Status: Acute (7) Osteomyelitis Code(s): M86.9 - Osteomyelitis, unspecified Status: Suspected (8) Chronic ulcer of leg Code(s): L97.909 - Non-pressure chronic ulcer of unspecified part of unspecified lower leg with unspecified severity Status: Chronic (9) Elevated troponin Code(s): R74.8 - Abnormal levels of other serum enzymes Status: Acute (10) Clostridium difficile diarrhea Code(s): A04.72 - Enterocolitis due to Clostridium difficile, not specified as recurrent Status: Acute - Plan 58-year-old male admitted with hypokalemia, hypocalcemia, acute kidney injury, dehydration, hypernatremia, urinary tract infection, and severe edema of the feet with foot ulcers. Patient had acute kidney injury, dehydration, hyponatremia and lactic acidosis which improved with IV fluids and is now resolved. He also had heme positive stools, GI recommended medical management with no intervention at this time, blood counts are holding steady. Severe hypokalemia/ Hypocalcemia Stable, continue to monitor for recurrence Urinary tract infection secondary to chronic indwelling catheter with neurogenic bladder renal US with no obstruction urine culture positive for MRSA and enterococcus, continue vancomycin Repeat culture of urine positive for yeast, continue Diflucan Lennon changed 06/12 Bilateral foot ulcers History of osteomyelitis, but bone scan was inconclusive per radiology We will culture if it shows heavy growth PSAE/MRSA/enteroco Infectious disease recommends MRI of the foot MRI of the foot pending Appreciate infectious disease consult Cdiff- Epid 027 diarrhea tapering PO Vanco per ID Rectal tube removed History of DVT Patient has IVC filter Bilateral foot swelling Continuing Eliquis Failure to thrive -Patient will need placement. Patient has been receiving care from home health care. -CM consult for dc planning, likely SNF. NSTEMI Elevated trop in the setting of SIMON, pt. has no c/o CP, sob Coronary artery disease, MA, stents. -Appreciate card input, d/w Dr. Strong. Medical management for now, patient is in agreement. -continue ASA, statin, bb hx of CVA Right hemiplegia Continue supportive care, ASA, statin Diabetes mellitus type 2 Continue Accuchecks AC and HS with ISS + Lantus 15 units SQ BID Diabetic diet Anemia, thrombocytopenia Patient declined blood transfusion today, will revisit Platelets stable DVT Prophylaxis Eliquis Discharge Planning February D/C to SNF when ID and Podiatry clear foot (when osteomyelitis ruled out) (4) Urinary tract infection Qualifiers: Urinary tract infection type: catheter-associated UTI Indwelling urinary catheter type: indwelling urethral catheter Encounter type: initial encounter Qualified Code(s): T83.511A - Infection and inflammatory reaction due to indwelling urethral catheter, initial encounter; N39.0 - Urinary tract infection , site not specified (7) Osteomyelitis Qualifiers: Osteomyelitis type: other chronic Laterality: left (8) Chronic ulcer of leg Qualifiers: Laterality: unspecified laterality Non-pressure ulcer stage: unspecified non- pressure ulcer stage Qualified Code(s): L97.909 - Non-pressure chronic ulcer of unspecified part of unspecified lower leg with unspecified severity
[2018-06-21] MEDS ORDERED: Gadobutrol PF 7.5 MMOL/7.5 ML Vial (for RAD) IV.SIG ONE (16:55)
--- NOTE | 2018-06-21 17:01 | MR ---
EXAM DATE: 06/21/2018 4:53 PM EDT AGE/SEX: 58 years / Male INDICATIONS: Osteomyelitis. CLINICAL DATA: This is the patient's subsequent encounter. Patient reports that signs and symptoms h ave been present for 2 weeks and indicates a pain score of 0/10. MEDICAL/SURGICAL HISTORY: Diabetes. CVA, CO, CAD, HTN, Lymphedema, R Hemiplegia Coronary arter y stent. Cardiac Cath COMPARISON: [facility], FOOT LIMITED LEFT 2V, 06/11/2018. . TECHNIQUE: Multiplanar, multisequence MRI examination was performed without contrast and after th e intravenous administration of 13 ml Gadavist (gadobutrol) single exam dose. FINDINGS: There is amputation of the fifth digit. There is edema involving the distal portion of the fourth met atarsal bone. There is a fracture of the base of these first metatarsal bone and is edema in the surr ounding marrow. There is also slight edema with enhancement of the medial cuneiform probably posttrau matic change. Nondescript edema is also seen involving the base of the third metatarsal bone with mil d enhancement. The distal portions of the first second and third metatarsal bones do not demonstrate any edema or abnormal enhancement. There is also edema involving the cuboid could also be traumatic w ith mild degree of enhancement. Extensive soft tissue swelling is present in the dorsum of the patien t's foot particularly at the level of the metatarsophalangeal joints without definite abscess. CONCLUSION: 1. Extensive soft tissue edema and swelling without abscess. 2. Fracture of the base of the first metatarsal bone. 3. Edema of the distal portion of the fourth metatarsal bone with enhancement and is also edema invo lving the cuboid and medial cuneiform. These could be posttraumatic change, however osteomyelitis of the fourth distal metatarsal bone is difficult to exclude. Bony structures are extremely osteopenic. Electronically signed by: Fide Rowland MD 06/21/2018 5:00 PM EDT
[2018-06-22 05:49] LABS: Hematocrit 23.3 % (39.0-51.0); Hemoglobin 7.7 gm/dL (13.0-17.0); Mean Corpuscular HGB Conc 33.1 % (32.0-36.0); Mean Corpuscular Hemoglobin 27.5 pg (27.0-34.0); Mean Platelet Volume 9.5 fL (7.0-11.0); Platelet Count 236 th/mm3 (150-450); Red Blood Count 2.81 mil/mm3 (4.50-5.90); Red Cell Distribution Width 19.9 % (11.6-17.2); White Blood Count 7.2 th/mm3 (4.0-11.0)
[2018-06-22 06:18] LABS: Calcium 7.7 mg/dL (8.5-10.1); Carbon Dioxide 22.4 meq/L (21.0-32.0); Potassium 3.3 meq/L (3.5-5.1)
[2018-06-22] MEDS: Lactobacillus Acidophilus/L. Spores Tablet PO SCH ×3 (09:25→18:11)
[2018-06-22] MEDS: Gabapentin 300 MG Capsule PO SCH ×2 (09:25→21:19)
[2018-06-22] MEDS: Fluconazole 100 MG Tablet PO SCH (09:25)
[2018-06-22] MEDS: Ferrous Sulfate 325 MG Tablet PO SCH ×3 (09:26→18:11)
[2018-06-22] MEDS: amLODIPine 10 MG Tablet PO SCH (09:26)
[2018-06-22] MEDS: Insulin NovoLOG Aspart Correctional Sugar Inj SQ SCH ×4 (09:26→21:20)
[2018-06-22] MEDS: Ascorbic Acid 500 MG Tablet PO SCH (09:26)
[2018-06-22] MEDS: Insulin Detemir Inj 1,000 UNIT/10 ML Vial SQ SCH ×2 (09:27→21:19)
--- NOTE | 2018-06-22 09:39 | P.PNPOD ---
Subjective Interval history: Bilateral leg ulcerations. Pt relates mild discomfort to the left leg and moderate discomfort to the right leg. He denies any n/v/f/h/c/sob. Physical Exam Vital signs: Vital Signs 06/21/18 12:00 06/21/18 12:05 06/21/18 16:00 Temperature 97.6 F 97.8 F Pulse Rate 69 67 75 Respiratory Rate 19 18 Blood Pressure 125/66 134/68 Pulse Oximetry 100 100 06/21/18 19:56 06/21/18 20:00 06/22/18 00:00 Temperature 97.7 F 98 F Pulse Rate 77 78 73 Respiratory Rate 20 20 Blood Pressure 131/62 117/58 L Pulse Oximetry 100 100 06/22/18 00:02 06/22/18 01:55 06/22/18 03:54 Temperature 98 F Pulse Rate 69 73 70 Respiratory Rate 20 Blood Pressure 117/58 L Pulse Oximetry 100 06/22/18 08:00 Temperature 98.3 F Pulse Rate 72 Respiratory Rate 19 Blood Pressure 130/62 Pulse Oximetry 100 Intake & Output 06/21/18 06/22/18 06/22/18 18:59 06:59 18:59 Intake Total 1055 / 1055 540 / 540 Output Total 1200 / 1200 1000 / 1000 Balance -145 / -145 -460 / -460 Weight 130.1 kg Intake: IV 515 / 515 Vancomycin Inj 1,500 MG In NS 515 / 515 Inj 500 ML @ 250 mls/hr IV.SIG Q36H [facility] Rx#:[id number] Oral 540 / 540 540 / 540 Output: Urine 1200 / 1200 Stool 100 / 100 Urine/Stool Mix 900 / 900 Other: Post Void Residual 700 # Voids 1 # Incontinent Voids 3 Date of Last Bowel Movement 06/21/18 06/21/18 # Bowel Movements 1 1 # Incontinent Bowel Movements 1 Narrative: Bilateral foot/leg ulcers all appear clean and stable. No signs of acute infection, no erythema, no malodor, no exposed bone. Most wounds are superficial except for the right plantar which has a full thickness eschar. Medications and Allergies Active Medications: Active Medications Hydrocodone Bitart/Acetaminophen (Grant 5/325) 1 tab PO Q4H PRN PRN Reason: Pain 3 to 6 Last Admin: 06/22/18 09:24 Dose: 1 tab Al Hydroxide/Mg Hydroxide (Milk Of Magnesia Liq) 30 ml PO Q12H PRN PRN Reason: Mild Constipation Amlodipine Besylate (Norvasc) 10 mg PO DAILY [facility] Last Admin: 06/22/18 09:26 Dose: 10 mg Apixaban (Eliquis) 5 mg PO BID [facility] Last Admin: 06/22/18 09:25 Dose: 5 mg Ascorbic Acid (Vitamin C) 500 mg PO DAILY [facility] Last Admin: 06/22/18 09:26 Dose: 500 mg Carvedilol (Coreg) 3.125 mg PO BID [facility] Last Admin: 06/22/18 09:26 Dose: 3.125 mg Dextrose (D50w Vial) 50 ml IV.PUSH UNSCH PRN PRN Reason: PER HYPOGLYCEMIA PROTOCOL Duloxetine HCl (Cymbalta) 30 mg PO DAILY [facility] Last Admin: 06/22/18 09:26 Dose: 30 mg Ferrous Sulfate (Ferosul) 325 mg PO TID [facility] Last Admin: 06/22/18 09:26 Dose: 325 mg Fluconazole (Diflucan) 100 mg PO DAILY [facility] Last Admin: 06/22/18 09:25 Dose: 100 mg Gabapentin (Neurontin) 900 mg PO BID [facility] Last Admin: 06/22/18 09:25 Dose: 900 mg Glucagon (Glucagon Inj) 1 mg OTHER PRN PRN PRN Reason: for Hypoglycemia Protocol Vancomycin HCl 1,500 mg/ (Sodium Chloride) 515 mls @ 250 mls/hr IV.SIG Q36H [facility] Last Infusion: 06/21/18 14:49 Dose: Infused Insulin Aspart (Novolog Insulin Correctional Sugar Inj) 0 unit SQ ACHS [facility]; Protocol Last Admin: 06/22/18 09:26 Dose: Not Given Insulin Detemir (Levemir Inj) 17 unit SQ BID [facility] Last Admin: 06/22/18 09:27 Dose: 17 unit Lactobacillus Acidophilus (Lactinex) 1 tab PO TID [facility] Last Admin: 06/22/18 09:25 Dose: 1 tab Miscellaneous Information ([facility] Ordered Lab Info) 0 each OTHER ONCE ONE Stop: 06/22/18 21:46 Miscellaneous Information ([facility] Ordered Lab Info) 0 each OTHER ONCE ONE Stop: 06/22/18 23:46 Pharmacy Profile Note (Vancomycin Consult Pharmacy) 1 each OTHER UNSCH PRN PRN Reason: Pharmacy to dose Pravastatin Sodium (Pravachol) 20 mg PO DAILY@1800 [facility] Last Admin: 06/21/18 17:29 Dose: 20 mg Vancomycin HCl (Vancomycin Po) 500 mg PO QID [facility] Last Admin: 06/22/18 09:26 Dose: 500 mg Allergies Allergy/AdvReac Type Severity Reaction Status Date / Time No Known Allergies Allergy Unverified 06/11/18 11:16 Home Medications Medication Instructions Recorded Confirmed Type acetaminophen 650 mg PO Q4H PRN 06/13/18 06/13/18 History amino acids-protein hydrolys 30 ml PO TID 06/13/18 06/13/18 History [Pro-Stat AWC] amlodipine 10 mg PO DAILY 06/13/18 06/13/18 History apixaban 2.5 mg PO BID 06/13/18 06/13/18 History ascorbic acid (vitamin C) 500 mg PO DAILY 06/13/18 06/13/18 History duloxetine [Cymbalta] 30 mg PO DAILY 06/13/18 06/13/18 History ferrous sulfate 325 mg PO TID 06/13/18 06/13/18 History gabapentin 900 mg PO TID 06/13/18 06/13/18 History hydrocodone-acetaminophen [Grant] 1 tab PO Q6H PRN 06/13/18 06/13/18 History insulin glargine 15 unit SUB-Q DAILY 06/13/18 06/13/18 History insulin lispro 5 unit SUB-Q ACHS 06/13/18 06/13/18 History metronidazole [Flagyl] 500 mg PO TID 06/13/18 06/13/18 History oxycodone [OxyContin] 15 mg PO Q8H PRN 06/13/18 06/13/18 History simvastatin 10 mg PO QPM 06/13/18 06/13/18 History Results - Labs CBC & Chem 7: 06/22/18 04:35 06/22/18 04:35 Laboratory Results - last 24 hr 06/21/18 06/21/18 06/21/18 11:26 17:08 19:45 WBC RBC Hgb Hct MCV MCH MCHC RDW Plt Count MPV Sodium Potassium Chloride Carbon Dioxide Anion Gap BUN Creatinine Estimated GFR POC Glucose 164 H 224 H 244 H Random Glucose Calcium 06/22/18 06/22/18 06/22/18 04:35 04:35 07:53 WBC 7.2 RBC 2.81 L Hgb 7.7 L Hct 23.3 L MCV 83.0 MCH 27.5 MCHC 33.1 RDW 19.9 H Plt Count 236 MPV 9.5 Sodium 143 Potassium 3.3 L Chloride 109 H Carbon Dioxide 22.4 Anion Gap 12 BUN 24 H Creatinine 1.38 H Estimated GFR 64 L POC Glucose 119 H Random Glucose 121 H Calcium 7.7 L - Imaging Impressions Foot MRI 06/21/18 00:00 CONCLUSION: 1. Extensive soft tissue edema and swelling without abscess. 2. Fracture of the base of the first metatarsal bone. 3. Edema of the distal portion of the fourth metatarsal bone with enhancement and is also edema involving the cuboid and medial cuneiform. These could be posttraumatic change, however osteomyelitis of the fourth distal metatarsal bone is difficult to exclude. Bony structures are extremely osteopenic. Assessment and Plan - Assessment (1) Diabetic foot ulcer Code(s): E11.621 - Type 2 diabetes mellitus with foot ulcer; L97.509 - Non- pressure chronic ulcer of other part of unspecified foot with unspecified severity Status: Chronic - Plan -cont daily wound care as ordered through nursing staff -MRI reviewed- nonspecific findings OA vs OM, clinical appearance does not support a finding of OM, but regardless the patient is not a surgical candidate due to severe PVD -limit WBing -abx per ID (1) Diabetic foot ulcer Qualifiers: Diabetic foot ulcer location: other Diabetes mellitus type: type 2 Laterality: unspecified laterality Non-pressure ulcer stage: limited to breakdown of skin Qualified Code(s): E11.621 - Type 2 diabetes mellitus with foot ulcer; L97.501 - Non-pressure chronic ulcer of other part of unspecified foot limited to breakdown of skin
--- NOTE | 2018-06-22 11:17 | P.PNIM ---
Subjective Interval history: Patient has no complaints overnight, he denies any episodic diarrhea. Patient is anemic but has declined blood transfusions. We will see if he is symptomatic when PT is resumed. Physical Exam Vital signs: Vital Signs 06/21/18 12:00 06/21/18 12:05 06/21/18 16:00 Temperature 97.6 F 97.8 F Pulse Rate 69 67 75 Respiratory Rate 19 18 Blood Pressure 125/66 134/68 Pulse Oximetry 100 100 06/21/18 19:56 06/21/18 20:00 06/22/18 00:00 Temperature 97.7 F 98 F Pulse Rate 77 78 73 Respiratory Rate 20 20 Blood Pressure 131/62 117/58 L Pulse Oximetry 100 100 06/22/18 00:02 06/22/18 01:55 06/22/18 03:54 Temperature 98 F Pulse Rate 69 73 70 Respiratory Rate 20 Blood Pressure 117/58 L Pulse Oximetry 100 06/22/18 08:00 Temperature 98.3 F Pulse Rate 72 Respiratory Rate 19 Blood Pressure 130/62 Pulse Oximetry 100 Intake & Output 06/21/18 06/22/18 06/22/18 18:59 06:59 18:59 Intake Total 1055 / 1055 540 / 540 Output Total 1200 / 1200 1000 / 1000 Balance -145 / -145 -460 / -460 Weight 130.1 kg Intake: IV 515 / 515 Vancomycin Inj 1,500 MG In NS 515 / 515 Inj 500 ML @ 250 mls/hr IV.SIG Q36H [facility] Rx#:[id number] Oral 540 / 540 540 / 540 Output: Urine 1200 / 1200 Stool 100 / 100 Urine/Stool Mix 900 / 900 Other: Post Void Residual 700 # Voids 1 # Incontinent Voids 3 Date of Last Bowel Movement 06/21/18 06/21/18 # Bowel Movements 1 1 # Incontinent Bowel Movements 1 Narrative: GENERAL: AAOx3, no acute distress, weak appearing SKIN: Warm and dry. No rashes HEAD: Atruamtic, normocephalic. EYES: No scleral icterus. No injection or drainage. ENT: Moist mucous membranes, patent nares, no erythema of oropharynx. NECK: Supple, trachea midline. No JVD or lymphadenopathy. Normal thyroid. CARDIOVASCULAR: Regular rate and rhythm. No murmurs, gallops, or rubs. RESPIRATORY: Breath sounds clear equal bilaterally. No crackles or wheezes. No accessory muscle use. GASTROINTESTINAL: Abdomen soft, non-tender, nondistended, normal active bowel sounds MUSCULOSKELETAL: No cyanosis, or edema. NEURO: CN II-XII grossly intact, no focal deficits, no slurring of speech - Urinary Catheter Management Indwelling Temp Sensing Catheter Cath placed during this visit: yes, but has since been removed by the nurse Urethral indwelling: Yes Reason for continuing: Chronic Urinary Retention Removal date: 06/12/18 Removal time: 17:00 Indwelling Urethral Catheter Cath placed during this visit: yes Reason for continuing: Chronic Urinary Retention Insertion date: 06/12/18 Insertion time: 17:45 Results - Labs CBC & Chem 7: 06/22/18 04:35 06/22/18 04:35 Laboratory Results - last 24 hr 06/21/18 06/21/18 06/21/18 11:26 17:08 19:45 WBC RBC Hgb Hct MCV MCH MCHC RDW Plt Count MPV Sodium Potassium Chloride Carbon Dioxide Anion Gap BUN Creatinine Estimated GFR POC Glucose 164 H 224 H 244 H Random Glucose Calcium 06/22/18 06/22/18 06/22/18 04:35 04:35 07:53 WBC 7.2 RBC 2.81 L Hgb 7.7 L Hct 23.3 L MCV 83.0 MCH 27.5 MCHC 33.1 RDW 19.9 H Plt Count 236 MPV 9.5 Sodium 143 Potassium 3.3 L Chloride 109 H Carbon Dioxide 22.4 Anion Gap 12 BUN 24 H Creatinine 1.38 H Estimated GFR 64 L POC Glucose 119 H Random Glucose 121 H Calcium 7.7 L - Imaging Impressions Foot MRI 06/21/18 00:00 CONCLUSION: 1. Extensive soft tissue edema and swelling without abscess. 2. Fracture of the base of the first metatarsal bone. 3. Edema of the distal portion of the fourth metatarsal bone with enhancement and is also edema involving the cuboid and medial cuneiform. These could be posttraumatic change, however osteomyelitis of the fourth distal metatarsal bone is difficult to exclude. Bony structures are extremely osteopenic. Assessment and Plan - Assessment (1) Acute hypokalemia Code(s): E87.6 - Hypokalemia Status: Acute (2) Hypocalcemia Code(s): E83.51 - Hypocalcemia Status: Acute (3) Acute renal insufficiency Code(s): N28.9 - Disorder of kidney and ureter, unspecified Status: Acute (4) Urinary tract infection Code(s): N39.0 - Urinary tract infection, site not specified Status: Acute (5) Chronic indwelling Lennon catheter Code(s): Z92.89 - Personal history of other medical treatment Status: Acute (6) Lactic acidosis Code(s): E87.2 - Acidosis Status: Acute (7) Osteomyelitis Code(s): M86.9 - Osteomyelitis, unspecified Status: Suspected (8) Chronic ulcer of leg Code(s): L97.909 - Non-pressure chronic ulcer of unspecified part of unspecified lower leg with unspecified severity Status: Chronic (9) Elevated troponin Code(s): R74.8 - Abnormal levels of other serum enzymes Status: Acute (10) Clostridium difficile diarrhea Code(s): A04.72 - Enterocolitis due to Clostridium difficile, not specified as recurrent Status: Acute - Plan 58-year-old male admitted with hypokalemia, hypocalcemia, acute kidney injury, dehydration, hypernatremia, urinary tract infection, and severe edema of the feet with foot ulcers. Patient had acute kidney injury, dehydration, hyponatremia and lactic acidosis which improved with IV fluids and is now resolved. He also had heme positive stools, GI recommended medical management with no intervention at this time, blood counts are holding steady. Severe hypokalemia/ Hypocalcemia Stable, continue to monitor for recurrence Urinary tract infection secondary to chronic indwelling catheter with neurogenic bladder renal US with no obstruction urine culture positive for MRSA and enterococcus, continue vancomycin Repeat culture of urine positive for yeast, continue Diflucan Lennon changed 06/12 Bilateral foot ulcers History of osteomyelitis, but bone scan was inconclusive per radiology We will culture if it shows heavy growth PSAE/MRSA/enteroco MRI is inconclusive to commit to osteomyelitis, patient is a poor surgical candidate anyway due to severe PAD Appreciate podiatry consulting Appreciate infectious disease consult Cdiff- Epid 027 diarrhea tapering Continue PO Vanco per ID History of DVT Patient has IVC filter Bilateral foot swelling Continuing Eliquis Failure to thrive Patient will need placement. Patient has been receiving care from home health care. CM consult for dc planning, likely SNF. Resume PT tomorrow NSTEMI Elevated trop in the setting of SIMON, pt. has no c/o CP, sob Coronary artery disease, [place], stents. -Appreciate card input, d/w Dr. Strong. Medical management for now, patient is in agreement. -continue ASA, statin, bb hx of CVA Right hemiplegia Continue supportive care, ASA, statin Diabetes mellitus type 2 Continue Accuchecks AC and HS with ISS + Lantus 15 units SQ BID Diabetic diet Anemia, thrombocytopenia Patient declined blood transfusions We will see how he does with activity during his PT sessions DVT Prophylaxis Eliquis Discharge Planning February D/C to SNF when ID and Podiatry clear (4) Urinary tract infection Qualifiers: Urinary tract infection type: catheter-associated UTI Indwelling urinary catheter type: indwelling urethral catheter Encounter type: initial encounter Qualified Code(s): T83.511A - Infection and inflammatory reaction due to indwelling urethral catheter, initial encounter; N39.0 - Urinary tract infection , site not specified (7) Osteomyelitis Qualifiers: Osteomyelitis type: other chronic Laterality: left (8) Chronic ulcer of leg Qualifiers: Laterality: unspecified laterality Non-pressure ulcer stage: unspecified non- pressure ulcer stage Qualified Code(s): L97.909 - Non-pressure chronic ulcer of unspecified part of unspecified lower leg with unspecified severity
[2018-06-22] MEDS ORDERED: Pharmacy Ordered Lab Info OTHER ONE ×2 (21:45→23:45)
[2018-06-22] MEDS: Vancomycin Inj 1,500 MG in Sodium Chlor 0.9% Inj 500 ML IV.SIG SCH (23:36)
[2018-06-23 00:17] LABS: Calcium 7.5 mg/dL (8.5-10.1); Carbon Dioxide 19.5 meq/L (21.0-32.0); Potassium 3.6 meq/L (3.5-5.1); Vancomycin,Trough 19.7 mcg/mL (5.0-10.0)
[2018-06-23 07:38] LABS: Hematocrit 23.4 % (39.0-51.0); Hemoglobin 7.6 gm/dL (13.0-17.0); Mean Corpuscular HGB Conc 32.6 % (32.0-36.0); Mean Corpuscular Hemoglobin 27.2 pg (27.0-34.0); Mean Corpuscular Volume 83.5 fL (80.0-100.0); Mean Platelet Volume 9.3 fL (7.0-11.0); Platelet Count 244 th/mm3 (150-450); Red Cell Distribution Width 19.7 % (11.6-17.2)
[2018-06-23] MEDS: Insulin NovoLOG Aspart Correctional Sugar Inj SQ SCH ×4 (08:11→21:10)
[2018-06-23] MEDS: Ferrous Sulfate 325 MG Tablet PO SCH ×3 (08:13→17:03)
[2018-06-23] MEDS: Gabapentin 300 MG Capsule PO SCH ×2 (08:13→20:53)
[2018-06-23] MEDS: Ascorbic Acid 500 MG Tablet PO SCH (08:13)
[2018-06-23] MEDS: Fluconazole 100 MG Tablet PO SCH (08:13)
[2018-06-23] MEDS: amLODIPine 10 MG Tablet PO SCH (08:13)
[2018-06-23] MEDS: Insulin Detemir Inj 1,000 UNIT/10 ML Vial SQ SCH ×2 (08:13→20:54)
[2018-06-23] MEDS: Lactobacillus Acidophilus/L. Spores Tablet PO SCH ×3 (08:13→17:03)
--- NOTE | 2018-06-23 10:46 | P.PNIM ---
Subjective Interval history: Patient did well overnight, no new issues. Patient is fairly modest and requests briefs prior to regular activity with physical therapy. Physical Exam Vital signs: Vital Signs 06/22/18 12:00 06/22/18 12:16 06/22/18 16:00 Temperature 98.3 F 98.3 F Pulse Rate 71 69 71 Respiratory Rate 18 18 Blood Pressure 120/60 105/56 L Pulse Oximetry 100 99 06/22/18 16:12 06/22/18 20:00 06/23/18 00:00 Temperature 97.8 F 97.7 F Pulse Rate 68 74 65 Respiratory Rate 20 20 Blood Pressure 120/58 L 111/58 L Pulse Oximetry 100 100 06/23/18 04:00 Temperature 97.4 F L Pulse Rate 66 Respiratory Rate 18 Blood Pressure 112/58 L Pulse Oximetry 98 Intake & Output 06/22/18 06/23/18 06/23/18 18:59 06:59 18:59 Intake Total 420 / 420 935 / 935 Output Total 900 / 900 1720 / 1720 Balance -480 / -480 -785 / -785 Intake: IV 515 / 515 Vancomycin Inj 1,500 MG In NS 515 / 515 Inj 500 ML @ 250 mls/hr IV.SIG Q36H [facility] Rx#:[id number] Oral 420 / 420 420 / 420 Output: Urine 900 / 900 720 / 720 Stool 100 / 100 Urine/Stool Mix 900 / 900 Other: Post Void Residual 700 # Voids 1 # Incontinent Voids 3 Date of Last Bowel Movement 06/21/18 06/21/18 # Bowel Movements 2 2 # Incontinent Bowel Movements 1 Narrative: GENERAL: AAOx3, no acute distress, weak appearing SKIN: Warm and dry. No rashes HEAD: Atruamtic, normocephalic. EYES: No scleral icterus. No injection or drainage. ENT: Moist mucous membranes, patent nares, no erythema of oropharynx. NECK: Supple, trachea midline. No JVD or lymphadenopathy. Normal thyroid. CARDIOVASCULAR: Regular rate and rhythm. No murmurs, gallops, or rubs. RESPIRATORY: Breath sounds clear equal bilaterally. No crackles or wheezes. No accessory muscle use. GASTROINTESTINAL: Abdomen soft, non-tender, nondistended, normal active bowel sounds MUSCULOSKELETAL: No cyanosis, or edema. NEURO: CN II-XII grossly intact, no focal deficits, no slurring of speech - Urinary Catheter Management Indwelling Temp Sensing Catheter Cath placed during this visit: yes, but has since been removed by the nurse Urethral indwelling: Yes Reason for continuing: Chronic Urinary Retention Removal date: 06/12/18 Removal time: 17:00 Indwelling Urethral Catheter Cath placed during this visit: yes Reason for continuing: Chronic Urinary Retention Insertion date: 06/12/18 Insertion time: 17:45 Results - Labs CBC & Chem 7: 06/23/18 06:41 06/22/18 23:10 Laboratory Results - last 24 hr 06/22/18 06/22/18 06/22/18 12:07 17:25 23:10 WBC RBC Hgb Hct MCV MCH MCHC RDW Plt Count MPV Sodium 141 Potassium 3.6 Chloride 109 H Carbon Dioxide 19.5 L Anion Gap 13 BUN 26 H Creatinine 1.42 H Estimated GFR 62 L POC Glucose 134 H 226 H Random Glucose 224 H D Calcium 7.5 L Vancomycin Trough 19.7 H 06/23/18 06:41 WBC 7.0 RBC 2.80 L Hgb 7.6 L Hct 23.4 L MCV 83.5 MCH 27.2 MCHC 32.6 RDW 19.7 H Plt Count 244 MPV 9.3 Sodium Potassium Chloride Carbon Dioxide Anion Gap BUN Creatinine Estimated GFR POC Glucose Random Glucose Calcium Vancomycin Trough Assessment and Plan - Assessment (1) Acute hypokalemia Code(s): E87.6 - Hypokalemia Status: Acute (2) Hypocalcemia Code(s): E83.51 - Hypocalcemia Status: Acute (3) Acute renal insufficiency Code(s): N28.9 - Disorder of kidney and ureter, unspecified Status: Acute (4) Urinary tract infection Code(s): N39.0 - Urinary tract infection, site not specified Status: Acute (5) Chronic indwelling Lennon catheter Code(s): Z92.89 - Personal history of other medical treatment Status: Acute (6) Lactic acidosis Code(s): E87.2 - Acidosis Status: Acute (7) Osteomyelitis Code(s): M86.9 - Osteomyelitis, unspecified Status: Suspected (8) Chronic ulcer of leg Code(s): L97.909 - Non-pressure chronic ulcer of unspecified part of unspecified lower leg with unspecified severity Status: Chronic (9) Elevated troponin Code(s): R74.8 - Abnormal levels of other serum enzymes Status: Acute (10) Clostridium difficile diarrhea Code(s): A04.72 - Enterocolitis due to Clostridium difficile, not specified as recurrent Status: Acute - Plan 58-year-old male admitted with hypokalemia, hypocalcemia, acute kidney injury, dehydration, hypernatremia, urinary tract infection, and severe edema of the feet with foot ulcers. Patient had acute kidney injury, dehydration, hyponatremia and lactic acidosis which improved with IV fluids and is now resolved. He also had heme positive stools, GI recommended medical management with no intervention at this time, blood counts are holding steady. 06/23/2018 = no new changes, no new complaints. Encourage participation with physical therapy. Severe hypokalemia/ Hypocalcemia Stable, continue to monitor for recurrence Urinary tract infection secondary to chronic indwelling catheter with neurogenic bladder renal US with no obstruction urine culture positive for MRSA and enterococcus, continue vancomycin Repeat culture of urine positive for yeast, continue Diflucan Lennon changed 06/12 Bilateral foot ulcers History of osteomyelitis, but bone scan was inconclusive per radiology We will culture if it shows heavy growth PSAE/MRSA/enteroco MRI is inconclusive to commit to osteomyelitis, patient is a poor surgical candidate anyway due to severe PAD Appreciate podiatry consulting Appreciate infectious disease consult Cdiff- Epid 027 diarrhea tapering Continue PO Vanco per ID History of DVT Patient has IVC filter Bilateral foot swelling Continuing Eliquis Failure to thrive Patient will need placement. Patient has been receiving care from home health care. CM consult for dc planning, likely SNF. Continue daily PT for strengthening NSTEMI Elevated trop in the setting of SIMON, pt. has no c/o CP, sob Coronary artery disease, [place], stents. -Appreciate card input, d/w Dr. Strong. Medical management for now, patient is in agreement. -continue ASA, statin, bb hx of CVA Right hemiplegia Continue supportive care, ASA, statin Diabetes mellitus type 2 Continue Accuchecks AC and HS with ISS + Lantus 15 units SQ BID Diabetic diet Anemia, thrombocytopenia Patient declined blood transfusions We will see how he does with activity during his PT sessions DVT Prophylaxis Eliquis Discharge Planning May D/C to SNF when ID and Podiatry clear (4) Urinary tract infection Qualifiers: Urinary tract infection type: catheter-associated UTI Indwelling urinary catheter type: indwelling urethral catheter Encounter type: initial encounter Qualified Code(s): T83.511A - Infection and inflammatory reaction due to indwelling urethral catheter, initial encounter; N39.0 - Urinary tract infection , site not specified (7) Osteomyelitis Qualifiers: Osteomyelitis type: other chronic Laterality: left (8) Chronic ulcer of leg Qualifiers: Laterality: unspecified laterality Non-pressure ulcer stage: unspecified non- pressure ulcer stage Qualified Code(s): L97.909 - Non-pressure chronic ulcer of unspecified part of unspecified lower leg with unspecified severity
[2018-06-24 07:08] LABS: Hematocrit 23.1 % (39.0-51.0); Hemoglobin 7.5 gm/dL (13.0-17.0); Mean Corpuscular HGB Conc 32.4 % (32.0-36.0); Mean Corpuscular Hemoglobin 26.8 pg (27.0-34.0); Mean Platelet Volume 8.9 fL (7.0-11.0); Platelet Count 259 th/mm3 (150-450); Red Blood Count 2.78 mil/mm3 (4.50-5.90); Red Cell Distribution Width 19.4 % (11.6-17.2); White Blood Count 7.3 th/mm3 (4.0-11.0)
--- NOTE | 2018-06-24 07:27 | P.PNPOD ---
Subjective Interval history: In light of patients benign clinical appearance, unclear MRI results, and overall poor health it is my professional opinion that the patients left foot wound should be addressed conservatively with wound care only. Patient is understanding of and agreeable to this plan. We will continue to monitor the patient closely and address the plan if there are any changes to his current condition. Physical Exam Vital signs: Vital Signs 06/23/18 08:00 06/23/18 12:00 06/23/18 16:00 Temperature 97.9 F 97.5 F L 97.8 F Pulse Rate 67 72 96 H Respiratory Rate 18 18 18 Blood Pressure 119/72 119/68 120/70 Pulse Oximetry 99 98 99 06/23/18 20:00 06/24/18 00:00 06/24/18 04:00 Temperature 98 F 98 F 97.8 F Pulse Rate 78 69 69 Respiratory Rate 16 18 16 Blood Pressure 138/73 131/81 118/64 Pulse Oximetry 98 100 100 Intake & Output 06/23/18 06/24/18 06/24/18 18:59 06:59 18:59 Intake Total 380 / 380 240 / 240 Output Total 1000 / 1000 1200 / 1200 Balance -620 / -620 -960 / -960 Weight 130.1 kg Intake: Oral 380 / 380 240 / 240 Output: Urine 1000 / 1000 Urine Amount (Catheter) 1200 / 1200 Indwelling Urethral Catheter 1200 / 1200 Other: Date of Last Bowel Movement 06/23/18 # Bowel Movements 1 # Incontinent Bowel Movements 3 Medications and Allergies Active Medications: Active Medications Hydrocodone Bitart/Acetaminophen ([place] 5/325) 1 tab PO Q4H PRN PRN Reason: Pain 3 to 6 Last Admin: 06/23/18 23:49 Dose: 1 tab Al Hydroxide/Mg Hydroxide (Milk Of Magnolimpia Liq) 30 ml PO Q12H PRN PRN Reason: Mild Constipation Amlodipine Besylate (Norvasc) 10 mg PO DAILY [facility] Last Admin: 06/23/18 08:13 Dose: 10 mg Apixaban (Eliquis) 5 mg PO BID [facility] Last Admin: 06/23/18 20:53 Dose: 5 mg Ascorbic Acid (Vitamin C) 500 mg PO DAILY [facility] Last Admin: 06/23/18 08:13 Dose: 500 mg Carvedilol (Coreg) 3.125 mg PO BID [facility] Last Admin: 06/23/18 20:53 Dose: 3.125 mg Dextrose (D50w Vial) 50 ml IV.PUSH UNSCH PRN PRN Reason: PER HYPOGLYCEMIA PROTOCOL Duloxetine HCl (Cymbalta) 30 mg PO DAILY [facility] Last Admin: 06/23/18 08:12 Dose: 30 mg Ferrous Sulfate (Ferosul) 325 mg PO TID [facility] Last Admin: 06/23/18 17:03 Dose: 325 mg Fluconazole (Diflucan) 100 mg PO DAILY [facility] Last Admin: 06/23/18 08:13 Dose: 100 mg Gabapentin (Neurontin) 900 mg PO BID [facility] Last Admin: 06/23/18 20:53 Dose: 900 mg Glucagon (Glucagon Inj) 1 mg OTHER PRN PRN PRN Reason: for Hypoglycemia Protocol Vancomycin HCl 1,500 mg/ (Sodium Chloride) 515 mls @ 250 mls/hr IV.SIG Q36H [facility] Last Infusion: 06/23/18 01:52 Dose: Infused Insulin Aspart (Novolog Insulin Correctional Sugar Inj) 0 unit SQ ACHS [facility]; Protocol Last Admin: 06/23/18 21:10 Dose: 4 unit Insulin Detemir (Levemir Inj) 17 unit SQ BID [facility] Last Admin: 06/23/18 20:54 Dose: 17 unit Lactobacillus Acidophilus (Lactinex) 1 tab PO TID [facility] Last Admin: 06/23/18 17:03 Dose: 1 tab Pharmacy Profile Note (Vancomycin Consult Pharmacy) 1 each OTHER UNSCH PRN PRN Reason: Pharmacy to dose Pravastatin Sodium (Pravachol) 20 mg PO DAILY@1800 [facility] Last Admin: 06/23/18 17:03 Dose: 20 mg Vancomycin HCl (Vancomycin Po) 500 mg PO QID [facility] Last Admin: 06/23/18 20:55 Dose: 500 mg Allergies Allergy/AdvReac Type Severity Reaction Status Date / Time No Known Allergies Allergy Unverified 06/11/18 11:16 Home Medications Medication Instructions Recorded Confirmed Type acetaminophen 650 mg PO Q4H PRN 06/13/18 06/13/18 History amino acids-protein hydrolys 30 ml PO TID 06/13/18 06/13/18 History [Pro-Stat AWC] amlodipine 10 mg PO DAILY 06/13/18 06/13/18 History apixaban 2.5 mg PO BID 06/13/18 06/13/18 History ascorbic acid (vitamin C) 500 mg PO DAILY 06/13/18 06/13/18 History duloxetine [Cymbalta] 30 mg PO DAILY 06/13/18 06/13/18 History ferrous sulfate 325 mg PO TID 06/13/18 06/13/18 History gabapentin 900 mg PO TID 06/13/18 06/13/18 History hydrocodone-acetaminophen [[place]] 1 tab PO Q6H PRN 06/13/18 06/13/18 History insulin glargine 15 unit SUB-Q DAILY 06/13/18 06/13/18 History insulin lispro 5 unit SUB-Q ACHS 06/13/18 06/13/18 History metronidazole [Flagyl] 500 mg PO TID 06/13/18 06/13/18 History oxycodone [OxyContin] 15 mg PO Q8H PRN 06/13/18 06/13/18 History simvastatin 10 mg PO QPM 06/13/18 06/13/18 History Results - Labs CBC & Chem 7: 06/24/18 06:14 06/22/18 23:10 Laboratory Results - last 24 hr 06/23/18 06/23/18 06/24/18 06:41 20:47 06:14 WBC 7.0 7.3 RBC 2.80 L 2.78 L Hgb 7.6 L 7.5 L Hct 23.4 L 23.1 L MCV 83.5 83.0 MCH 27.2 26.8 L MCHC 32.6 32.4 RDW 19.7 H 19.4 H Plt Count 244 259 MPV 9.3 8.9 POC Glucose 214 H Assessment and Plan - Assessment (1) Diabetic foot ulcer Code(s): E11.621 - Type 2 diabetes mellitus with foot ulcer; L97.509 - Non- pressure chronic ulcer of other part of unspecified foot with unspecified severity Status: Chronic - Plan -cont daily wound care as ordered through nursing staff -MRI reviewed- nonspecific findings OA vs OM, clinical appearance does not support a finding of OM, but regardless the patient is not a surgical candidate due to severe PVD -limit WBing -abx per ID (1) Diabetic foot ulcer Qualifiers: Diabetic foot ulcer location: other Diabetes mellitus type: type 2 Laterality: unspecified laterality Non-pressure ulcer stage: limited to breakdown of skin Qualified Code(s): E11.621 - Type 2 diabetes mellitus with foot ulcer; L97.501 - Non-pressure chronic ulcer of other part of unspecified foot limited to breakdown of skin
[2018-06-24 07:41] LABS: Calcium 7.8 mg/dL (8.5-10.1); Carbon Dioxide 21.8 meq/L (21.0-32.0)
[2018-06-24 07:55] LABS: Potassium 2.8 meq/L (3.5-5.1)
[2018-06-24] MEDS: Lactobacillus Acidophilus/L. Spores Tablet PO SCH ×3 (10:35→18:46)
[2018-06-24] MEDS: Gabapentin 300 MG Capsule PO SCH ×2 (10:36→21:24)
[2018-06-24] MEDS: Ferrous Sulfate 325 MG Tablet PO SCH ×3 (10:36→18:45)
[2018-06-24] MEDS: Ascorbic Acid 500 MG Tablet PO SCH (10:36)
[2018-06-24] MEDS: Fluconazole 100 MG Tablet PO SCH (10:37)
[2018-06-24] MEDS: amLODIPine 10 MG Tablet PO SCH (10:37)
[2018-06-24] MEDS: Insulin Detemir Inj 1,000 UNIT/10 ML Vial SQ SCH ×2 (10:39→21:27)
[2018-06-24] MEDS: Insulin NovoLOG Aspart Correctional Sugar Inj SQ SCH ×4 (10:39→21:28)
[2018-06-24] MEDS ORDERED: Pharmacy Ordered Lab Info OTHER SCH (11:00)
[2018-06-24] MEDS: Vancomycin Inj 1,500 MG in Sodium Chlor 0.9% Inj 500 ML IV.SIG SCH (12:28)
--- NOTE | 2018-06-24 15:48 | P.PNIM ---
Subjective Interval history: Patient has no new complaints. He had minimal participation with physical therapy. Physical Exam Vital signs: Vital Signs 06/23/18 16:00 06/23/18 20:00 06/24/18 00:00 Temperature 97.8 F 98 F 98 F Pulse Rate 96 H 78 69 Respiratory Rate 18 18 Blood Pressure 120/70 138/73 131/81 Pulse Oximetry 99 98 100 06/24/18 04:00 06/24/18 08:00 06/24/18 12:00 Temperature 97.8 F 97.4 F L 97.8 F Pulse Rate 69 68 74 Respiratory Rate 18 18 Blood Pressure 118/64 133/80 142/80 H Pulse Oximetry 100 100 100 Intake & Output 06/23/18 06/24/18 06/24/18 18:59 06:59 18:59 Intake Total 380 / 380 240 / 240 Output Total 1000 / 1000 1200 / 1200 Balance -620 / -620 -960 / -960 Weight 130.1 kg Intake: Oral 380 / 380 240 / 240 Output: Urine 1000 / 1000 Urine Amount (Catheter) 1200 / 1200 Indwelling Urethral Catheter 1200 / 1200 Other: Date of Last Bowel Movement 06/23/18 # Bowel Movements 1 # Incontinent Bowel Movements 3 Narrative: GENERAL: AAOx3, no acute distress, weak appearing SKIN: Warm and dry. No rashes HEAD: Atruamtic, normocephalic. EYES: No scleral icterus. No injection or drainage. ENT: Moist mucous membranes, patent nares, no erythema of oropharynx. NECK: Supple, trachea midline. No JVD or lymphadenopathy. Normal thyroid. CARDIOVASCULAR: Regular rate and rhythm. No murmurs, gallops, or rubs. RESPIRATORY: Breath sounds clear equal bilaterally. No crackles or wheezes. No accessory muscle use. GASTROINTESTINAL: Abdomen soft, non-tender, nondistended, normal active bowel sounds MUSCULOSKELETAL: No cyanosis, or edema. NEURO: CN II-XII grossly intact, no focal deficits, no slurring of speech - Urinary Catheter Management Indwelling Temp Sensing Catheter Cath placed during this visit: yes, but has since been removed by the nurse Urethral indwelling: Yes Reason for continuing: Chronic Urinary Retention Removal date: 06/12/18 Removal time: 17:00 Indwelling Urethral Catheter Cath placed during this visit: yes Reason for continuing: Chronic Urinary Retention Insertion date: 06/12/18 Insertion time: 17:45 Results - Labs CBC & Chem 7: 06/24/18 06:14 06/24/18 06:14 Laboratory Results - last 24 hr 06/23/18 06/24/18 06/24/18 20:47 06:14 06:14 WBC 7.3 RBC 2.78 L Hgb 7.5 L Hct 23.1 L MCV 83.0 MCH 26.8 L MCHC 32.4 RDW 19.4 H Plt Count 259 MPV 8.9 Sodium 144 Potassium 2.8 L* D Chloride 112 H Carbon Dioxide 21.8 Anion Gap 10 BUN 26 H Creatinine 1.26 Estimated GFR 71 L POC Glucose 214 H Random Glucose 73 L D Calcium 7.8 L Vancomycin Trough 06/24/18 06/24/18 06/24/18 08:23 11:00 13:04 WBC RBC Hgb Hct MCV MCH MCHC RDW Plt Count MPV Sodium Potassium Chloride Carbon Dioxide Anion Gap BUN Creatinine Estimated GFR POC Glucose 75 117 H Random Glucose Calcium Vancomycin Trough 20.7 H Assessment and Plan - Assessment (1) Acute hypokalemia Code(s): E87.6 - Hypokalemia Status: Acute (2) Hypocalcemia Code(s): E83.51 - Hypocalcemia Status: Acute (3) Acute renal insufficiency Code(s): N28.9 - Disorder of kidney and ureter, unspecified Status: Acute (4) Urinary tract infection Code(s): N39.0 - Urinary tract infection, site not specified Status: Acute (5) Chronic indwelling Lennon catheter Code(s): Z92.89 - Personal history of other medical treatment Status: Acute (6) Lactic acidosis Code(s): E87.2 - Acidosis Status: Acute (7) Osteomyelitis Code(s): M86.9 - Osteomyelitis, unspecified Status: Suspected (8) Chronic ulcer of leg Code(s): L97.909 - Non-pressure chronic ulcer of unspecified part of unspecified lower leg with unspecified severity Status: Chronic (9) Elevated troponin Code(s): R74.8 - Abnormal levels of other serum enzymes Status: Acute (10) Clostridium difficile diarrhea Code(s): A04.72 - Enterocolitis due to Clostridium difficile, not specified as recurrent Status: Acute - Plan 58-year-old male admitted with hypokalemia, hypocalcemia, acute kidney injury, dehydration, hypernatremia, urinary tract infection, and severe edema of the feet with foot ulcers. Patient had acute kidney injury, dehydration, hyponatremia and lactic acidosis which improved with IV fluids and is now resolved. He also had heme positive stools, GI recommended medical management with no intervention at this time, blood counts are holding steady. 06/23/2018 = no new changes, no new complaints. Encourage participation with physical therapy. 06/24/18 = patient had weight participation with physical therapy, unable to determine if transfusion is necessary prior to discharge due to anemia affecting participation with rehab. We will plan to continue rehab, if not responding plan for discharge to SNF. Severe hypokalemia/ Hypocalcemia Potassium dropped again today, replaced, recheck in a.m. Calcium is stable Urinary tract infection secondary to chronic indwelling catheter with neurogenic bladder renal US with no obstruction urine culture positive for MRSA and enterococcus, continue vancomycin Repeat culture of urine positive for yeast, continue Diflucan Lennon changed 06/12 Bilateral foot ulcers History of osteomyelitis, but bone scan was inconclusive per radiology We will culture if it shows heavy growth PSAE/MRSA/enteroco MRI is inconclusive to commit to osteomyelitis, patient is a poor surgical candidate anyway due to severe PAD Appreciate podiatry consulting Appreciate infectious disease consult Cdiff- Epid 027 diarrhea tapering Continue PO Vanco per ID History of DVT Patient has IVC filter Bilateral foot swelling Continuing Eliquis Failure to thrive Patient will need placement. Patient has been receiving care from home health care. CM consult for dc planning, likely SNF. Continue daily PT for strengthening NSTEMI Elevated trop in the setting of SIMON, pt. has no c/o CP, sob Coronary artery disease, [place], stents. -Appreciate card input, d/w Dr. Strong. Medical management for now, patient is in agreement. -continue ASA, statin, bb hx of CVA Right hemiplegia Continue supportive care, ASA, statin Diabetes mellitus type 2 Continue Accuchecks AC and HS with ISS + Lantus 15 units SQ BID Diabetic diet Anemia, thrombocytopenia Patient declined blood transfusions We will see how he does with activity during his PT sessions DVT Prophylaxis Eliquis Discharge Planning February D/C to SNF when ID and Podiatry clear left foot infection (4) Urinary tract infection Qualifiers: Urinary tract infection type: catheter-associated UTI Indwelling urinary catheter type: indwelling urethral catheter Encounter type: initial encounter Qualified Code(s): T83.511A - Infection and inflammatory reaction due to indwelling urethral catheter, initial encounter; N39.0 - Urinary tract infection , site not specified (7) Osteomyelitis Qualifiers: Osteomyelitis type: other chronic Laterality: left (8) Chronic ulcer of leg Qualifiers: Laterality: unspecified laterality Non-pressure ulcer stage: unspecified non- pressure ulcer stage Qualified Code(s): L97.909 - Non-pressure chronic ulcer of unspecified part of unspecified lower leg with unspecified severity
[2018-06-25 07:25] LABS: Hematocrit 23.2 % (39.0-51.0); Hemoglobin 7.6 gm/dL (13.0-17.0); Mean Corpuscular HGB Conc 32.7 % (32.0-36.0); Mean Corpuscular Hemoglobin 27.1 pg (27.0-34.0); Mean Corpuscular Volume 82.7 fL (80.0-100.0); Mean Platelet Volume 8.3 fL (7.0-11.0); Platelet Count 257 th/mm3 (150-450); Red Cell Distribution Width 19.3 % (11.6-17.2); White Blood Count 7.9 th/mm3 (4.0-11.0)
[2018-06-25 08:16] LABS: Calcium 7.6 mg/dL (8.5-10.1); Carbon Dioxide 22.5 meq/L (21.0-32.0)
[2018-06-25 08:29] LABS: Potassium 2.8 meq/L (3.5-5.1)
[2018-06-25] MEDS ORDERED: Magnesium Sulfate Inj 2 GM in Sodium Chlor 0.9% Inj 96 ML IV.SIG ONE (08:57)
[2018-06-25] MEDS ORDERED: Potassium Chloride 25 MEQ Effervescent Tablet PO ONE ×2 (08:57→11:00)
[2018-06-25] MEDS: Insulin Detemir Inj 1,000 UNIT/10 ML Vial SQ SCH ×2 (09:29→20:22)
[2018-06-25] MEDS: amLODIPine 10 MG Tablet PO SCH (09:31)
[2018-06-25] MEDS: Gabapentin 300 MG Capsule PO SCH ×2 (09:31→20:23)
[2018-06-25] MEDS: Fluconazole 100 MG Tablet PO SCH (09:32)
[2018-06-25] MEDS: Ascorbic Acid 500 MG Tablet PO SCH (09:32)
[2018-06-25] MEDS: Lactobacillus Acidophilus/L. Spores Tablet PO SCH ×3 (09:32→18:52)
[2018-06-25] MEDS: Ferrous Sulfate 325 MG Tablet PO SCH ×3 (09:32→18:53)
[2018-06-25] MEDS: Insulin NovoLOG Aspart Correctional Sugar Inj SQ SCH ×4 (09:32→20:22)
--- NOTE | 2018-06-25 12:26 | P.PNIM ---
Subjective Interval history: Patient not participating much with physical therapy Will probably need SNF at discharge Continue conservative care and wound care Discussed with patient and RN and case management We will replace potassium and magnesium AM LABS Physical Exam Vital signs: Vital Signs 06/24/18 16:00 06/24/18 20:00 06/25/18 00:00 Temperature 97.9 F 98.7 F 97.9 F Pulse Rate 76 79 69 Respiratory Rate 18 18 18 Blood Pressure 142/75 H 144/81 H 141/79 H Pulse Oximetry 98 100 100 06/25/18 04:00 06/25/18 08:00 Temperature 97.7 F 98.1 F Pulse Rate 69 71 Respiratory Rate 18 16 Blood Pressure 132/77 146/82 H Pulse Oximetry 100 100 Intake & Output 06/24/18 06/25/18 06/25/18 18:59 06:59 18:59 Intake Total 1235 / 1235 240 / 240 Output Total 1600 / 1600 1400 / 1400 Balance -365 / -365 -1160 / -1160 Weight 130.3 kg Intake: IV 515 / 515 Vancomycin Inj 1,500 MG In NS 515 / 515 Inj 500 ML @ 250 mls/hr IV.SIG Q36H RADHA Rx#:[id number] Oral 720 / 720 240 / 240 Output: Urine 1600 / 1600 Urine Amount (Catheter) 1400 / 1400 Indwelling Urethral Catheter 1400 / 1400 Other: Date of Last Bowel Movement 06/23/18 06/24/18 # Bowel Movements 2 # Incontinent Bowel Movements 1 Narrative: GENERAL: AAOx3, no acute distress, weak appearing SKIN: Warm and dry. No rashes bilateral feet dressed HEAD: Atruamtic, normocephalic. EYES: No scleral icterus. No injection or drainage. ENT: Moist mucous membranes, patent nares, no erythema of oropharynx. NECK: Supple, trachea midline. No JVD or lymphadenopathy. Normal thyroid. CARDIOVASCULAR: Regular rate and rhythm. No murmurs, gallops, or rubs. RESPIRATORY: Breath sounds clear equal bilaterally. No crackles or wheezes. No accessory muscle use. GASTROINTESTINAL: Abdomen soft, non-tender, nondistended, normal active bowel sounds MUSCULOSKELETAL: No cyanosis, or edema. NEURO: CN II-XII grossly intact, no focal deficits, no slurring of speech - Urinary Catheter Management Indwelling Temp Sensing Catheter Cath placed during this visit: yes, but has since been removed by the nurse Urethral indwelling: Yes Reason for continuing: Chronic Urinary Retention Removal date: 06/12/18 Removal time: 17:00 Indwelling Urethral Catheter Cath placed during this visit: yes Reason for continuing: Chronic Urinary Retention Insertion date: 06/12/18 Insertion time: 17:45 Results - Labs CBC & Chem 7: 06/25/18 07:04 06/25/18 07:04 Laboratory Results - last 24 hr 06/24/18 06/24/18 06/24/18 13:04 16:53 20:46 WBC RBC Hgb Hct MCV MCH MCHC RDW Plt Count MPV Sodium Potassium Chloride Carbon Dioxide Anion Gap BUN Creatinine Estimated GFR POC Glucose 117 H 198 H 228 H Random Glucose Calcium 06/25/18 06/25/18 06/25/18 07:04 07:04 08:05 WBC 7.9 RBC 2.80 L Hgb 7.6 L Hct 23.2 L MCV 82.7 MCH 27.1 MCHC 32.7 RDW 19.3 H Plt Count 257 MPV 8.3 Sodium 146 H Potassium 2.8 L* Chloride 113 H Carbon Dioxide 22.5 Anion Gap 11 BUN 20 H Creatinine 1.20 Estimated GFR 75 L POC Glucose 138 H Random Glucose 126 H Calcium 7.6 L - Imaging Chest X-Ray 06/11/18 12:06 CONCLUSION: Negative for acute process Foot X-Ray 06/11/18 12:06 CONCLUSION: Probable osteomyelitis metatarsal heads. Tagged white cell study would be of benefit. Foot X-Ray 06/11/18 12:06 CONCLUSION: Severe osteopenia without obvious osteomyelitis. Tagged white cell study may help. Abdomen/Bladder Ultrasound 06/12/18 00:00 CONCLUSION: 1. Unremarkable and stable bilateral renal ultrasound. 2. No evidence of hydronephrosis. Venous Doppler Study 06/12/18 00:00 CONCLUSION: 1. Deep venous thrombosis in both lower extremities. SPECT Scan-Bone NM 06/14/18 00:00 CONCLUSION: 1. There is abnormal increased blood flow, blood pool, and uptake within the tarsal bones of the left foot, most prominently the medial cuneiform. This finding is nonspecific but could indicate osteomyelitis. Consider correlating with white cell scan, gallium scan, or MRI with and without intravenous contrast to have a more specific diagnosis. 2. No abnormal blood flow or uptake is identified in the abnormal metatarsal heads are reported on the recent left foot x-ray performed 3 days ago. 3. There is severe diffuse subcutaneous edema in the legs and feet bilaterally with severe undermineralization of the bones. Foot MRI 06/21/18 00:00 CONCLUSION: 1. Extensive soft tissue edema and swelling without abscess. 2. Fracture of the base of the first metatarsal bone. 3. Edema of the distal portion of the fourth metatarsal bone with enhancement and is also edema involving the cuboid and medial cuneiform. These could be posttraumatic change, however osteomyelitis of the fourth distal metatarsal bone is difficult to exclude. Bony structures are extremely osteopenic. Assessment and Plan - Assessment (1) Acute hypokalemia Code(s): E87.6 - Hypokalemia Status: Acute (2) Hypocalcemia Code(s): E83.51 - Hypocalcemia Status: Acute (3) Acute renal insufficiency Code(s): N28.9 - Disorder of kidney and ureter, unspecified Status: Acute (4) Urinary tract infection Code(s): N39.0 - Urinary tract infection, site not specified Status: Acute (5) Chronic indwelling Lennon catheter Code(s): Z92.89 - Personal history of other medical treatment Status: Acute (6) Lactic acidosis Code(s): E87.2 - Acidosis Status: Acute (7) Osteomyelitis Code(s): M86.9 - Osteomyelitis, unspecified Status: Suspected (8) Chronic ulcer of leg Code(s): L97.909 - Non-pressure chronic ulcer of unspecified part of unspecified lower leg with unspecified severity Status: Chronic (9) Elevated troponin Code(s): R74.8 - Abnormal levels of other serum enzymes Status: Acute (10) Clostridium difficile diarrhea Code(s): A04.72 - Enterocolitis due to Clostridium difficile, not specified as recurrent Status: Acute - Plan 58-year-old male admitted with hypokalemia, hypocalcemia, acute kidney injury, dehydration, hypernatremia, urinary tract infection, and severe edema of the feet with foot ulcers. Patient had acute kidney injury, dehydration, hyponatremia and lactic acidosis which improved with IV fluids and is now resolved. He also had heme positive stools, GI recommended medical management with no intervention at this time, blood counts are holding steady. 06/23/2018 = no new changes, no new complaints. Encourage participation with physical therapy. 06/24/18 = patient had weight participation with physical therapy, unable to determine if transfusion is necessary prior to discharge due to anemia affecting participation with rehab. We will plan to continue rehab, if not responding plan for discharge to SNF. 9-5 REPLACE K AND MAG AM LABS Severe hypokalemia/ Hypocalcemia Potassium dropped again today, replaced, recheck in a.m. Calcium is stable We will need to replace the potassium again We will also replace magnesium Wants pills not liquid Urinary tract infection secondary to chronic indwelling catheter with neurogenic bladder renal US with no obstruction urine culture positive for MRSA and enterococcus, continue vancomycin Repeat culture of urine positive for yeast, continue Diflucan Lennon changed 06/12 Bilateral foot ulcers History of osteomyelitis, but bone scan was inconclusive per radiology We will culture if it shows heavy growth PSAE/MRSA/enteroco MRI is inconclusive to commit to osteomyelitis, patient is a poor surgical candidate anyway due to severe PAD Appreciate podiatry consulting Appreciate infectious disease consult Continue on antibiotics per infectious disease Cdiff- Epid 027 diarrhea tapering Continue PO Vanco per ID We will will need p.o. Vanco for an extended period time History of DVT Patient has IVC filter Bilateral foot swelling Continuing Eliquis Failure to thrive Patient will need placement. Patient has been receiving care from home health care. CM consult for dc planning, likely SNF. Continue daily PT for strengthening NSTEMI Elevated trop in the setting of [facility], pt. has no c/o CP, sob Coronary artery disease, [place], stents. -Appreciate card input, d/w Dr. Strong. Medical management for now, patient is in agreement. -continue ASA, statin, bb hx of CVA Right hemiplegia Continue supportive care, ASA, statin Diabetes mellitus type 2 Continue Accuchecks AC and HS with ISS + Lantus 15 units SQ BID Diabetic diet Anemia, thrombocytopenia Patient declined blood transfusions We will see how he does with activity during his PT sessions DVT Prophylaxis Eliquis Discharge Planning May D/C to SNF when ID and Podiatry clear left foot infection Code Status: DNR Discussed Condition With: RN and patient and case management Discharge Planning: We will more than likely need SNF at discharge (4) Urinary tract infection Qualifiers: Urinary tract infection type: catheter-associated UTI Indwelling urinary catheter type: indwelling urethral catheter Encounter type: initial encounter Qualified Code(s): T83.511A - Infection and inflammatory reaction due to indwelling urethral catheter, initial encounter; N39.0 - Urinary tract infection , site not specified (7) Osteomyelitis Qualifiers: Osteomyelitis type: other chronic Laterality: left (8) Chronic ulcer of leg Qualifiers: Laterality: unspecified laterality Non-pressure ulcer stage: unspecified non- pressure ulcer stage Qualified Code(s): L97.909 - Non-pressure chronic ulcer of unspecified part of unspecified lower leg with unspecified severity
[2018-06-25 14:52] LABS: Magnesium 2.1 mg/dL (1.5-2.5)
[2018-06-25 15:01] LABS: Thyroid Stimulating Hormone 3.62 uIU/mL (0.358-3.740)
[2018-06-25 15:32] LABS: Hemoglobin A1c 6.7 % (4.3-6.0)
[2018-06-26] MEDS: Vancomycin Inj 1,500 MG in Sodium Chlor 0.9% Inj 500 ML IV.SIG SCH (00:49)
[2018-06-26] MEDS: Insulin NovoLOG Aspart Correctional Sugar Inj SQ SCH ×4 (08:39→21:27)
[2018-06-26] MEDS: Insulin Detemir Inj 1,000 UNIT/10 ML Vial SQ SCH ×2 (08:40→21:27)
[2018-06-26] MEDS: Ascorbic Acid 500 MG Tablet PO SCH (08:41)
[2018-06-26] MEDS: Gabapentin 300 MG Capsule PO SCH ×2 (08:41→21:16)
[2018-06-26] MEDS: Lactobacillus Acidophilus/L. Spores Tablet PO SCH ×3 (08:41→17:45)
[2018-06-26] MEDS: Ferrous Sulfate 325 MG Tablet PO SCH ×3 (08:42→17:45)
[2018-06-26] MEDS: Fluconazole 100 MG Tablet PO SCH (08:42)
[2018-06-26] MEDS: amLODIPine 10 MG Tablet PO SCH (08:43)
[2018-06-26 08:44] LABS: Baso % (Auto) 0.4 % (0.0-2.0); Eos # (Auto) 0.3 th/mm3 (0.0-0.4); Eos % (Auto) 4.4 % (0.0-4.0); Hematocrit 22.9 % (39.0-51.0); Hemoglobin 7.8 gm/dL (13.0-17.0); Lymph # (Auto) 1.9 th/mm3 (1.0-4.8); Lymph % (Auto) 25.9 % (9.0-44.0); Mean Corpuscular HGB Conc 34.1 % (32.0-36.0); Mean Corpuscular Volume 82.3 fL (80.0-100.0); Mean Platelet Volume 8.8 fL (7.0-11.0); Mono # (Auto) 0.6 th/mm3 (0.0-0.9); Mono % (Auto) 8.8 % (0.0-8.0); Neut # (Auto) 4.4 th/mm3 (1.8-7.7); Neut % (Auto) 60.5 % (16.0-70.0); Platelet Count 230 th/mm3 (150-450); Red Blood Count 2.78 mil/mm3 (4.50-5.90); Red Cell Distribution Width 19.7 % (11.6-17.2); White Blood Count 7.3 th/mm3 (4.0-11.0)
[2018-06-26 09:13] LABS: Albumin 1.8 g/dL (3.4-5.0); Anion Gap 9 meq/L (5-15); Aspartate Aminotransferase 35 U/L (15-37); Blood Urea Nitrogen 17 mg/dL (7-18); Calcium 7.8 mg/dL (8.5-10.1); Carbon Dioxide 21.6 meq/L (21.0-32.0); Chloride 116 meq/L (98-107); Glomerular Filtration Rate Greater Than 89 mL/min (>89); Glucose,Random 82 mg/dL (74-106); Magnesium 1.8 mg/dL (1.5-2.5); Potassium 3.2 meq/L (3.5-5.1); Sodium 147 meq/L (136-145)
[2018-06-26 09:14] LABS: Alanine Aminotransferase 29 U/L (12-78)
[2018-06-26 09:17] LABS: Alkaline Phosphatase 121 U/L (45-117); Total Protein 6.4 g/dL (6.4-8.2)
--- NOTE | 2018-06-26 12:12 | P.PNIM ---
Subjective Interval history: 06-25 Patient not participating much with physical therapy Will probably need SNF at discharge Continue conservative care and wound care Discussed with patient and RN and case management We will replace potassium and magnesium AM LABS 06-26 REPLACE POTASSIUM AM LABS RECONSULT ID DW PATIENT AND RN AND CM Physical Exam Vital signs: Vital Signs 06/25/18 16:00 06/25/18 20:00 06/25/18 23:50 Temperature 98.2 F 98.1 F Pulse Rate 76 78 68 Respiratory Rate 16 21 Blood Pressure 133/63 134/68 Pulse Oximetry 100 99 06/26/18 00:00 06/26/18 02:00 06/26/18 03:45 Temperature 98.2 F Pulse Rate 74 62 Respiratory Rate 19 5 L Blood Pressure 132/69 Pulse Oximetry 98 06/26/18 04:00 06/26/18 08:00 Temperature 98.2 F 96.8 F L Pulse Rate 64 63 Respiratory Rate 19 19 Blood Pressure 118/61 125/60 Pulse Oximetry 97 100 Intake & Output 06/25/18 06/26/18 06/26/18 18:59 06:59 18:59 Intake Total 940 / 940 705 / 705 Output Total 1375 / 1375 550 / 550 Balance -435 / -435 155 / 155 Weight 133.3 kg Intake: IV 100 / 100 585 / 585 Magnesium Sulfate Inj 2 GM In 100 / 100 NS Inj 96 ML @ 50 mls/hr IV.SIG ONCE ONE Rx#:[id number] Vancomycin Inj 1,500 MG In NS 585 / 585 Inj 500 ML @ 250 mls/hr IV.SIG Q36H [facility] Rx#:[id number] Oral 840 / 840 120 / 120 Output: Urine 1375 / 1375 Urine Amount (Catheter) 550 / 550 Indwelling Urethral Catheter 550 / 550 Other: Date of Last Bowel Movement 06/24/18 # Bowel Movements 2 Narrative: GENERAL: AAOx3, no acute distress, weak appearing SKIN: Warm and dry. No rashes bilateral feet dressed HEAD: Atruamtic, normocephalic. EYES: No scleral icterus. No injection or drainage. ENT: Moist mucous membranes, patent nares, no erythema of oropharynx. NECK: Supple, trachea midline. No JVD or lymphadenopathy. Normal thyroid. CARDIOVASCULAR: Regular rate and rhythm. No murmurs, gallops, or rubs. RESPIRATORY: Breath sounds clear equal bilaterally. No crackles or wheezes. No accessory muscle use. GASTROINTESTINAL: Abdomen soft, non-tender, nondistended, normal active bowel sounds MUSCULOSKELETAL: No cyanosis, or edema. NEURO: CN II-XII grossly intact, no focal deficits, no slurring of speech - Urinary Catheter Management Indwelling Temp Sensing Catheter Cath placed during this visit: yes, but has since been removed by the nurse Urethral indwelling: Yes Reason for continuing: Chronic Urinary Retention Removal date: 06/12/18 Removal time: 17:00 Indwelling Urethral Catheter Cath placed during this visit: yes Reason for continuing: Chronic Urinary Retention Insertion date: 06/12/18 Insertion time: 17:45 Results - Labs CBC & Chem 7: 06/26/18 07:45 06/26/18 07:45 Laboratory Results - last 24 hr 06/16/18 06/25/18 06/25/18 Unknown 13:41 13:41 WBC RBC Hgb Hct MCV MCH MCHC RDW Plt Count MPV Neut % (Auto) Lymph % (Auto) [place] % (Auto) Eos % (Auto) Baso % (Auto) Neut # (Auto) Lymph # (Auto) [place] # (Auto) Eos # (Auto) Baso # (Auto) WBC Differential Differential Comment Sodium Potassium Chloride Carbon Dioxide Anion Gap BUN Creatinine Estimated GFR POC Glucose Random Glucose Hemoglobin A1c 6.7 H Calcium Phosphorus Magnesium Total Bilirubin AST ALT Alkaline Phosphatase Total Protein Albumin Vit D 1,25-Dihydroxy 20 TSH Free T4 0.91 06/25/18 06/25/18 06/26/18 13:41 19:50 07:45 WBC 7.3 RBC 2.78 L Hgb 7.8 L Hct 22.9 L MCV 82.3 MCH 28.0 MCHC 34.1 RDW 19.7 H Plt Count 230 MPV 8.8 Neut % (Auto) 60.5 Lymph % (Auto) 25.9 [place] % (Auto) 8.8 H Eos % (Auto) 4.4 H Baso % (Auto) 0.4 Neut # (Auto) 4.4 Lymph # (Auto) 1.9 [place] # (Auto) 0.6 Eos # (Auto) 0.3 Baso # (Auto) 0.0 WBC Differential . Differential Comment Auto diff final Sodium Potassium Chloride Carbon Dioxide Anion Gap BUN Creatinine Estimated GFR POC Glucose 238 H Random Glucose Hemoglobin A1c Calcium Phosphorus 3.0 Magnesium 2.1 Total Bilirubin AST ALT Alkaline Phosphatase Total Protein Albumin Vit D 1,25-Dihydroxy TSH 3.620 Free T4 06/26/18 06/26/18 07:45 08:38 WBC RBC Hgb Hct MCV MCH MCHC RDW Plt Count MPV Neut % (Auto) Lymph % (Auto) [place] % (Auto) Eos % (Auto) Baso % (Auto) Neut # (Auto) Lymph # (Auto) [place] # (Auto) Eos # (Auto) Baso # (Auto) WBC Differential Differential Comment Sodium 147 H Potassium 3.2 L Chloride 116 H Carbon Dioxide 21.6 Anion Gap 9 BUN 17 Creatinine 1.00 Estimated GFR Greater than 89 POC Glucose 76 Random Glucose 82 Hemoglobin A1c Calcium 7.8 L Phosphorus 3.0 Magnesium 1.8 Total Bilirubin 0.2 AST 35 ALT 29 Alkaline Phosphatase 121 H Total Protein 6.4 Albumin 1.8 L Vit D 1,25-Dihydroxy TSH Free T4 Assessment and Plan - Assessment (1) Acute hypokalemia Code(s): E87.6 - Hypokalemia Status: Acute (2) Hypocalcemia Code(s): E83.51 - Hypocalcemia Status: Acute (3) Acute renal insufficiency Code(s): N28.9 - Disorder of kidney and ureter, unspecified Status: Acute (4) Urinary tract infection Code(s): N39.0 - Urinary tract infection, site not specified Status: Acute (5) Chronic indwelling Lennon catheter Code(s): Z92.89 - Personal history of other medical treatment Status: Acute (6) Lactic acidosis Code(s): E87.2 - Acidosis Status: Acute (7) Osteomyelitis Code(s): M86.9 - Osteomyelitis, unspecified Status: Suspected (8) Chronic ulcer of leg Code(s): L97.909 - Non-pressure chronic ulcer of unspecified part of unspecified lower leg with unspecified severity Status: Chronic (9) Elevated troponin Code(s): R74.8 - Abnormal levels of other serum enzymes Status: Acute (10) Clostridium difficile diarrhea Code(s): A04.72 - Enterocolitis due to Clostridium difficile, not specified as recurrent Status: Acute - Plan 58-year-old male admitted with hypokalemia, hypocalcemia, acute kidney injury, dehydration, hypernatremia, urinary tract infection, and severe edema of the feet with foot ulcers. Patient had acute kidney injury, dehydration, hyponatremia and lactic acidosis which improved with IV fluids and is now resolved. He also had heme positive stools, GI recommended medical management with no intervention at this time, blood counts are holding steady. 06/23/2018 = no new changes, no new complaints. Encourage participation with physical therapy. 06/24/18 = patient had weight participation with physical therapy, unable to determine if transfusion is necessary prior to discharge due to anemia affecting participation with rehab. We will plan to continue rehab, if not responding plan for discharge to SNF. - REPLACE K AND MAG AM LABS Severe hypokalemia/ Hypocalcemia Potassium dropped again today, replaced, recheck in a.m. Calcium is stable We will need to replace the potassium again We will also replace magnesium Wants pills not liquid REPLACE AGAIN AM LABS Urinary tract infection secondary to chronic indwelling catheter with neurogenic bladder renal US with no obstruction urine culture positive for MRSA and enterococcus, continue vancomycin Repeat culture of urine positive for yeast, continue Diflucan Lennon changed 06/12 Bilateral foot ulcers History of osteomyelitis, but bone scan was inconclusive per radiology We will culture if it shows heavy growth PSAE/MRSA/enteroco MRI is inconclusive to commit to osteomyelitis, patient is a poor surgical candidate anyway due to severe PAD Appreciate podiatry consulting Appreciate infectious disease consult Continue on antibiotics per infectious disease Cdiff- Epid 027 diarrhea tapering Continue PO Vanco per ID We will will need p.o. Vanco for an extended period time History of DVT Patient has IVC filter Bilateral foot swelling Continuing Eliquis Failure to thrive Patient will need placement. Patient has been receiving care from home health care. CM consult for dc planning, likely SNF. Continue daily PT for strengthening NSTEMI Elevated trop in the setting of SIMON, pt. has no c/o CP, sob Coronary artery disease, [place], stents. -Appreciate card input, d/w Dr. Strong. Medical management for now, patient is in agreement. -continue ASA, statin, bb hx of CVA Right hemiplegia Continue supportive care, ASA, statin Diabetes mellitus type 2 Continue Accuchecks AC and HS with ISS + Lantus 15 units SQ BID Diabetic diet Anemia, thrombocytopenia Patient declined blood transfusions We will see how he does with activity during his PT sessions DVT Prophylaxis Eliquis Discharge Planning May D/C to SNF when ID and Podiatry clear left foot infection Code Status: DNR Discussed Condition With: RN AND PT AND CM Discharge Planning: We will more than likely need SNF at discharge (4) Urinary tract infection Qualifiers: Urinary tract infection type: catheter-associated UTI Indwelling urinary catheter type: indwelling urethral catheter Encounter type: initial encounter Qualified Code(s): T83.511A - Infection and inflammatory reaction due to indwelling urethral catheter, initial encounter; N39.0 - Urinary tract infection , site not specified (7) Osteomyelitis Qualifiers: Osteomyelitis type: other chronic Laterality: left (8) Chronic ulcer of leg Qualifiers: Laterality: unspecified laterality Non-pressure ulcer stage: unspecified non- pressure ulcer stage Qualified Code(s): L97.909 - Non-pressure chronic ulcer of unspecified part of unspecified lower leg with unspecified severity
--- NOTE | 2018-06-26 20:05 | P.PNID ---
Subjective Remarks: afebrile WBC wnl no c/o C.diff is positive 027 strain sDiarrhea improved Antibiotics: PO vancomycin flagyl IV vanco Allergies/Adverse Reactions: Allergies No Known Allergies Allergy (Unverified 06/11/18 11:16) Objective Vital Signs 06/25/18 20:00 06/25/18 23:50 06/26/18 00:00 Temperature 98.1 F 98.2 F Pulse Rate 78 68 74 Respiratory Rate 21 19 Blood Pressure 134/68 132/69 Pulse Oximetry 99 98 06/26/18 02:00 06/26/18 03:45 06/26/18 04:00 Temperature 98.2 F Pulse Rate 62 64 Respiratory Rate 5 L 19 Blood Pressure 118/61 Pulse Oximetry 97 06/26/18 08:00 06/26/18 12:00 06/26/18 16:00 Temperature 96.8 F L 98.1 F 98.1 F Pulse Rate 63 70 73 Respiratory Rate 19 19 20 Blood Pressure 125/60 130/60 120/64 Pulse Oximetry 100 100 99 Intake & Output 06/26/18 06/26/18 06/27/18 06:59 18:59 06:59 Intake Total 705 / 705 560 / 560 Output Total 550 / 550 650 / 650 Balance 155 / 155 -90 / -90 Weight 133.3 kg Intake: IV 585 / 585 Vancomycin Inj 1,500 MG In NS 585 / 585 Inj 500 ML @ 250 mls/hr IV.SIG Q36H [facility] Rx#:[id number] Oral 120 / 120 560 / 560 Output: Urine 650 / 650 Urine Amount (Catheter) 550 / 550 Indwelling Urethral Catheter 550 / 550 Other: Date of Last Bowel Movement 06/24/18 Lab - Hematology Results 06/25/18 06/26/18 07:04 07:45 WBC 7.9 7.3 RBC 2.80 L 2.78 L Hgb 7.6 L 7.8 L Hct 23.2 L 22.9 L MCV 82.7 82.3 MCH 27.1 28.0 MCHC 32.7 34.1 RDW 19.3 H 19.7 H Plt Count 257 230 MPV 8.3 8.8 Neut % (Auto) 60.5 Lymph % (Auto) 25.9 [place] % (Auto) 8.8 H Eos % (Auto) 4.4 H Baso % (Auto) 0.4 Neut # (Auto) 4.4 Lymph # (Auto) 1.9 [place] # (Auto) 0.6 Eos # (Auto) 0.3 Baso # (Auto) 0.0 WBC Differential . Differential Comment Auto diff final Lab - Chemistry Results 06/16/18 06/24/18 06/25/18 Unknown 20:46 07:04 Sodium 146 H Potassium 2.8 L* Chloride 113 H Carbon Dioxide 22.5 Anion Gap 11 BUN 20 H Creatinine 1.20 Estimated GFR 75 L POC Glucose 228 H Random Glucose 126 H Hemoglobin A1c Calcium 7.6 L Phosphorus Magnesium Total Bilirubin AST ALT Alkaline Phosphatase Total Protein Albumin Vit D 1,25-Dihydroxy 20 TSH Free T4 06/25/18 06/25/18 06/25/18 08:05 13:41 13:41 Sodium Potassium Chloride Carbon Dioxide Anion Gap BUN Creatinine Estimated GFR POC Glucose 138 H Random Glucose Hemoglobin A1c 6.7 H Calcium Phosphorus Magnesium Total Bilirubin AST ALT Alkaline Phosphatase Total Protein Albumin Vit D 1,25-Dihydroxy TSH Free T4 0.91 06/25/18 06/25/18 06/26/18 13:41 19:50 07:45 Sodium 147 H Potassium 3.2 L Chloride 116 H Carbon Dioxide 21.6 Anion Gap 9 BUN 17 Creatinine 1.00 Estimated GFR Greater than 89 POC Glucose 238 H Random Glucose 82 Hemoglobin A1c Calcium 7.8 L Phosphorus 3.0 3.0 Magnesium 2.1 1.8 Total Bilirubin 0.2 AST 35 ALT 29 Alkaline Phosphatase 121 H Total Protein 6.4 Albumin 1.8 L Vit D 1,25-Dihydroxy TSH 3.620 Free T4 06/26/18 06/26/18 06/26/18 08:38 12:26 17:02 Sodium Potassium Chloride Carbon Dioxide Anion Gap BUN Creatinine Estimated GFR POC Glucose 76 127 H 196 H Random Glucose Hemoglobin A1c Calcium Phosphorus Magnesium Total Bilirubin AST ALT Alkaline Phosphatase Total Protein Albumin Vit D 1,25-Dihydroxy TSH Free T4 Imaging: ITS Impressions Chest X-Ray 06/11/18 12:06 CONCLUSION: Negative for acute process Foot X-Ray 06/11/18 12:06 CONCLUSION: Probable osteomyelitis metatarsal heads. Tagged white cell study would be of benefit. Abdomen/Bladder Ultrasound 06/12/18 00:00 CONCLUSION: 1. Unremarkable and stable bilateral renal ultrasound. 2. No evidence of hydronephrosis. Venous Doppler Study 06/12/18 00:00 CONCLUSION: 1. Deep venous thrombosis in both lower extremities. SPECT Scan-Bone NM 06/14/18 00:00 CONCLUSION: 1. There is abnormal increased blood flow, blood pool, and uptake within the tarsal bones of the left foot, most prominently the medial cuneiform. This finding is nonspecific but could indicate osteomyelitis. Consider correlating with white cell scan, gallium scan, or MRI with and without intravenous contrast to have a more specific diagnosis. 2. No abnormal blood flow or uptake is identified in the abnormal metatarsal heads are reported on the recent left foot x-ray performed 3 days ago. 3. There is severe diffuse subcutaneous edema in the legs and feet bilaterally with severe undermineralization of the bones. Foot MRI 06/21/18 00:00 CONCLUSION: 1. Extensive soft tissue edema and swelling without abscess. 2. Fracture of the base of the first metatarsal bone. 3. Edema of the distal portion of the fourth metatarsal bone with enhancement and is also edema involving the cuboid and medial cuneiform. These could be posttraumatic change, however osteomyelitis of the fourth distal metatarsal bone is difficult to exclude. Bony structures are extremely osteopenic. Physical Exam: GENERAL: Obese NAD SKIN: Warm and dry. no rash CARDIOVASCULAR: Regular rate and rhythm. RESPIRATORY: No accessory muscle use. Clear to auscultation. Breath sounds equal bilaterally. GASTROINTESTINAL: Abdomen soft, mildly tender to palpation, mildly distended. Hepatic and splenic margins not palpable. Incontinent of liquid brown stool MUSCULOSKELETAL: Extremities without clubbing, cyanosis, Much improved edema.Prominent tree bark gray Feet ulcerations appear clean, granulating and healing No obvious deformities. NEUROLOGICAL: Awake and alert. No obvious cranial nerve deficits. Not moving legs at all PSYCHIATRIC: Appropriate mood and affect; insight and judgment normal. Assessment and Plan - Plan Multiple med problems Inability to care for self Complicated UTI with indwelling berger and neurogenic bladder - MRSA, Enterococcocus both S to vancomycin C.diff diarrhea, -027 strain DM L foot osteo ? : bone scan findings equivical No R foot osteo per bone scan podiatry thinks its a chronic oste growing GNBs from the surface clx surface cuultures carry poor clinical significance in the settings of chronic osteo inconclusive nuclear scan MRI is also inconclusive Fu blood clx cont IV vanco x 6 weeks then follow clinically cont oral vanoc for C.diff x 2 weeks dc IV flagyl
[2018-06-27 06:16] LABS: Baso # (Auto) 0.1 th/mm3 (0.0-0.2); Baso % (Auto) 0.7 % (0.0-2.0); Eos # (Auto) 0.3 th/mm3 (0.0-0.4); Eos % (Auto) 4.1 % (0.0-4.0); Hematocrit 24.8 % (39.0-51.0); Lymph # (Auto) 1.7 th/mm3 (1.0-4.8); Lymph % (Auto) 20.8 % (9.0-44.0); Mean Corpuscular HGB Conc 32.2 % (32.0-36.0); Mean Corpuscular Hemoglobin 26.9 pg (27.0-34.0); Mean Corpuscular Volume 83.4 fL (80.0-100.0); Mean Platelet Volume 8.5 fL (7.0-11.0); Mono # (Auto) 0.6 th/mm3 (0.0-0.9); Mono % (Auto) 7.9 % (0.0-8.0); Neut # (Auto) 5.4 th/mm3 (1.8-7.7); Neut % (Auto) 66.5 % (16.0-70.0); Platelet Count 247 th/mm3 (150-450); Red Blood Count 2.97 mil/mm3 (4.50-5.90); Red Cell Distribution Width 19.8 % (11.6-17.2); White Blood Count 8.2 th/mm3 (4.0-11.0)
[2018-06-27 06:42] LABS: Albumin 1.8 g/dL (3.4-5.0); Anion Gap 8 meq/L (5-15); Aspartate Aminotransferase 30 U/L (15-37); Blood Urea Nitrogen 17 mg/dL (7-18); Calcium 7.7 mg/dL (8.5-10.1); Carbon Dioxide 24.2 meq/L (21.0-32.0); Chloride 116 meq/L (98-107); Glomerular Filtration Rate 85 mL/min (>89); Glucose,Random 94 mg/dL (74-106); Magnesium 1.6 mg/dL (1.5-2.5); Potassium 3.3 meq/L (3.5-5.1); Sodium 148 meq/L (136-145)
[2018-06-27 06:46] LABS: Alanine Aminotransferase 27 U/L (12-78); Alkaline Phosphatase 121 U/L (45-117); Phosphorus 2.8 mg/dL (2.5-4.9); Total Protein 6.4 g/dL (6.4-8.2)
[2018-06-27] MEDS: Insulin NovoLOG Aspart Correctional Sugar Inj SQ SCH ×4 (09:12→22:36)
[2018-06-27] MEDS: Gabapentin 300 MG Capsule PO SCH ×2 (09:20→22:26)
[2018-06-27] MEDS: Lactobacillus Acidophilus/L. Spores Tablet PO SCH ×3 (09:20→17:51)
[2018-06-27] MEDS: Ascorbic Acid 500 MG Tablet PO SCH (09:20)
[2018-06-27] MEDS: Ferrous Sulfate 325 MG Tablet PO SCH ×3 (09:20→17:51)
[2018-06-27] MEDS: amLODIPine 10 MG Tablet PO SCH (09:20)
[2018-06-27] MEDS: Fluconazole 100 MG Tablet PO SCH (09:20)
[2018-06-27] MEDS: Insulin Detemir Inj 1,000 UNIT/10 ML Vial SQ SCH ×2 (09:20→22:35)
--- NOTE | 2018-06-27 12:38 | P.PNIM ---
Subjective Interval history: 9-5 Patient not participating much with physical therapy Will probably need SNF at discharge Continue conservative care and wound care Discussed with patient and RN and case management We will replace potassium and magnesium AM LABS 9-6 REPLACE POTASSIUM AM LABS RECONSULT ID DW PATIENT AND RN AND CM 9- REPLACE POTASSIUM AND MAGNESIUM NEEDS VANCO IV FOR 6 WEEKS NEEDS PO VANCO NEEDS A PICC TO GO TO SNF AM LABS CONSULT VASCULAR ACCESS Physical Exam Vital signs: Vital Signs 06/26/18 16:00 06/26/18 20:00 06/26/18 22:00 Temperature 98.1 F 98.7 F Pulse Rate 73 75 Respiratory Rate 20 20 18 Blood Pressure 120/64 124/77 Pulse Oximetry 99 100 06/27/18 00:00 06/27/18 04:00 06/27/18 08:00 Temperature 98.2 F 98.4 F 97.4 F L Pulse Rate 75 70 71 Respiratory Rate 18 20 20 Blood Pressure 134/68 129/67 134/70 Pulse Oximetry 99 100 100 Intake & Output 06/26/18 06/27/18 06/27/18 18:59 06:59 18:59 Intake Total 560 / 560 480 / 480 Output Total 650 / 650 900 / 900 Balance -90 / -90 -420 / -420 Weight 133.3 kg Intake: Oral 560 / 560 480 / 480 Output: Urine 650 / 650 Urine Amount (Catheter) 900 / 900 Indwelling Urethral Catheter 900 / 900 Other: Date of Last Bowel Movement 06/24/18 06/27/18 # Bowel Movements 2 Narrative: GENERAL: AAOx3, no acute distress, weak appearing SKIN: Warm and dry. No rashes --bilateral feet dressed HEAD: Atruamtic, normocephalic. EYES: No scleral icterus. No injection or drainage. ENT: Moist mucous membranes, patent nares, no erythema of oropharynx. NECK: Supple, trachea midline. No JVD or lymphadenopathy. Normal thyroid. CARDIOVASCULAR: Regular rate and rhythm. No murmurs, gallops, or rubs. RESPIRATORY: Breath sounds clear equal bilaterally. No crackles or wheezes. No accessory muscle use. GASTROINTESTINAL: Abdomen soft, non-tender, nondistended, normal active bowel sounds MUSCULOSKELETAL: No cyanosis, or edema. NEURO: CN II-XII grossly intact, no focal deficits, no slurring of speech - Urinary Catheter Management Indwelling Temp Sensing Catheter Cath placed during this visit: yes, but has since been removed by the nurse Urethral indwelling: Yes Reason for continuing: Chronic Urinary Retention Removal date: 06/12/18 Removal time: 17:00 Indwelling Urethral Catheter Cath placed during this visit: yes Reason for continuing: Chronic Urinary Retention Insertion date: 06/12/18 Insertion time: 17:45 Results - Labs CBC & Chem 7: 06/27/18 05:20 06/27/18 05:20 Laboratory Results - last 24 hr 06/26/18 06/26/18 06/27/18 12:26 17:02 05:20 WBC 8.2 RBC 2.97 L Hgb 8.0 L Hct 24.8 L MCV 83.4 MCH 26.9 L MCHC 32.2 RDW 19.8 H Plt Count 247 MPV 8.5 Neut % (Auto) 66.5 Lymph % (Auto) 20.8 [place] % (Auto) 7.9 Eos % (Auto) 4.1 H Baso % (Auto) 0.7 Neut # (Auto) 5.4 Lymph # (Auto) 1.7 [place] # (Auto) 0.6 Eos # (Auto) 0.3 Baso # (Auto) 0.1 WBC Differential . Differential Comment Auto diff final Sodium Potassium Chloride Carbon Dioxide Anion Gap BUN Creatinine Estimated GFR POC Glucose 127 H 196 H Random Glucose Calcium Phosphorus Magnesium Total Bilirubin AST ALT Alkaline Phosphatase Total Protein Albumin 06/27/18 06/27/18 05:20 12:13 WBC RBC Hgb Hct MCV MCH MCHC RDW Plt Count MPV Neut % (Auto) Lymph % (Auto) [place] % (Auto) Eos % (Auto) Baso % (Auto) Neut # (Auto) Lymph # (Auto) [place] # (Auto) Eos # (Auto) Baso # (Auto) WBC Differential Differential Comment Sodium 148 H Potassium 3.3 L Chloride 116 H Carbon Dioxide 24.2 Anion Gap 8 BUN 17 Creatinine 1.08 Estimated GFR 85 L POC Glucose 111 H Random Glucose 94 Calcium 7.7 L Phosphorus 2.8 Magnesium 1.6 Total Bilirubin 0.2 AST 30 ALT 27 Alkaline Phosphatase 121 H Total Protein 6.4 Albumin 1.8 L Assessment and Plan - Assessment (1) Acute hypokalemia Code(s): E87.6 - Hypokalemia Status: Acute (2) Hypocalcemia Code(s): E83.51 - Hypocalcemia Status: Acute (3) Acute renal insufficiency Code(s): N28.9 - Disorder of kidney and ureter, unspecified Status: Acute (4) Urinary tract infection Code(s): N39.0 - Urinary tract infection, site not specified Status: Acute (5) Chronic indwelling Lennon catheter Code(s): Z92.89 - Personal history of other medical treatment Status: Acute (6) Lactic acidosis Code(s): E87.2 - Acidosis Status: Acute (7) Osteomyelitis Code(s): M86.9 - Osteomyelitis, unspecified Status: Suspected (8) Chronic ulcer of leg Code(s): L97.909 - Non-pressure chronic ulcer of unspecified part of unspecified lower leg with unspecified severity Status: Chronic (9) Elevated troponin Code(s): R74.8 - Abnormal levels of other serum enzymes Status: Acute (10) Clostridium difficile diarrhea Code(s): A04.72 - Enterocolitis due to Clostridium difficile, not specified as recurrent Status: Acute - Plan 58-year-old male admitted with hypokalemia, hypocalcemia, acute kidney injury, dehydration, hypernatremia, urinary tract infection, and severe edema of the feet with foot ulcers. Patient had acute kidney injury, dehydration, hyponatremia and lactic acidosis which improved with IV fluids and is now resolved. He also had heme positive stools, GI recommended medical management with no intervention at this time, blood counts are holding steady. 06/23/2018 = no new changes, no new complaints. Encourage participation with physical therapy. 06/24/18 = patient had weight participation with physical therapy, unable to determine if transfusion is necessary prior to discharge due to anemia affecting participation with rehab. We will plan to continue rehab, if not responding plan for discharge to SNF. 9-5 REPLACE K AND MAG AM LABS 9-6 REPLACE K 9-7 REPLACE K AND MAG AM LABS WILL NEED PICC FOR VANCO Severe hypokalemia/ Hypocalcemia Potassium dropped again today, replaced, recheck in a.m. Calcium is stable We will need to replace the potassium again We will also replace magnesium Wants pills not liquid REPLACE AGAIN AM LABS Urinary tract infection secondary to chronic indwelling catheter with neurogenic bladder renal US with no obstruction urine culture positive for MRSA and enterococcus, continue vancomycin Repeat culture of urine positive for yeast, continue Diflucan Lennon changed 06/12 Bilateral foot ulcers History of osteomyelitis, but bone scan was inconclusive per radiology We will culture if it shows heavy growth PSAE/MRSA/enteroco MRI is inconclusive to commit to osteomyelitis, patient is a poor surgical candidate anyway due to severe PAD Appreciate podiatry consulting Appreciate infectious disease consult Continue on antibiotics per infectious disease Cdiff- Epid 027 diarrhea tapering Continue PO Vanco per ID We will will need p.o. Vanco for an extended period time History of DVT Patient has IVC filter Bilateral foot swelling Continuing Eliquis Failure to thrive Patient will need placement. Patient has been receiving care from home health care. CM consult for dc planning, likely SNF. Continue daily PT for strengthening NSTEMI Elevated trop in the setting of SIMON, pt. has no c/o CP, sob Coronary artery disease, [place], stents. -Appreciate card input, d/w Dr. Strong. Medical management for now, patient is in agreement. -continue ASA, statin, bb hx of CVA Right hemiplegia Continue supportive care, ASA, statin Diabetes mellitus type 2 Continue Accuchecks AC and HS with ISS + Lantus 15 units SQ BID Diabetic diet Anemia, thrombocytopenia Patient declined blood transfusions We will see how he does with activity during his PT sessions DVT Prophylaxis Eliquis Discharge Planning May D/C to SNF when ID and Podiatry clear left foot infection Code Status: DNR Discussed Condition With: RN AND PT AND CM Discharge Planning: We will more than likely need SNF at discharge (4) Urinary tract infection Qualifiers: Urinary tract infection type: catheter-associated UTI Indwelling urinary catheter type: indwelling urethral catheter Encounter type: initial encounter Qualified Code(s): T83.511A - Infection and inflammatory reaction due to indwelling urethral catheter, initial encounter; N39.0 - Urinary tract infection , site not specified (7) Osteomyelitis Qualifiers: Osteomyelitis type: other chronic Laterality: left (8) Chronic ulcer of leg Qualifiers: Laterality: unspecified laterality Non-pressure ulcer stage: unspecified non- pressure ulcer stage Qualified Code(s): L97.909 - Non-pressure chronic ulcer of unspecified part of unspecified lower leg with unspecified severity
[2018-06-27] MEDS: Vancomycin Inj 1,500 MG in Sodium Chlor 0.9% Inj 500 ML IV.SIG SCH (13:11)
[2018-06-27] MEDS ORDERED: Magnesium Sulfate Inj 2 GM in Sodium Chlor 0.9% Inj 96 ML IV.SIG ONE (14:00)
[2018-06-28] MEDS: Lactobacillus Acidophilus/L. Spores Tablet PO SCH ×3 (09:03→18:05)
[2018-06-28] MEDS: Ferrous Sulfate 325 MG Tablet PO SCH ×3 (09:03→18:05)
[2018-06-28] MEDS: Fluconazole 100 MG Tablet PO SCH (09:04)
[2018-06-28] MEDS: Gabapentin 300 MG Capsule PO SCH ×2 (09:04→20:28)
[2018-06-28] MEDS: Ascorbic Acid 500 MG Tablet PO SCH (09:04)
[2018-06-28] MEDS: amLODIPine 10 MG Tablet PO SCH (09:04)
[2018-06-28] MEDS: Insulin NovoLOG Aspart Correctional Sugar Inj SQ SCH ×4 (09:05→20:28)
[2018-06-28 09:18] LABS: Baso % (Auto) 0.2 % (0.0-2.0); Eos # (Auto) 0.3 th/mm3 (0.0-0.4); Eos % (Auto) 4.2 % (0.0-4.0); Hematocrit 23.7 % (39.0-51.0); Hemoglobin 7.8 gm/dL (13.0-17.0); Lymph # (Auto) 2.1 th/mm3 (1.0-4.8); Lymph % (Auto) 26.4 % (9.0-44.0); Mean Corpuscular HGB Conc 32.8 % (32.0-36.0); Mean Corpuscular Hemoglobin 27.3 pg (27.0-34.0); Mean Corpuscular Volume 83.2 fL (80.0-100.0); Mean Platelet Volume 8.6 fL (7.0-11.0); Mono # (Auto) 0.7 th/mm3 (0.0-0.9); Mono % (Auto) 9.1 % (0.0-8.0); Neut # (Auto) 4.7 th/mm3 (1.8-7.7); Neut % (Auto) 60.1 % (16.0-70.0); Platelet Count 215 th/mm3 (150-450); Red Blood Count 2.85 mil/mm3 (4.50-5.90); Red Cell Distribution Width 19.7 % (11.6-17.2); White Blood Count 7.8 th/mm3 (4.0-11.0)
[2018-06-28 09:59] LABS: Alanine Aminotransferase 22 U/L (12-78); Albumin 1.8 g/dL (3.4-5.0); Alkaline Phosphatase 105 U/L (45-117); Anion Gap 10 meq/L (5-15); Aspartate Aminotransferase 26 U/L (15-37); Blood Urea Nitrogen 16 mg/dL (7-18); Calcium 7.9 mg/dL (8.5-10.1); Carbon Dioxide 22.2 meq/L (21.0-32.0); Chloride 116 meq/L (98-107); Glomerular Filtration Rate Greater Than 89 mL/min (>89); Magnesium 1.7 mg/dL (1.5-2.5); Potassium 3.1 meq/L (3.5-5.1); Sodium 148 meq/L (136-145)
[2018-06-28] MEDS: Insulin Detemir Inj 1,000 UNIT/10 ML Vial SQ SCH ×2 (10:02→20:28)
[2018-06-28 10:31] LABS: Glucose,Random 35 mg/dL (74-106)
--- NOTE | 2018-06-28 11:28 | P.PNIM ---
Subjective Interval history: 9-5 Patient not participating much with physical therapy Will probably need SNF at discharge Continue conservative care and wound care Discussed with patient and RN and case management We will replace potassium and magnesium AM LABS 9-6 REPLACE POTASSIUM AM LABS RECONSULT ID DW PATIENT AND RN AND CM 9-7 REPLACE POTASSIUM AND MAGNESIUM NEEDS VANCO IV FOR 6 WEEKS NEEDS PO VANCO NEEDS A PICC TO GO TO SNF AM LABS CONSULT VASCULAR ACCESS 9-8 STILL NEEDS PICC BEFORE DC HYPOKALEMIA WILL REPLACE AGAIN HYPOMAGNESIA WILL REPLACE AGAIN CONTINUE PO AND IV VANCO INCREASE ACTIVITY WILL NEED SNF AT DC HAD HYPOGLYCEMIA ADJUST LEVEMIR TO 17 IN AM 10 AT PM Physical Exam Vital signs: Vital Signs 06/27/18 16:00 06/27/18 20:00 06/27/18 23:35 Temperature 98.2 F 98.4 F Pulse Rate 74 81 57 L Respiratory Rate 19 18 Blood Pressure 135/60 129/69 Pulse Oximetry 100 97 06/28/18 00:00 06/28/18 04:00 06/28/18 08:00 Temperature 98.0 F 98.3 F 97.3 F L Pulse Rate 67 68 56 L Respiratory Rate 18 18 18 Blood Pressure 130/76 128/68 150/77 H Pulse Oximetry 98 94 L 100 Intake & Output 06/27/18 06/28/18 06/28/18 18:59 06:59 18:59 Intake Total 1030 / 1030 Output Total 1600 / 1600 850 / 850 Balance -1600 / -1600 180 / 180 Weight 131.3 kg Intake: IV 550 / 550 Vancomycin Inj 1,500 MG In NS 550 / 550 Inj 500 ML @ 250 mls/hr IV.SIG Q36H [facility] Rx#:[id number] Oral 480 / 480 Output: Urine 850 / 850 Urine Amount (Catheter) 1600 / 1600 Indwelling Urethral Catheter 1600 / 1600 Other: Date of Last Bowel Movement 06/27/18 06/28/18 Narrative: GENERAL: AAOx3, no acute distress, weak appearing SKIN: Warm and dry. No rashes --bilateral feet dressed HEAD: Atruamtic, normocephalic. EYES: No scleral icterus. No injection or drainage. ENT: Moist mucous membranes, patent nares, no erythema of oropharynx. NECK: Supple, trachea midline. No JVD or lymphadenopathy. Normal thyroid. CARDIOVASCULAR: Regular rate and rhythm. No murmurs, gallops, or rubs. RESPIRATORY: Breath sounds clear equal bilaterally. No crackles or wheezes. No accessory muscle use. GASTROINTESTINAL: Abdomen soft, non-tender, nondistended, normal active bowel sounds MUSCULOSKELETAL: No cyanosis, or edema. NEURO: CN II-XII grossly intact, no focal deficits, no slurring of speech - Urinary Catheter Management Indwelling Temp Sensing Catheter Cath placed during this visit: yes, but has since been removed by the nurse Urethral indwelling: Yes Reason for continuing: Chronic Urinary Retention Removal date: 06/12/18 Removal time: 17:00 Indwelling Urethral Catheter Cath placed during this visit: yes Reason for continuing: Acute urinary retention Insertion date: 06/12/18 Insertion time: 17:45 Results - Labs CBC & Chem 7: 06/28/18 06:45 06/28/18 06:45 Laboratory Results - last 24 hr 06/27/18 06/27/18 06/28/18 12:13 16:50 06:45 WBC 7.8 RBC 2.85 L Hgb 7.8 L Hct 23.7 L MCV 83.2 MCH 27.3 MCHC 32.8 RDW 19.7 H Plt Count 215 MPV 8.6 Neut % (Auto) 60.1 Lymph % (Auto) 26.4 [place] % (Auto) 9.1 H Eos % (Auto) 4.2 H Baso % (Auto) 0.2 Neut # (Auto) 4.7 Lymph # (Auto) 2.1 [place] # (Auto) 0.7 Eos # (Auto) 0.3 Baso # (Auto) 0.0 WBC Differential . Differential Comment Auto diff final Sodium Potassium Chloride Carbon Dioxide Anion Gap BUN Creatinine Estimated GFR POC Glucose 111 H 128 H Random Glucose Calcium Phosphorus Magnesium Total Bilirubin AST ALT Alkaline Phosphatase Total Protein Albumin 06/28/18 06/28/18 06/28/18 06:45 07:29 07:54 WBC RBC Hgb Hct MCV MCH MCHC RDW Plt Count MPV Neut % (Auto) Lymph % (Auto) [place] % (Auto) Eos % (Auto) Baso % (Auto) Neut # (Auto) Lymph # (Auto) [place] # (Auto) Eos # (Auto) Baso # (Auto) WBC Differential Differential Comment Sodium 148 H Potassium 3.1 L Chloride 116 H Carbon Dioxide 22.2 Anion Gap 10 BUN 16 Creatinine 1.02 Estimated GFR Greater than 89 POC Glucose 48 L* 51 L Random Glucose 35 L* Calcium 7.9 L Phosphorus 3.0 Magnesium 1.7 Total Bilirubin 0.2 AST 26 ALT 22 Alkaline Phosphatase 105 Total Protein 6.0 L Albumin 1.8 L 06/28/18 06/28/18 06/28/18 08:12 08:36 09:02 WBC RBC Hgb Hct MCV MCH MCHC RDW Plt Count MPV Neut % (Auto) Lymph % (Auto) [place] % (Auto) Eos % (Auto) Baso % (Auto) Neut # (Auto) Lymph # (Auto) [place] # (Auto) Eos # (Auto) Baso # (Auto) WBC Differential Differential Comment Sodium Potassium Chloride Carbon Dioxide Anion Gap BUN Creatinine Estimated GFR POC Glucose 66 L 70 74 Random Glucose Calcium Phosphorus Magnesium Total Bilirubin AST ALT Alkaline Phosphatase Total Protein Albumin 06/28/18 09:40 WBC RBC Hgb Hct MCV MCH MCHC RDW Plt Count MPV Neut % (Auto) Lymph % (Auto) [place] % (Auto) Eos % (Auto) Baso % (Auto) Neut # (Auto) Lymph # (Auto) [place] # (Auto) Eos # (Auto) Baso # (Auto) WBC Differential Differential Comment Sodium Potassium Chloride Carbon Dioxide Anion Gap BUN Creatinine Estimated GFR POC Glucose 104 Random Glucose Calcium Phosphorus Magnesium Total Bilirubin AST ALT Alkaline Phosphatase Total Protein Albumin - Imaging ITS Impressions Chest X-Ray 06/11/18 12:06 CONCLUSION: Negative for acute process Foot X-Ray 06/11/18 12:06 CONCLUSION: Probable osteomyelitis metatarsal heads. Tagged white cell study would be of benefit. Abdomen/Bladder Ultrasound 06/12/18 00:00 CONCLUSION: 1. Unremarkable and stable bilateral renal ultrasound. 2. No evidence of hydronephrosis. Venous Doppler Study 06/12/18 00:00 CONCLUSION: 1. Deep venous thrombosis in both lower extremities. SPECT Scan-Bone NM 06/14/18 00:00 CONCLUSION: 1. There is abnormal increased blood flow, blood pool, and uptake within the tarsal bones of the left foot, most prominently the medial cuneiform. This finding is nonspecific but could indicate osteomyelitis. Consider correlating with white cell scan, gallium scan, or MRI with and without intravenous contrast to have a more specific diagnosis. 2. No abnormal blood flow or uptake is identified in the abnormal metatarsal heads are reported on the recent left foot x-ray performed 3 days ago. 3. There is severe diffuse subcutaneous edema in the legs and feet bilaterally with severe undermineralization of the bones. Foot MRI 06/21/18 00:00 CONCLUSION: 1. Extensive soft tissue edema and swelling without abscess. 2. Fracture of the base of the first metatarsal bone. 3. Edema of the distal portion of the fourth metatarsal bone with enhancement and is also edema involving the cuboid and medial cuneiform. These could be posttraumatic change, however osteomyelitis of the fourth distal metatarsal bone is difficult to exclude. Bony structures are extremely osteopenic. - Procedures NONE Assessment and Plan - Assessment (1) Acute hypokalemia Code(s): E87.6 - Hypokalemia Status: Acute (2) Hypocalcemia Code(s): E83.51 - Hypocalcemia Status: Acute (3) Acute renal insufficiency Code(s): N28.9 - Disorder of kidney and ureter, unspecified Status: Acute (4) Urinary tract infection Code(s): N39.0 - Urinary tract infection, site not specified Status: Acute (5) Chronic indwelling Lennon catheter Code(s): Z92.89 - Personal history of other medical treatment Status: Acute (6) Lactic acidosis Code(s): E87.2 - Acidosis Status: Acute (7) Osteomyelitis Code(s): M86.9 - Osteomyelitis, unspecified Status: Suspected (8) Chronic ulcer of leg Code(s): L97.909 - Non-pressure chronic ulcer of unspecified part of unspecified lower leg with unspecified severity Status: Chronic (9) Elevated troponin Code(s): R74.8 - Abnormal levels of other serum enzymes Status: Acute (10) Clostridium difficile diarrhea Code(s): A04.72 - Enterocolitis due to Clostridium difficile, not specified as recurrent Status: Acute - Plan 58-year-old male admitted with hypokalemia, hypocalcemia, acute kidney injury, dehydration, hypernatremia, urinary tract infection, and severe edema of the feet with foot ulcers. Patient had acute kidney injury, dehydration, hyponatremia and lactic acidosis which improved with IV fluids and is now resolved. He also had heme positive stools, GI recommended medical management with no intervention at this time, blood counts are holding steady. 06/23/2018 = no new changes, no new complaints. Encourage participation with physical therapy. 06/24/18 = patient had weight participation with physical therapy, unable to determine if transfusion is necessary prior to discharge due to anemia affecting participation with rehab. We will plan to continue rehab, if not responding plan for discharge to SNF. 9-5 REPLACE K AND MAG AM LABS 9-6 REPLACE K 9-7 REPLACE K AND MAG AM LABS WILL NEED PICC FOR VANCO 9-8 NEEDS PICC FOR IV VANCO Severe hypokalemia/ Hypocalcemia Potassium dropped again today, replaced, recheck in a.m. Calcium is stable We will need to replace the potassium again We will also replace magnesium Wants pills not liquid REPLACE AGAIN AM LABS BOTH POTASSIUM NEEDS REPLACEMENT Urinary tract infection secondary to chronic indwelling catheter with neurogenic bladder renal US with no obstruction urine culture positive for MRSA and enterococcus, continue vancomycin Repeat culture of urine positive for yeast, continue Diflucan Lennon changed 06/12 Bilateral foot ulcers History of osteomyelitis, but bone scan was inconclusive per radiology We will culture if it shows heavy growth PSAE/MRSA/enteroco MRI is inconclusive to commit to osteomyelitis, patient is a poor surgical candidate anyway due to severe PAD Appreciate podiatry consulting Appreciate infectious disease consult Continue on antibiotics per infectious disease Cdiff- Epid 027 diarrhea tapering Continue PO Vanco per ID We will will need p.o. Vanco for an extended period time History of DVT Patient has IVC filter Bilateral foot swelling Continuing Eliquis Failure to thrive Patient will need placement. Patient has been receiving care from home health care. CM consult for dc planning, likely SNF. Continue daily PT for strengthening NSTEMI Elevated trop in the setting of SIMON, pt. has no c/o CP, sob Coronary artery disease, PA, stents. -Appreciate card input, d/w Dr. Strong. Medical management for now, patient is in agreement. -continue ASA, statin, bb hx of CVA Right hemiplegia Continue supportive care, ASA, statin Diabetes mellitus type 2 Continue Accuchecks AC and HS with ISS + Lantus 15 units SQ BID Diabetic diet Anemia, thrombocytopenia Patient declined blood transfusions We will see how he does with activity during his PT sessions DVT Prophylaxis Eliquis Discharge Planning May D/C to SNF when ID and Podiatry clear left foot infection Code Status: DNR Discussed Condition With: RN AND PT AND CM Discharge Planning: We will more than likely need SNF at discharge (4) Urinary tract infection Qualifiers: Urinary tract infection type: catheter-associated UTI Indwelling urinary catheter type: indwelling urethral catheter Encounter type: initial encounter Qualified Code(s): T83.511A - Infection and inflammatory reaction due to indwelling urethral catheter, initial encounter; N39.0 - Urinary tract infection , site not specified (7) Osteomyelitis Qualifiers: Osteomyelitis type: other chronic Laterality: left (8) Chronic ulcer of leg Qualifiers: Laterality: unspecified laterality Non-pressure ulcer stage: unspecified non- pressure ulcer stage Qualified Code(s): L97.909 - Non-pressure chronic ulcer of unspecified part of unspecified lower leg with unspecified severity
[2018-06-28] MEDS ORDERED: Magnesium Sulfate Inj 4 GM in Sodium Chlor 0.9% Inj 92 ML IV.SIG ONE (13:00)
--- NOTE | 2018-06-28 14:58 | P.PNPOD ---
Physical Exam Vital signs: Vital Signs 06/27/18 16:00 06/27/18 20:00 06/27/18 23:35 Temperature 98.2 F 98.4 F Pulse Rate 74 81 57 L Respiratory Rate 19 18 Blood Pressure 135/60 129/69 Pulse Oximetry 100 97 06/28/18 00:00 06/28/18 04:00 06/28/18 08:00 Temperature 98.0 F 98.3 F 97.3 F L Pulse Rate 67 68 56 L Respiratory Rate 18 18 18 Blood Pressure 130/76 128/68 150/77 H Pulse Oximetry 98 94 L 100 06/28/18 12:00 Temperature 97.9 F Pulse Rate 73 Respiratory Rate 20 Blood Pressure 143/70 H Pulse Oximetry 100 Intake & Output 06/27/18 06/28/18 06/28/18 18:59 06:59 18:59 Intake Total 1030 / 1030 Output Total 1600 / 1600 850 / 850 Balance -1600 / -1600 180 / 180 Weight 131.3 kg Intake: IV 550 / 550 Vancomycin Inj 1,500 MG In NS 550 / 550 Inj 500 ML @ 250 mls/hr IV.SIG Q36H [facility] Rx#:[id number] Oral 480 / 480 Output: Urine 850 / 850 Urine Amount (Catheter) 1600 / 1600 Indwelling Urethral Catheter 1600 / 1600 Other: Date of Last Bowel Movement 06/27/18 06/28/18 Medications and Allergies Active Medications: Active Medications Hydrocodone Bitart/Acetaminophen (Hardy 5/325) 1 tab PO Q4H PRN PRN Reason: Pain 3 to 6 Last Admin: 06/28/18 03:01 Dose: 1 tab Al Hydroxide/Mg Hydroxide (Milk Of Silas Hernandez) 30 ml PO Q12H PRN PRN Reason: Mild Constipation Amlodipine Besylate (Norvasc) 10 mg PO DAILY [facility] Last Admin: 06/28/18 09:04 Dose: 10 mg Apixaban (Eliquis) 5 mg PO BID [facility] Last Admin: 06/28/18 09:04 Dose: 5 mg Ascorbic Acid (Vitamin C) 500 mg PO DAILY [facility] Last Admin: 06/28/18 09:04 Dose: 500 mg Carvedilol (Coreg) 3.125 mg PO BID [facility] Last Admin: 06/28/18 09:04 Dose: 3.125 mg Dextrose (D50w Vial) 50 ml IV.PUSH UNSCH PRN PRN Reason: PER HYPOGLYCEMIA PROTOCOL Duloxetine HCl (Cymbalta) 30 mg PO DAILY [facility] Last Admin: 06/28/18 09:04 Dose: Not Given Ferrous Sulfate (Ferosul) 325 mg PO TID [facility] Last Admin: 06/28/18 12:45 Dose: 325 mg Fluconazole (Diflucan) 100 mg PO DAILY [facility] Last Admin: 06/28/18 09:04 Dose: 100 mg Gabapentin (Neurontin) 900 mg PO BID [facility] Last Admin: 06/28/18 09:04 Dose: 900 mg Glucagon (Glucagon Inj) 1 mg OTHER PRN PRN PRN Reason: for Hypoglycemia Protocol Vancomycin HCl 1,500 mg/ (Sodium Chloride) 515 mls @ 250 mls/hr IV.SIG Q36H [facility] Last Infusion: 06/27/18 23:04 Dose: Infused Magnesium Sulfate Inj 4 gm/ (Sodium Chloride) 100 mls @ 25 mls/hr IV.SIG ONCE ONE Stop: 06/28/18 16:59 Last Admin: 06/28/18 12:45 Dose: 25 mls/hr Insulin Aspart (Novolog Insulin Correctional Sugar Inj) 0 unit SQ ACHS [facility]; Protocol Last Admin: 06/28/18 12:45 Dose: 2 unit Insulin Detemir (Levemir Inj) 17 unit SQ 0900 [facility] Insulin Detemir (Levemir Inj) 10 unit SQ HS [facility] Lactobacillus Acidophilus (Lactinex) 1 tab PO TID [facility] Last Admin: 06/28/18 12:45 Dose: 1 tab Miscellaneous Information ([facility] Ordered Lab Info) 1 each OTHER ONCE [facility] Miscellaneous Information ([facility] Ordered Lab Info) 0 each OTHER ONCE ONE Stop: 06/28/18 23:46 Pharmacy Profile Note (Vancomycin Consult Pharmacy) 1 each OTHER UNSCH PRN PRN Reason: Pharmacy to dose Potassium Chloride (Klor-Con 10) 50 meq PO BID [facility] Last Admin: 06/28/18 09:03 Dose: 50 meq Pravastatin Sodium (Pravachol) 20 mg PO DAILY@1800 [facility] Last Admin: 06/27/18 17:51 Dose: 20 mg Vancomycin HCl (Vancomycin Po) 500 mg PO QID [facility] Last Admin: 06/28/18 12:45 Dose: 500 mg Allergies Allergy/AdvReac Type Severity Reaction Status Date / Time No Known Allergies Allergy Unverified 06/11/18 11:16 Home Medications Medication Instructions Recorded Confirmed Type acetaminophen 650 mg PO Q4H PRN 06/13/18 06/13/18 History amino acids-protein hydrolys 30 ml PO TID 06/13/18 06/13/18 History [Pro-Stat [facility]] amlodipine 10 mg PO DAILY 06/13/18 06/13/18 History apixaban 2.5 mg PO BID 06/13/18 06/13/18 History ascorbic acid (vitamin C) 500 mg PO DAILY 06/13/18 06/13/18 History duloxetine [Cymbalta] 30 mg PO DAILY 06/13/18 06/13/18 History ferrous sulfate 325 mg PO TID 06/13/18 06/13/18 History gabapentin 900 mg PO TID 06/13/18 06/13/18 History hydrocodone-acetaminophen [Hardy] 1 tab PO Q6H PRN 06/13/18 06/13/18 History insulin glargine 15 unit SUB-Q DAILY 06/13/18 06/13/18 History insulin lispro 5 unit SUB-Q ACHS 06/13/18 06/13/18 History metronidazole [Flagyl] 500 mg PO TID 06/13/18 06/13/18 History oxycodone [OxyContin] 15 mg PO Q8H PRN 06/13/18 06/13/18 History simvastatin 10 mg PO QPM 06/13/18 06/13/18 History Results - Labs CBC & Chem 7: 06/28/18 06:45 06/28/18 06:45 Laboratory Results - last 24 hr 06/27/18 06/28/18 06/28/18 16:50 06:45 06:45 WBC 7.8 RBC 2.85 L Hgb 7.8 L Hct 23.7 L MCV 83.2 MCH 27.3 MCHC 32.8 RDW 19.7 H Plt Count 215 MPV 8.6 Neut % (Auto) 60.1 Lymph % (Auto) 26.4 [place] % (Auto) 9.1 H Eos % (Auto) 4.2 H Baso % (Auto) 0.2 Neut # (Auto) 4.7 Lymph # (Auto) 2.1 [place] # (Auto) 0.7 Eos # (Auto) 0.3 Baso # (Auto) 0.0 WBC Differential . Differential Comment Auto diff final Sodium 148 H Potassium 3.1 L Chloride 116 H Carbon Dioxide 22.2 Anion Gap 10 BUN 16 Creatinine 1.02 Estimated GFR Greater than 89 POC Glucose 128 H Random Glucose 35 L* Calcium 7.9 L Phosphorus 3.0 Magnesium 1.7 Total Bilirubin 0.2 AST 26 ALT 22 Alkaline Phosphatase 105 Total Protein 6.0 L Albumin 1.8 L 06/28/18 06/28/18 06/28/18 07:29 07:54 08:12 WBC RBC Hgb Hct MCV MCH MCHC RDW Plt Count MPV Neut % (Auto) Lymph % (Auto) [place] % (Auto) Eos % (Auto) Baso % (Auto) Neut # (Auto) Lymph # (Auto) [place] # (Auto) Eos # (Auto) Baso # (Auto) WBC Differential Differential Comment Sodium Potassium Chloride Carbon Dioxide Anion Gap BUN Creatinine Estimated GFR POC Glucose 48 L* 51 L 66 L Random Glucose Calcium Phosphorus Magnesium Total Bilirubin AST ALT Alkaline Phosphatase Total Protein Albumin 06/28/18 06/28/18 06/28/18 08:36 09:02 09:40 WBC RBC Hgb Hct MCV MCH MCHC RDW Plt Count MPV Neut % (Auto) Lymph % (Auto) [place] % (Auto) Eos % (Auto) Baso % (Auto) Neut # (Auto) Lymph # (Auto) [place] # (Auto) Eos # (Auto) Baso # (Auto) WBC Differential Differential Comment Sodium Potassium Chloride Carbon Dioxide Anion Gap BUN Creatinine Estimated GFR POC Glucose 70 74 104 Random Glucose Calcium Phosphorus Magnesium Total Bilirubin AST ALT Alkaline Phosphatase Total Protein Albumin 06/28/18 11:36 WBC RBC Hgb Hct MCV MCH MCHC RDW Plt Count MPV Neut % (Auto) Lymph % (Auto) [place] % (Auto) Eos % (Auto) Baso % (Auto) Neut # (Auto) Lymph # (Auto) [place] # (Auto) Eos # (Auto) Baso # (Auto) WBC Differential Differential Comment Sodium Potassium Chloride Carbon Dioxide Anion Gap BUN Creatinine Estimated GFR POC Glucose 157 H Random Glucose Calcium Phosphorus Magnesium Total Bilirubin AST ALT Alkaline Phosphatase Total Protein Albumin - Procedures NONE Assessment and Plan - Assessment (1) Diabetic foot ulcer Code(s): E11.621 - Type 2 diabetes mellitus with foot ulcer; L97.509 - Non- pressure chronic ulcer of other part of unspecified foot with unspecified severity Status: Chronic Plan: No evidence to justify any surgery at this time to feet, as it puts patient at higher risk of complications. Continue local wound care and re-consult if condition of wounds deteriorate (1) Diabetic foot ulcer Qualifiers: Diabetic foot ulcer location: other Diabetes mellitus type: type 2 Laterality: unspecified laterality Non-pressure ulcer stage: limited to breakdown of skin Qualified Code(s): E11.621 - Type 2 diabetes mellitus with foot ulcer; L97.501 - Non-pressure chronic ulcer of other part of unspecified foot limited to breakdown of skin
[2018-06-28] MEDS: Vancomycin Inj 1,500 MG in Sodium Chlor 0.9% Inj 500 ML IV.SIG SCH (23:00)
[2018-06-28] MEDS ORDERED: Pharmacy Ordered Lab Info OTHER ONE (23:45)
[2018-06-28 23:57] LABS: Alanine Aminotransferase 23 U/L (12-78); Albumin 1.8 g/dL (3.4-5.0); Alkaline Phosphatase 129 U/L (45-117); Anion Gap 9 meq/L (5-15); Aspartate Aminotransferase 27 U/L (15-37); Blood Urea Nitrogen 16 mg/dL (7-18); Calcium 7.5 mg/dL (8.5-10.1); Carbon Dioxide 22.6 meq/L (21.0-32.0); Chloride 116 meq/L (98-107); Glomerular Filtration Rate 81 mL/min (>89); Glucose,Random 200 mg/dL (74-106); Phosphorus 2.8 mg/dL (2.5-4.9); Potassium 4.1 meq/L (3.5-5.1); Sodium 148 meq/L (136-145); Total Protein 6.5 g/dL (6.4-8.2); Vancomycin,Trough 16.6 mcg/mL (5.0-10.0)
[2018-06-29] MEDS: amLODIPine 10 MG Tablet PO SCH (08:53)
[2018-06-29] MEDS: Ascorbic Acid 500 MG Tablet PO SCH (08:53)
[2018-06-29] MEDS: Gabapentin 300 MG Capsule PO SCH ×2 (08:53→21:44)
[2018-06-29] MEDS: Ferrous Sulfate 325 MG Tablet PO SCH ×3 (08:53→17:43)
[2018-06-29] MEDS: Lactobacillus Acidophilus/L. Spores Tablet PO SCH ×3 (08:53→17:43)
[2018-06-29] MEDS: Fluconazole 100 MG Tablet PO SCH (08:53)
[2018-06-29] MEDS: Insulin Detemir Inj 1,000 UNIT/10 ML Vial SQ SCH ×2 (08:55→21:46)
[2018-06-29] MEDS: Insulin NovoLOG Aspart Correctional Sugar Inj SQ SCH ×4 (08:55→21:45)
[2018-06-29 09:53] LABS: Baso % (Auto) 0.6 % (0.0-2.0); Eos # (Auto) 0.3 th/mm3 (0.0-0.4); Eos % (Auto) 4.1 % (0.0-4.0); Hematocrit 25.3 % (39.0-51.0); Hemoglobin 8.7 gm/dL (13.0-17.0); Lymph # (Auto) 1.7 th/mm3 (1.0-4.8); Lymph % (Auto) 20.8 % (9.0-44.0); Mean Corpuscular HGB Conc 34.6 % (32.0-36.0); Mean Corpuscular Hemoglobin 28.4 pg (27.0-34.0); Mean Corpuscular Volume 82.2 fL (80.0-100.0); Mean Platelet Volume 8.3 fL (7.0-11.0); Mono # (Auto) 0.6 th/mm3 (0.0-0.9); Mono % (Auto) 7.1 % (0.0-8.0); Neut # (Auto) 5.4 th/mm3 (1.8-7.7); Neut % (Auto) 67.4 % (16.0-70.0); Platelet Count 226 th/mm3 (150-450); Red Blood Count 3.07 mil/mm3 (4.50-5.90); Red Cell Distribution Width 19.4 % (11.6-17.2)
[2018-06-29 10:09] LABS: Anion Gap 8 meq/L (5-15); Aspartate Aminotransferase 29 U/L (15-37); Blood Urea Nitrogen 14 mg/dL (7-18); Carbon Dioxide 23.3 meq/L (21.0-32.0); Chloride 114 meq/L (98-107); Glomerular Filtration Rate 85 mL/min (>89); Glucose,Random 163 mg/dL (74-106); Magnesium 1.8 mg/dL (1.5-2.5); Potassium 3.7 meq/L (3.5-5.1); Sodium 145 meq/L (136-145)
[2018-06-29 10:10] LABS: Alanine Aminotransferase 24 U/L (12-78)
[2018-06-29 10:18] LABS: Alkaline Phosphatase 134 U/L (45-117); Phosphorus 2.8 mg/dL (2.5-4.9)
--- NOTE | 2018-06-29 13:46 | P.PNIM ---
Subjective Interval history: 9-5 Patient not participating much with physical therapy Will probably need SNF at discharge Continue conservative care and wound care Discussed with patient and RN and case management We will replace potassium and magnesium AM LABS 9-6 REPLACE POTASSIUM AM LABS RECONSULT ID DW PATIENT AND RN AND CM 9-7 REPLACE POTASSIUM AND MAGNESIUM NEEDS VANCO IV FOR 6 WEEKS NEEDS PO VANCO NEEDS A PICC TO GO TO SNF AM LABS CONSULT VASCULAR ACCESS 9-8 STILL NEEDS PICC BEFORE DC HYPOKALEMIA WILL REPLACE AGAIN HYPOMAGNESIA WILL REPLACE AGAIN CONTINUE PO AND IV VANCO INCREASE ACTIVITY WILL NEED SNF AT DC HAD HYPOGLYCEMIA ADJUST LEVEMIR TO 17 IN AM 10 AT PM 9-9 blood sugars are now more elevated no more hypoglycemia will increase the p.m. Levemir to 12 units now Potassium is stable at this time magnesium is borderline A.m. lab To have PICC line placed today Physical Exam Vital signs: Vital Signs 06/28/18 16:00 06/28/18 20:00 06/29/18 00:00 Temperature 98.5 F 98.1 F 98.0 F Pulse Rate 72 79 71 Respiratory Rate 18 18 18 Blood Pressure 141/69 H 144/68 H 138/68 Pulse Oximetry 99 98 99 06/29/18 04:00 06/29/18 08:00 06/29/18 12:00 Temperature 98.0 F 97.6 F 97.9 F Pulse Rate 80 66 71 Respiratory Rate 18 20 20 Blood Pressure 142/70 H 134/92 H 146/69 H Pulse Oximetry 97 100 100 Intake & Output 06/28/18 06/29/18 06/29/18 18:59 06:59 18:59 Intake Total 580 / 580 1495 / 1495 Output Total 1000 / 1000 1600 / 1600 Balance -420 / -420 -105 / -105 Weight 132.2 kg Intake: IV 100 / 100 1015 / 1015 Magnesium Sulfate Inj 4 GM In 100 / 100 NS Inj 92 ML @ 25 mls/hr IV.SIG ONCE ONE Rx#:[id number] Vancomycin Inj 1,500 MG In NS 1015 / 1015 Inj 500 ML @ 250 mls/hr IV.SIG Q36H RADHA Rx#:[id number] Oral 480 / 480 480 / 480 Output: Urine 1000 / 1000 1600 / 1600 Other: Date of Last Bowel Movement 06/28/18 06/29/18 06/29/18 # Bowel Movements 2 Narrative: GENERAL: AAOx3, no acute distress, weak appearing SKIN: Warm and dry. No rashes --bilateral feet dressed HEAD: Atruamtic, normocephalic. EYES: No scleral icterus. No injection or drainage. ENT: Moist mucous membranes, patent nares, no erythema of oropharynx. NECK: Supple, trachea midline. No JVD or lymphadenopathy. Normal thyroid. CARDIOVASCULAR: Regular rate and rhythm. No murmurs, gallops, or rubs. RESPIRATORY: Breath sounds clear equal bilaterally. No crackles or wheezes. No accessory muscle use. GASTROINTESTINAL: Abdomen soft, non-tender, nondistended, normal active bowel sounds MUSCULOSKELETAL: No cyanosis, or edema. NEURO: CN II-XII grossly intact, no focal deficits, no slurring of speech - Urinary Catheter Management Indwelling Temp Sensing Catheter Cath placed during this visit: yes, but has since been removed by the nurse Urethral indwelling: Yes Reason for continuing: Chronic Urinary Retention Removal date: 06/12/18 Removal time: 17:00 Indwelling Urethral Catheter Cath placed during this visit: yes Reason for continuing: Acute urinary retention Insertion date: 06/12/18 Insertion time: 17:45 Results - Labs CBC & Chem 7: 06/29/18 09:41 06/29/18 09:41 Laboratory Results - last 24 hr 06/28/18 06/28/18 06/28/18 16:37 20:26 22:55 WBC RBC Hgb Hct MCV MCH MCHC RDW Plt Count MPV Neut % (Auto) Lymph % (Auto) [place] % (Auto) Eos % (Auto) Baso % (Auto) Neut # (Auto) Lymph # (Auto) [place] # (Auto) Eos # (Auto) Baso # (Auto) WBC Differential Differential Comment Sodium 148 H Potassium 4.1 D Chloride 116 H Carbon Dioxide 22.6 Anion Gap 9 BUN 16 Creatinine 1.12 Estimated GFR 81 L POC Glucose 152 H 190 H Random Glucose 200 H D Calcium 7.5 L Phosphorus 2.8 Magnesium 2.0 Total Bilirubin 0.2 AST 27 ALT 23 Alkaline Phosphatase 129 H Total Protein 6.5 Albumin 1.8 L Vancomycin Trough 16.6 H 06/29/18 06/29/18 06/29/18 09:41 09:41 11:50 WBC 8.0 RBC 3.07 L Hgb 8.7 L Hct 25.3 L MCV 82.2 MCH 28.4 MCHC 34.6 RDW 19.4 H Plt Count 226 MPV 8.3 Neut % (Auto) 67.4 Lymph % (Auto) 20.8 [place] % (Auto) 7.1 Eos % (Auto) 4.1 H Baso % (Auto) 0.6 Neut # (Auto) 5.4 Lymph # (Auto) 1.7 [place] # (Auto) 0.6 Eos # (Auto) 0.3 Baso # (Auto) 0.0 WBC Differential . Differential Comment Auto diff final Sodium 145 Potassium 3.7 Chloride 114 H Carbon Dioxide 23.3 Anion Gap 8 BUN 14 Creatinine 1.07 Estimated GFR 85 L POC Glucose 211 H Random Glucose 163 H Calcium 8.0 L Phosphorus 2.8 Magnesium 1.8 Total Bilirubin 0.3 AST 29 ALT 24 Alkaline Phosphatase 134 H Total Protein 7.0 Albumin 2.0 L Vancomycin Trough - Procedures NONE Assessment and Plan - Assessment (1) Acute hypokalemia Code(s): E87.6 - Hypokalemia Status: Acute (2) Hypocalcemia Code(s): E83.51 - Hypocalcemia Status: Acute (3) Acute renal insufficiency Code(s): N28.9 - Disorder of kidney and ureter, unspecified Status: Acute (4) Urinary tract infection Code(s): N39.0 - Urinary tract infection, site not specified Status: Acute (5) Chronic indwelling Lennon catheter Code(s): Z92.89 - Personal history of other medical treatment Status: Acute (6) Lactic acidosis Code(s): E87.2 - Acidosis Status: Acute (7) Osteomyelitis Code(s): M86.9 - Osteomyelitis, unspecified Status: Suspected (8) Chronic ulcer of leg Code(s): L97.909 - Non-pressure chronic ulcer of unspecified part of unspecified lower leg with unspecified severity Status: Chronic (9) Elevated troponin Code(s): R74.8 - Abnormal levels of other serum enzymes Status: Acute (10) Clostridium difficile diarrhea Code(s): A04.72 - Enterocolitis due to Clostridium difficile, not specified as recurrent Status: Acute - Plan 58-year-old male admitted with hypokalemia, hypocalcemia, acute kidney injury, dehydration, hypernatremia, urinary tract infection, and severe edema of the feet with foot ulcers. Patient had acute kidney injury, dehydration, hyponatremia and lactic acidosis which improved with IV fluids and is now resolved. He also had heme positive stools, GI recommended medical management with no intervention at this time, blood counts are holding steady. 06/23/2018 = no new changes, no new complaints. Encourage participation with physical therapy. 06/24/18 = patient had weight participation with physical therapy, unable to determine if transfusion is necessary prior to discharge due to anemia affecting participation with rehab. We will plan to continue rehab, if not responding plan for discharge to SNF. 9-5 REPLACE K AND MAG AM LABS 9-6 REPLACE K 9-7 REPLACE K AND MAG AM LABS WILL NEED PICC FOR VANCO 9-8 NEEDS PICC FOR IV VANCO 9-9 to have PICC for IV Vanco Severe hypokalemia/ Hypocalcemia Potassium dropped again today, replaced, recheck in a.m. Calcium is stable We will need to replace the potassium again We will also replace magnesium Wants pills not liquid REPLACE AGAIN AM LABS BOTH POTASSIUM NEEDS REPLACEMENT Urinary tract infection secondary to chronic indwelling catheter with neurogenic bladder renal US with no obstruction urine culture positive for MRSA and enterococcus, continue vancomycin Repeat culture of urine positive for yeast, continue Diflucan Lennon changed 06/12 Bilateral foot ulcers History of osteomyelitis, but bone scan was inconclusive per radiology We will culture if it shows heavy growth PSAE/MRSA/enteroco MRI is inconclusive to commit to osteomyelitis, patient is a poor surgical candidate anyway due to severe PAD Appreciate podiatry consulting Appreciate infectious disease consult Continue on antibiotics per infectious disease Cdiff- Epid 027 diarrhea tapering Continue PO Vanco per ID We will will need p.o. Vanco for an extended period time History of DVT Patient has IVC filter Bilateral foot swelling Continuing Eliquis Failure to thrive Patient will need placement. Patient has been receiving care from home health care. CM consult for dc planning, likely SNF. Continue daily PT for strengthening NSTEMI Elevated trop in the setting of SIMON, pt. has no c/o CP, sob Coronary artery disease, [place], stents. -Appreciate card input, d/w Dr. Strong. Medical management for now, patient is in agreement. -continue ASA, statin, bb hx of CVA Right hemiplegia Continue supportive care, ASA, statin Diabetes mellitus type 2 Continue Accuchecks AC and HS with ISS + Lantus 15 units SQ BID Diabetic diet Anemia, thrombocytopenia Patient declined blood transfusions We will see how he does with activity during his PT sessions DVT Prophylaxis Eliquis Discharge Planning February D/C to SNF when ID and Podiatry clear left foot infection Code Status: DNR Discussed Condition With: RN and patient and case management Discharge Planning: We will more than likely need SNF at discharge (4) Urinary tract infection Qualifiers: Urinary tract infection type: catheter-associated UTI Indwelling urinary catheter type: indwelling urethral catheter Encounter type: initial encounter Qualified Code(s): T83.511A - Infection and inflammatory reaction due to indwelling urethral catheter, initial encounter; N39.0 - Urinary tract infection , site not specified (7) Osteomyelitis Qualifiers: Osteomyelitis type: other chronic Laterality: left (8) Chronic ulcer of leg Qualifiers: Laterality: unspecified laterality Non-pressure ulcer stage: unspecified non- pressure ulcer stage Qualified Code(s): L97.909 - Non-pressure chronic ulcer of unspecified part of unspecified lower leg with unspecified severity
[2018-06-29] MEDS ORDERED: Magnesium Sulfate Inj 2 GM in Sodium Chlor 0.9% Inj 96 ML IV.SIG ONE (13:47)
[2018-06-29] MEDS ORDERED: Heparin Central Flush 100 UNIT/ML 5 ML Vial IV.FLUSH PRN (15:47)
[2018-06-30 06:26] LABS: Baso % (Auto) 0.5 % (0.0-2.0); Eos # (Auto) 0.3 th/mm3 (0.0-0.4); Eos % (Auto) 3.7 % (0.0-4.0); Hematocrit 23.4 % (39.0-51.0); Hemoglobin 7.6 gm/dL (13.0-17.0); Lymph # (Auto) 1.8 th/mm3 (1.0-4.8); Lymph % (Auto) 22.2 % (9.0-44.0); Mean Corpuscular HGB Conc 32.3 % (32.0-36.0); Mean Corpuscular Hemoglobin 26.9 pg (27.0-34.0); Mean Corpuscular Volume 83.5 fL (80.0-100.0); Mean Platelet Volume 8.6 fL (7.0-11.0); Mono # (Auto) 0.6 th/mm3 (0.0-0.9); Mono % (Auto) 7.9 % (0.0-8.0); Neut # (Auto) 5.4 th/mm3 (1.8-7.7); Neut % (Auto) 65.7 % (16.0-70.0); Platelet Count 178 th/mm3 (150-450); Red Blood Count 2.81 mil/mm3 (4.50-5.90); Red Cell Distribution Width 18.8 % (11.6-17.2); White Blood Count 8.2 th/mm3 (4.0-11.0)
[2018-06-30 07:06] LABS: Alanine Aminotransferase 19 U/L (12-78); Albumin 1.6 g/dL (3.4-5.0); Alkaline Phosphatase 112 U/L (45-117); Anion Gap 7 meq/L (5-15); Aspartate Aminotransferase 20 U/L (15-37); Blood Urea Nitrogen 13 mg/dL (7-18); Calcium 7.4 mg/dL (8.5-10.1); Carbon Dioxide 22.1 meq/L (21.0-32.0); Chloride 118 meq/L (98-107); Glomerular Filtration Rate Greater Than 89 mL/min (>89); Glucose,Random 97 mg/dL (74-106); Magnesium 1.9 mg/dL (1.5-2.5); Phosphorus 2.8 mg/dL (2.5-4.9); Potassium 3.8 meq/L (3.5-5.1); Sodium 147 meq/L (136-145)
[2018-06-30] MEDS ORDERED: Heparin Central Flush 100 UNIT/ML 5 ML Vial IV.FLUSH SCH (09:00)
[2018-06-30] MEDS: Lactobacillus Acidophilus/L. Spores Tablet PO SCH ×2 (09:18→13:01)
[2018-06-30] MEDS: Gabapentin 300 MG Capsule PO SCH (09:18)
[2018-06-30] MEDS: Ascorbic Acid 500 MG Tablet PO SCH (09:18)
[2018-06-30] MEDS: Insulin NovoLOG Aspart Correctional Sugar Inj SQ SCH ×2 (09:19→13:12)
[2018-06-30] MEDS: Ferrous Sulfate 325 MG Tablet PO SCH ×2 (09:19→13:01)
[2018-06-30] MEDS: Fluconazole 100 MG Tablet PO SCH (09:19)
[2018-06-30] MEDS: amLODIPine 10 MG Tablet PO SCH (09:19)
[2018-06-30] MEDS: Insulin Detemir Inj 1,000 UNIT/10 ML Vial SQ SCH (09:19)
--- NOTE | 2018-06-30 12:20 | P.DCO ---
Post Hospital Infusion Therapy Location of Infusion Therapy: [facility] Infusion Therapy Order Patient Weight: 132.1 kg - Diagnosis (1) Osteomyelitis Code(s): M86.9 - Osteomyelitis, unspecified (2) Diabetic foot ulcer Code(s): E11.621 - Type 2 diabetes mellitus with foot ulcer; L97.509 - Non- pressure chronic ulcer of other part of unspecified foot with unspecified severity - Administer Medication Vancomycin Dose: 1 gram IV Directions: q 24 hours Start Treatment: 06/30/18 Stop Treatment: 09/05/18 - Additional Information Venous Access: PICC Line Additional Instructions: [x] Peripheral flush and dressing changes per protocol [x] 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 [] May leave port accessed during therapy. [] May leave peripheral site accessed for duration of therapy. [x] If patient has SOB or respiratory distress, check oxygen saturation. If less than 90% or clinical signs of respiratory distress, administer oxygen at 2 L/min. via nasal cannula and notify physician. [x] Anaphylaxis/Reaction orders: * Stop infusion. * Keep IV line open with saline flush. * Notify physician. * Monitor vital signs every 15 minutes until symptoms resolve. * Check Oxygen saturation; Oxygen at 2 L/min. via nasal cannula if less than 90% or clinical signs of respiratory distress. * Administer diphenhydramine (Benadryl) 25 mg IV STAT, (unless patient has received as pre-med). May repeat once, if necessary. * Solu-Cortef 250 mg IVP over 30-60 seconds, use 100 mg vials for each dissolution. * Epinephrine (1mg/1 ml) 0.3 mg subcutaneously or IVP now with any signs of respiratory distress. * Check with physician for new additional pre-med orders if patient is re- challenged or re-treated. [x] May remove PICC line when treatment complete, after confirming with Physician. [x] If the patient is admitted to the hospital, the ED, or transferred via [facility] , complete transfer form including medication reconciliation order sheet. Weekly Labs: CBC w/diff, Creatinine, CRP, SED Rate, Vancomycin Trough Allergies No Known Allergies Allergy (Unverified 06/11/18 11:16) (1) Osteomyelitis Qualifiers: Osteomyelitis type: other chronic Laterality: left (2) Diabetic foot ulcer Qualifiers: Diabetic foot ulcer location: other Diabetes mellitus type: type 2 Laterality: unspecified laterality Non-pressure ulcer stage: limited to breakdown of skin Qualified Code(s): E11.621 - Type 2 diabetes mellitus with foot ulcer; L97.501 - Non-pressure chronic ulcer of other part of unspecified foot limited to breakdown of skin
--- NOTE | 2018-06-30 12:51 | P.PNIM ---
Subjective Interval history: 9-5 Patient not participating much with physical therapy Will probably need SNF at discharge Continue conservative care and wound care Discussed with patient and RN and case management We will replace potassium and magnesium AM LABS 9-6 REPLACE POTASSIUM AM LABS RECONSULT ID DW PATIENT AND RN AND CM 9-7 REPLACE POTASSIUM AND MAGNESIUM NEEDS VANCO IV FOR 6 WEEKS NEEDS PO VANCO NEEDS A PICC TO GO TO SNF AM LABS CONSULT VASCULAR ACCESS 9-8 STILL NEEDS PICC BEFORE DC HYPOKALEMIA WILL REPLACE AGAIN HYPOMAGNESIA WILL REPLACE AGAIN CONTINUE PO AND IV VANCO INCREASE ACTIVITY WILL NEED SNF AT DC HAD HYPOGLYCEMIA ADJUST LEVEMIR TO 17 IN AM 10 AT PM 9-9 blood sugars are now more elevated no more hypoglycemia will increase the p.m. Levemir to 12 units now Potassium is stable at this time magnesium is borderline A.m. lab To have PICC line placed today 10 HAS BEEN CLEARED BY ID PICC LINE IN PLACE IN LEFT UE WANTS TO GO TO SNF DC TO SNF TODAY ANTIBIOTICS PER ID VANCO PER ID Physical Exam Vital signs: Vital Signs 06/29/18 16:00 06/29/18 20:00 06/29/18 23:48 Temperature 98.6 F 98.2 F Pulse Rate 74 81 71 Respiratory Rate 21 18 Blood Pressure 141/67 H 153/74 H Pulse Oximetry 99 97 06/30/18 00:00 06/30/18 03:44 06/30/18 04:00 Temperature 98.6 F 98.1 F Pulse Rate 70 64 65 Respiratory Rate 18 18 Blood Pressure 141/67 H 128/61 Pulse Oximetry 99 99 06/30/18 08:00 06/30/18 12:00 Temperature 97.8 F 97.9 F Pulse Rate 62 66 Respiratory Rate 16 29 H Blood Pressure 111/58 L 114/60 Pulse Oximetry 100 100 Intake & Output 06/29/18 06/30/18 06/30/18 18:59 06:59 18:59 Intake Total 580 / 580 240 / 240 Output Total 1000 / 1000 1200 / 1200 Balance -420 / -420 -960 / -960 Weight 132.1 kg 132.1 kg Intake: IV 100 / 100 Magnesium Sulfate Inj 2 GM In 100 / 100 NS Inj 96 ML @ 50 mls/hr IV.SIG ONCE ONE Rx#:[id number] Oral 480 / 480 240 / 240 Output: Urine 1000 / 1000 Urine Amount (Catheter) 1200 / 1200 Indwelling Urethral Catheter 1200 / 1200 Other: Date of Last Bowel Movement 06/29/18 06/30/18 # Bowel Movements 2 3 Narrative: GENERAL: AAOx3, no acute distress, weak appearing SKIN: Warm and dry. No rashes --bilateral feet dressed HEAD: Atruamtic, normocephalic. EYES: No scleral icterus. No injection or drainage. ENT: Moist mucous membranes, patent nares, no erythema of oropharynx. NECK: Supple, trachea midline. No JVD or lymphadenopathy. Normal thyroid. CARDIOVASCULAR: Regular rate and rhythm. No murmurs, gallops, or rubs. RESPIRATORY: Breath sounds clear equal bilaterally. No crackles or wheezes. No accessory muscle use. GASTROINTESTINAL: Abdomen soft, non-tender, nondistended, normal active bowel sounds MUSCULOSKELETAL: No cyanosis, or edema. NEURO: CN II-XII grossly intact, no focal deficits, no slurring of speech - Urinary Catheter Management Indwelling Temp Sensing Catheter Cath placed during this visit: yes, but has since been removed by the nurse Urethral indwelling: Yes Reason for continuing: Chronic Urinary Retention Removal date: 06/12/18 Removal time: 17:00 Indwelling Urethral Catheter Cath placed during this visit: yes Reason for continuing: Acute urinary retention Insertion date: 06/12/18 Insertion time: 17:45 Results - Labs CBC & Chem 7: 06/30/18 05:29 06/30/18 05:29 Laboratory Results - last 24 hr 06/29/18 06/30/18 06/30/18 20:01 05:29 05:29 WBC 8.2 RBC 2.81 L Hgb 7.6 L Hct 23.4 L MCV 83.5 MCH 26.9 L MCHC 32.3 RDW 18.8 H Plt Count 178 MPV 8.6 Neut % (Auto) 65.7 Lymph % (Auto) 22.2 [place] % (Auto) 7.9 Eos % (Auto) 3.7 Baso % (Auto) 0.5 Neut # (Auto) 5.4 Lymph # (Auto) 1.8 [place] # (Auto) 0.6 Eos # (Auto) 0.3 Baso # (Auto) 0.0 WBC Differential . Differential Comment Auto diff final Sodium 147 H Potassium 3.8 Chloride 118 H Carbon Dioxide 22.1 Anion Gap 7 BUN 13 Creatinine 0.94 Estimated GFR Greater than 89 POC Glucose 238 H Random Glucose 97 Calcium 7.4 L* Prot Corrected Calcium 8.0 L Phosphorus 2.8 Magnesium 1.9 Total Bilirubin 0.2 AST 20 ALT 19 Alkaline Phosphatase 112 Total Protein 6.0 L D Albumin 1.6 L 06/30/18 08:06 WBC RBC Hgb Hct MCV MCH MCHC RDW Plt Count MPV Neut % (Auto) Lymph % (Auto) [place] % (Auto) Eos % (Auto) Baso % (Auto) Neut # (Auto) Lymph # (Auto) [place] # (Auto) Eos # (Auto) Baso # (Auto) WBC Differential Differential Comment Sodium Potassium Chloride Carbon Dioxide Anion Gap BUN Creatinine Estimated GFR POC Glucose 74 Random Glucose Calcium Prot Corrected Calcium Phosphorus Magnesium Total Bilirubin AST ALT Alkaline Phosphatase Total Protein Albumin - Imaging Chest X-Ray 06/11/18 12:06 CONCLUSION: Negative for acute process Foot X-Ray 06/11/18 12:06 CONCLUSION: Probable osteomyelitis metatarsal heads. Tagged white cell study would be of benefit. Foot X-Ray 06/11/18 12:06 CONCLUSION: Severe osteopenia without obvious osteomyelitis. Tagged white cell study may help. Abdomen/Bladder Ultrasound 06/12/18 00:00 CONCLUSION: 1. Unremarkable and stable bilateral renal ultrasound. 2. No evidence of hydronephrosis. Venous Doppler Study 06/12/18 00:00 CONCLUSION: 1. Deep venous thrombosis in both lower extremities. SPECT Scan-Bone NM 06/14/18 00:00 CONCLUSION: 1. There is abnormal increased blood flow, blood pool, and uptake within the tarsal bones of the left foot, most prominently the medial cuneiform. This finding is nonspecific but could indicate osteomyelitis. Consider correlating with white cell scan, gallium scan, or MRI with and without intravenous contrast to have a more specific diagnosis. 2. No abnormal blood flow or uptake is identified in the abnormal metatarsal heads are reported on the recent left foot x-ray performed 3 days ago. 3. There is severe diffuse subcutaneous edema in the legs and feet bilaterally with severe undermineralization of the bones. Foot MRI 06/21/18 00:00 CONCLUSION: 1. Extensive soft tissue edema and swelling without abscess. 2. Fracture of the base of the first metatarsal bone. 3. Edema of the distal portion of the fourth metatarsal bone with enhancement and is also edema involving the cuboid and medial cuneiform. These could be posttraumatic change, however osteomyelitis of the fourth distal metatarsal bone is difficult to exclude. Bony structures are extremely osteopenic. - Procedures LEFT UE PICC Assessment and Plan - Assessment (1) Acute hypokalemia Code(s): E87.6 - Hypokalemia Status: Acute (2) Hypocalcemia Code(s): E83.51 - Hypocalcemia Status: Acute (3) Acute renal insufficiency Code(s): N28.9 - Disorder of kidney and ureter, unspecified Status: Acute (4) Urinary tract infection Code(s): N39.0 - Urinary tract infection, site not specified Status: Acute (5) Chronic indwelling Lennon catheter Code(s): Z92.89 - Personal history of other medical treatment Status: Acute (6) Lactic acidosis Code(s): E87.2 - Acidosis Status: Acute (7) Osteomyelitis Code(s): M86.9 - Osteomyelitis, unspecified Status: Suspected (8) Chronic ulcer of leg Code(s): L97.909 - Non-pressure chronic ulcer of unspecified part of unspecified lower leg with unspecified severity Status: Chronic (9) Elevated troponin Code(s): R74.8 - Abnormal levels of other serum enzymes Status: Acute (10) Clostridium difficile diarrhea Code(s): A04.72 - Enterocolitis due to Clostridium difficile, not specified as recurrent Status: Acute - Plan 58-year-old male admitted with hypokalemia, hypocalcemia, acute kidney injury, dehydration, hypernatremia, urinary tract infection, and severe edema of the feet with foot ulcers. Patient had acute kidney injury, dehydration, hyponatremia and lactic acidosis which improved with IV fluids and is now resolved. He also had heme positive stools, GI recommended medical management with no intervention at this time, blood counts are holding steady. 06/23/2018 = no new changes, no new complaints. Encourage participation with physical therapy. 06/24/18 = patient had weight participation with physical therapy, unable to determine if transfusion is necessary prior to discharge due to anemia affecting participation with rehab. We will plan to continue rehab, if not responding plan for discharge to SNF. 9-5 REPLACE K AND MAG AM LABS 9-6 REPLACE K 9-7 REPLACE K AND MAG AM LABS WILL NEED PICC FOR VANCO 9-8 NEEDS PICC FOR IV VANCO 9-9 to have PICC for IV Vanco 9-10 HAD PICC LINE PLACED Severe hypokalemia/ Hypocalcemia Potassium dropped again today, replaced, recheck in a.m. Calcium is stable We will need to replace the potassium again We will also replace magnesium Wants pills not liquid REPLACE AGAIN AM LABS BOTH POTASSIUM NEEDS REPLACEMENT STABLE AT THIS TIME Urinary tract infection secondary to chronic indwelling catheter with neurogenic bladder renal US with no obstruction urine culture positive for MRSA and enterococcus, continue vancomycin Repeat culture of urine positive for yeast, continue Diflucan Lennon changed 06/12 Bilateral foot ulcers History of osteomyelitis, but bone scan was inconclusive per radiology We will culture if it shows heavy growth PSAE/MRSA/enteroco MRI is inconclusive to commit to osteomyelitis, patient is a poor surgical candidate anyway due to severe PAD Appreciate podiatry consulting Appreciate infectious disease consult Continue on antibiotics per infectious disease Cdiff- Epid 027 diarrhea tapering Continue PO Vanco per ID We will will need p.o. Vanco for an extended period time History of DVT Patient has IVC filter Bilateral foot swelling Continuing Eliquis Failure to thrive Patient will need placement. Patient has been receiving care from home health care. CM consult for dc planning, likely SNF. Continue daily PT for strengthening NSTEMI Elevated trop in the setting of SIM[facility], pt. has no c/o CP, sob Coronary artery disease, [place], stents. -Appreciate card input, d/w Dr. Strong. Medical management for now, patient is in agreement. -continue ASA, statin, bb hx of CVA Right hemiplegia Continue supportive care, ASA, statin Diabetes mellitus type 2 Continue Accuchecks AC and HS with ISS + Lantus 15 units SQ BID Diabetic diet Anemia, thrombocytopenia Patient declined blood transfusions We will see how he does with activity during his PT sessions DVT Prophylaxis Eliquis Discharge Planning May D/C to SNF when ID and Podiatry clear left foot infection Code Status: DNR Discussed Condition With: RN AND PT AND CM Discharge Planning: DC TO SNF at discharge TODAY (4) Urinary tract infection Qualifiers: Urinary tract infection type: catheter-associated UTI Indwelling urinary catheter type: indwelling urethral catheter Encounter type: initial encounter Qualified Code(s): T83.511A - Infection and inflammatory reaction due to indwelling urethral catheter, initial encounter; N39.0 - Urinary tract infection , site not specified (7) Osteomyelitis Qualifiers: Osteomyelitis type: other chronic Laterality: left (8) Chronic ulcer of leg Qualifiers: Laterality: unspecified laterality Non-pressure ulcer stage: unspecified non- pressure ulcer stage Qualified Code(s): L97.909 - Non-pressure chronic ulcer of unspecified part of unspecified lower leg with unspecified severity
[2018-06-30] MEDS: Vancomycin Inj 1,500 MG in Sodium Chlor 0.9% Inj 500 ML IV.SIG SCH (12:58)
--- NOTE | 2018-06-30 13:05 | P.DS ---
Date of admission: 06/11/18 14:56 Primary care physician: Tommie Harrell MD Attending physician on discharge: Vitaly Goodman Anticipated date of discharge: 06/30/18 Brief History from admission: Mr. Jerry is a 58-year-old male. He lives home alone. He has been followed by [facility]. [facility] brought this patient in today for placement. Workup upon patient' s arrival revealed bilateral foot swelling and ulcers. When blood testing was done he is found to be severely hypokalemic and hypocalcemic. He also has evidence of acute kidney injury and hypernatremia. Dehydration may be present. He has a urinary tract infection. Some foot ulcers may have early infection. At baseline he has chronic osteomyelitis. Evidence of ostium mellitus is seen on imaging. Patient update on day of discharge: 9-5 Patient not participating much with physical therapy Will probably need SNF at discharge Continue conservative care and wound care Discussed with patient and RN and case management We will replace potassium and magnesium AM LABS 9-6 REPLACE POTASSIUM AM LABS RECONSULT ID DW PATIENT AND RN AND CM 9-7 REPLACE POTASSIUM AND MAGNESIUM NEEDS VANCO IV FOR 6 WEEKS NEEDS PO VANCO NEEDS A PICC TO GO TO SNF AM LABS CONSULT VASCULAR ACCESS 9-8 STILL NEEDS PICC BEFORE DC HYPOKALEMIA WILL REPLACE AGAIN HYPOMAGNESIA WILL REPLACE AGAIN CONTINUE PO AND IV VANCO INCREASE ACTIVITY WILL NEED SNF AT DC HAD HYPOGLYCEMIA ADJUST LEVEMIR TO 17 IN AM 10 AT PM 9-9 blood sugars are now more elevated no more hypoglycemia will increase the p.m. Levemir to 12 units now Potassium is stable at this time magnesium is borderline A.m. lab To have PICC line placed today 9-10 HAS BEEN CLEARED BY ID PICC LINE IN PLACE IN LEFT UE WANTS TO GO TO SNF DC TO SNF TODAY ANTIBIOTICS PER ID VANCO PER ID DS: Diagnosis - Discharge Diagnosis (1) Acute hypokalemia Status: Acute (2) Hypocalcemia Status: Chronic (3) Acute renal insufficiency Status: Acute (4) Urinary tract infection Status: Acute (5) Chronic indwelling Lennon catheter Status: Chronic (6) Lactic acidosis Status: Chronic (7) Osteomyelitis Status: Suspected (8) Chronic ulcer of leg Status: Chronic (9) Elevated troponin Status: Acute (10) Clostridium difficile diarrhea Status: Chronic DS: Medications - Discharge Medications Prescriptions: hydrocodone-acetaminophen 1 tab PO Q4H PRN #18 tab PRN Reason: Pain 3 to 6 vancomycin 500 mg PO QID #168 ea DS: Summary Hospital Course: Mr. Jerry is a 58-year-old male. He lives home alone. He has been followed by [facility]. [facility] brought this patient in today for placement. Workup upon patient' s arrival revealed bilateral foot swelling and ulcers. When blood testing was done he is found to be severely hypokalemic and hypocalcemic. He also has evidence of acute kidney injury and hypernatremia. Dehydration may be present. He has a urinary tract infection. Some foot ulcers may have early infection. At baseline he has chronic osteomyelitis. Evidence of ostium mellitus is seen on imaging. 9-5 Patient not participating much with physical therapy Will probably need SNF at discharge Continue conservative care and wound care Discussed with patient and RN and case management We will replace potassium and magnesium AM LABS 9-6 REPLACE POTASSIUM AM LABS RECONSULT ID DW PATIENT AND RN AND CM 9-7 REPLACE POTASSIUM AND MAGNESIUM NEEDS VANCO IV FOR 6 WEEKS NEEDS PO VANCO NEEDS A PICC TO GO TO SNF AM LABS CONSULT VASCULAR ACCESS 9-8 STILL NEEDS PICC BEFORE DC HYPOKALEMIA WILL REPLACE AGAIN HYPOMAGNESIA WILL REPLACE AGAIN CONTINUE PO AND IV VANCO INCREASE ACTIVITY WILL NEED SNF AT DC HAD HYPOGLYCEMIA ADJUST LEVEMIR TO 17 IN AM 10 AT PM 9-9 blood sugars are now more elevated no more hypoglycemia will increase the p.m. Levemir to 12 units now Potassium is stable at this time magnesium is borderline A.m. lab To have PICC line placed today 9-10 HAS BEEN CLEARED BY ID PICC LINE IN PLACE IN LEFT UE WANTS TO GO TO SNF DC TO SNF TODAY ANTIBIOTICS PER ID VANCO PER ID - Time Spent with Patient Total time spent providing and/or coordinating discharge services: Greater than 30 minutes - Quality: VTE Deep Vein Thrombosis/Pulmonary Embolism Present on Admission: No Exam Vital signs: Vital Signs 06/29/18 16:00 06/29/18 20:00 06/29/18 23:48 Temperature 98.6 F 98.2 F Pulse Rate 74 81 71 Respiratory Rate 21 18 Blood Pressure 141/67 H 153/74 H Pulse Oximetry 99 97 06/30/18 00:00 06/30/18 03:44 06/30/18 04:00 Temperature 98.6 F 98.1 F Pulse Rate 70 64 65 Respiratory Rate 18 18 Blood Pressure 141/67 H 128/61 Pulse Oximetry 99 99 06/30/18 08:00 06/30/18 12:00 Temperature 97.8 F 97.9 F Pulse Rate 62 66 Respiratory Rate 16 29 H Blood Pressure 111/58 L 114/60 Pulse Oximetry 100 100 Intake & Output 06/29/18 06/30/18 06/30/18 18:59 06:59 18:59 Intake Total 580 / 580 240 / 240 Output Total 1000 / 1000 1200 / 1200 Balance -420 / -420 -960 / -960 Weight 132.1 kg 132.1 kg Intake: IV 100 / 100 Magnesium Sulfate Inj 2 GM In 100 / 100 NS Inj 96 ML @ 50 mls/hr IV.SIG ONCE ONE Rx#:[id number] Oral 480 / 480 240 / 240 Output: Urine 1000 / 1000 Urine Amount (Catheter) 1200 / 1200 Indwelling Urethral Catheter 1200 / 1200 Other: Date of Last Bowel Movement 06/29/18 06/30/18 # Bowel Movements 2 3 Narrative: GENERAL: AAOx3, no acute distress, weak appearing SKIN: Warm and dry. No rashes --bilateral feet dressed HEAD: Atruamtic, normocephalic. EYES: No scleral icterus. No injection or drainage. ENT: Moist mucous membranes, patent nares, no erythema of oropharynx. NECK: Supple, trachea midline. No JVD or lymphadenopathy. Normal thyroid. CARDIOVASCULAR: Regular rate and rhythm. No murmurs, gallops, or rubs. RESPIRATORY: Breath sounds clear equal bilaterally. No crackles or wheezes. No accessory muscle use. GASTROINTESTINAL: Abdomen soft, non-tender, nondistended, normal active bowel sounds MUSCULOSKELETAL: No cyanosis, or edema. NEURO: CN II-XII grossly intact, no focal deficits, no slurring of speech Results Procedures completed during hospitalization: LEFT UE PICC Completed studies during hospitalization: Laboratory Results WBC 8.2 th/mm3 (4.0-11.0) 06/30/18 05:29 RBC 2.81 mil/mm3 (4.50-5.90) L 06/30/18 05:29 Hgb 7.6 gm/dL (13.0-17.0) L 06/30/18 05:29 Hct 23.4 % (39.0-51.0) L 06/30/18 05:29 MCV 83.5 fL (80.0-100.0) 06/30/18 05:29 MCH 26.9 pg (27.0-34.0) L 06/30/18 05:29 MCHC 32.3 % (32.0-36.0) 06/30/18 05:29 RDW 18.8 % (11.6-17.2) H 06/30/18 05:29 Plt Count 178 th/mm3 (150-450) 06/30/18 05:29 MPV 8.6 fL (7.0-11.0) 06/30/18 05:29 Neut % (Auto) 65.7 % (16.0-70.0) 06/30/18 05:29 Lymph % (Auto) 22.2 % (9.0-44.0) 06/30/18 05:29 Schleicher % (Auto) 7.9 % (0.0-8.0) 06/30/18 05:29 Eos % (Auto) 3.7 % (0.0-4.0) 06/30/18 05:29 Baso % (Auto) 0.5 % (0.0-2.0) 06/30/18 05:29 Neut # (Auto) 5.4 th/mm3 (1.8-7.7) 06/30/18 05:29 Lymph # (Auto) 1.8 th/mm3 (1.0-4.8) 06/30/18 05:29 Schleicher # (Auto) 0.6 th/mm3 (0.0-0.9) 06/30/18 05:29 Eos # (Auto) 0.3 th/mm3 (0.0-0.4) 06/30/18 05:29 Baso # (Auto) 0.0 th/mm3 (0.0-0.2) 06/30/18 05:29 WBC Differential . 06/30/18 05:29 Differential Comment Auto diff final 06/30/18 05:29 ESR 47 mm/hr (0-20) H 06/13/18 09:59 Sodium 147 meq/L (136-145) H 06/30/18 05:29 Potassium 3.8 meq/L (3.5-5.1) 06/30/18 05:29 Chloride 118 meq/L (98-107) H 06/30/18 05:29 Carbon Dioxide 22.1 meq/L (21.0-32.0) 06/30/18 05:29 Anion Gap 7 meq/L (5-15) 06/30/18 05:29 BUN 13 mg/dL (7-18) 06/30/18 05:29 Creatinine 0.94 mg/dL (0.60-1.30) 06/30/18 05:29 Estimated GFR Greater than 89 mL/min (>89) 06/30/18 05:29 POC Glucose 74 mg/dl (68-110) 06/30/18 08:06 Random Glucose 97 mg/dL (74-106) 06/30/18 05:29 Hemoglobin A1c 6.7 % (4.3-6.0) H 06/25/18 13:41 Lactic Acid 1.6 mmol/L (0.4-2.0) 06/12/18 14:40 Calcium 7.4 mg/dL (8.5-10.1) L* 06/30/18 05:29 Prot Corrected Calcium 8.0 mg/dL (8.5-10.1) L 06/30/18 05:29 Phosphorus 2.8 mg/dL (2.5-4.9) 06/30/18 05:29 Magnesium 1.9 mg/dL (1.5-2.5) 06/30/18 05:29 Iron 22 mcg/dL (65-175) L 06/18/18 22:22 TIBC 167 mcg/dL (250-450) L 06/18/18 22:22 % Saturation 13.2 % (20-50) L 06/18/18 22:22 Ferritin 393 ng/mL (26-388) H 06/18/18 22:22 Total Bilirubin 0.2 mg/dL (0.2-1.0) 06/30/18 05:29 AST 20 U/L (15-37) 06/30/18 05:29 ALT 19 U/L (12-78) 06/30/18 05:29 Alkaline Phosphatase 112 U/L (45-117) 06/30/18 05:29 Troponin I 0.77 ng/mL (0.02-0.05) H* 06/12/18 11:08 C-Reactive Protein 3.10 mg/dL (0.00-0.30) H 06/13/18 09:59 B-Natriuretic Peptide 66 pg/mL (0-100) 06/11/18 12:26 Total Protein 6.0 g/dL (6.4-8.2) L D 06/30/18 05:29 Albumin 1.6 g/dL (3.4-5.0) L 06/30/18 05:29 Vitamin B12 269 pg/mL (193-986) 06/18/18 22:22 Vit D 1,25-Dihydroxy 20 pg/mL (18-64) 06/16/18 Unknown Folate 5.3 ng/mL (3.1-17.5) 06/18/18 22:22 TSH 3.620 uIU/mL (0.358-3.740) 06/25/18 13:41 Free T4 0.91 ng/dL (0.76-1.46) 06/25/18 13:41 PTH Intact 146.8 pg/mL (12.4-76.8) H 06/16/18 05:08 Urine Color Yellow (Yellw/Straw) 06/14/18 12:38 Urine Clarity Cloudy (Clear) H 06/14/18 12:38 Urine pH 6.0 (5.0-8.5) 06/14/18 12:38 Ur Specific [place] 1.020 (1.002-1.035) 06/14/18 12:38 Urine Protein 100 mg/dL (Neg-Trace) H 06/14/18 12:38 Urine Glucose (UA) Negative mg/dL (Negative) 06/14/18 12:38 Urine Ketones Negative mg/dL (Negative) 06/14/18 12:38 Urine Occult Blood Small (Negative) H 06/14/18 12:38 Urine Nitrate Negative (Negative) 06/14/18 12:38 Urine Bilirubin Negative (Negative) 06/14/18 12:38 Urine Ictotest Negative (Negative) 06/11/18 12:30 Urine Urobilinogen Less than 2 mg/dL (Less than 2) 06/14/18 12:38 Ur Leukocyte Esterase Large (Negative) H 06/14/18 12:38 Urine RBC 6 /hpf (0-3) H 06/14/18 12:38 Urine WBC 120 /hpf (0-5) H 06/14/18 12:38 Urine WBC Clumps Few (None) H 06/14/18 12:38 Ur Squamous Epith Cells <1 /hpf (0-5) 06/14/18 12:38 Urine Bacteria Moderate /hpf (None) H 06/14/18 12:38 Urine Mucus Few /lpf (Occasional) H 06/14/18 12:38 Urine Yeast Moderate /hpf (None) H 06/14/18 12:38 Micro UA Comment Cath-culture ind 06/14/18 12:38 Ur Microscopic Review Not Reportable 06/14/18 12:38 Urine Culture Comments Cath-cult indicated 06/14/18 12:38 Stl C.difficile Tox PCR Positive (Negative) H 06/11/18 23:30 St C. diff Tox Epid 027 Positive (Negative) H 06/11/18 23:30 Vancomycin Trough 16.6 mcg/mL (5.0-10.0) H 06/28/18 22:55 Impressions Chest X-Ray 06/11/18 12:06 CONCLUSION: Negative for acute process Foot X-Ray 06/11/18 12:06 CONCLUSION: Probable osteomyelitis metatarsal heads. Tagged white cell study would be of benefit. Abdomen/Bladder Ultrasound 06/12/18 00:00 CONCLUSION: 1. Unremarkable and stable bilateral renal ultrasound. 2. No evidence of hydronephrosis. Venous Doppler Study 06/12/18 00:00 CONCLUSION: 1. Deep venous thrombosis in both lower extremities. SPECT Scan-Bone NM 06/14/18 00:00 CONCLUSION: 1. There is abnormal increased blood flow, blood pool, and uptake within the tarsal bones of the left foot, most prominently the medial cuneiform. This finding is nonspecific but could indicate osteomyelitis. Consider correlating with white cell scan, gallium scan, or MRI with and without intravenous contrast to have a more specific diagnosis. 2. No abnormal blood flow or uptake is identified in the abnormal metatarsal heads are reported on the recent left foot x-ray performed 3 days ago. 3. There is severe diffuse subcutaneous edema in the legs and feet bilaterally with severe undermineralization of the bones. Foot MRI 06/21/18 00:00 CONCLUSION: 1. Extensive soft tissue edema and swelling without abscess. 2. Fracture of the base of the first metatarsal bone. 3. Edema of the distal portion of the fourth metatarsal bone with enhancement and is also edema involving the cuboid and medial cuneiform. These could be posttraumatic change, however osteomyelitis of the fourth distal metatarsal bone is difficult to exclude. Bony structures are extremely osteopenic. Labs on day of discharge: Labs from last 24 hours 06/30/18 06/30/18 06/30/18 08:06 05:29 05:29 WBC 8.2 RBC 2.81 L Hgb 7.6 L Hct 23.4 L MCV 83.5 MCH 26.9 L MCHC 32.3 RDW 18.8 H Plt Count 178 MPV 8.6 Neut % (Auto) 65.7 Lymph % (Auto) 22.2 Schleicher % (Auto) 7.9 Eos % (Auto) 3.7 Baso % (Auto) 0.5 Neut # (Auto) 5.4 Lymph # (Auto) 1.8 Schleicher # (Auto) 0.6 Eos # (Auto) 0.3 Baso # (Auto) 0.0 WBC Differential . Differential Comment Auto diff final Sodium 147 H Potassium 3.8 Chloride 118 H Carbon Dioxide 22.1 Anion Gap 7 BUN 13 Creatinine 0.94 Estimated GFR Greater than 89 POC Glucose 74 Random Glucose 97 Calcium 7.4 L* Prot Corrected Calcium 8.0 L Phosphorus 2.8 Magnesium 1.9 Total Bilirubin 0.2 AST 20 ALT 19 Alkaline Phosphatase 112 Total Protein 6.0 L D Albumin 1.6 L 06/29/18 20:01 WBC RBC Hgb Hct MCV MCH MCHC RDW Plt Count MPV Neut % (Auto) Lymph % (Auto) Schleicher % (Auto) Eos % (Auto) Baso % (Auto) Neut # (Auto) Lymph # (Auto) Schleicher # (Auto) Eos # (Auto) Baso # (Auto) WBC Differential Differential Comment Sodium Potassium Chloride Carbon Dioxide Anion Gap BUN Creatinine Estimated GFR POC Glucose 238 H Random Glucose Calcium Prot Corrected Calcium Phosphorus Magnesium Total Bilirubin AST ALT Alkaline Phosphatase Total Protein Albumin - Impressions ITS Impressions Chest X-Ray 06/11/18 12:06 CONCLUSION: Negative for acute process Foot X-Ray 06/11/18 12:06 CONCLUSION: Probable osteomyelitis metatarsal heads. Tagged white cell study would be of benefit. Abdomen/Bladder Ultrasound 06/12/18 00:00 CONCLUSION: 1. Unremarkable and stable bilateral renal ultrasound. 2. No evidence of hydronephrosis. Venous Doppler Study 06/12/18 00:00 CONCLUSION: 1. Deep venous thrombosis in both lower extremities. SPECT Scan-Bone NM 06/14/18 00:00 CONCLUSION: 1. There is abnormal increased blood flow, blood pool, and uptake within the tarsal bones of the left foot, most prominently the medial cuneiform. This finding is nonspecific but could indicate osteomyelitis. Consider correlating with white cell scan, gallium scan, or MRI with and without intravenous contrast to have a more specific diagnosis. 2. No abnormal blood flow or uptake is identified in the abnormal metatarsal heads are reported on the recent left foot x-ray performed 3 days ago. 3. There is severe diffuse subcutaneous edema in the legs and feet bilaterally with severe undermineralization of the bones. Foot MRI 06/21/18 00:00 CONCLUSION: 1. Extensive soft tissue edema and swelling without abscess. 2. Fracture of the base of the first metatarsal bone. 3. Edema of the distal portion of the fourth metatarsal bone with enhancement and is also edema involving the cuboid and medial cuneiform. These could be posttraumatic change, however osteomyelitis of the fourth distal metatarsal bone is difficult to exclude. Bony structures are extremely osteopenic. Discharge Plan - Discharge Disposition Patient Disposition: 03 Discharge to SNF - Discharge Condition Condition: Stable - Discharge Order Discharge Orders: Discharge Order (Routine); Ordered 06/30/18 Ordered By: Vitaly Goodman - Discharge Details Anticipated Discharge Date: 06/30/18 Discharge Comment: DC TO SNF TODAY - Physicians Team Primary Care Provider: Tommie Harrell V Attending Provider: Vitaly Goodman Other Providers: Deandre Busby MD ; Jerri Jefferson DPM ; Lala Crum MD ; [employer] ; Jomar Robertson MD ; [facility] [place]
== END 2018-06-30 14:56 ==
LOC: NEPC 11:04 → NEDA 14:56 → N04 16:30
PROVIDERS: ADMIT Hospitalist; ATTEND Hospitalist